=== PATIENT | female | born 1945 | race Caucasian/White ===

== ENCOUNTER 2020-02-22 07:32 | Outpatient (REF) | payer MEDICARE, BC, SELFPAY ==
[2020-02-22 11:07] LABS: MANUAL DIFF FLAG NO
[2020-02-22 11:24] LABS: Basophils Absolute Auto 0.1 X10*3/uL (0.0-0.2); Basophils Percent Auto 1.1 % (0-2); Eosinophils Absolute Auto 0.6 X10*3/uL (0.0-0.4); Eosinophils Percent Auto 7.6 % (0-4); Hematocrit 39.9 % (37-47); Hemoglobin 13.5 g/dl (12.0-16.0); Imm Gran Abs Auto 0.03 X10*3/uL (0.00-0.03); Imm Gran Pct Auto 0.4 % (0.0-0.4); Lymphocytes Absolute Auto 2.4 X10*3/uL (1.2-4.9); Lymphocytes Percent Auto 28.8 % (20-40); Mean Corpuscular HGB Conc 33.8 g/dl (31.0-35.0); Mean Corpuscular Hemoglobin 29.6 pg (27.0-33.0); Mean Corpuscular Volume 87.5 fL (80-98); Monocytes Absolute Auto 0.6 X10*3/uL (0.1-1.2); Monocytes Percent Auto 7.2 % (2-11); Neutrophils Absolute Auto 4.6 X10*3/uL (2.0-8.3); Neutrophils Percent Auto 54.9 % (45-73); Platelet Count 217 X10*3/uL (160-400); Red Blood Count 4.56 X10*6/uL (4.20-5.50); Red Cell Distribution Width 13.2 % (11.0-16.0); White Blood Count 8.4 X10*3/uL (4.8-10.8)
[2020-02-22 11:39] LABS: Alanine Aminotransferase 24 U/L (0-31); Albumin Level 4.4 g/dL (3.5-5.0); Alkaline Phosphatase 68 U/L (39-117); Anion Gap 13 (12-20); Aspartate Amino Transferase 21 U/L (5-31); Bilirubin Total 0.3 mg/dL (0.0-1.0); Blood Urea Nitrogen 21 mg/dL (9-16); Calcium 10.3 mg/dL (8.4-10.2); Carbon Dioxide 31 mmol/L (22-29); Chloride 101 mmol/L (96-108); Cholesterol 177 mg/dL; Estimated Glomerular Filt Rate 48; Glucose Fasting 217 mg/dL (60-99); HDL Cholesterol 65 mg/dL; LDL Cholesterol Calculated 87 mg/dl; Potassium 4.1 mmol/l (3.3-5.1); Sodium 141 mmol/L (135-145); Total Protein 7.3 g/dL (6.5-8.0); Triglycerides 129 mg/dL
[2020-02-22 11:50] LABS: Glucose Urine UA NEG (NEG); Leukocyte Esterase Urine 1+ (NEG); Nitrite Urine NEG (NEG); PH 5.5 (5.0-8.0); Urine Blood NEG (NEG); Urine Ketones NEG (NEG); Urine Protein NEG (NEG-TRACE)
[2020-02-22 11:52] LABS: TSH reflex Free T4 2.02 mIU/mL (0.32-4.0)
[2020-02-22 11:53] LABS: Appearance Urine CLEAR; Color Urine YELLOW
[2020-02-22 12:08] LABS: Creatinine Urine 72.59 mg/dL; Microalbum/Creatinine Ratio Ur 13.7 ug/mg cr
[2020-02-22 12:17] LABS: Bacteria Urine TRACE /LPF; RBC Urine 0 /HPF (0); Squamous Epithelial Cell Urine 1+ /LPF
== END 2020-02-22 07:33 | disposition home or self-care (01) ==
LOC: HO.HMGCLDS 07:32
PROVIDERS: PCP Internal Medicine; Visit Provider Internal Medicine
DX: E11.22 Type 2 diabetes mellitus with diabetic chronic kidney disease (principal); I12.9 Hypertensive chronic kidney disease with stage 1 through stage 4 chronic kidney disease, or unspecified chronic kidney disease; N18.30 Chronic kidney disease, stage 3 unspecified; E78.00 Pure hypercholesterolemia, unspecified; R79.89 Other specified abnormal findings of blood chemistry
CPT/HCPCS: 36415; 80053; 80061; 81001; 82043; 82306; 84443; 85025; 87086

== ENCOUNTER → 2020-03-07 11:47 | Outpatient (BNVA) | payer MEDICARE, BC, SELFPAY | PROVIDERS: PCP Internal Medicine; Visit Provider Nurse Practitioner Gerontology | DX: E11.22 Type 2 diabetes mellitus with diabetic chronic kidney disease (principal); I12.9 Hypertensive chronic kidney disease with stage 1 through stage 4 chronic kidney disease, or unspecified chronic kidney disease; N18.30 Chronic kidney disease, stage 3 unspecified; Z79.4 Long term (current) use of insulin; E78.5 Hyperlipidemia, unspecified | CPT/HCPCS: 99212 ==

== ENCOUNTER 2020-05-23 07:18 | Outpatient (REF) | payer MEDICARE, BC, SELFPAY ==
[2020-05-23 11:16] LABS: MANUAL DIFF FLAG NO
[2020-05-23 11:21] LABS: Basophils Absolute Auto 0.1 X10*3/uL (0.0-0.2); Basophils Percent Auto 0.9 % (0-2); Eosinophils Absolute Auto 0.5 X10*3/uL (0.0-0.4); Eosinophils Percent Auto 6.1 % (0-4); Hematocrit 38.9 % (37-47); Hemoglobin 13.3 g/dl (12.0-16.0); Imm Gran Abs Auto 0.02 X10*3/uL (0.00-0.03); Imm Gran Pct Auto 0.3 % (0.0-0.4); Lymphocytes Absolute Auto 2.4 X10*3/uL (1.2-4.9); Lymphocytes Percent Auto 30.9 % (20-40); Mean Corpuscular HGB Conc 34.2 g/dl (31.0-35.0); Mean Corpuscular Hemoglobin 29.8 pg (27.0-33.0); Mean Platelet Volume 11.3 fL (9.4-12.3); Monocytes Absolute Auto 0.5 X10*3/uL (0.1-1.2); Monocytes Percent Auto 6.7 % (2-11); Neutrophils Absolute Auto 4.3 X10*3/uL (2.0-8.3); Neutrophils Percent Auto 55.1 % (45-73); Platelet Count 215 X10*3/uL (160-400); Red Blood Count 4.47 X10*6/uL (4.20-5.50); Red Cell Distribution Width 13.1 % (11.0-16.0); White Blood Count 7.7 X10*3/uL (4.8-10.8)
[2020-05-23 11:27] LABS: Glucose Urine UA NEG (NEG); Leukocyte Esterase Urine 2+ (NEG); Nitrite Urine NEG (NEG); Urine Blood NEG (NEG); Urine Ketones NEG (NEG); Urine Protein NEG (NEG-TRACE)
[2020-05-23 11:28] LABS: Appearance Urine HAZY; Color Urine YELLOW
[2020-05-23 11:41] LABS: Bacteria Urine 1+ /LPF; RBC Urine 0-2 /HPF (0); Squamous Epithelial Cell Urine 2+ /LPF
[2020-05-23 11:51] LABS: Alanine Aminotransferase 28 U/L (0-31); Albumin Level 4.4 g/dL (3.5-5.0); Alkaline Phosphatase 72 U/L (39-117); Anion Gap 14 (12-20); Aspartate Amino Transferase 22 U/L (5-31); Bilirubin Total 0.3 mg/dL (0.0-1.0); Blood Urea Nitrogen 15 mg/dL (9-16); Calcium 9.7 mg/dL (8.4-10.2); Carbon Dioxide 29 mmol/L (22-29); Chloride 103 mmol/L (96-108); Cholesterol 171 mg/dL; Estimated Glomerular Filt Rate 47; Glucose Fasting 181 mg/dL (60-99); HDL Cholesterol 59 mg/dL; LDL Cholesterol Calculated 83 mg/dl; Potassium 3.7 mmol/l (3.3-5.1); Sodium 142 mmol/L (135-145); Total Protein 7.1 g/dL (6.5-8.0); Triglycerides 148 mg/dL
[2020-05-23 11:54] LABS: TSH reflex Free T4 3.07 mIU/mL (0.32-4.0)
[2020-05-23 12:06] LABS: Microalbum/Creatinine Ratio Ur 20.7 ug/mg cr
== END 2020-05-23 07:19 | disposition home or self-care (01) ==
LOC: HO.HMGCLDS 07:18
PROVIDERS: PCP Internal Medicine; Visit Provider Internal Medicine
DX: E11.22 Type 2 diabetes mellitus with diabetic chronic kidney disease (principal); I12.9 Hypertensive chronic kidney disease with stage 1 through stage 4 chronic kidney disease, or unspecified chronic kidney disease; N18.30 Chronic kidney disease, stage 3 unspecified; E78.00 Pure hypercholesterolemia, unspecified; E55.9 Vitamin D deficiency, unspecified
CPT/HCPCS: 36415; 80053; 80061; 81001; 82043; 82306; 84443; 85025; 87086

== ENCOUNTER → 2020-06-06 09:53 | Outpatient (BNVA) | payer MEDICARE, BC, SELFPAY | PROVIDERS: PCP Internal Medicine; Visit Provider Nurse Practitioner Gerontology | DX: Z13.89 Encounter for screening for other disorder (principal) | CPT/HCPCS: Q3014 ==

== ENCOUNTER 2020-08-18 07:10 | Outpatient (REF) | payer MEDICARE, BC, SELFPAY ==
[2020-08-18 11:40] LABS: MANUAL DIFF FLAG NO
[2020-08-18 11:47] LABS: Basophils Absolute Auto 0.1 X10*3/uL (0.0-0.2); Basophils Percent Auto 0.9 % (0-2); Eosinophils Absolute Auto 0.6 X10*3/uL (0.0-0.4); Eosinophils Percent Auto 6.5 % (0-4); Hematocrit 37.9 % (37-47); Hemoglobin 12.8 g/dl (12.0-16.0); Imm Gran Abs Auto 0.03 X10*3/uL (0.00-0.03); Imm Gran Pct Auto 0.4 % (0.0-0.4); Lymphocytes Absolute Auto 2.8 X10*3/uL (1.2-4.9); Lymphocytes Percent Auto 32.4 % (20-40); Mean Corpuscular HGB Conc 33.8 g/dl (31.0-35.0); Mean Corpuscular Hemoglobin 29.6 pg (27.0-33.0); Mean Corpuscular Volume 87.5 fL (80-98); Monocytes Absolute Auto 0.7 X10*3/uL (0.1-1.2); Monocytes Percent Auto 7.9 % (2-11); Neutrophils Absolute Auto 4.4 X10*3/uL (2.0-8.3); Neutrophils Percent Auto 51.9 % (45-73); Platelet Count 218 X10*3/uL (160-400); Red Blood Count 4.33 X10*6/uL (4.20-5.50); Red Cell Distribution Width 13.5 % (11.0-16.0); White Blood Count 8.5 X10*3/uL (4.8-10.8)
[2020-08-18 11:49] LABS: Glucose Urine UA NEG (NEG); Leukocyte Esterase Urine 2+ (NEG); Nitrite Urine NEG (NEG); UACC Culture Trigger YES; Urine Blood NEG (NEG); Urine Ketones NEG (NEG); Urine Protein NEG (NEG-TRACE)
[2020-08-18 11:55] LABS: Appearance Urine CLEAR; Color Urine YELLOW
[2020-08-18 12:10] LABS: Bacteria Urine TRACE /LPF; RBC Urine 0-2 /HPF (0); Squamous Epithelial Cell Urine 1+ /LPF
[2020-08-18 12:13] LABS: Alanine Aminotransferase 27 U/L (0-31); Albumin Level 4.3 g/dL (3.5-5.0); Alkaline Phosphatase 75 U/L (39-117); Anion Gap 14 (12-20); Aspartate Amino Transferase 21 U/L (5-31); Bilirubin Total 0.5 mg/dL (0.0-1.0); Blood Urea Nitrogen 15 mg/dL (9-16); Calcium 9.9 mg/dL (8.4-10.2); Carbon Dioxide 29 mmol/L (22-29); Chloride 104 mmol/L (96-108); Cholesterol 187 mg/dL; Estimated Glomerular Filt Rate 49; Glucose Fasting 158 mg/dL (60-99); HDL Cholesterol 63 mg/dL; LDL Cholesterol Calculated 94 mg/dl; Potassium 4.1 mmol/L (3.3-5.1); Sodium 143 mmol/L (135-145); Total Protein 7.2 g/dL (6.5-8.0); Triglycerides 152 mg/dL
[2020-08-18 12:22] LABS: Creatinine Urine 69.57 mg/dL; Microalbum/Creatinine Ratio Ur 21.5 ug/mg cr; TSH reflex Free T4 2.55 uIU/mL (0.32-4.0); Vitamin D 25-OH Total 44.6 ng/mL (>30)
== END 2020-08-18 07:11 | disposition home or self-care (01) ==
LOC: HO.HMGCLDS 07:10
PROVIDERS: PCP Internal Medicine; Visit Provider Internal Medicine
DX: I12.9 Hypertensive chronic kidney disease with stage 1 through stage 4 chronic kidney disease, or unspecified chronic kidney disease (principal); E11.22 Type 2 diabetes mellitus with diabetic chronic kidney disease; N18.32 Chronic kidney disease, stage 3b; E78.00 Pure hypercholesterolemia, unspecified; Z79.4 Long term (current) use of insulin; E55.9 Vitamin D deficiency, unspecified
CPT/HCPCS: 36415; 80053; 80061; 81001; 81003; 82043; 82306; 84443; 85025; 87086

== ENCOUNTER → 2020-09-12 11:24 | Outpatient (BNVA) | payer MEDICARE, BC, SELFPAY | PROVIDERS: PCP Internal Medicine; Visit Provider Nurse Practitioner Gerontology | DX: E11.21 Type 2 diabetes mellitus with diabetic nephropathy (principal); E11.22 Type 2 diabetes mellitus with diabetic chronic kidney disease; I12.9 Hypertensive chronic kidney disease with stage 1 through stage 4 chronic kidney disease, or unspecified chronic kidney disease; N18.32 Chronic kidney disease, stage 3b; Z79.4 Long term (current) use of insulin; E78.5 Hyperlipidemia, unspecified | CPT/HCPCS: 82947; 99212 ==

== ENCOUNTER → 2020-09-27 08:27 | Outpatient (BNVA) | payer MEDICARE, BC, SELFPAY | PROVIDERS: PCP Internal Medicine; Visit Provider Nurse Practitioner Gerontology | CPT/HCPCS: Q3014 ==

== ENCOUNTER 2020-11-14 07:30 | Outpatient (REF) | payer MEDICARE, BC, SELFPAY ==
[2020-11-14 11:09] LABS: MANUAL DIFF FLAG NO
[2020-11-14 11:15] LABS: Basophils Absolute Auto 0.1 X10*3/uL (0.0-0.2); Basophils Percent Auto 0.8 % (0-2); Eosinophils Absolute Auto 0.5 X10*3/uL (0.0-0.4); Eosinophils Percent Auto 6.3 % (0-4); Hematocrit 38.1 % (37-47); Hemoglobin 12.8 g/dl (12.0-16.0); Imm Gran Abs Auto 0.03 X10*3/uL (0.00-0.03); Imm Gran Pct Auto 0.4 % (0.0-0.4); Lymphocytes Absolute Auto 2.2 X10*3/uL (1.2-4.9); Lymphocytes Percent Auto 28.1 % (20-40); Mean Corpuscular HGB Conc 33.6 g/dl (31.0-35.0); Mean Corpuscular Hemoglobin 29.2 pg (27.0-33.0); Mean Corpuscular Volume 86.8 fL (80-98); Mean Platelet Volume 10.8 fL (9.4-12.3); Monocytes Absolute Auto 0.6 X10*3/uL (0.1-1.2); Monocytes Percent Auto 7.4 % (2-11); Neutrophils Absolute Auto 4.5 X10*3/uL (2.0-8.3); Platelet Count 225 X10*3/uL (160-400); Red Blood Count 4.39 X10*6/uL (4.20-5.50); Red Cell Distribution Width 13.5 % (11.0-16.0)
[2020-11-14 11:18] LABS: Glucose Urine UA NEG (NEG); Leukocyte Esterase Urine 1+ (NEG); Nitrite Urine NEG (NEG); Specific Gravity - Urine 1.015 (1.005-1.025); UACC Culture Trigger YES; Urine Blood NEG (NEG); Urine Ketones NEG (NEG); Urine Protein NEG (NEG-TRACE)
[2020-11-14 11:23] LABS: Appearance Urine HAZY; Color Urine YELLOW
[2020-11-14 11:28] LABS: Estimated Average Glucose 186 mg/dL; Hemoglobin A1c % 8.1 %
[2020-11-14 11:42] LABS: Creatinine Urine 71.08 mg/dL; Microalbum/Creatinine Ratio Ur 15.4 ug/mg cr
[2020-11-14 11:45] LABS: Alanine Aminotransferase 26 U/L (0-31); Albumin Level 4.4 g/dL (3.5-5.0); Alkaline Phosphatase 76 U/L (39-117); Anion Gap 15 (12-20); Aspartate Amino Transferase 23 U/L (5-31); Bilirubin Total 0.5 mg/dL (0.0-1.0); Blood Urea Nitrogen 14 mg/dL (9-16); Calcium 10.1 mg/dL (8.4-10.2); Carbon Dioxide 27 mmol/L (22-29); Chloride 104 mmol/L (96-108); Cholesterol 183 mg/dL; Estimated Glomerular Filt Rate 46; Glucose Fasting 175 mg/dL (60-99); HDL Cholesterol 66 mg/dL; LDL Cholesterol Calculated 90 mg/dl; Potassium 3.9 mmol/L (3.3-5.1); Sodium 142 mmol/L (135-145); Total Protein 7.4 g/dL (6.5-8.0); Triglycerides 135 mg/dL
[2020-11-14 11:46] LABS: Bacteria Urine TRACE /LPF; RBC Urine 0 /HPF (0); Squamous Epithelial Cell Urine 2+ /LPF
[2020-11-14 11:53] LABS: TSH reflex Free T4 1.71 uIU/mL (0.32-4.0); Vitamin D 25-OH Total 49.8 ng/mL (>30)
== END 2020-11-14 07:31 | disposition home or self-care (01) ==
LOC: HO.HMGCLDS 07:30
PROVIDERS: PCP Internal Medicine; Visit Provider Internal Medicine
DX: I12.9 Hypertensive chronic kidney disease with stage 1 through stage 4 chronic kidney disease, or unspecified chronic kidney disease (principal); N18.32 Chronic kidney disease, stage 3b; E11.22 Type 2 diabetes mellitus with diabetic chronic kidney disease; E11.21 Type 2 diabetes mellitus with diabetic nephropathy; E78.00 Pure hypercholesterolemia, unspecified; R79.89 Other specified abnormal findings of blood chemistry; E55.9 Vitamin D deficiency, unspecified; Z79.4 Long term (current) use of insulin
CPT/HCPCS: 36415; 80053; 80061; 81001; 81003; 82043; 82306; 83036; 84443; 85025; 87086

== ENCOUNTER → 2020-12-06 08:45 | Outpatient (BNVA) | payer MEDICARE, BC, SELFPAY | PROVIDERS: PCP Internal Medicine; Visit Provider Nurse Practitioner Gerontology | DX: E11.21 Type 2 diabetes mellitus with diabetic nephropathy (principal); E11.65 Type 2 diabetes mellitus with hyperglycemia; E11.22 Type 2 diabetes mellitus with diabetic chronic kidney disease; I12.9 Hypertensive chronic kidney disease with stage 1 through stage 4 chronic kidney disease, or unspecified chronic kidney disease; N18.32 Chronic kidney disease, stage 3b; E78.5 Hyperlipidemia, unspecified; Z79.4 Long term (current) use of insulin | CPT/HCPCS: 82947; 99212 ==

== ENCOUNTER → 2021-04-21 09:21 | Outpatient (BNVA) | payer MEDICARE, BC, SELFPAY | PROVIDERS: PCP Internal Medicine; Visit Provider Nurse Practitioner Gerontology | DX: E11.21 Type 2 diabetes mellitus with diabetic nephropathy (principal); E11.65 Type 2 diabetes mellitus with hyperglycemia; E11.22 Type 2 diabetes mellitus with diabetic chronic kidney disease; I12.9 Hypertensive chronic kidney disease with stage 1 through stage 4 chronic kidney disease, or unspecified chronic kidney disease; N18.32 Chronic kidney disease, stage 3b; E78.5 Hyperlipidemia, unspecified; Z79.4 Long term (current) use of insulin | CPT/HCPCS: 82947; 99212 ==

== ENCOUNTER 2021-05-26 07:34 | Outpatient (REF) | payer MEDICARE, BC, SELFPAY ==
[2021-05-26 11:18] LABS: MANUAL DIFF FLAG NO
[2021-05-26 11:36] LABS: Basophils Absolute Auto 0.1 X10*3/uL (0.0-0.2); Basophils Percent Auto 0.7 % (0-2); Eosinophils Absolute Auto 0.4 X10*3/uL (0.0-0.4); Eosinophils Percent Auto 4.5 % (0-4); Estimated Average Glucose 154 mg/dL; Hematocrit 39.7 % (37.0-47.0); Hemoglobin 13.2 g/dl (12.0-16.0); Imm Gran Abs Auto 0.03 X10*3/uL (0.00-0.03); Imm Gran Pct Auto 0.3 % (0.0-0.4); Lymphocytes Percent Auto 22.4 % (20-40); Mean Corpuscular HGB Conc 33.2 g/dl (31.0-35.0); Mean Corpuscular Hemoglobin 28.9 pg (27.0-33.0); Mean Corpuscular Volume 86.9 fL (80.0-98.0); Mean Platelet Volume 10.8 fL (9.4-12.3); Monocytes Absolute Auto 0.6 X10*3/uL (0.1-1.2); Monocytes Percent Auto 6.3 % (2-11); Neutrophils Absolute Auto 5.8 x10*3/uL (2.0-8.3); Neutrophils Percent Auto 65.8 % (45-73); Platelet Count 259 X10*3/uL (160-400); Red Blood Count 4.57 X10*6/uL (4.20-5.50); Red Cell Distribution Width 13.2 % (11.0-16.0); White Blood Count 8.8 X10*3/uL (4.8-10.8)
[2021-05-26 11:57] LABS: Creatinine Urine 91.31 mg/dL; Microalbum/Creatinine Ratio Ur 16.4 ug/mg cr
[2021-05-26 12:10] LABS: Alanine Aminotransferase 21 U/L (0-31); Albumin Level 4.4 g/dL (3.5-5.0); Alkaline Phosphatase 80 U/L (39-117); Anion Gap 15 (12-20); Aspartate Amino Transferase 19 U/L (5-31); Bilirubin Total 0.3 mg/dL (0.0-1.0); Blood Urea Nitrogen 26 mg/dL (9-16); Calcium 10.4 mg/dL (8.4-10.2); Carbon Dioxide 26 mmol/L (22-29); Chloride 102 mmol/L (96-108); Cholesterol 176 mg/dL; Estimated Glomerular Filt Rate 33; Glucose Fasting 202 mg/dL (60-99); HDL Cholesterol 60 mg/dL; LDL Cholesterol Calculated 91 mg/dl; Potassium 4.3 mmol/L (3.3-5.1); Sodium 139 mmol/L (135-145); Total Protein 7.6 g/dL (6.5-8.0); Triglycerides 127 mg/dL
[2021-05-26 12:34] LABS: TSH reflex Free T4 2.46 uIU/mL (0.32-4.0); Vitamin D 25-OH Total 53.4 ng/mL (>30)
[2021-05-26 14:58] LABS: Appearance Urine CLEAR; Color Urine YELLOW; Glucose Urine UA NEG (NEG); Leukocyte Esterase Urine TRACE (NEG); Nitrite Urine NEG (NEG); Specific Gravity - Urine 1.015 (1.005-1.025); UACC Culture Trigger YES; Urine Blood NEG (NEG); Urine Ketones NEG (NEG); Urine Protein NEG (NEG-TRACE)
[2021-05-26 15:09] LABS: Bacteria Urine TRACE /LPF; RBC Urine 0 /HPF (0); Squamous Epithelial Cell Urine 1+ /LPF; WBC Urine 0-2 /HPF (0-4)
[2021-05-27 13:37] LABS: LDL Cholesterol Direct 86 mg/dL (<100)
== END 2021-05-26 07:35 | disposition home or self-care (01) ==
LOC: HO.HMGCLDS 07:34
PROVIDERS: Nurse Practitioner Gerontology; Visit Provider Internal Medicine
DX: E55.9 Vitamin D deficiency, unspecified (principal); E11.9 Type 2 diabetes mellitus without complications; I10 Essential (primary) hypertension; E78.00 Pure hypercholesterolemia, unspecified; E11.65 Type 2 diabetes mellitus with hyperglycemia
CPT/HCPCS: 36415; 80053; 80061; 81001; 81003; 82043; 82306; 83036; 83721; 84443; 85025; 87086

== ENCOUNTER → 2021-06-01 08:13 | Outpatient (BNVA) | payer MEDICARE, BC, SELFPAY | PROVIDERS: PCP Internal Medicine; Visit Provider Internal Medicine | DX: Z13.89 Encounter for screening for other disorder (principal) | CPT/HCPCS: 99202 ==

== ENCOUNTER 2021-06-01 08:48 | Emergency (ER) | payer MEDICARE, BC, SELFPAY ==
[2021-06-01 08:53] VITALS: BP 201/98; PULSE 90; RESP 18; TEMP 36.5; O2SAT 100; BMI 24.1
--- NOTE | 2021-06-01 09:18 | ECG_ITS ---
Test Reason : HYPERTENSION Blood Pressure : / mmHG Vent. Rate : 075 BPM Atrial Rate : 075 BPM P-R Int : 158 ms QRS Dur : 080 ms QT Int : 392 ms P-R-T Axes : 062 -15 041 degrees QTc Int : 437 ms Baseline wander Normal sinus rhythm Minimal voltage criteria for LVH, may be normal variant ( R in aVL ) Nonspecific ST and T wave abnormality Abnormal ECG No previous ECGs available Referred By: Eugenie Garzon Electronically Signed By:BLAS NAVA MD
[2021-06-01 09:34] VITALS: BP 149/60; PULSE 74
--- NOTE | 2021-06-01 09:37 | PC.NURSE ---
medication held at this time
--- NOTE | 2021-06-01 09:39 | ED_ITS ---
HPI - General Adult General Chief complaint: Recheck/Abnormal Lab/Rx Stated complaint: high bp Time Seen by Provider: 06/01/21 09:06 Source: patient Mode of arrival: ambulatory Limitations: no limitations History of Present Illness HPI narrative: Patient is a 76-year-old female with a past medical history significant for vitamin-D deficiency, type 2 diabetes, hypertension, chronic kidney disease stage 3, hyperlipidemia, anxiety. She presented to the emergency department, was referred from endocrinology office for evaluation of asymptomatic hypertension. Reportedly, patient has been referred to endocrinology for further evaluation for causes of uncontrolled hypertension. Patient reports that typically her blood pressure systolicly ranges from 140 to 180s. She does also endorse significant anxiety around doctor appointments and typically stresses about this for days prior. Currently her hypertension, diabetes, and chronic kidney disease are being managed by her primary care provider. She took her antihypertensive this morning including amlodipine, HCTZ/losartan, nebivolol. She denies current or recent persistent headaches, dizziness/lightheadedness, vision changes, neck pain, chest pain, palpitations, shortness of breath, dyspnea on exertion, pedal edema. She does have an appointment scheduled tomorrow with her primary care provider. Related Data Home Medications Medication Instructions Recorded Confirmed lancets 28 gauge #100 ea 03/07/20 06/01/21 blood-glucose meter (FreeStyle 02/09/21 06/01/21 Lite Meter) Previous Rx's Medication Instructions Recorded atorvastatin 40 mg tablet 40 mg PO BEDTIME 90 Days #90 tab 08/29/20 cholecalciferol (vitamin D3) 50 50 mcg PO DAILY 90 Days #90 cap 08/29/20 mcg (2,000 unit) capsule losartan 100 1 tab PO DAILY 90 Days #90 tab 08/29/20 mg-hydrochlorothiazide 25 mg tablet nebivolol 5 mg tablet (Bystolic) 5 mg PO DAILY 90 Days #90 cap 08/29/20 pen needle, diabetic 32 gauge x #150 ea 09/20/20 insulin aspart U-100 100 unit/mL 10 - 12 unit (0.1 - 0.12 mL) 12/06/20 (3 mL) subcutaneous pen (Novolog SUBCUT TID 30 Days #15 ml Flexpen U-100 Insulin aspart) insulin glargine 100 unit/mL (3 36 unit (0.36 mL) SUBCUT QPM 30 12/06/20 mL) subcutaneous pen (Lantus Days #15 ml Solostar U-100 Insulin) lancets 28 gauge (FreeStyle #1.5 box 02/07/21 Lancets) blood sugar diagnostic (FreeStyle #150 ea 02/09/21 Lite Strips) amlodipine 5 mg tablet 5 mg PO DAILY #90 tab 03/13/21 metformin 500 mg tablet 500 mg PO BID #180 tab 04/11/21 sitagliptin 100 mg tablet (Januvia) 100 mg PO DAILY #30 tab 04/21/21 Allergies Allergy/AdvReac Type Severity Reaction Status Date / Time nitrofurantoin [Macrobid] Allergy Unknown hives Verified 06/01/21 08:53 Review of Systems Verdana 4l Review of Systems: Verdana 4d [place] 4Bd Constitutional: [place] 4d No weight loss, fever, chills, weakness or fatigue. [place] 4Bd HEENT: [place] 4d No visual loss, blurred vision, double vision or yellow sclera. No hearing loss, sneezing, congestion, runny nose or sore throat. ArialArial 4Bd Skin: No rash or itching. Cardiovascular: No chest pain, chest pressure or chest discomfort. No palpitations or pedal edema. Respiratory: No shortness of breath, cough or sputum production. Gastrointestinal: No anorexia, nausea, vomiting or diarrhea. No abdominal pain or blood in stool. Genitourinary: No burning micturition. No urinary frequency or incontinence. Neurologic: No headache, dizziness, syncope, unilateral weakness, ataxia, numbness or tingling in the extremities. Musculoskeletal: No muscle pain, back pain, joint pain or stiffness. Hematologic: No bleeding or bruising. Lymphatics: No enlarged lymph nodes. Psychiatric: + anxiety. No depression. Endocrine: No reports of sweating. No cold or heat intolerance. No polyuria or polydipsia. [facility] Past Medical History Attestation statement: The following information was validated with the patient. Source: old records reviewed Medical History Anxiety Benign essential hypertension Chronic kidney disease (CKD), stage III (moderate) Diabetes type 2, uncontrolled Elevated LFTs HTN (hypertension) Hyperlipidemia LDL goal <100 Hypertensive urgency Left low back pain Pure hypercholesterolemia Type 2 diabetes mellitus with chronic kidney disease Vitamin D deficiency Vitamin D deficiency Surgical History History of bladder surgery History of right oophorectomy History of total abdominal hysterectomy and bilateral salpingo-oophorectomy History of tubal ligation Family History Family History Father Past heart attack Mother Breast cancer Hypertension Cardiovascular disease Social History Social History Household Members: Spouse Housing: House Alcohol intake: never Patient Tobacco Use Status: Former Tobacco user Second Hand Smoke Exposure: Yes service: No Current occupational status: retired Physical Exam Verdana 4l Vital Signs: Verdana 4d Verdana 4d Vital Signs: Verdana 4d Verd[place] 4Bd Last Vital Signs Verdana 4d Degreasing Solution Mixer New 4d Degreasing Solution Mixer New 4d Temp 97.7 F 06/01/21 08:53 Degreasing Solution Mixer New 4d Pulse 74 06/01/21 09:34 Degreasing Solution Mixer New 4d Resp 18 06/01/21 08:53 BP 149/60 H 06/01/21 09:34 Pulse Ox 100 06/01/21 08:53 BMI result Body Mass Index 24.1 Vital signs have been reviewed as normal and appeared to be correct. Blood pressure initially elevated upon arrival to the emergency department, 201/98, which decreased to 149/60 without intervention. Heart rate normal.? Respiration rate normal. Temperature normal.? Oxygen saturation normal. Appearance: Alert.?Oriented to person, place and time. No acute distress.?Normal affect. Eyes: Pupils equal, round and reactive to light.? ENT: Pharynx normal.?? Neck: Normal inspection.? Neck supple.?? CVS: + hypertension. Heart sounds normal. Normal heart rate and rhythm.? Pulses normal.?? Respiratory: No respiratory distress.? Lung sounds clear to auscultation bilaterally?? Abdomen: Soft and non-tender. Normoactive bowel sounds. No pulsatile mass.?? Skin: Skin warm and dry.? Normal skin color.? Normal skin turgor.?? Extremities: No lower extremity edema.? Neuro: Moves all extremities spontaneously. Sensation intact bilaterally. No focal neuro deficits. Course Course Course Narrative: Patient is a 76-year-old female being evaluated in the emergency department for hypertension. Chronic hypertension, had recent outpatient labs 05/26/2021 revealing BUN 26 and creatinine 1.52 which are increased from baseline, no proteinuria. Given that she is currently asymptomatic, do not suspect ACS. Her current blood pressure not consistent with hypertensive urgency, hypertension improved without intervention at this time therefore we will withhold any additional treatments. Suspect that her anxiety may contribute to the elevated readings being obtained in the doctor's office. Will obtain CBC, BMP to re- evaluate kidney function, troponin, EKG. Disposition pending results. Reevaluation(s) Reevaluation #1: CBC is unremarkable, renal function has improved BUN 20, creatinine 1.2, no electrolyte abnormalities, troponin is negative, EKG unremarkable for any acute infarct or ischemia. Blood pressure remains well controlled 146/67 continues to be asymptomatic, and there are no signs of target organ damage. Will discharge patient home for follow-up with PCP as scheduled tomorrow, discussed return precautions, questions answered, patient agrees with plan of care Time: 10:31 Medical Decision Making Medical Records Medical records reviewed: Yes I reviewed the patient's medical records. Lab Data Lab results reviewed: Yes I reviewed the patient's lab results. Result diagrams: 06/01/21 10:02 06/01/21 10:02 Labs: Lab Results 06/01/21 06/01/21 06/01/21 Range/Units 10:02 10:02 10:02 WBC 8.9 (4.8-10.8) X10*3/uL RBC 4.53 (4.20-5.50) X10*6/uL Hgb 13.4 (12.0-16.0) g/dl Hct 38.7 (37.0-47.0) % MCV 85.4 (80.0-98.0) fL MCH 29.6 (27.0-33.0) pg MCHC 34.6 (31.0-35.0) g/dl RDW 13.3 (11.0-16.0) % Plt Count 253 (160-400) X10*3/uL MPV 9.8 (9.4-12.3) fL Immature Gran % (Auto) 0.6 H (0.0-0.4) % Neut % (Auto) 70.1 (45-73) % Lymph % (Auto) 17.7 L (20-40) % [place] % (Auto) 6.9 (2-11) % Eos % (Auto) 3.9 (0-4) % Baso % (Auto) 0.8 (0-2) % Lymph # (Auto) 1.6 (1.2-4.9) X10*3/uL [place] # (Auto) 0.6 (0.1-1.2) X10*3/uL Eos # (Auto) 0.4 (0.0-0.4) X10*3/uL Baso # (Auto) 0.1 (0.0-0.2) X10*3/uL Abs Immat Gran (auto) 0.05 H (0.00-0.03) X10*3/uL Absolute Neuts (auto) 6.3 (2.0-8.3) x10*3/uL Absolute Nucleated RBC 0.000 (0.0-0.012) X10*3/uL Nucleated RBC % (auto) 0.0 (0.0-0.2) /100WBC Sodium 139 (135-145) mmol/L Potassium 3.5 (3.3-5.1) mmol/L Chloride 102 (96-108) mmol/L Carbon Dioxide 29 (22-29) mmol/L Anion Gap 12 (12-20) BUN 20 H (9-16) mg/dL Creatinine 1.20 (0.5-1.4) mg/dL Estim Creat Clear Calc 35.9 Estimated GFR 44 Random Glucose 124 H (60-115) mg/dL Troponin I High Sens 3.5 (<3.5-17.0) ng/L ECG Data Attestation: I personally reviewed and interpreted this ECG as follows: Prior ECG tracings: not available for review Interpretation: Rate: 75 Rhythm:? Normal sinus rhythm [place]:? Normal Normal P waves.? Normal TRANG.?? Normal QRS complex.?? qTC: 437 prior studies:?none The study has been interpreted contemporaneously by me. Discharge Plan Discharge Clinical Impression: HTN (hypertension) Patient Disposition: Home, Self-Care Instructions: Hypertension (ED) Additional Instructions: You were evaluated in the emergency department today for concerns about your hypertension. Blood pressure has remained controlled around 140/60s. Please follow-up with your primary care provider as scheduled. You may return to the emergency department with any worsening symptoms or concerns Prescriptions: No Action (DME) pen needle, diabetic 32 gauge x 5/32 needle See Rx Instructions ea subcut .MEDSUPPLY Qty: 150 10RF Rx Instructions: 4 times a day (DME) lancets [FreeStyle Lancets] 28 gauge misc See Rx Instructions .Route Qty: 1.5 11RF Rx Instructions: As directed four times a day (DME) blood-glucose meter [FreeStyle Lite Meter] Kit See Rx Instructions .Route 0RF Rx Instructions: As directed to test blood sugar four times a day (DME) FreeStyle Lite Strips Strip See Rx Instructions .Route Qty: 150 11RF Rx Instructions: As directed to test blood sugar four times a day amlodipine 5 mg tablet 5 mg PO DAILY Qty: 90 1RF metformin 500 mg tablet 500 mg PO BID Qty: 180 3RF atorvastatin 40 mg tablet 40 mg PO BEDTIME 90 Days Qty: 90 3RF losartan-hydrochlorothiazide 100-25 mg tablet 1 tab PO DAILY 90 Days Qty: 90 3RF Bystolic 5 mg tablet 5 mg PO DAILY 90 Days Qty: 90 3RF cholecalciferol (vitamin D3) 50 mcg (2,000 unit) capsule 50 mcg PO DAILY 90 Days Qty: 90 3RF (DME) lancets 28 gauge misc See Rx Instructions ea topical QID Qty: 100 0RF Rx Instructions: As directed Januvia 100 mg tablet 100 mg PO DAILY Qty: 30 4RF Lantus Solostar U-100 Insulin 100 unit/mL (3 mL) insulin pen 36 unit subcut QPM 30 Days Qty: 15 4RF insulin aspart U-100 [Novolog Flexpen U-100 Insulin] 100 unit/mL (3 mL) insulin pen 10 - 12 unit subcut TID 30 Days Qty: 15 4RF Discharge Date/Time: 06/01/21 10:43
[2021-06-01 10:06] LABS: MANUAL DIFF FLAG NO
[2021-06-01 10:07] LABS: Basophils Absolute Auto 0.1 X10*3/uL (0.0-0.2); Basophils Percent Auto 0.8 % (0-2); Eosinophils Absolute Auto 0.4 X10*3/uL (0.0-0.4); Eosinophils Percent Auto 3.9 % (0-4); Hematocrit 38.7 % (37.0-47.0); Hemoglobin 13.4 g/dl (12.0-16.0); Imm Gran Abs Auto 0.05 X10*3/uL (0.00-0.03); Imm Gran Pct Auto 0.6 % (0.0-0.4); Lymphocytes Absolute Auto 1.6 X10*3/uL (1.2-4.9); Lymphocytes Percent Auto 17.7 % (20-40); Mean Corpuscular HGB Conc 34.6 g/dl (31.0-35.0); Mean Corpuscular Hemoglobin 29.6 pg (27.0-33.0); Mean Corpuscular Volume 85.4 fL (80.0-98.0); Mean Platelet Volume 9.8 fL (9.4-12.3); Monocytes Absolute Auto 0.6 X10*3/uL (0.1-1.2); Monocytes Percent Auto 6.9 % (2-11); Neutrophils Absolute Auto 6.3 x10*3/uL (2.0-8.3); Neutrophils Percent Auto 70.1 % (45-73); Platelet Count 253 X10*3/uL (160-400); Red Blood Count 4.53 X10*6/uL (4.20-5.50); Red Cell Distribution Width 13.3 % (11.0-16.0); White Blood Count 8.9 X10*3/uL (4.8-10.8)
[2021-06-01 10:23] LABS: Anion Gap 12 (12-20); Blood Urea Nitrogen 20 mg/dL (9-16); Carbon Dioxide 29 mmol/L (22-29); Chloride 102 mmol/L (96-108); Creatinine Clr Calc Pharmacy 35.9; Estimated Glomerular Filt Rate 44; Glucose Random 124 mg/dL (60-115); Potassium 3.5 mmol/L (3.3-5.1); Sodium 139 mmol/L (135-145)
[2021-06-01 10:26] LABS: Troponin-I High Sensitivity 3.5 ng/L (<3.5-17.0)
[2021-06-01 10:34] LABS: Calcium 10.8 mg/dL (8.4-10.2)
[2021-06-01 10:38] VITALS: BP 145/67; PULSE 67
== END 2021-06-01 10:43 | disposition home or self-care (01) ==
PROVIDERS: Nurse Practitioner Family; Emergency Provider Emergency Medicine; PCP Internal Medicine
DX: I12.9 Hypertensive chronic kidney disease with stage 1 through stage 4 chronic kidney disease, or unspecified chronic kidney disease (principal); E11.22 Type 2 diabetes mellitus with diabetic chronic kidney disease; N18.30 Chronic kidney disease, stage 3 unspecified; E78.5 Hyperlipidemia, unspecified; Z79.4 Long term (current) use of insulin; Z79.02 Long term (current) use of antithrombotics/antiplatelets
CPT/HCPCS: 36415; 80048; 84484; 85025; 93005; 99202; 99283

== ENCOUNTER 2021-06-10 07:20 | Outpatient (REF) | payer MEDICARE, BC, SELFPAY ==
[2021-06-10 09:04] LABS: Anion Gap 14 (12-20); Blood Urea Nitrogen 19 mg/dL (9-16); Calcium 10.6 mg/dL (8.4-10.2); Carbon Dioxide 30 mmol/L (22-29); Chloride 102 mmol/L (96-108); Estimated Glomerular Filt Rate 40; Glucose Random 180 mg/dL (60-115); Potassium 4.2 mmol/L (3.3-5.1); Sodium 142 mmol/L (135-145)
[2021-06-10 09:18] LABS: Vitamin D 25-OH Total 58.9 ng/mL (>30)
[2021-06-10 09:20] LABS: Cortisol Random 14.4 ug/dL
[2021-06-10 09:26] LABS: Appearance Urine CLEAR; Color Urine YELLOW; Glucose Urine UA NEG (NEG); Leukocyte Esterase Urine 2+ (NEG); Nitrite Urine NEG (NEG); UACC Culture Trigger YES; Urine Blood NEG (NEG); Urine Ketones NEG (NEG); Urine Protein NEG (NEG-TRACE)
[2021-06-10 09:45] LABS: Bacteria Urine TRACE /LPF; RBC Urine 0-2 /HPF (0); Squamous Epithelial Cell Urine 1+ /LPF
[2021-06-16 11:07] LABS: Adrenocorticotropic Hormone 15 pg/mL (6-50)
[2021-06-17 11:26] LABS: Renin 1.83 ng/mL/h (0.25-5.82)
== END 2021-06-10 07:21 | disposition home or self-care (01) ==
LOC: HO.LAB 07:20
PROVIDERS: PCP Internal Medicine; Visit Provider Internal Medicine
DX: I10 Essential (primary) hypertension (principal); E55.9 Vitamin D deficiency, unspecified
CPT/HCPCS: 36415; 80048; 81001; 82024; 82088; 82306; 82533; 84244; 87086

== ENCOUNTER → 2021-08-01 08:51 | Outpatient (BNVA) | payer MEDICARE, BC, SELFPAY | PROVIDERS: PCP Internal Medicine; Visit Provider Nurse Practitioner Gerontology | DX: E11.21 Type 2 diabetes mellitus with diabetic nephropathy (principal); E11.42 Type 2 diabetes mellitus with diabetic polyneuropathy; E11.22 Type 2 diabetes mellitus with diabetic chronic kidney disease; I12.9 Hypertensive chronic kidney disease with stage 1 through stage 4 chronic kidney disease, or unspecified chronic kidney disease; N18.32 Chronic kidney disease, stage 3b; E78.5 Hyperlipidemia, unspecified; Z79.4 Long term (current) use of insulin; Z79.84 Long term (current) use of oral hypoglycemic drugs | CPT/HCPCS: 82947; 99212 ==

== ENCOUNTER 2021-08-18 07:26 | Outpatient (REF) | payer MEDICARE, BC, SELFPAY ==
[2021-08-18 11:08] LABS: MANUAL DIFF FLAG NO
[2021-08-18 11:21] LABS: Basophils Absolute Auto 0.1 X10*3/uL (0.0-0.2); Basophils Percent Auto 0.9 % (0-2); Eosinophils Absolute Auto 0.5 X10*3/uL (0.0-0.4); Eosinophils Percent Auto 4.7 % (0-4); Hematocrit 38.7 % (37.0-47.0); Hemoglobin 13.1 g/dl (12.0-16.0); Imm Gran Abs Auto 0.03 X10*3/uL (0.00-0.03); Imm Gran Pct Auto 0.3 % (0.0-0.4); Lymphocytes Absolute Auto 2.4 X10*3/uL (1.2-4.9); Lymphocytes Percent Auto 24.3 % (20-40); Mean Corpuscular HGB Conc 33.9 g/dl (31.0-35.0); Mean Corpuscular Hemoglobin 29.2 pg (27.0-33.0); Mean Corpuscular Volume 86.2 fL (80.0-98.0); Mean Platelet Volume 10.9 fL (9.4-12.3); Monocytes Absolute Auto 0.7 X10*3/uL (0.1-1.2); Monocytes Percent Auto 6.9 % (2-11); Neutrophils Absolute Auto 6.1 x10*3/uL (2.0-8.3); Neutrophils Percent Auto 62.9 % (45-73); Platelet Count 229 X10*3/uL (160-400); Red Blood Count 4.49 X10*6/uL (4.20-5.50); Red Cell Distribution Width 13.8 % (11.0-16.0); White Blood Count 9.7 X10*3/uL (4.8-10.8)
[2021-08-18 11:30] LABS: Estimated Average Glucose 134 mg/dL; Hemoglobin A1c % 6.3 %
[2021-08-18 11:36] LABS: Alanine Aminotransferase 26 U/L (0-31); Albumin Level 4.2 g/dL (3.5-5.0); Alkaline Phosphatase 73 U/L (39-117); Anion Gap 14 (12-20); Aspartate Amino Transferase 20 U/L (5-31); Bilirubin Total 0.6 mg/dL (0.0-1.0); Blood Urea Nitrogen 20 mg/dL (9-16); Calcium 9.8 mg/dL (8.4-10.2); Carbon Dioxide 27 mmol/L (22-29); Chloride 104 mmol/L (96-108); Cholesterol 164 mg/dL; Estimated Glomerular Filt Rate 44; Glucose Fasting 137 mg/dL (60-99); HDL Cholesterol 55 mg/dL; LDL Cholesterol Calculated 86 mg/dl; Potassium 3.5 mmol/L (3.3-5.1); Sodium 141 mmol/L (135-145); Total Protein 7.1 g/dL (6.5-8.0); Triglycerides 115 mg/dL
[2021-08-18 11:42] LABS: Appearance Urine HAZY; Color Urine STRAW; Glucose Urine UA NEG (NEG); Leukocyte Esterase Urine 3+ (NEG); Nitrite Urine NEG (NEG); PH 5.5 (5.0-8.0); UACC Culture Trigger YES; Urine Blood TRACE (NEG); Urine Ketones NEG (NEG); Urine Protein NEG (NEG-TRACE)
[2021-08-18 12:00] LABS: TSH reflex Free T4 2.81 uIU/mL (0.32-4.0); Vitamin D 25-OH Total 51.9 ng/mL (>30)
[2021-08-18 12:08] LABS: Bacteria Urine 2+ /LPF; RBC Urine 0-2 /HPF (0); Squamous Epithelial Cell Urine TRACE /LPF
[2021-08-18 12:17] LABS: Microalbum/Creatinine Ratio Ur 13.3 ug/mg cr
== END 2021-08-18 07:27 | disposition home or self-care (01) ==
LOC: HO.HMGCLDS 07:26
PROVIDERS: Visit Provider Internal Medicine
DX: I10 Essential (primary) hypertension (principal); E78.00 Pure hypercholesterolemia, unspecified; E11.9 Type 2 diabetes mellitus without complications; E55.9 Vitamin D deficiency, unspecified
CPT/HCPCS: 36415; 80053; 80061; 81001; 82043; 82306; 83036; 84443; 85025; 87086

== ENCOUNTER 2021-10-30 10:26 | Outpatient (REF) | payer MEDICARE, BC, SELFPAY ==
--- NOTE | ~2021-10-30 | US_ITS ---
EXAMINATION: US RENAL DOPPLER CLINICAL INFORMATION: Renal stenosis. COMPARISON: None TECHNIQUE: Doppler color and grayscale evaluation of the renal arteries and renal veins including waveform spectral analysis FINDINGS: RENAL DOPPLER: There is increased peak systolic velocity in the midabdominal aorta measuring 249 cm/s. Renal artery to aorta ratio cannot be determined. Right renal artery is patent. Right renal artery peak systolic velocities are normal measuring 113 cm/s, 122 cm/s 120 cm/s proximally in the midportion and distally. There is slightly elevated resistive indices in the segmental renal arteries measuring 0.8. The right renal vein is patent. Left renal artery is patent. Left renal artery peak systolic velocities are normal measuring 124 cm/s, 113 cm/s 132 cm/s proximally, in the midportion and distally. Left segmental resistive indices are elevated measuring 0.8. The left renal vein is patent. US/US renal doppler IMPRESSION: Slightly elevated resistive indices bilaterally. Renal artery peak systolic velocities are normal.
--- NOTE | ~2021-10-30 | US_ITS ---
EXAMINATION: US RETROPERITONEAL LIMITED (RENAL ONLY) CLINICAL INFORMATION: Rule out renal artery stenosis. Hypertension.. COMPARISON: Renal artery Doppler exam done the same day TECHNIQUE: Grayscale and color imaging of the kidneys FINDINGS: RIGHT KIDNEY: 10.4 x 5.2 x 4.3 cm (SAG x AP x TRV). The kidney is normal in size, contour, and echogenicity. Renal cortical thickness is normal. No calculi or focal parenchymal lesions. No hydronephrosis. LEFT KIDNEY: 11.1 x 4.5 x 4 cm (SAG x AP x TRV). The kidney is normal in size, contour, and echogenicity. Renal cortical thickness is normal. There is a 1 x 0.9 x 1.2 cm echogenic lesion in the lower pole the left kidney questionable for an angiomyolipoma. There is a small 4 mm cyst in the lower pole. No calculi. No hydronephrosis. US/US renal BI IMPRESSION: Normal right kidney. 1 cm echogenic lesion in the lower pole of the left kidney questionable for a benign angiomyolipoma. Comparison with old outside exams if available recommended. Otherwise confirmation with CT or MRI could be considered. Small left renal cyst.
== END 2021-10-30 10:27 | disposition home or self-care (01) ==
LOC: HO.US 10:26
PROVIDERS: Visit Provider Internal Medicine Nephrology
DX: I12.9 Hypertensive chronic kidney disease with stage 1 through stage 4 chronic kidney disease, or unspecified chronic kidney disease (principal); N18.31 Chronic kidney disease, stage 3a
CPT/HCPCS: 76775; 93975

== ENCOUNTER 2021-12-28 07:09 | Outpatient (REF) | payer MEDICARE, BC, SELFPAY ==
[2021-12-28 11:21] LABS: MANUAL DIFF FLAG NO
[2021-12-28 11:29] LABS: Basophils Absolute Auto 0.1 X10*3/uL (0.0-0.2); Eosinophils Absolute Auto 0.5 X10*3/uL (0.0-0.4); Eosinophils Percent Auto 6.7 % (0-4); Hematocrit 37.8 % (37.0-47.0); Hemoglobin 12.6 g/dl (12.0-16.0); Imm Gran Abs Auto 0.03 X10*3/uL (0.00-0.03); Imm Gran Pct Auto 0.4 % (0.0-0.4); Lymphocytes Absolute Auto 1.9 X10*3/uL (1.2-4.9); Lymphocytes Percent Auto 26.7 % (20-40); Mean Corpuscular HGB Conc 33.3 g/dl (31.0-35.0); Mean Corpuscular Hemoglobin 29.1 pg (27.0-33.0); Mean Corpuscular Volume 87.3 fL (80.0-98.0); Monocytes Absolute Auto 0.5 X10*3/uL (0.1-1.2); Monocytes Percent Auto 6.5 % (2-11); Neutrophils Absolute Auto 4.2 x10*3/uL (2.0-8.3); Neutrophils Percent Auto 58.7 % (45-73); Platelet Count 220 X10*3/uL (160-400); Red Blood Count 4.33 X10*6/uL (4.20-5.50); Red Cell Distribution Width 13.8 % (11.0-16.0); White Blood Count 7.2 X10*3/uL (4.8-10.8)
[2021-12-28 11:40] LABS: Estimated Average Glucose 128 mg/dL; Hemoglobin A1c % 6.1 %
[2021-12-28 11:59] LABS: Alanine Aminotransferase 21 U/L (0-31); Albumin Level 4.3 g/dL (3.5-5.0); Alkaline Phosphatase 74 U/L (39-117); Anion Gap 14 (12-20); Aspartate Amino Transferase 22 U/L (5-31); Bilirubin Total 0.4 mg/dL (0.0-1.0); Blood Urea Nitrogen 17 mg/dL (9-16); Calcium 9.9 mg/dL (8.4-10.2); Carbon Dioxide 29 mmol/L (22-29); Chloride 105 mmol/L (96-108); Cholesterol 188 mg/dL; Estimated Glomerular Filt Rate 38; Glucose Fasting 111 mg/dL (60-99); HDL Cholesterol 62 mg/dL; LDL Cholesterol Calculated 105 mg/dl; Sodium 144 mmol/L (135-145); Total Protein 7.3 g/dL (6.5-8.0); Triglycerides 106 mg/dL
[2021-12-28 12:11] LABS: Vitamin D 25-OH Total 49.5 ng/mL (>30)
[2021-12-28 12:28] LABS: Microalbum/Creatinine Ratio Ur 18.2 ug/mg cr
[2021-12-28 16:22] LABS: Appearance Urine Clear; Color Urine Yellow; Glucose Urine UA Negative (Negative); Leukocyte Esterase Urine Trace (Negative); Nitrite Urine Negative (Negative); Specific Gravity - Urine 1.015 (1.005-1.025); Urine Blood Negative (Negative); Urine Ketones Negative (Negative); Urine Protein Negative (Neg-Trace)
[2021-12-28 16:26] LABS: Bacteria Urine 1+ (None Seen); Hyaline Casts Urine 0-2 /LPF (0-2); WBC Urine 0-5 /HPF (0-5)
== END 2021-12-28 07:10 | disposition home or self-care (01) ==
LOC: HO.HMGCLDS 07:09
PROVIDERS: PCP Internal Medicine; Visit Provider Internal Medicine
DX: I10 Essential (primary) hypertension (principal); E55.9 Vitamin D deficiency, unspecified; E11.9 Type 2 diabetes mellitus without complications; E78.00 Pure hypercholesterolemia, unspecified
CPT/HCPCS: 36415; 80053; 80061; 81001; 81003; 82043; 82306; 83036; 84443; 85025

== ENCOUNTER → 2022-03-12 09:05 | Outpatient (BNVA) | payer MEDICARE, BC, SELFPAY | PROVIDERS: PCP Internal Medicine; Visit Provider Internal Medicine | DX: I10 Essential (primary) hypertension (principal); E11.42 Type 2 diabetes mellitus with diabetic polyneuropathy; Z79.4 Long term (current) use of insulin | CPT/HCPCS: 99212 ==

== ENCOUNTER 2022-03-17 07:12 | Outpatient (REF) | payer MEDICARE, BC, SELFPAY ==
[2022-03-17 08:42] LABS: Cortisol Random 10.9 ug/dL
[2022-03-17 17:12] LABS: Anion Gap 17 (12-20); Blood Urea Nitrogen 20 mg/dL (9-16); Calcium 9.7 mg/dL (8.4-10.2); Carbon Dioxide 23 mmol/L (22-29); Chloride 107 mmol/L (96-108); Estimated Glomerular Filt Rate 47; Glucose Random 113 mg/dL (60-115); Potassium 3.8 mmol/L (3.3-5.1); Sodium 143 mmol/L (135-145)
[2022-03-20 17:02] LABS: Adrenocorticotropic Hormone 13 pg/mL (6-50)
[2022-03-25 13:41] LABS: Metanephrine, Free <25 pg/mL (<=57); Normetanephrines, Free 138 pg/mL (<=148); Total Metanephrine, Free 138 pg/mL (<=205)
[2022-03-26 05:20] LABS: Renin 1.24 ng/mL/h (0.25-5.82)
[2022-03-27 11:26] LABS: Catecholamine Frac, Total 696 pg/mL
== END 2022-03-17 07:13 | disposition home or self-care (01) ==
LOC: HO.HMGCLDS 07:12
PROVIDERS: PCP Internal Medicine; Visit Provider Internal Medicine
DX: I10 Essential (primary) hypertension (principal)
CPT/HCPCS: 36415; 80048; 82024; 82088; 82384; 82533; 83835; 84244

== ENCOUNTER 2022-03-19 09:03 | Outpatient (REF) | payer MEDICARE, BC, SELFPAY ==
[2022-03-19 15:18] LABS: Creatinine, 24Hr Urine 0.6 G/Day (1.0-2.0); Total Volume 24 Hour Urine 1250 mL
[2022-03-24 23:47] LABS: Aldosterone, 24Hr Urine 2.5 mcg/24 h; Creatinine 24Hr Urine 0.58 g/24 h (0.50-2.15); Total Volume 1250 mL
[2022-03-25 13:46] LABS: Metanephrine, Free 24U 30 mcg/24 h (90-315); Normetanephrine, Free 24U 257 mcg/24 h (122-676); Total Metanephrine, Free 24U 287 mcg/24 h (224-832); Total Volume 24U 1250 mL
[2022-03-25 13:52] LABS: CATF, 24 Ur Volume 1250 mL; CATF-24Ur Creatinine 0.58 g/24 h (0.50-2.15); Catecholamines,Tot. (E+NE) 24U 26 mcg/24 h (26-121); Dopamine, 24 Ur 103 mcg/24 h (52-480); Norepinephrine, 24 Ur 26 mcg/24 h (15-100)
[2022-03-25 21:31] LABS: Cortisol Free, 24 Hr Urine 8.2 mcg/24 h (4.0-50.0); Creatinine, 24 Hr Urine 0.58 g/24 h (0.50-2.15); Total Volume, 24 Hr Urine 1250 mL
== END 2022-03-19 09:04 | disposition home or self-care (01) ==
LOC: HO.HMGCLDS 09:03
PROVIDERS: PCP Internal Medicine; Visit Provider Internal Medicine
DX: I10 Essential (primary) hypertension (principal)
CPT/HCPCS: 36415; 82088; 82384; 82530; 82570; 83835

== ENCOUNTER → 2022-03-23 09:07 | Outpatient (REF) | payer MEDICARE, BC, SELFPAY ==
--- NOTE | 2022-03-23 09:09 | CA_ITS ---
Transthoracic Echocardiogram Patient (Last, First, Middle): Di Freeman N Gender: Female Date of : 1945 Age: 76 Procedure Date: 03/23/2022 Procedure Type: Transthoracic Echocardiogram Location: OP Height: 165.1 cm Weight: 68.04 kg BSA: 1.75 m2 Heart Rate: 69 bpm BP: 160 / 72 mmHg Log Roper: DEV Referring MD: Johnny Valadez MD Screw Machine Operator: Jose Cuevas MD Symptoms: R01.1 - Cardiac murmur, unspecified Study Quality: Adequate ECG Rhythm: Sinus Conclusions: - 1. Normal LV systolic function with grade 1 diastolic dysfunction 2. Normal cardiac valvular Doppler 3. No gross pericardial effusion Findings Left Ventricle Normal left ventricular size, thickness, and systolic function. The visually estimated ejection fraction is between 65-70%. Spectral Doppler is indicative of an impaired relaxation filling pattern. E/E prime ratio is <8, consistent with normal filling pressures. Evidence suggests grade I (mild) diastolic dysfunction. Peak GLS is -20.2%, within normal limits. Right Ventricle Normal right ventricular cavity size and systolic function. Atria Both atria are normal in size. Interatrial shunt cannot be excluded. Aortic Valve Normal aortic valve structure and function. There is no aortic valve stenosis. There is no aortic valve regurgitation. Mitral Valve Normal mitral valve structure and function. There is trace mitral valve regurgitation. There is no mitral valve stenosis. Pulmonic Valve The pulmonic valve is likely normal. Tricuspid Valve Normal tricuspid valve structure. Tricuspid regurgitation envelope is inadequate for calculation of right ventricular systolic pressure. Normal right atrial pressure. Great Vessels All visible segments of the aorta are normal in size. The pulmonary artery was not well visualized. Venous The inferior vena cava is normal in size and collapses greater than 50% with inspiration. Pericardium/Pleural There is no evidence of pericardial effusion. Measurements 2D Linear Measurements IVSd: 1.03 0.6-0.9/0.6-1.0 cm LVIDd: 4.10 3.9-5.3/4.2-5.9 cm LVIDd Index: 2.34 2.4-3.2/2.2-3.1 cm/m2 LVIDs: 2.75 2.0-3.6 cm LVPWd: 0.84 0.7-1.1 cm LA Diam: 3.50 2.7-3.8/3.0-4.0 cm LAIDs Index: 2.00 1.5-2.3 cm/m2 LV Mass: 149.50 67-162/88-224 g LV Mass Index: 85.43 43-95/49-115 g/m2 LVOT Diam: 2.10 3.0+(-)1.3 cm 2D Systolic Function EF 4C: 62.00 >55% EF 2C: 71.10 >55% EF BiP: 68.00 >55% Mitral Valve MV Pk E: 0.85 MV PK A: 0.93 MV Decel Time: 182.00 E/A: 0.90 E'Lateral: 6.74 E'Medial: 6.09 E/E' Med: 13.90 E/E' Lat: 12.60 PHT: 53.00 MVA PHT: 4.15 Decel [place]: 4.65 Aortic Valve AoV Pk Renan: 1.48 AoV Mn Renan: 1.05 AoV VTI: 0.34 AoV Pk Grad: 9.00 Aov Mn Grad: 5.00 KAREN Cont.VTI: 2.48 LVOT LVOT Pk Renan: 1.01 LVOT Mn Renan: 0.67 LVOT VTI: 0.24 LVOT Pk Grad: 4.00 LVOT Mn Grad: 2.00 LVOT Diam: 2.10 LVOT Area: 3.46 Diastolic Function MV Pk E: 0.85 MV Pk A: 0.93 E/A: 0.90 E'Medial: 6.09 E/E' Med: 13.90 E' Laterial: 6.74 E/E' Lat: 12.60 Right Ventricle TAPSE (mm): 19.10 TVS' Renan: 12.30 Tricuspid Valve RA Press: 3.00 Great Vessels Aorta Sinus of Valsalva: 2.90 2.0-3.5 cm Ao Asc: 3.30 2.1-3.4 cm Pulmonary Veins Pulm Vein S/D 1.50 Pulmonary Valve PV Pk Renan: 1.02 Peak PV Grad: 4.00 Updated in Other Vendor System with Status of Final Jose Cuevas MD electronically signed on 03/24/2022 1:40:30 PM with status of Final
== END ==
LOC: HO.CARD 09:07
PROVIDERS: PCP Internal Medicine; Visit Provider Internal Medicine
DX: R01.1 Cardiac murmur, unspecified (principal)
CPT/HCPCS: 93306; 93356

== ENCOUNTER → 2022-04-23 10:14 | Outpatient (BNVA) | payer MEDICARE, BC, SELFPAY | PROVIDERS: PCP Internal Medicine; Visit Provider Internal Medicine | DX: I10 Essential (primary) hypertension (principal); E11.42 Type 2 diabetes mellitus with diabetic polyneuropathy; Z79.4 Long term (current) use of insulin | CPT/HCPCS: 99212 ==

== ENCOUNTER 2022-05-17 08:09 | Outpatient (REF) | payer MEDICARE, BC, SELFPAY ==
[2022-05-17 11:12] LABS: MANUAL DIFF FLAG NO
[2022-05-17 11:17] LABS: Basophils Absolute Auto 0.1 X10*3/uL (0.0-0.2); Basophils Percent Auto 1.1 % (0-2); Eosinophils Absolute Auto 0.4 X10*3/uL (0.0-0.4); Eosinophils Percent Auto 4.5 % (0-4); Hematocrit 40.2 % (37.0-47.0); Hemoglobin 13.2 g/dl (12.0-16.0); Imm Gran Abs Auto 0.05 X10*3/uL (0.00-0.03); Imm Gran Pct Auto 0.5 % (0.0-0.4); Lymphocytes Absolute Auto 2.4 X10*3/uL (1.2-4.9); Lymphocytes Percent Auto 25.7 % (20-40); Mean Corpuscular HGB Conc 32.8 g/dl (31.0-35.0); Mean Corpuscular Volume 88.4 fL (80.0-98.0); Mean Platelet Volume 10.5 fL (9.4-12.3); Monocytes Absolute Auto 0.5 X10*3/uL (0.1-1.2); Monocytes Percent Auto 5.7 % (2-11); Neutrophils Absolute Auto 5.8 x10*3/uL (2.0-8.3); Neutrophils Percent Auto 62.5 % (45-73); Platelet Count 245 X10*3/uL (160-400); Red Blood Count 4.55 X10*6/uL (4.20-5.50); White Blood Count 9.3 X10*3/uL (4.8-10.8)
[2022-05-17 11:41] LABS: Appearance Urine Clear; Color Urine Yellow; Glucose Urine UA Negative (Negative); Leukocyte Esterase Urine Moderate (2+) (Negative); Nitrite Urine Negative (Negative); Specific Gravity - Urine 1.015 (1.005-1.025); UMIC TRIGGER UACC YES; Urine Blood Negative (Negative); Urine Ketones Negative (Negative); Urine Protein Negative (Neg-Trace)
[2022-05-17 11:43] LABS: Estimated Average Glucose 126 mg/dL
[2022-05-17 11:48] LABS: Bacteria Urine None Seen (None Seen); Hyaline Casts Urine 0-2 /LPF (0-2); RBC Urine 0-2 /HPF (0-2); UACC Culture Trigger YES
[2022-05-17 13:18] LABS: Creatinine Urine 124.64 mg/dL; Microalbum/Creatinine Ratio Ur 25.6 ug/mg cr
[2022-05-17 13:19] LABS: Alanine Aminotransferase 36 U/L (0-31); Albumin Level 4.6 g/dL (3.5-5.0); Alkaline Phosphatase 82 U/L (39-117); Anion Gap 10 (12-20); Aspartate Amino Transferase 24 U/L (5-31); Bilirubin Total 0.5 mg/dL (0.0-1.0); Blood Urea Nitrogen 18 mg/dL (9-16); Calcium 10.3 mg/dL (8.4-10.2); Carbon Dioxide 31 mmol/L (22-29); Chloride 105 mmol/L (96-108); Cholesterol 202 mg/dL; Estimated Glomerular Filt Rate 38; Glucose Fasting 104 mg/dL (60-99); HDL Cholesterol 65 mg/dL; LDL Cholesterol Calculated 109 mg/dl; Potassium 3.6 mmol/L (3.3-5.1); Sodium 142 mmol/L (135-145); Total Protein 7.7 g/dL (6.5-8.0); Triglycerides 142 mg/dL
[2022-05-17 13:37] LABS: TSH reflex Free T4 2.34 uIU/mL (0.32-4.0); Vitamin D 25-OH Total 49.8 ng/mL (>30)
== END 2022-05-17 08:10 | disposition home or self-care (01) ==
LOC: HO.HMGCLDS 08:09
PROVIDERS: PCP Internal Medicine; Visit Provider Internal Medicine
DX: E78.00 Pure hypercholesterolemia, unspecified (principal); E11.9 Type 2 diabetes mellitus without complications; E55.9 Vitamin D deficiency, unspecified; I10 Essential (primary) hypertension
CPT/HCPCS: 36415; 80053; 80061; 81001; 82043; 82306; 83036; 84443; 85025; 87086

== ENCOUNTER 2022-06-01 07:30 | Outpatient (REF) | payer MEDICARE, BC, SELFPAY ==
[2022-06-01 11:39] LABS: Anion Gap 13 (12-20); Blood Urea Nitrogen 20 mg/dL (9-16); Calcium 9.9 mg/dL (8.4-10.2); Carbon Dioxide 28 mmol/L (22-29); Chloride 105 mmol/L (96-108); Estimated Glomerular Filt Rate 39; Potassium 3.9 mmol/L (3.3-5.1); Sodium 142 mmol/L (135-145)
== END 2022-06-01 07:31 | disposition home or self-care (01) ==
LOC: HO.HMGCLDS 07:30
PROVIDERS: Visit Provider Internal Medicine Nephrology
DX: I12.9 Hypertensive chronic kidney disease with stage 1 through stage 4 chronic kidney disease, or unspecified chronic kidney disease (principal); N18.32 Chronic kidney disease, stage 3b
CPT/HCPCS: 36415; 80051; 82310; 82565; 84520

== ENCOUNTER → 2022-06-06 08:58 | Outpatient (BNVA) | payer MEDICARE, BC, SELFPAY | PROVIDERS: PCP Internal Medicine; Visit Provider Internal Medicine | DX: E11.42 Type 2 diabetes mellitus with diabetic polyneuropathy (principal); I10 Essential (primary) hypertension; Z79.4 Long term (current) use of insulin; Z79.84 Long term (current) use of oral hypoglycemic drugs | CPT/HCPCS: 99212 ==

== ENCOUNTER 2022-06-07 07:13 | Outpatient (REF) | payer MEDICARE, BC, SELFPAY ==
[2022-06-14 10:09] LABS: Dexamethasone 585 ng/dL
[2022-06-14 14:13] LABS: Adrenocorticotropic Hormone <5 pg/mL (6-50)
== END 2022-06-07 07:14 | disposition home or self-care (01) ==
LOC: HO.LAB 07:13
PROVIDERS: PCP Internal Medicine; Visit Provider Internal Medicine
DX: I10 Essential (primary) hypertension (principal)
CPT/HCPCS: 36415; 80299; 82024; 82533

== ENCOUNTER → 2022-06-29 08:46 | Outpatient (BNVA) | payer MEDICARE, BC, SELFPAY | PROVIDERS: PCP Internal Medicine; Visit Provider Dietitian, Registered | DX: E11.65 Type 2 diabetes mellitus with hyperglycemia (principal); Z71.3 Dietary counseling and surveillance | CPT/HCPCS: 97802 ==

== ENCOUNTER 2022-09-21 07:04 | Outpatient (REF) | payer MEDICARE, BC, SELFPAY ==
[2022-09-21 11:23] LABS: MANUAL DIFF FLAG NO
[2022-09-21 11:38] LABS: Appearance Urine Clear; Color Urine Yellow; Glucose Urine UA Negative (Negative); Leukocyte Esterase Urine Moderate (2+) (Negative); Nitrite Urine Negative (Negative); PH 5.5 (5.0-9.0); Specific Gravity - Urine 1.015 (1.005-1.025); UMIC TRIGGER UACC YES; Urine Blood Negative (Negative); Urine Ketones Negative (Negative); Urine Protein Negative (Neg-Trace)
[2022-09-21 11:43] LABS: Bacteria Urine None Seen (None Seen); Hyaline Casts Urine 0-2 /LPF (0-2); RBC Urine 0-2 /HPF (0-2); UACC Culture Trigger YES; WBC Urine 21-50 /HPF (0-5)
[2022-09-21 11:55] LABS: Basophils Absolute Auto 0.1 X10*3/uL (0.0-0.2); Basophils Percent Auto 1.3 % (0-2); Eosinophils Absolute Auto 0.4 X10*3/uL (0.0-0.4); Eosinophils Percent Auto 5.6 % (0-4); Hematocrit 39.9 % (37.0-47.0); Hemoglobin 13.2 g/dl (12.0-16.0); Imm Gran Abs Auto 0.02 X10*3/uL (0.00-0.03); Imm Gran Pct Auto 0.3 % (0.0-0.4); Lymphocytes Absolute Auto 1.9 X10*3/uL (1.2-4.9); Lymphocytes Percent Auto 24.1 % (20-40); Mean Corpuscular HGB Conc 33.1 g/dl (31.0-35.0); Mean Corpuscular Hemoglobin 28.9 pg (27.0-33.0); Mean Corpuscular Volume 87.3 fL (80.0-98.0); Mean Platelet Volume 10.9 fL (9.4-12.3); Monocytes Absolute Auto 0.4 X10*3/uL (0.1-1.2); Monocytes Percent Auto 5.6 % (2-11); Neutrophils Absolute Auto 4.9 x10*3/uL (2.0-8.3); Neutrophils Percent Auto 63.1 % (45-73); Platelet Count 234 X10*3/uL (160-400); Red Blood Count 4.57 X10*6/uL (4.20-5.50); Red Cell Distribution Width 14.1 % (11.0-16.0); White Blood Count 7.8 X10*3/uL (4.8-10.8)
[2022-09-21 12:18] LABS: Alanine Aminotransferase 23 U/L (0-31); Albumin Level 4.3 g/dL (3.5-5.0); Alkaline Phosphatase 72 U/L (39-117); Anion Gap 12 (12-20); Aspartate Amino Transferase 18 U/L (5-31); Bilirubin Total 0.6 mg/dL (0.0-1.0); Blood Urea Nitrogen 21 mg/dL (9-16); Calcium 10.1 mg/dL (8.4-10.2); Carbon Dioxide 29 mmol/L (22-29); Chloride 106 mmol/L (96-108); Cholesterol 181 mg/dL; Estimated Glomerular Filt Rate 39; Glucose Fasting 180 mg/dL (60-99); HDL Cholesterol 55 mg/dL; LDL Cholesterol Calculated 100 mg/dl; Potassium 3.6 mmol/L (3.3-5.1); Sodium 143 mmol/L (135-145); Total Protein 7.2 g/dL (6.5-8.0); Triglycerides 131 mg/dL
[2022-09-21 12:30] LABS: Estimated Average Glucose 154 mg/dL
[2022-09-21 12:36] LABS: Creatinine Urine 109.26 mg/dL; Microalbum/Creatinine Ratio Ur 24.7 ug/mg cr
[2022-09-21 12:42] LABS: Vitamin D 25-OH Total 53.8 ng/mL (>30)
== END 2022-09-21 07:05 | disposition home or self-care (01) ==
LOC: HO.HMGCLDS 07:04
PROVIDERS: PCP Internal Medicine; Visit Provider Internal Medicine
DX: E11.9 Type 2 diabetes mellitus without complications (principal); E55.9 Vitamin D deficiency, unspecified; I10 Essential (primary) hypertension; E78.00 Pure hypercholesterolemia, unspecified; R82.90 Unspecified abnormal findings in urine
CPT/HCPCS: 36415; 80053; 80061; 81001; 82043; 82306; 83036; 84443; 85025; 87086

== ENCOUNTER 2022-11-08 08:20 | Outpatient (REF) | payer MEDICARE, BC, SELFPAY ==
--- NOTE | ~2022-11-08 | MM_ITS ---
EXAMINATION: MM SCREENING DIGITAL BREAST TOMOSYNTHESIS, BILATERAL CLINICAL INFORMATION: Screening. Asymptomatic. The lifetime risk of breast cancer based on the Tyrer-Cuzick Model is 4%. COMPARISON: Mammography: This study is compared with prior exams dating back to 2016. TECHNIQUE: Digital breast tomosynthesis is performed in both the craniocaudal and mediolateral oblique views along with computer-aided detection (CAD). Synthesized 2D images are generated from the tomosynthesis. FINDINGS: There are scattered areas of fibroglandular density (ACR BI-RADS breast composition Category b). There are no significant masses, abnormal calcifications, or other abnormalities. Few, bilateral, benign secretory calcifications are present in each breast. MM/MM tomosynthesis screening BI IMPRESSION: No mammographic evidence of malignancy. ASSESSMENT: BI-RADS BI-RADS 2 - Benign Findings RECOMMENDATION: Routine annual mammography screening. 1 year F/U This examination should not preclude the clinical evaluation of a suspicious palpable abnormality. This patient's information was entered into a reminder system with a target due date for their next mammogram.
== END 2022-11-08 08:21 | disposition home or self-care (01) ==
LOC: HO.MAMMO 08:20
PROVIDERS: PCP Internal Medicine; Visit Provider Internal Medicine
DX: Z12.31 Encounter for screening mammogram for malignant neoplasm of breast (principal)
CPT/HCPCS: 77063; 77067

== ENCOUNTER → 2022-11-08 08:45 | Outpatient (BNV) | payer MEDICARE, BC, SELFPAY | PROVIDERS: PCP Internal Medicine; Visit Provider Radiology Diagnostic Radiology | DX: Z12.31 Encounter for screening mammogram for malignant neoplasm of breast (principal) | CPT/HCPCS: 77063; 77067 ==

== ENCOUNTER 2022-12-26 08:24 | Outpatient (AMB) | payer MEDICARE, BC, SELFPAY ==
--- NOTE | 2022-12-26 08:29 | A.OFFVIS_ITS ---
Intake VS Expanded 12/26/22 08:47 Height 5 ft 5 in Weight 142 lb 14.811 oz BMI 23.8 Intake Visit Reasons: T2DM Allergies nitrofurantoin [Macrobid] Allergy (Unknown, Verified 09/27/22 09:51) jessica CLARK Nutrition Presentation Details Pt presents for MNT follow up for T2DM with HTN Pt reports doing well , working on choosing low sodium foods. Pt reports having 3 meals/day Reports meals are typically the same Breakfast: ? cheerios with blueberries, 1% milk or special k with strawberries and 1 %Milk ? snacks on unsalted crackers or wheat cracker low sodium and peanut butter or rice cakes with peanut butter or low sodium cheese L: ? sandwich on wheat bread ( turkey or roast beef, chicken , lettuce, spinach ,? seltzer water ?Dinner:? salad, spaghetti with sauce diluted with water or slice of bread with garlic eating out 1-2 x/wk , tries to reduce portions in half or share a meal denies having low blood glucose Beverages: water or diet ice tea fruits/d: 0-2/d non starchy vegetables: 2 serving/daily dairy: 2-3 serving/d starches > 18 serving/d protein foods: fish 2 x/wk, poultry , beef, eggs physical activity: active with daily life activities, parking further to i ncrease steps, helps caring for grandchildren Most Recent Diabetes Results: Microalb/Creat Ratio 24.7 ug/mg cr 09/21/22 Cholesterol 181 mg/dL 09/21/22 HDL Cholesterol 55 mg/dL 09/21/22 Triglycerides 131 mg/dL 09/21/22 Creatinine 1.31 mg/dL (0.5-1.4) 09/21/22 Blood Urea Nitrogen 21 mg/dL (9-16) H 09/21/22 Sodium 143 mmol/L (135-145) 09/21/22 Potassium 3.6 mmol/L (3.3-5.1) 09/21/22 Chloride 106 mmol/L (96-108) 09/21/22 Carbon Dioxide 29 mmol/L (22-29) 09/21/22 Calcium 10.1 mg/dL (8.4-10.2) 09/21/22 AST 18 U/L (5-31) 09/21/22 ALT 23 U/L (0-31) 09/21/22 Total Protein 7.2 g/dL (6.5-8.0) 09/21/22 Albumin 4.3 g/dL (3.5-5.0) 09/21/22 PFSH Medical History Allergic rhinitis Anxiety Benign essential hypertension Chronic kidney disease (CKD), stage III (moderate) Diabetes type 2, uncontrolled Elevated LFTs HTN (hypertension) Hyperlipidemia LDL goal <100 Hypertensive urgency Left low back pain Pure hypercholesterolemia 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 Vitamin D deficiency Vitamin D deficiency Surgical History History of bladder surgery History of right oophorectomy History of total abdominal hysterectomy and bilateral salpingo-oophorectomy History of tubal ligation Family History Father Past heart attack Mother Breast cancer Hypertension Cardiovascular disease Social History Household Members: Spouse Housing: House Alcohol intake: never Patient Tobacco Use Status: Former Tobacco user e-Cigarette/Vaping Use: Never Used Second Hand Smoke Exposure: Yes service: No Current occupational status: retired Cognitive needs: No Hearing needs: No Vision needs: Yes Assessment & Plan Assessment & Plan (1) Diabetes type 2, uncontrolled: Code(s): E11.65 - Type 2 diabetes mellitus with hyperglycemia Qualifiers: Glycemic state: with hyperglycemia Qualified Code(s): E11.65 - Type 2 diabetes mellitus with hyperglycemia Plan Educate Pt on low sodium food concepts , healthy plate method ? Used wt : 65 kg Est kcal as per MSJ: 1573 (40% carb, 30% fat/prot) Est fluid needs: 1625 ml/d (25 ml/kg bw) Rec fiber: increase to 8-10 g per day and gradually increase to 25 g/d or as tolerated Rec Na: < 2000 mg /d Educate patient on: (R= Reviewed, V = verbalizes understanding N/R= Needs review N/A= not applicable) * Food sources of carbohydrates and serving adequate serving sizes : R * Difference between complex carbohydrates and simple carbohydrates, role of fiber: R * Differences between fats (MUFA/PUFA/saturated fats, trans fats) and food sources of various fats: N/R * Food sources of sodium and salt and healthy modifications for heart health and kidney health: R V * Vitamins and minerals: N/R * How to interpret food labels: R (serving size, Na) * Healthy Plate method concept: R V * Physical activity: benefits and precaution: R V Patient Instructions: Include fiber rich foods in your diet- visit farmers markets - aim at adding 2-4 g gradually throughout the day Continue choosing low sodium foods , not adding salt to foods, particularly when eating out Keep physically active as tolerated and keep hydrated by having water with meals or snacks and in between whenever feeling thirsty continue monitoring blood glucose, goal for fasting blood glucose 80-130 and 2 hours after a meal 80-180 unless otherwise specified by your doctor call for questions prior to next follow up Coding Level of Care Code Nutr Indiv Subseq ([id number]) Diagnoses Diabetes type 2, uncontrolled E11.65 Glycemic state: with hyperglycemia Time Spent (min) 30
[2022-12-26 08:47] VITALS: BMI 23.8
== END 2022-12-26 08:48 | disposition home or self-care (01) ==
PROVIDERS: PCP Internal Medicine; Referring Provider Internal Medicine; Visit Provider Dietitian, Registered
DX: E11.65 Type 2 diabetes mellitus with hyperglycemia (principal)

== ENCOUNTER → 2022-12-26 08:24 | Outpatient (BNVA) | payer MEDICARE, BC, SELFPAY | PROVIDERS: Visit Provider Dietitian, Registered | DX: E11.65 Type 2 diabetes mellitus with hyperglycemia (principal) | CPT/HCPCS: 97803 ==

== ENCOUNTER 2023-01-03 07:03 | Outpatient (REF) | payer MEDICARE, BC, SELFPAY ==
[2023-01-03 12:28] LABS: Anion Gap 14 (12-20); Blood Urea Nitrogen 17 mg/dL (9-16); Calcium 10.3 mg/dL (8.4-10.2); Carbon Dioxide 26 mmol/L (22-29); Chloride 106 mmol/L (96-108); Estimated Glomerular Filt Rate 44; Potassium 4.2 mmol/L (3.3-5.1); Sodium 142 mmol/L (135-145)
[2023-01-03 12:54] LABS: Creatinine Urine 87.26 mg/dL; Protein/Creatinine Ratio, Ur 0.18 (<0.2); Total Protein Urine Random 16 mg/dL (<12)
== END 2023-01-03 07:04 | disposition home or self-care (01) ==
LOC: HO.HMGCLDS 07:03
PROVIDERS: PCP Internal Medicine; Visit Provider Internal Medicine Nephrology
DX: I12.9 Hypertensive chronic kidney disease with stage 1 through stage 4 chronic kidney disease, or unspecified chronic kidney disease (principal); N18.31 Chronic kidney disease, stage 3a
CPT/HCPCS: 36415; 80051; 82310; 82565; 84156; 84520

== ENCOUNTER 2023-01-07 09:30 | Emergency (ER) | payer MEDICARE, BC, SELFPAY ==
[2023-01-07 09:38] VITALS: BP 211/95; PULSE 95; RESP 18; TEMP 37.1; O2SAT 98; BMI 24.2
[2023-01-07 09:48] VITALS: BP 194/64; PULSE 88; RESP 18; O2SAT 97
--- NOTE | 2023-01-07 09:48 | PC.NURSE ---
Patient reports she has a uti and was unable to be seen at any urgent care because it is a holiday. Patient reports she has a long history of uti`s. Denies blood in urine but states lower abdomen hurts, and pain with urination.
[2023-01-07 10:04] LABS: Appearance Urine Turbid; Color Urine Yellow; Glucose Urine UA >=1000 mg/dL (Negative); Leukocyte Esterase Urine Moderate (2+) (Negative); Nitrite Urine Negative (Negative); PH 5.5 (5.0-9.0); UMIC TRIGGER UACC YES; Urine Blood Large (3+) (Negative); Urine Ketones Negative (Negative); Urine Protein 100 (2+) mg/dL (Neg-Trace)
[2023-01-07 10:06] LABS: Bacteria Urine 4+ (None Seen); Hyaline Casts Urine 0-2 /LPF (0-2); RBC Urine >20 /HPF (0-2); UACC Culture Trigger YES; WBC Urine >50 /HPF (0-5)
--- NOTE | 2023-01-07 10:11 | ED.FEMALEGU ---
HPI - Female Genitourinary General Chief complaint: Urogenital-Female Stated complaint: uti Time Seen by Provider: 01/07/23 09:39 Source: patient Mode of arrival: ambulatory Limitations: no limitations History of Present Illness HPI Narrative: 77 year female with history significant for T2DM, HTN, stage III CKD, anxiety, vitamin-D deficiency, hyperlipidemia presents to the emergency department with dysuria and lower abdominal pain/ pressure upon waking up this morning. Reports urinary frequency and urgency throughout the night and dysuria upon waking up this morning. Reports a history of recurrent UTIs and states this feels similar. Denies nausea, vomiting, chest pain, shortness of breath, diarrhea, constipation, hematuria, flank pain, back pain, vaginal discharge. Related Data Home Medications Medication Instructions Recorded Confirmed blood-glucose meter (FreeStyle 02/09/21 09/27/22 Lite Meter kit) Previous Rx's Medication Instructions Recorded amlodipine 10 mg tablet 10 mg PO DAILY 90 days #90 tabs 01/11/22 diazepam 2 mg tablet 2 mg PO DAILY PRN anxiety #30 tabs 01/11/22 hydrochlorothiazide 25 mg tablet 25 mg PO DAILY 90 days #90 tabs 01/11/22 losartan 100 mg tablet 100 mg PO DAILY 90 days #90 tabs 01/11/22 sertraline 25 mg tablet 25 mg PO QAM 30 days #30 tabs 01/11/22 lancets 28 gauge (FreeStyle #120 ea 03/12/22 Lancets) atorvastatin 40 mg tablet 40 mg PO BEDTIME 90 days #90 tabs 08/29/22 metformin 500 mg tablet 500 mg PO BID 90 days #180 tabs 08/29/22 nebivolol 5 mg tablet (Bystolic) 5 mg PO DAILY 90 days #90 caps 08/29/22 insulin aspart U-100 100 unit/mL 10 - 12 unit (0.1 - 0.12 mL) 09/27/22 (3 mL) subcutaneous pen (Novolog subcut TID 30 days #15 mL FlexPen U-100 Insulin aspart) insulin glargine 100 unit/mL (3 36 unit (0.36 mL) subcut QPM 30 09/27/22 mL) subcutaneous pen (Basaglar days #15 mL KwikPen U-100 Insulin) sitagliptin phosphate 100 mg 100 mg PO DAILY 90 days #90 tabs 09/29/22 tablet (Januvia) blood sugar diagnostic (FreeStyle #150 ea 10/05/22 Lite Strips) pen needle, diabetic 32 gauge x #150 ea 11/12/22 (BD Vi 2nd Gen Pen Needle) cholecalciferol (vitamin D3) 50 50 mcg PO DAILY 90 days #90 caps 11/30/22 mcg (2,000 unit) capsule cefuroxime axetil 250 mg tablet 250 mg PO BID 7 days #14 tabs 01/07/23 phenazopyridine 100 mg tablet 200 mg PO TID 2 days #6 tabs 01/07/23 (Pyridium) Allergies Allergy/AdvReac Type Severity Reaction Status Date / Time nitrofurantoin [Macrobid] Allergy Unknown hives Verified 09/27/22 09:51 Review of Systems Review of Systems: Constitutional : No Weight loss, No Fever, No Chills, No Fatigue, No Malaise ENT/Mouth : No sore throat, No Rhinorrhea Eyes: No Eye Pain, No Swelling, No Redness Cardiovascular : No Chest Pain, No SOB, No Dyspnea on Exertion, No Orthopnea, No Edema, No Palpitations Respiratory : No Cough, No Sputum, No Wheezing Gastrointestinal : No Nausea, No Vomiting, No Diarrhea, No Constipation, + abdominal Pain, No Hematochezia, No Melena Genitourinary : + Dysuria, No Urinary Frequency, No Hematuria, Musculoskeletal : No joint pain, No Myalgias, No Joint Swelling Skin : No Skin Lesions, No rash Neuro : No Weakness, No Numbness, No Dizziness, No Headache All other systems reviewed and are negative Yes all other systems are reviewed and are negative [facility] Past Medical History Attestation statement: The following information was validated with the patient. 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 Vitamin D deficiency Vitamin D deficiency Surgical History History of bladder surgery History of right oophorectomy History of total abdominal hysterectomy and bilateral salpingo-oophorectomy History of tubal ligation Family History Family History Father Past heart attack Mother Breast cancer Hypertension Cardiovascular disease Social History Social History Household Members: Spouse Housing: House Alcohol intake: never Patient Tobacco Use Status: Former Tobacco user Smoked in Last 30 Days: No e-Cigarette/Vaping Use: Never Used Second Hand Smoke Exposure: Yes Use of substances other than those prescribed or required for medical reasons: No Advance Directives: No Advance Directives Information Provided: Yes service: No Current occupational status: retired Cognitive needs: No Hearing needs: No Vision needs: Yes Physical Exam Vital Signs: Vital Signs: Last Vital Signs Temp 98.7 F 01/07/23 09:38 Pulse 89 01/07/23 12:35 Resp 18 01/07/23 12:35 BP 179/85 H 01/07/23 12:35 Pulse Ox 97 01/07/23 12:35 O2 Del Method Room Air 01/07/23 12:35 BMI result Body Mass Index 24.2 Appearance: Alert.? Oriented X3.? No acute distress.? Head: Normocephalic, atraumatic, no step-offs or deformities Eyes: Pupils equal, round and reactive to light.? ENT: Pharynx normal.? Neck: Normal inspection.? Neck supple.? CVS: Normal heart rate and rhythm.? Pulses normal.? Respiratory: No respiratory distress.? Breath sounds normal.? Abdomen: Soft, nondistended, with tenderness to palpation of the suprapubic region without rebound or guarding, +BS throughout Skin: Skin warm and dry.? Normal skin color.? Normal skin turgor.? Extremities: No lower extremity edema.? No calf ttp. 5/5 strength to bilateral upper and lower extremities Back: No midline tenderness, no C-spine tenderness, full range of motion, no CVA tenderness bilaterally Neuro: Oriented X 3.? No motor deficit.? No sensory deficit. CN 2-12 intact Course Reevaluation(s) Reevaluation #1: CBC negative for infection or anemia. CMP notable for elevated Elevated BUN/creatinine > will give IVF however this is likely chornic and not acute.. Elevated glucose to 378 > will give insulin likely poorly controlled DM2 ( no aniongap or hyper K or other sx of DKA or HHS) No acute electrolyte abnormalities requiring intervention. Time: 11:19 Reevaluation #2: UA positive for infection. Will give ceftin. Will send patient home on antibiotics and pyridium for symptom management. Discussed worrisome signs and symptoms with the patient along with when to return to the emergency department. Patient agreeable with discharge plan, stable for discharge. Time: 12:09 Medications Administered Discontinued Medications Generic Name Dose Route Start Last Admin Trade Name Freq PRN Reason Stop Dose Admin Cefuroxime Axetil 250 mg 01/07/23 12:19 01/07/23 12:33 Cefuroxime Axetil 250 Mg Tablet PO 01/07/23 12:20 250 mg ONCE ONE Administration Sodium Chloride 1,000 mls @ 999 mls/hr 01/07/23 11:30 01/07/23 11:54 Ns IV 01/07/23 12:30 999 mls/hr .Q1H1M MIA Administration Insulin Human Lispro 5 unit 01/07/23 11:27 01/07/23 11:54 Insulin Lispro 100 Unit/Ml 3 Ml Vial SUBCUT 01/07/23 11:28 5 unit ONCE ONE Administration Medical Decision Making Medical Decision Making [facility] Narrative: 1034 77-year-old female presents with dysuria and lower abdominal pain x 1 day Physical exam notable for suprapubic tenderness to palpation without rebound tenderness or guarding. +BS throughout. No CVAT. Clinical concern for urinary tract infection vs nephrolithiasis vs acute on chronic kidney disease vs yeast infection vs cystitis. .Unlikley pylonephritis vs DKA vs hyperosmolar hyperglycemia vs obstructive uropathy. No signs of acute abdomen. I do not suspect diverticulitis, appendicitis, pancreatitis, cholecystitis or cholangitis. Differential Diagnosis Differential Diagnoses: The differential diagnosis associated with the presentation includes Clinical concern for urinary tract infection vs nephrolithiasis vs acute on chronic kidney disease vs yeast infection vs cystitis. .Unlikley pylonephritis vs DKA vs hyperosmolar hyperglycemia vs obstructive uropathy.. No signs of acute abdomen. I do not suspect diverticulitis, appendicitis, pancreatitis, cholecystitis or cholangitis. Admission/Observation Consideration of admission/observation: Escalation of care including admission/observation considered Not indicated Lab Data [facility] Lab Attestation statement: I reviewed the patient's lab results. As above 01/07/23 10:08 01/07/23 10:08 Labs: Lab Results 01/07/23 01/07/23 01/07/23 Range/Units 09:51 10:08 10:08 WBC 8.9 (4.8-10.8) X10*3/uL RBC 4.78 (4.20-5.50) X10*6/uL Hgb 14.0 (12.0-16.0) g/dl Hct 40.3 (37.0-47.0) % MCV 84.3 (80.0-98.0) fL MCH 29.3 (27.0-33.0) pg MCHC 34.7 (31.0-35.0) g/dl RDW 13.5 (11.0-16.0) % Plt Count 226 (160-400) X10*3/uL MPV 10.6 (9.4-12.3) fL Immature Gran % (Auto) 0.7 H (0.0-0.4) % Neut % (Auto) 74.7 H (45-73) % Lymph % (Auto) 17.3 L (20-40) % [place] % (Auto) 4.4 (2-11) % Eos % (Auto) 2.2 (0-4) % Baso % (Auto) 0.7 (0-2) % Lymph # (Auto) 1.6 (1.2-4.9) X10*3/uL [place] # (Auto) 0.4 (0.1-1.2) X10*3/uL Eos # (Auto) 0.2 (0.0-0.4) X10*3/uL Baso # (Auto) 0.1 (0.0-0.2) X10*3/uL Abs Immat Gran (auto) 0.06 H (0.00-0.03) X10*3/uL Absolute Neuts (auto) 6.7 (2.0-8.3) x10*3/uL Absolute Nucleated RBC 0.000 (0.0-0.012) X10*3/uL Nucleated RBC % (auto) 0.0 (0.0-0.2) /100WBC Sodium 136 (135-145) mmol/L Potassium 3.7 (3.3-5.1) mmol/L Chloride 102 (96-108) mmol/L Carbon Dioxide 23 (22-29) mmol/L Anion Gap 15 (12-20) BUN 20 H (9-16) mg/dL Creatinine 1.55 H (0.5-1.4) mg/dL Estim Creat Clear Calc 28.4 Estimated GFR 32 POC Glucose (60-115) mg/dL Random Glucose 378 H* (60-115) mg/dL Calcium 10.4 H (8.4-10.2) mg/dL Total Bilirubin 0.4 (0.0-1.0) mg/dL AST 22 (5-31) U/L ALT 30 (0-31) U/L Alkaline Phosphatase 79 (39-117) U/L Total Protein 8.1 H (6.5-8.0) g/dL Albumin 4.7 (3.5-5.0) g/dL Urine Color Yellow Urine Appearance Turbid Urine pH 5.5 (5.0-9.0) Ur Specific [place] 1.020 (1.005-1.025) Urine Protein 100 (2+) H (Neg-Trace) mg/dL Urine Glucose (UA) >=1000 H (Negative) mg/dL Urine Ketones Negative (Negative) mg/dL Urine Blood Large (3+) H (Negative) Urine Nitrite Negative (Negative) Ur Leukocyte Esterase Moderate (2+) H (Negative) Urine RBC >20 H (0-2) /HPF Urine WBC >50 H (0-5) /HPF Ur Squamous Epith Cells 3-5 (0-2) /HPF Urine Bacteria 4+ (None Seen) Hyaline Casts 0-2 (0-2) /LPF 01/07/23 Range/Units 12:39 WBC (4.8-10.8) X10*3/uL RBC (4.20-5.50) X10*6/uL Hgb (12.0-16.0) g/dl Hct (37.0-47.0) % MCV (80.0-98.0) fL MCH (27.0-33.0) pg MCHC (31.0-35.0) g/dl RDW (11.0-16.0) % Plt Count (160-400) X10*3/uL MPV (9.4-12.3) fL Immature Gran % (Auto) (0.0-0.4) % Neut % (Auto) (45-73) % Lymph % (Auto) (20-40) % [place] % (Auto) (2-11) % Eos % (Auto) (0-4) % Baso % (Auto) (0-2) % Lymph # (Auto) (1.2-4.9) X10*3/uL [place] # (Auto) (0.1-1.2) X10*3/uL Eos # (Auto) (0.0-0.4) X10*3/uL Baso # (Auto) (0.0-0.2) X10*3/uL Abs Immat Gran (auto) (0.00-0.03) X10*3/uL Absolute Neuts (auto) (2.0-8.3) x10*3/uL Absolute Nucleated RBC (0.0-0.012) X10*3/uL Nucleated RBC % (auto) (0.0-0.2) /100WBC Sodium (135-145) mmol/L Potassium (3.3-5.1) mmol/L Chloride (96-108) mmol/L Carbon Dioxide (22-29) mmol/L Anion Gap (12-20) BUN (9-16) mg/dL Creatinine (0.5-1.4) mg/dL Estim Creat Clear Calc Estimated GFR POC Glucose 186 H (60-115) mg/dL Random Glucose (60-115) mg/dL Calcium (8.4-10.2) mg/dL Total Bilirubin (0.0-1.0) mg/dL AST (5-31) U/L ALT (0-31) U/L Alkaline Phosphatase (39-117) U/L Total Protein (6.5-8.0) g/dL Albumin (3.5-5.0) g/dL Urine Color Urine Appearance Urine pH (5.0-9.0) Ur Specific [place] (1.005-1.025) Urine Protein (Neg-Trace) mg/dL Urine Glucose (UA) (Negative) mg/dL Urine Ketones (Negative) mg/dL Urine Blood (Negative) Urine Nitrite (Negative) Ur Leukocyte Esterase (Negative) Urine RBC (0-2) /HPF Urine WBC (0-5) /HPF Ur Squamous Epith Cells (0-2) /HPF Urine Bacteria (None Seen) Hyaline Casts (0-2) /LPF External Record Review External record reviewed: Inpatient record Prescription Management I considered prescription management with: Antibiotic Chronic Conditions Patient?s care impacted by: Diabetes, Hypertension and Other (CKD) Core Measures AMI core measures followed: Yes Measure exclusions: not indicated Critical Care Time Critical Care Time Critical Care Time: No Discharge Plan Discharge Clinical Impression: Acute UTI, Diabetes type 2, uncontrolled, CKD (chronic kidney disease) Patient Disposition: Home, Self-Care Instructions: Urinary Tract Infection in Women (ED), Diabetic Kidney Disease (ED) Additional Instructions: Take your medications as prescribed. If you were prescribed antibiotics today, it is important that you take your medication to their entirety, do not skip any doses, do not finish them early. Follow-up with your primary care provider this week. Return to the emergency department with new or worsening symptoms. In case of emergency call 911 Your urine was positive for infection. Antibiotics have been sent to your pharmacy. Please take these as prescribed for your urinary tract infection. Pyridium has also been sent here pharmacy. Take this as needed for urinary discomfort. Please follow-up with your primary care provider. Prescriptions: New phenazopyridine [Pyridium] 100 mg tablet 200 mg PO TID 2 Days Qty: 6 0RF cefuroxime axetil 250 mg tablet 250 mg PO BID 7 Days Qty: 14 0RF No Action (DME) blood-glucose meter [FreeStyle Lite Meter] Kit See Rx Instructions .Route Rx Instructions: As directed to test blood sugar four times a day (DME) lancets [FreeStyle Lancets] 28 gauge misc See Rx Instructions .Route Qty: 120 12RF Rx Instructions: As directed four times a day atorvastatin 40 mg tablet 40 mg PO BEDTIME 90 Days Qty: 90 3RF Bystolic 5 mg tablet 5 mg PO DAILY 90 Days Qty: 90 3RF metformin 500 mg tablet 500 mg PO BID 90 Days Qty: 180 3RF Januvia 100 mg tablet 100 mg PO DAILY 90 Days Qty: 90 3RF (DME) FreeStyle Lite Strips Strip See Rx Instructions .Route Qty: 150 2RF Rx Instructions: As directed to test blood sugar four times a day (DME) pen needle, diabetic [BD Vi 2nd Gen Pen Needle] 32 gauge x 5/32 needle See Rx Instructions .ROUTE .COMPLEX Qty: 150 11RF Dose Instruction: USE TO INEJCT FOUR TIMES A DAY Rx Instructions: USE TO INEJCT FOUR TIMES A DAY cholecalciferol (vitamin D3) 50 mcg (2,000 unit) capsule 50 mcg PO DAILY 90 Days Qty: 90 3RF insulin glargine [Basaglar KwikPen U-100 Insulin] 100 unit/mL (3 mL) insulin pen 36 unit subcut QPM 30 Days Qty: 15 11RF insulin aspart U-100 [Novolog FlexPen U-100 Insulin] 100 unit/mL (3 mL) insulin pen 10 - 12 unit subcut TID 30 Days Qty: 15 6RF sertraline 25 mg tablet 25 mg PO QAM 30 Days Qty: 30 3RF losartan 100 mg tablet 100 mg PO DAILY 90 Days Qty: 90 3RF hydrochlorothiazide 25 mg tablet 25 mg PO DAILY 90 Days Qty: 90 3RF diazepam 2 mg tablet 2 mg PO DAILY PRN (Reason: anxiety) Qty: 30 0RF amlodipine 10 mg tablet 10 mg PO DAILY 90 Days Qty: 90 1RF Referrals: Johnny Valadez MD [Primary Care Provider] -
[2023-01-07 10:13] LABS: MANUAL DIFF FLAG NO
[2023-01-07 10:14] LABS: Basophils Absolute Auto 0.1 X10*3/uL (0.0-0.2); Basophils Percent Auto 0.7 % (0-2); Eosinophils Absolute Auto 0.2 X10*3/uL (0.0-0.4); Eosinophils Percent Auto 2.2 % (0-4); Hematocrit 40.3 % (37.0-47.0); Imm Gran Abs Auto 0.06 X10*3/uL (0.00-0.03); Imm Gran Pct Auto 0.7 % (0.0-0.4); Lymphocytes Absolute Auto 1.6 X10*3/uL (1.2-4.9); Lymphocytes Percent Auto 17.3 % (20-40); Mean Corpuscular HGB Conc 34.7 g/dl (31.0-35.0); Mean Corpuscular Hemoglobin 29.3 pg (27.0-33.0); Mean Corpuscular Volume 84.3 fL (80.0-98.0); Mean Platelet Volume 10.6 fL (9.4-12.3); Monocytes Absolute Auto 0.4 X10*3/uL (0.1-1.2); Monocytes Percent Auto 4.4 % (2-11); Neutrophils Absolute Auto 6.7 x10*3/uL (2.0-8.3); Neutrophils Percent Auto 74.7 % (45-73); Platelet Count 226 X10*3/uL (160-400); Red Blood Count 4.78 X10*6/uL (4.20-5.50); Red Cell Distribution Width 13.5 % (11.0-16.0); White Blood Count 8.9 X10*3/uL (4.8-10.8)
[2023-01-07 10:50] LABS: Alanine Aminotransferase 30 U/L (0-31); Albumin Level 4.7 g/dL (3.5-5.0); Alkaline Phosphatase 79 U/L (39-117); Anion Gap 15 (12-20); Aspartate Amino Transferase 22 U/L (5-31); Bilirubin Total 0.4 mg/dL (0.0-1.0); Blood Urea Nitrogen 20 mg/dL (9-16); Calcium 10.4 mg/dL (8.4-10.2); Carbon Dioxide 23 mmol/L (22-29); Chloride 102 mmol/L (96-108); Creatinine Clr Calc Pharmacy 28.4; Estimated Glomerular Filt Rate 32; Glucose Random 378 mg/dL (60-115); Potassium 3.7 mmol/L (3.3-5.1); Sodium 136 mmol/L (135-145); Total Protein 8.1 g/dL (6.5-8.0)
[2023-01-07] MEDS: 0.9 % Sodium Chloride 1,000 ML 999 ML IV (11:54)
[2023-01-07] MEDS: Insulin Lispro 100 UNIT/ML 3 ML VIAL SUBCUT (11:54)
[2023-01-07 12:35] VITALS: BP 179/85; PULSE 89; RESP 18; O2SAT 97
[2023-01-07 12:43] LABS: Glucose, Whole Blood 186 mg/dL (60-115)
== END 2023-01-07 13:49 | disposition home or self-care (01) ==
PROVIDERS: Physician Assistant; Emergency Provider Emergency Medicine; PCP Internal Medicine
DX: N39.0 Urinary tract infection, site not specified (principal); E11.22 Type 2 diabetes mellitus with diabetic chronic kidney disease; I12.9 Hypertensive chronic kidney disease with stage 1 through stage 4 chronic kidney disease, or unspecified chronic kidney disease; R11.2 Nausea with vomiting, unspecified; N18.30 Chronic kidney disease, stage 3 unspecified; Z79.4 Long term (current) use of insulin; Z79.899 Other long term (current) drug therapy; Z87.891 Personal history of nicotine dependence
CPT/HCPCS: 36415; 80053; 81001; 82947; 85025; 87086; 87088; 87186; 96360; 96361; 99284

== ENCOUNTER 2023-01-18 07:30 | Outpatient (REF) | payer MEDICARE, BC, SELFPAY ==
[2023-01-18 11:18] LABS: MANUAL DIFF FLAG NO
[2023-01-18 11:29] LABS: Appearance Urine Clear; Color Urine Yellow; Glucose Urine UA Negative (Negative); Leukocyte Esterase Urine Moderate (2+) (Negative); Nitrite Urine Negative (Negative); UMIC TRIGGER UACC YES; Urine Blood Negative (Negative); Urine Ketones Negative (Negative); Urine Protein Negative (Neg-Trace)
[2023-01-18 11:40] LABS: Basophils Absolute Auto 0.1 X10*3/uL (0.0-0.2); Eosinophils Absolute Auto 0.5 X10*3/uL (0.0-0.4); Eosinophils Percent Auto 6.5 % (0-4); Hematocrit 39.6 % (37.0-47.0); Hemoglobin 13.6 g/dl (12.0-16.0); Imm Gran Abs Auto 0.04 X10*3/uL (0.00-0.03); Imm Gran Pct Auto 0.5 % (0.0-0.4); Lymphocytes Absolute Auto 2.1 X10*3/uL (1.2-4.9); Lymphocytes Percent Auto 26.1 % (20-40); Mean Corpuscular HGB Conc 34.3 g/dl (31.0-35.0); Mean Corpuscular Hemoglobin 29.7 pg (27.0-33.0); Mean Corpuscular Volume 86.5 fL (80.0-98.0); Mean Platelet Volume 10.7 fL (9.4-12.3); Monocytes Absolute Auto 0.6 X10*3/uL (0.1-1.2); Monocytes Percent Auto 7.7 % (2-11); Neutrophils Absolute Auto 4.7 x10*3/uL (2.0-8.3); Neutrophils Percent Auto 58.2 % (45-73); Platelet Count 225 X10*3/uL (160-400); Red Blood Count 4.58 X10*6/uL (4.20-5.50)
[2023-01-18 11:43] LABS: Bacteria Urine None Seen (None Seen); Hyaline Casts Urine 0-2 /LPF (0-2); RBC Urine 0-2 /HPF (0-2); WBC Urine 0-5 /HPF (0-5)
[2023-01-18 12:27] LABS: Estimated Average Glucose 148 mg/dL; Hemoglobin A1c % 6.8 % (<6.0)
[2023-01-18 12:52] LABS: Folate 9.7 ng/mL (> or = 4.0); Vitamin B12 534 pg/mL (200-900)
[2023-01-18 13:00] LABS: Creatinine Urine 71.37 mg/dL; Microalbum/Creatinine Ratio Ur 29.4 ug/mg cr (<30)
[2023-01-18 14:16] LABS: Alanine Aminotransferase 32 U/L (0-31); Albumin Level 4.4 g/dL (3.5-5.0); Alkaline Phosphatase 68 U/L (39-117); Anion Gap 13 (12-20); Aspartate Amino Transferase 22 U/L (5-31); Bilirubin Total 0.4 mg/dL (0.0-1.0); Blood Urea Nitrogen 19 mg/dL (9-16); Calcium 10.6 mg/dL (8.4-10.2); Carbon Dioxide 27 mmol/L (22-29); Chloride 106 mmol/L (96-108); Cholesterol 186 mg/dL (<200); Estimated Glomerular Filt Rate 41; Glucose Fasting 148 mg/dL (60-99); HDL Cholesterol 56 mg/dL (>40); LDL Cholesterol Calculated 97 mg/dL (<100); Sodium 142 mmol/L (135-145); Total Protein 7.5 g/dL (6.5-8.0); Triglycerides 167 mg/dL (<150)
[2023-01-18 14:20] LABS: TSH reflex Free T4 2.11 uIU/mL (0.32-4.0); Vitamin D 25-OH Total 53.8 ng/mL (>30)
== END 2023-01-18 07:31 | disposition home or self-care (01) ==
LOC: HO.HMGCLDS 07:30
PROVIDERS: PCP Internal Medicine; Visit Provider Internal Medicine
DX: E11.9 Type 2 diabetes mellitus without complications (principal); E78.00 Pure hypercholesterolemia, unspecified; I10 Essential (primary) hypertension; E55.9 Vitamin D deficiency, unspecified; E53.8 Deficiency of other specified B group vitamins
CPT/HCPCS: 36415; 80053; 80061; 81001; 82043; 82306; 82570; 82607; 82746; 83036; 84443; 85025

== ENCOUNTER 2023-01-30 09:42 | Outpatient (AMB) | payer MEDICARE, BC, SELFPAY ==
--- NOTE | 2023-01-30 09:43 | A.OFFPC_ITS ---
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 Accompanied by: Self / Same As Patient Allergies nitrofurantoin [Macrobid] Allergy (Unknown, Verified 01/30/23 10:42) hives Medication List - Last Reconciled 01/30/23 by Johnny Valadez MD amlodipine 10 mg PO DAILY 90 days atorvastatin 40 mg PO BEDTIME 90 days blood sugar diagnostic (FreeStyle Lite Strips) As directed to test blood sugar four times a day blood-glucose meter (FreeStyle Lite Meter kit) As directed to test blood sugar four times a day cholecalciferol (vitamin D3) 50 mcg PO DAILY 90 days diazepam 2 mg PO DAILY PRN hydrochlorothiazide 25 mg PO DAILY 90 days insulin aspart U-100 (Novolog FlexPen U-100 Insulin aspart) 10 - 12 units (0.1 - 0.12 mL) subcut TID 30 days insulin glargine (Basaglar KwikPen U-100 Insulin) 36 units (0.36 mL) subcut QPM 30 days lancets (FreeStyle Lancets) As directed four times a day losartan 100 mg PO DAILY 90 days metformin 500 mg PO BID 90 days nebivolol (Bystolic) 5 mg PO DAILY 90 days pen needle, diabetic (BD Vi 2nd Gen Pen Needle) USE TO INEJCT FOUR TIMES A DAY phenazopyridine (Pyridium) 200 mg (2 x 100 mg) PO TID 2 days sitagliptin phosphate (Januvia) 100 mg PO DAILY 90 days Tobacco use date assessed: 01/30/23 Fall risk assessment: No Falls in past year Last assessed Fall Risk: 01/30/23 Dental Screening Dental Screen Date: 01/30/23 Did you have a dental visit in the last 12 months?: Yes Did you have a dental problem in the last 6 months where you did not have access to dental care?: No Was dental information given to patient?: Patient has dentist HPI DM, CKD, hyperlipidemia, HTN HPI Details Patient comes in today for her follow up visit States that she feels okay Is now seeing Dr. Glass for nephrology follow up Patient went to the ER a couple of weeks ago for increasing dysuria and lower abdominal pain/pressure Was diagnosed with a urinary tract infection and started on Ceftin - states that her symptoms improved with Tx She presently denies any headaches or dizziness; denies any fever Denies any chest pains, no SOB No nausea/vomiting, no abdominal pain No change in bowel habits noted Denies any acute urinary symptoms presently Needs a few of her Rx refilled Had her follow up labs done a couple of weeks ago - to discuss her results [facility] Medical History Allergic rhinitis Type 2 diabetes mellitus with polyneuropathy Hypertensive urgency Vitamin D deficiency HTN (hypertension) Diabetes type 2, uncontrolled Left low back pain Hyperlipidemia LDL goal <100 Anxiety Vitamin D deficiency Elevated LFTs Benign essential hypertension Pure hypercholesterolemia Chronic kidney disease (CKD), stage III (moderate) Type 2 diabetes mellitus with chronic kidney disease Surgical History History of bladder surgery History of total abdominal hysterectomy and bilateral salpingo-oophorectomy History of right oophorectomy History of tubal ligation Family History Father Past heart attack Mother Breast cancer Hypertension Cardiovascular disease Social History Household Members: Spouse Housing: House Alcohol intake: never Patient Tobacco Use Status: Former Tobacco user e-Cigarette/Vaping Use: Never Used Second Hand Smoke Exposure: Yes service: No Current occupational status: retired Cognitive needs: No Hearing needs: No Vision needs: Yes Questionnaire PHQ-9 Over the last 2 weeks, how often have you been bothered by any of the following problems? 1. Little interest or pleasure in doing things: not at all 2. Feeling down, depressed, or hopeless: not at all 3. Trouble falling or staying asleep, or sleeping too much: not at all 4. Feeling tired or having little energy: not at all 5. Poor appetite or overeating: not at all 6. Feeling bad about yourself - or that you are a failure or have let yourself or your family down: not at all 7. Trouble concentrating on things, such as reading the newspaper or watching television: not at all 8. Moving or speaking so slowly that other people could have noticed. Or the opposite - being so fidgety or restless that you have been moving around a lot more than usual: not at all 9. Thoughts that you would be better off or of hurting yourself in some way: not at all Total score: 0 Depression Screening Interpretation: Negative 79251 - PHQ-9 Billing: Yes Source: Developed by Drs. Eric Duffy, Roxy Irwin, Cruz Pimentel and colleagues, with an educational trish from [employer]. Thrive Questionnaire Date Thrive assessed: 01/30/23 I am a: Patient What is your living situation today?: I have a steady place to live Within the past 12 months, did the food you bought not last and you didn't have the money to get more?: Never true Within the past 12 months, did you worry whether your food would run out before you got money to buy more?: Never true Do you have trouble paying for medicines?: No Do you have trouble getting transportation to medical appointments?: No Do you have trouble paying your heating and electricity bill?: No Do you have trouble taking care of your child, family member or friend?: No Do you have trouble with day-to-day activities such as bathing, preparing meals, shopping, managing finances, etc.?: No Are you currently unemployed and looking for a job?: No Are you interested in more education?: No Please select the resources that you would like help with: None Currently or been in a relationship where the following occur: no concerns reported AUDIT C Alcohol Use Questionnaire (AUDIT-C) 1. How often do you have a drink containing alcohol?: Never Total Score: 0 Score Reviewed/Action Taken: Yes CHAO-7 AMB Questionnaire CHAO-7 Date CHAO - 7 assessed: 01/30/23 Feeling nervous, anxious, or on edge: 0 = Not at all Not being able to stop or control worryin = Not at all Worrying too much about different things: 0 = Not at all Trouble relaxin = Not at all Being so restless that it is hard to sit still: 0 = Not at all Becoming easily annoyed or irritable: 0 = Not at all Feeling afraid as if something awful might happen: 0 = Not at all Total CHAO-7 score (0-4 normal; 5-9 mild; 10-14 moderate; 15-21 severe): 0 Source: Developed by Drs. Eric Duffy, Roxy Irwin, Cruz Pimentel and colleagues, with an educational trish from [employer]. Review of Systems Const Denies chills, Denies fatigue, Denies fever(s) and Denies headache(s) ENT Denies dysphagia, Denies dizziness, Denies otalgia, Denies headache(s), Denies neck pain, Denies odynophagia and Denies sore throat Card Denies chest pain, Denies palpitations and Denies dyspnea Resp Denies cough and Denies dyspnea GI Denies abdominal pain, Denies constipation, Denies dysphagia, Denies heartburn, Denies diarrhea, Denies nausea, Denies odynophagia and Denies vomiting Denies difficulty voiding, Denies nocturia, Denies dysuria and Denies urinary urgency Musc Details: occasional pain on her left lower back going down her left leg Denies back pain, Denies neck pain and Reports stiffness (in both hands, on and off) Skin/Breast Denies rash Neuro Denies dizziness and Denies headache(s) Endo Denies fatigue and Denies palpitations Aller/Immun Details: recurrent sneezing Reports seasonal rhinorrhea (at times) Physical exam (Primary Care) Vital Signs: Last Vital Signs Pulse 67 01/30/23 09:44 BP 126/78 01/30/23 09:44 Pulse Ox 99 01/30/23 09:44 Oxygen Delivery Method Room Air 01/30/23 09:44 BMI result Body Mass Index 23.3 Tobacco/Smoking Status: Tobacco use Status Tobacco use date assessed 01/30/23 01/30/23 09:46 Patient Tobacco Use Status Former Tobacco user 01/30/23 09:46 e-Cigarette/Vaping Use Never Used 01/30/23 09:46 PHQ-9: PHQ-9 Score PHQ-9: Total score 0 01/30/23 09:57 Depression Screening Interpretation: Negative Thrive Assessment: Date of Thrive Assessment Date Thrive assessed 01/30/23 01/30/23 09:46 Currently or been in a relationship where the following occur: no concerns reported Const General: no acute distress and alert HENMT Ears: TM's normal bilaterally and EAC's normal Throat: Yes posterior oropharynx normal and Yes tonsils normal (no TP congestion) Neck Neck: Yes no lymphadenopathy and Yes supple Resp Auscultation: clear to auscultation bilaterally, no rales and no wheezes Cardio Rate: regular rate Rhythm: regular rhythm Heart sounds: no murmurs GI Palpation (GI): Soft to palpation and nontender Auscultation: normal bowel sounds Extrem General: Yes no clubbing, cyanosis or edema Results Reviewed Results Reviewed: Laboratory Tests 01/18/23 07:34 WBC 8.0 Hgb 13.6 Hct 39.6 Plt Count 225 Sodium 142 Potassium 4.0 Creatinine 1.27 Estimated GFR 41 Fasting Glucose 148 H Hemoglobin A1c % 6.8 H Calcium 10.6 H AST 22 ALT 32 H Triglycerides 167 H Cholesterol 186 LDL Cholesterol, Calc 97 HDL Cholesterol 56 Vitamin B12 534 25-OH Vitamin D Total 53.8 TSH 2.11 Urine pH 6.0 Ur Specific [place] 1.010 Urine Protein Negative Urine Glucose (UA) Negative Urine Blood Negative Microalb/Creat Ratio 29.4 H Assessment and Plan Assessment & Plan (1) Type 2 diabetes mellitus with chronic kidney disease: Code(s): E11.22 - Type 2 diabetes mellitus with diabetic chronic kidney disease Qualifiers: Diabetes mellitus [facility] insulin use: with emt intermediate use Chronic kidney disease stage: stage 3 (moderate) Chronic kidney disease stage 3 subtype: stage 3b (GFR 30-44) Qualified Code(s): E11.21 - Type 2 diabetes mellitus with diabetic nephropathy; N18.32 - Chronic kidney disease, stage 3b; Z79.4 - shelter (current) use of insulin Plan: HgbA1c was at 6.8% on her labs done a couple of weeks ago (was previously at 7.0% a few months ago) - goal is <7.0% Reinforced diabetic diet Continue Metformin 500 mg BID, Basaglar 36 units Q PM, Novolog 10 to 12 units TID with meals per sliding scale and Januvia 100 mg QD Was seeing endocrinology previously; she has been advised that she can see them as needed now and to just follow up with her PCP as her diabetes is currently under good control (2) Pure hypercholesterolemia: Code(s): E78.00 - Pure hypercholesterolemia, unspecified Plan: Results of her labs done a couple of weeks ago reviewed and discussed with patient Reinforced low cholesterol diet Continue Atorvastatin 40 mg QD Will recheck her labs and fasting lipids in 4 months for follow up (3) Chronic kidney disease (CKD), stage III (moderate): Code(s): N18.30 - Chronic kidney disease, stage 3 unspecified Qualifiers: Chronic kidney disease stage 3 subtype: stage 3b (GFR 30-44) Qualified Code(s): N18.32 - Chronic kidney disease, stage 3b Plan: Stable; will continue to monitor her renal function closely Follow up with nephrology (Dr. Glass) as scheduled (4) Benign essential hypertension: Code(s): I10 - Essential (primary) hypertension Plan: Reinforced low sodium diet - goal is systolic BP of at least 130 mm or less Continue Amlodipine 10 mg QD, Losartan-HCT 100-25 mg QD and Bystolic 5 mg QD - Rx refille (5) Elevated LFTs: Code(s): R79.89 - Other specified abnormal findings of blood chemistry Plan: Improved on her recent labs - is most likely related to her weight Will continue to monitor her LFTs regularly (6) Vitamin D deficiency: Code(s): E55.9 - Vitamin D deficiency, unspecified Plan: Continue Vitamin D3 2000 units QD (7) Allergic rhinitis: Code(s): J30.9 - Allergic rhinitis, unspecified Qualifiers: Allergic rhinitis trigger: pollen Allergic rhinitis seasonality: seasonal Qualified Code(s): J30.1 - Allergic rhinitis due to pollen Plan: Continue OTC Loratadine 10 mg QD PRN (8) Anxiety: Code(s): F41.9 - Anxiety disorder, unspecified Plan: Continue Diazepam 2 mg QD PRN Was started on Sertraline 25 mg QD last year to help manage her anxiety better but patient admits that she never started it - feels that she is doing well righ t now and does not need any additional intervention at this time Plan Follow up in 4 months Orders: Orders Comprehensive [place]. Panel Fast 4 Months E78.00 - Pure hypercholesterolemia, unspecified Microalbumin, Random (w Creat) 4 Months E11.9 - Type 2 diabetes mellitus without complications Complete Blood Count Auto Diff 4 Months I10 - Essential (primary) hypertension UA CC w/rflx Micro + Cult 4 Months R30.0 - Dysuria TSH reflex Free T4 4 Months E78.00 - Pure hypercholesterolemia, unspecified Vitamin D 25-OH Total 4 Months E55.9 - Vitamin D deficiency, unspecified Hemoglobin A1c 4 Months E11.9 - Type 2 diabetes mellitus without complications Lipid Panel 4 Months E78.00 - Pure hypercholesterolemia, unspecified Medications: Refilled hydrochlorothiazide 25 mg PO DAILY 90 days 90 tabs 3RF amlodipine 10 mg PO DAILY 90 days 90 tabs 1RF losartan 100 mg PO DAILY 90 days 90 tabs 3RF pen needle, diabetic (BD Vi 2nd Gen Pen Needle) USE TO INEJCT FOUR TIMES A DAY 150 ea 11RF E11.21 - Type 2 diabetes mellitus with diabetic nephropathy, N18.32 - Chronic kidney disease, stage 3b, Z79.4 - shelter (current) use of insulin Coding Level of Care Code Est Pt Level 4 (02209) Diagnoses Type 2 diabetes mellitus with stage 3b chronic kidney disease, with long-term current use of insulin E11.21; N18.32; Z79.4 Diabetes mellitus [facility] insulin use: with [facility] use Chronic kidney disease stage: stage 3 (moderate) Chronic kidney disease stage 3 subtype: stage 3b (GFR 30-44) Pure hypercholesterolemia E78.00 Stage 3b chronic kidney disease N18.32 Chronic kidney disease stage 3 subtype: stage 3b (GFR 30-44) Benign essential hypertension I10 Elevated LFTs R79.89 Vitamin D deficiency E55.9 Seasonal allergic rhinitis due to pollen J30.1 Allergic rhinitis trigger: pollen Allergic rhinitis seasonality: seasonal Anxiety F41.9
[2023-01-30 09:44] VITALS: BP 126/78; PULSE 67; O2SAT 99; BMI 23.3
== END 2023-01-30 10:50 | disposition home or self-care (01) ==
PROVIDERS: Visit Provider Internal Medicine
DX: E11.21 Type 2 diabetes mellitus with diabetic nephropathy (principal); I12.9 Hypertensive chronic kidney disease with stage 1 through stage 4 chronic kidney disease, or unspecified chronic kidney disease; N18.32 Chronic kidney disease, stage 3b; Z79.4 Long term (current) use of insulin; E55.9 Vitamin D deficiency, unspecified; F41.9 Anxiety disorder, unspecified; E78.00 Pure hypercholesterolemia, unspecified; R79.89 Other specified abnormal findings of blood chemistry; J30.1 Allergic rhinitis due to pollen
CPT/HCPCS: 99214

== ENCOUNTER 2023-04-23 15:17 | Outpatient (AMB) | payer MEDICARE, BC, SELFPAY ==
[2023-04-23 15:17] VITALS: BP 142/70; PULSE 72; O2SAT 98; BMI 23.0
--- NOTE | 2023-04-23 15:17 | A.OFFPC_ITS ---
Vital Signs 04/23/23 15:17 04/23/23 15:42 Height 5 ft 6 in Weight 142 lb 6 oz BMI 23.0 BP 142/70 H 170/90 H Blood Pressure Location Lt brachial Lt brachial Position Sitting Sitting Pulse 72 Pulse Source Pulse Oximeter Pulse Oximetry (%) 98 Oxygen Delivery Method Room Air Intake Visit Reasons: bleeding in back of eye Manager Six Sigma Required: No Accompanied by: Self / Same As Patient Allergies nitrofurantoin [Macrobid] Allergy (Unknown, Verified 04/23/23 15:32) hives Medication List - Last Reconciled 04/23/23 by Johnny Valadez MD amlodipine 10 mg PO DAILY 90 days atorvastatin 40 mg PO BEDTIME 90 days blood sugar diagnostic (FreeStyle Lite Strips) As directed to test blood sugar four times a day blood-glucose meter (FreeStyle Lite Meter kit) As directed to test blood sugar four times a day cholecalciferol (vitamin D3) 50 mcg PO DAILY 90 days diazepam 2 mg PO DAILY PRN hydrochlorothiazide 25 mg PO DAILY 90 days insulin aspart U-100 (Novolog FlexPen U-100 Insulin aspart) 10 - 12 units (0.1 - 0.12 mL) subcut TID 30 days insulin glargine (Basaglar KwikPen U-100 Insulin) 36 units (0.36 mL) subcut QPM 30 days lancets (FreeStyle Lancets) As directed four times a day losartan 100 mg PO DAILY 90 days metformin 500 mg PO BID 90 days nebivolol (Bystolic) 5 mg PO DAILY 90 days pen needle, diabetic (BD Vi 2nd Gen Pen Needle) USE TO INEJCT FOUR TIMES A DAY phenazopyridine (Pyridium) 200 mg (2 x 100 mg) PO TID 2 days sitagliptin phosphate (Januvia) 100 mg PO DAILY 90 days Tobacco use date assessed: 04/23/23 Fall risk assessment: No Falls in past year Last assessed Fall Risk: 04/23/23 Dental Screening Dental Screen Date: 04/23/23 Did you have a dental visit in the last 12 months?: Yes Did you have a dental problem in the last 6 months where you did not have access to dental care?: No Was dental information given to patient?: Patient has dentist HPI bleeding in back of eye HPI Details Patient comes in today for an urgent follow up of some eye issues States that she first started getting double vision about 2 to 3 days ago when she was going to be picking up her grandchildren from school Recalls that she also had some itching of her eyes but denies any eye pain or significant blurring of her vision She went to see her eye doctor earlier today and was reportedly told that she had some bleeding into her eye as well as paralysis of one of the eye muscles in her right eye and advised to see her PCP STEPHAN, prompting her to call here for an urgent appt Patient states that other than her double vision, she feels okay She denies any headaches or dizziness Denies any chest pains, no SOB No nausea/vomiting, no abdominal pain No change in bowel habits noted [facility] Medical History Sixth nerve palsy of right eye Allergic rhinitis Type 2 diabetes mellitus with polyneuropathy Hypertensive urgency Vitamin D deficiency HTN (hypertension) Diabetes type 2, uncontrolled Left low back pain Hyperlipidemia LDL goal <100 Anxiety Vitamin D deficiency Elevated LFTs Benign essential hypertension Pure hypercholesterolemia Chronic kidney disease (CKD), stage III (moderate) Type 2 diabetes mellitus with chronic kidney disease Surgical History History of bladder surgery History of total abdominal hysterectomy and bilateral salpingo-oophorectomy History of right oophorectomy History of tubal ligation Family History Father Past heart attack Mother Breast cancer Hypertension Cardiovascular disease Social History Household Members: Spouse Housing: House Alcohol intake: never Patient Tobacco Use Status: Former Tobacco user e-Cigarette/Vaping Use: Never Used Second Hand Smoke Exposure: Yes service: No Current occupational status: retired Cognitive needs: No Hearing needs: No Vision needs: Yes Questionnaire PHQ-9 Over the last 2 weeks, how often have you been bothered by any of the following problems? 1. Little interest or pleasure in doing things: not at all 2. Feeling down, depressed, or hopeless: not at all 3. Trouble falling or staying asleep, or sleeping too much: not at all 4. Feeling tired or having little energy: not at all 5. Poor appetite or overeating: not at all 6. Feeling bad about yourself - or that you are a failure or have let yourself or your family down: not at all 7. Trouble concentrating on things, such as reading the newspaper or watching television: not at all 8. Moving or speaking so slowly that other people could have noticed. Or the opposite - being so fidgety or restless that you have been moving around a lot more than usual: not at all 9. Thoughts that you would be better off or of hurting yourself in some way: not at all Total score: 0 Depression Screening Interpretation: Negative Depression Screening Done: Yes 94631 - PHQ-9 Billing: Yes Source: Developed by Drs. Eric Duffy, Roxy Irwin, Cruz Pimentel and colleagues, with an educational trish from [employer]. Thrive Questionnaire Date Thrive assessed: 04/23/23 I am a: Patient What is your living situation today?: I have a steady place to live Within the past 12 months, did the food you bought not last and you didn't have the money to get more?: Never true Within the past 12 months, did you worry whether your food would run out before you got money to buy more?: Never true Do you have trouble paying for medicines?: No Do you have trouble getting transportation to medical appointments?: No Do you have trouble paying your heating and electricity bill?: No Do you have trouble taking care of your child, family member or friend?: No Do you have trouble with day-to-day activities such as bathing, preparing meals, shopping, managing finances, etc.?: No Are you currently unemployed and looking for a job?: No Are you interested in more education?: No Please select the resources that you would like help with: None Currently or been in a relationship where the following occur: no concerns reported AUDIT C Alcohol Use Questionnaire (AUDIT-C) 1. How often do you have a drink containing alcohol?: Never Total Score: 0 Score Reviewed/Action Taken: Yes CHAO-7 AMB Questionnaire CHAO-7 Date CHAO - 7 assessed: 04/23/23 Feeling nervous, anxious, or on edge: 0 = Not at all Not being able to stop or control worryin = Not at all Worrying too much about different things: 0 = Not at all Trouble relaxin = Not at all Being so restless that it is hard to sit still: 0 = Not at all Becoming easily annoyed or irritable: 0 = Not at all Feeling afraid as if something awful might happen: 0 = Not at all Total CHAO-7 score (0-4 normal; 5-9 mild; 10-14 moderate; 15-21 severe): 0 Source: Developed by Drs. Eric Duffy, Roxy Irwin, Cruz Pimentel and colleagues, with an educational trish from [employer]. Review of Systems Const Denies fatigue, Denies fever(s) and Denies headache(s) Eyes Reports blurry vision (mild), Reports diplopia, Denies dry eyes and Denies eye pain ENT Denies dysphagia, Denies dizziness, Denies otalgia, Denies headache(s), Denies neck pain, Denies odynophagia and Denies sore throat Card Denies chest pain, Denies palpitations and Denies dyspnea Resp Denies cough and Denies dyspnea GI Denies abdominal pain, Denies constipation, Denies dysphagia, Denies heartburn, Denies diarrhea, Denies nausea, Denies odynophagia and Denies vomiting Denies difficulty voiding, Denies nocturia, Denies dysuria and Denies urinary urgency Musc Details: occasional pain on her left lower back going down her left leg Denies back pain, Denies neck pain and Reports stiffness (in both hands, on and off) Skin/Breast Denies rash Neuro Denies dizziness and Denies headache(s) Endo Denies fatigue and Denies palpitations Aller/Immun Details: recurrent sneezing Reports seasonal rhinorrhea (at times) Physical exam (Primary Care) Vital Signs: Last Vital Signs Pulse 72 04/23/23 15:17 BP 142/70 H 04/23/23 15:17 Pulse Ox 98 04/23/23 15:17 Oxygen Delivery Method Room Air 04/23/23 15:17 BMI result Body Mass Index 23.0 Tobacco/Smoking Status: Tobacco use Status Tobacco use date assessed 04/23/23 04/23/23 15:25 Patient Tobacco Use Status Former Tobacco user 04/23/23 15:25 e-Cigarette/Vaping Use Never Used 04/23/23 15:25 PHQ-9: PHQ-9 Score PHQ-9: Total score 0 04/23/23 15:31 Depression Screening Interpretation: Negative Thrive Assessment: Date of Thrive Assessment Date Thrive assessed 04/23/23 04/23/23 15:25 Currently or been in a relationship where the following occur: no concerns reported Const General: no acute distress and alert Orientation/consciousness: patient oriented x3 HENMT Throat: Yes posterior oropharynx normal and Yes tonsils normal (no TP congestion) Neck Neck: Yes no lymphadenopathy, Yes no meningeal signs and Yes supple Resp Auscultation: clear to auscultation bilaterally, no rales and no wheezes Cardio Rate: regular rate Rhythm: regular rhythm Heart sounds: no murmurs GI Palpation (GI): Soft to palpation and nontender Auscultation: normal bowel sounds Neuro General: patient oriented x3, gait normal, moves all extremities, no meningeal signs and no focal motor deficits Extrem General: Yes no clubbing, cyanosis or edema Results AMB Hemoglobin A1c AMB Hemoglobin A1c 7.7 % Last Edit by Lul Zimmer on 04/23/23 15:32 Assessment and Plan Assessment & Plan (1) Sixth nerve palsy of right eye: Code(s): H49.21 - Sixth [abducent] nerve palsy, right eye Plan: Patient reports experiencing diplopia for the past 2 to 3 days Eye exam done at [facility] [place] today revealed (+) retinopathy and cataract (last eye exam in September 2022 showed NO retinopathy); exam also revealed (+) 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 consistent with right 6th (abducens) nerve palsy Her BP is presently elevated when rechecked (170/90) - patient does have a history of white-coat syndrome Her HgbA1c has also gone up from previous (in-office HgbA1c today is at 7.7%; was at 6.8% back in January 2023) Have instructed patient to start taking low dose Aspirin 81 mg QD Will also refer her to neurology for further evaluation and management Follow up also with ophthalmology as scheduled (2) Benign essential hypertension: Code(s): I10 - Essential (primary) hypertension Plan: Reinforced low sodium diet - goal is systolic BP of at least 130 mm or less Continue Amlodipine 10 mg QD, Losartan-HCT 100-25 mg QD and Bystolic 5 mg QD Will start her additionally on Hydralazine 10 mg BID Patient is advised to monitor her blood pressure regularly/daily at home for the time being - discussed that her home BP will be most reflective of her true blood pressure with her Hx of white-coat syndrome, and she is advised to relay to us in the next 1 to 2 weeks her BP readings at home (3) Type 2 diabetes mellitus with chronic kidney disease: Code(s): E11.22 - Type 2 diabetes mellitus with diabetic chronic kidney disease Qualifiers: Diabetes mellitus ocean transportation intermediary insulin use: with ocean transportation intermediary use Chronic kidney disease stage: stage 3 (moderate) Chronic kidney disease stage 3 subtype: stage 3b (GFR 30-44) Qualified Code(s): E11.21 - Type 2 diabetes mellitus with diabetic nephropathy; N18.32 - Chronic kidney disease, stage 3b; Z79.4 - [facility] (current) use of insulin Plan: Her in-office HgbA1c today is at 7.7%, which is a lot higher than her HgbA1c of 6.8% back in January 2023 - goal is <7.0% Reinforced diabetic diet Continue Metformin 500 mg BID, Basaglar 36 units Q PM, Novolog 10 to 12 units TID with meals per sliding scale and Januvia 100 mg QD for now Was seeing endocrinology previously; she has been advised that she can see them as needed now and to just follow up with her PCP as her diabetes is currently under good control Is advised to try to get back to her strict diabetic diet regimen and if she cannot get her overall diabetes control back, we may need to start her additionally on some more Rx for her diabetes (4) Pure hypercholesterolemia: Code(s): E78.00 - Pure hypercholesterolemia, unspecified Plan: Reinforced low cholesterol diet Continue Atorvastatin 40 mg QD Will have her recheck her labs and fasting lipids as scheduled next month for follow up (5) Chronic kidney disease (CKD), stage III (moderate): Code(s): N18.30 - Chronic kidney disease, stage 3 unspecified Qualifiers: Chronic kidney disease stage 3 subtype: stage 3b (GFR 30-44) Qualified Code(s): N18.32 - Chronic kidney disease, stage 3b Plan: Stable; will continue to monitor her renal function closely Follow up with nephrology (Dr. Glass) as scheduled (6) Elevated LFTs: Code(s): R79.89 - Other specified abnormal findings of blood chemistry Plan: Improved on her most recent labs - is most likely related to her weight Will continue to monitor her LFTs regularly (7) Vitamin D deficiency: Code(s): E55.9 - Vitamin D deficiency, unspecified Plan: Continue Vitamin D3 2000 units QD (8) Allergic rhinitis: Code(s): J30.9 - Allergic rhinitis, unspecified Qualifiers: Allergic rhinitis trigger: pollen Allergic rhinitis seasonality: seasonal Qualified Code(s): J30.1 - Allergic rhinitis due to pollen Plan: Continue OTC Loratadine 10 mg QD PRN (9) Anxiety: Code(s): F41.9 - Anxiety disorder, unspecified Plan: Continue Diazepam 2 mg QD PRN Was started on Sertraline 25 mg QD last year to help manage her anxiety better b ut patient admits that she never started it - feels that she is doing well right now and does not need any additional intervention at this time Plan Follow up as scheduled next month Orders: Orders AMB Hemoglobin A1c Today Z13.9 - Encounter for screening, unspecified Referrals Neurology Referral H53.2 - Diplopia Medications: New hydralazine 10 mg PO BID 60 tabs 1RF Coding Level of Care Code Est Pt Level 4 (69175) Diagnoses Sixth nerve palsy of right eye H49.21 Benign essential hypertension I10 Type 2 diabetes mellitus with stage 3b chronic kidney disease, with long-term current use of insulin E11.21; N18.32; Z79.4 Diabetes mellitus nursing home insulin use: with nursing home use Chronic kidney disease stage: stage 3 (moderate) Chronic kidney disease stage 3 subtype: stage 3b (GFR 30-44) Pure hypercholesterolemia E78.00 Stage 3b chronic kidney disease N18.32 Chronic kidney disease stage 3 subtype: stage 3b (GFR 30-44) Elevated LFTs R79.89 Vitamin D deficiency E55.9 Seasonal allergic rhinitis due to pollen J30.1 Allergic rhinitis trigger: pollen Allergic rhinitis seasonality: seasonal Anxiety F41.9
[2023-04-23 15:42] VITALS: BP 170/90
== END 2023-04-23 15:54 | disposition home or self-care (01) ==
PROVIDERS: PCP Internal Medicine; Visit Provider Internal Medicine
DX: H49.21 Sixth [abducent] nerve palsy, right eye (principal); E11.21 Type 2 diabetes mellitus with diabetic nephropathy; N18.32 Chronic kidney disease, stage 3b; Z79.4 Long term (current) use of insulin; I10 Essential (primary) hypertension; E78.00 Pure hypercholesterolemia, unspecified; R79.89 Other specified abnormal findings of blood chemistry; E55.9 Vitamin D deficiency, unspecified; J30.1 Allergic rhinitis due to pollen; F41.9 Anxiety disorder, unspecified
CPT/HCPCS: 83036; 99214

== ENCOUNTER 2023-05-09 08:06 | Outpatient (REF) | payer MEDICARE, BC, OTHER, SELFPAY ==
[2023-05-09 11:30] LABS: Appearance Urine Clear; Color Urine Yellow; Glucose Urine UA Negative (Negative); Leukocyte Esterase Urine Moderate (2+) (Negative); Nitrite Urine Negative (Negative); PH 5.5 (5.0-9.0); Specific Gravity - Urine 1.015 (1.005-1.025); UMIC TRIGGER UACC YES; Urine Blood Negative (Negative); Urine Ketones Negative (Negative); Urine Protein Negative (Neg-Trace)
[2023-05-09 11:43] LABS: Bacteria Urine None Seen (None Seen); Hyaline Casts Urine 0-2 /LPF (0-2); RBC Urine 0-2 /HPF (0-2); WBC Urine 0-5 /HPF (0-5)
[2023-05-09 11:43] LABS: Alanine Aminotransferase 24 U/L (0-31); Albumin Level 4.4 g/dL (3.5-5.0); Alkaline Phosphatase 58 U/L (39-117); Anion Gap 15 (12-20); Aspartate Amino Transferase 22 U/L (5-31); Bilirubin Total 0.5 mg/dL (0.0-1.0); Blood Urea Nitrogen 23 mg/dL (9-16); Calcium 10.3 mg/dL (8.4-10.2); Carbon Dioxide 26 mmol/L (22-29); Chloride 106 mmol/L (96-108); Cholesterol 160 mg/dL (<200); Estimated Glomerular Filt Rate 39; Glucose Fasting 140 mg/dL (60-99); HDL Cholesterol 64 mg/dL (>40); LDL Cholesterol Calculated 73 mg/dL (<100); Potassium 3.8 mmol/L (3.3-5.1); Sodium 143 mmol/L (135-145); Total Protein 7.7 g/dL (6.5-8.0); Triglycerides 116 mg/dL (<150)
[2023-05-09 12:03] LABS: TSH reflex Free T4 2.89 uIU/mL (0.32-4.0); Vitamin D 25-OH Total 58.9 ng/mL (>30)
== END 2023-05-09 08:07 | disposition home or self-care (01) ==
LOC: HO.HMGCLDS 08:06
PROVIDERS: PCP Internal Medicine; Visit Provider Internal Medicine
DX: I10 Essential (primary) hypertension (principal); E11.9 Type 2 diabetes mellitus without complications; E78.00 Pure hypercholesterolemia, unspecified; E55.9 Vitamin D deficiency, unspecified; R30.0 Dysuria
CPT/HCPCS: 36415; 80053; 80061; 81001; 82043; 82306; 82570; 83036; 84443; 85025

== ENCOUNTER 2023-05-15 11:09 | Outpatient (AMB) | payer MEDICARE, BC, SELFPAY ==
[2023-05-15 11:19] VITALS: BP 158/70; PULSE 86; O2SAT 96; BMI 23.1
--- NOTE | 2023-05-15 11:19 | HO.NEPHOV ---
HPI HPI Comments History of Present Illness Details Di is a 77-year-old female whom had the privilege of seeing in follow-up for her chronic kidney disease and hypertension. She has longstanding diabetes mellitus but her blood sugar control had not been optimal for a long time. She recently had developed visual disturbance and has seen a neurologist as well as ticker installer. According to her, they felt all her symptoms are due to diabetic retinopathy. She is going to undergo MRI of the brain this week. Her blood pressure control is better. She denies congestive heart failure, CVA, peripheral arterial disease. Her mother had severe PAD. She is not a smoker. She is anxious about her lack of proper eyesight. Her renal functions had been stable. [facility] Medical History Sixth nerve palsy of right eye Allergic rhinitis Type 2 diabetes mellitus with polyneuropathy Hypertensive urgency Vitamin D deficiency HTN (hypertension) Diabetes type 2, uncontrolled Left low back pain Hyperlipidemia LDL goal <100 Anxiety Vitamin D deficiency Elevated LFTs Benign essential hypertension Pure hypercholesterolemia Chronic kidney disease (CKD), stage III (moderate) Type 2 diabetes mellitus with chronic kidney disease Surgical History History of bladder surgery History of total abdominal hysterectomy and bilateral salpingo-oophorectomy History of right oophorectomy History of tubal ligation Family History Father Past heart attack Mother Breast cancer Hypertension Cardiovascular disease Social History Household Members: Spouse Housing: House Alcohol intake: never Patient Tobacco Use Status: Former Tobacco user e-Cigarette/Vaping Use: Never Used Second Hand Smoke Exposure: Yes service: No Current occupational status: retired Cognitive needs: No Hearing needs: No Vision needs: Yes Vital Signs 05/15/23 11:19 Height 5 ft 6 in Weight 143 lb 6 oz BMI 23.1 BP 158/70 H Blood Pressure Location Lt brachial Position Sitting Pulse 86 Pulse Source Pulse Oximeter Pulse Oximetry (%) 96 Oxygen Delivery Method Room Air Physical Exam Vital Signs: Last Vital Signs Pulse 86 05/15/23 11:19 BP 158/70 H 05/15/23 11:19 Pulse Ox 96 05/15/23 11:19 Oxygen Delivery Method Room Air 05/15/23 11:19 BMI result Body Mass Index 23.1 Const General: comfortable and no acute distress Orientation/consciousness: patient oriented x3 HEENT Head: Yes normocephalic Mouth: Normal oral and palatal mucosa present Eyes EOM: EOMs intact bilaterally Neck Neck: Yes supple Resp Auscultation: clear to auscultation bilaterally Cardio Jugular venous distension: no JVD Rate: regular rate GI Palpation (GI): Soft to palpation Auscultation: normal bowel sounds General: Yes no CVA tenderness Back/Spine/Pelvis Back: no CVA tenderness Skin General skin exam: no rashes or lesions noted Neuro General: patient oriented x3 and moves all extremities Extrem General: Yes no pedal edema Assessment & Plan Assessment & Plan (1) HTN (hypertension): Code(s): I10 - Essential (primary) hypertension Qualifiers: Hypertension type: primary hypertension Qualified Code(s): I10 - Essential (primary) hypertension (2) Chronic kidney disease (CKD), stage III (moderate): Code(s): N18.30 - Chronic kidney disease, stage 3 unspecified Qualifiers: Chronic kidney disease stage 3 subtype: stage 3b (GFR 30-44) Qualified Code(s): N18.32 - Chronic kidney disease, stage 3b (3) Type 2 diabetes mellitus with chronic kidney disease: Code(s): E11.22 - Type 2 diabetes mellitus with diabetic chronic kidney disease Qualifiers: Chronic kidney disease stage: stage 3 (moderate) Chronic kidney disease stage 3 subtype: stage 3b (GFR 30-44) Diabetes mellitus care home insulin use: with care home use Qualified Code(s): E11.21 - Type 2 diabetes mellitus with diabetic nephropathy; N18.32 - Chronic kidney disease, stage 3b; Z79.4 - terminal gauger supervisor (current) use of insulin Plan Di has 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 Her blood pressure is currently well controlled on current medication regimen. She is tolerating angiotensin receptor francis. She avoids nonsteroidal anti-inflammatories and maintain good hydration. She is a perfect candidate to initiate SGLT2 i, which I plan to initiate at the next visit. Follow-up blood work ordered. Answered all questions. Follow-up given. Orders: Orders Blood Urea Nitrogen Today E11.22 - Type 2 diabetes mellitus with diabetic chronic kidney disease, I10 - Essential (primary) hypertension, N18.30 - Chronic kidney disease, stage 3 unspecified Creatinine Today E11.22 - Type 2 diabetes mellitus with diabetic chronic kidney disease, I10 - Essential (primary) hypertension, N18.30 - Chronic kidney disease, stage 3 unspecified Electrolytes Today E11.22 - Type 2 diabetes mellitus with diabetic chronic kidney disease, I10 - Essential (primary) hypertension, N18.30 - Chronic kidney disease, stage 3 unspecified Coding Level of Care Code Est Pt Level 4 (51276) Diagnoses Primary hypertension I10 Hypertension type: primary hypertension Stage 3b chronic kidney disease N18.32 Chronic kidney disease stage 3 subtype: stage 3b (GFR 30-44) Type 2 diabetes mellitus with stage 3b chronic kidney disease, with long-term current use of insulin E11.21; N18.32; Z79.4 Chronic kidney disease stage: stage 3 (moderate) Chronic kidney disease stage 3 subtype: stage 3b (GFR 30-44) Diabetes mellitus technician terminal and repeater insulin use: with technician terminal and repeater use Results Reviewed Nephrology Results: Hgb 13.6 g/dl (12.0-16.0) 05/09/23 WBC 8.6 X10*3/uL (4.8-10.8) 05/09/23 Plt Count 222 X10*3/uL (160-400) 05/09/23 Sodium 143 mmol/L (135-145) 05/09/23 Potassium 3.8 mmol/L (3.3-5.1) 05/09/23 Chloride 106 mmol/L (96-108) 05/09/23 Carbon Dioxide 26 mmol/L (22-29) 05/09/23 BUN 23 mg/dL (9-16) H 05/09/23 Creatinine 1.32 mg/dL (0.5-1.4) 05/09/23 Calcium 10.3 mg/dL (8.4-10.2) H 05/09/23 Urine Protein Negative mg/dL (Neg-Trace) 05/09/23 Urine Creatinine 104.30 mg/dL 05/09/23 Protein/Creatinin Ratio 0.18 (<0.2) 01/03/23
== END 2023-05-15 11:44 | disposition home or self-care (01) ==
PROVIDERS: PCP Internal Medicine; Visit Provider Internal Medicine Nephrology
DX: I10 Essential (primary) hypertension (principal); N18.32 Chronic kidney disease, stage 3b; E11.21 Type 2 diabetes mellitus with diabetic nephropathy; Z79.4 Long term (current) use of insulin
CPT/HCPCS: 99214

== ENCOUNTER → 2023-05-15 11:09 | Outpatient (BNVA) | payer MEDICARE, BC, SELFPAY | PROVIDERS: PCP Internal Medicine; Visit Provider Internal Medicine Nephrology | DX: E11.22 Type 2 diabetes mellitus with diabetic chronic kidney disease (principal); I12.9 Hypertensive chronic kidney disease with stage 1 through stage 4 chronic kidney disease, or unspecified chronic kidney disease; N18.32 Chronic kidney disease, stage 3b; E11.21 Type 2 diabetes mellitus with diabetic nephropathy; Z79.4 Long term (current) use of insulin | CPT/HCPCS: 99212 ==

== ENCOUNTER 2023-05-17 14:59 | Outpatient (REF) | payer MEDICARE, BC, SELFPAY ==
--- NOTE | ~2023-05-17 | MR_ITS ---
EXAMINATION: MR BRAIN WITHOUT AND WITH CONTRAST CLINICAL INFORMATION: Diplopia. COMPARISON: None available. TECHNIQUE: Multiplanar, multisequence imaging of the brain was performed before and after the intravenous administration of 6.5 mL of Gadavist. Slightly limited study with motion artifacts. FINDINGS: No diffusion abnormalities are identified to suggest an acute infarct. No mass effect or midline shift is seen. Moderate diffuse brain parenchymal volume loss noted with concordant ex vacuo prominence of the ventricles. Very mild chronic small vessel ischemic changes visible in the cerebral white matter as well. No extra-axial fluid collections are seen. The brainstem and cerebellum are normal. There is no abnormal parenchymal or leptomeningeal enhancement. The gradient refocused acquisition demonstrates no pathologic magnetic susceptibility artifact to indicate underlying acute or chronic blood products. The craniovertebral junction, marrow signal, and midline structures are normal. The major intracranial flow voids at the level of the [place] of [place] are preserved. The dural venous sinus flow voids are maintained. The mastoid air cells and paranasal sinuses are well aerated. MR/MR head/brain wo/w con IMPRESSION: No acute intracranial process. Very mild chronic white matter microangiopathy and moderate generalized brain parenchymal volume loss. No abnormal enhancement.
[2023-05-17] MEDS: gadobutroL 7.5 ML VIAL IVPUSH (15:36)
== END 2023-05-17 15:00 | disposition home or self-care (01) ==
LOC: HO.MRI 14:59
PROVIDERS: PCP Internal Medicine; Visit Provider Internal Medicine
DX: H53.2 Diplopia (principal)
CPT/HCPCS: 70553; A9585

== ENCOUNTER 2023-06-04 09:18 | Outpatient (AMB) | payer MEDICARE, BC, SELFPAY ==
[2023-06-04 09:19] VITALS: BP 132/74; PULSE 78; O2SAT 95; BMI 22.9
--- NOTE | 2023-06-04 09:19 | A.OFFPC_ITS ---
Vital Signs 06/04/23 09:19 Height 5 ft 6 in Weight 142 lb BMI 22.9 BP 132/74 Blood Pressure Location Lt brachial Position Sitting Pulse 78 Pulse Source Pulse Oximeter Pulse Oximetry (%) 95 Oxygen Delivery Method Room Air Intake Visit Reasons: 4mt f/u Industrial Waste Treatment Technician Required: No Accompanied by: Self / Same As Patient Allergies nitrofurantoin [Macrobid] Allergy (Unknown, Verified 06/04/23 09:43) hives Medication List - Last Reconciled 06/04/23 by Johnny Valadez MD amlodipine 10 mg PO DAILY 90 days atorvastatin 40 mg PO BEDTIME 90 days blood sugar diagnostic (FreeStyle Lite Strips) As directed to test blood sugar four times a day blood-glucose meter (FreeStyle Lite Meter kit) As directed to test blood sugar four times a day cholecalciferol (vitamin D3) 50 mcg PO DAILY 90 days diazepam 2 mg PO DAILY PRN hydralazine 10 mg PO BID hydrochlorothiazide 25 mg PO DAILY 90 days insulin aspart U-100 (Novolog FlexPen U-100 Insulin aspart) 10 - 12 units (0.1 - 0.12 mL) subcut TID 30 days insulin glargine (Basaglar KwikPen U-100 Insulin) 36 units (0.36 mL) subcut QPM 30 days lancets (FreeStyle Lancets) As directed four times a day losartan 100 mg PO DAILY 90 days metformin 500 mg PO BID 90 days nebivolol (Bystolic) 5 mg PO DAILY 90 days pen needle, diabetic (BD Vi 2nd Gen Pen Needle) USE TO INEJCT FOUR TIMES A DAY phenazopyridine (Pyridium) 200 mg (2 x 100 mg) PO TID 2 days sitagliptin phosphate (Januvia) 100 mg PO DAILY 90 days Tobacco use date assessed: 06/04/23 Fall risk assessment: No Falls in past year Last assessed Fall Risk: 06/04/23 Dental Screening Dental Screen Date: 06/04/23 Did you have a dental visit in the last 12 months?: Yes Did you have a dental problem in the last 6 months where you did not have access to dental care?: No Was dental information given to patient?: Patient has dentist HPI 4mth f/u HPI Details Patient comes in today for her follow up visit States that she feels okay but is still having problems with her eyes (vision issues and photosensitivity) Had a brain MRI done a couple of weeks ago and she continues to follow up with ophthalmology for her eye symptoms She denies any headaches or dizziness Denies any chest pains, no SOB No nausea/vomiting, no abdominal pain No change in bowel habits noted Needs her both of her insulin pens Rx refilled Had her follow up labs done a few weeks ago - to discuss her results [facility] Medical History Sixth nerve palsy of right eye Allergic rhinitis Type 2 diabetes mellitus with polyneuropathy Hypertensive urgency Vitamin D deficiency HTN (hypertension) Diabetes type 2, uncontrolled Left low back pain Hyperlipidemia LDL goal <100 Anxiety Vitamin D deficiency Elevated LFTs Benign essential hypertension Pure hypercholesterolemia Chronic kidney disease (CKD), stage III (moderate) Type 2 diabetes mellitus with chronic kidney disease Surgical History History of bladder surgery History of total abdominal hysterectomy and bilateral salpingo-oophorectomy History of right oophorectomy History of tubal ligation Family History Father Past heart attack Mother Breast cancer Hypertension Cardiovascular disease Social History Household Members: Spouse Housing: House Alcohol intake: never Patient Tobacco Use Status: Former Tobacco user e-Cigarette/Vaping Use: Never Used Second Hand Smoke Exposure: Yes service: No Current occupational status: retired Cognitive needs: No Hearing needs: No Vision needs: Yes Questionnaire PHQ-9 Over the last 2 weeks, how often have you been bothered by any of the following problems? 1. Little interest or pleasure in doing things: not at all 2. Feeling down, depressed, or hopeless: not at all 3. Trouble falling or staying asleep, or sleeping too much: not at all 4. Feeling tired or having little energy: not at all 5. Poor appetite or overeating: not at all 6. Feeling bad about yourself - or that you are a failure or have let yourself or your family down: not at all 7. Trouble concentrating on things, such as reading the newspaper or watching television: not at all 8. Moving or speaking so slowly that other people could have noticed. Or the opposite - being so fidgety or restless that you have been moving around a lot more than usual: not at all 9. Thoughts that you would be better off or of hurting yourself in some way: not at all Total score: 0 Depression Screening Interpretation: Negative Depression Screening Done: Yes 20600 - PHQ-9 Billing: Yes Source: Developed by Drs. Eric Duffy, Roxy Irwin, Cruz Pimentel and colleagues, with an educational trish from [employer] Thrive Questionnaire Date Thrive assessed: 06/04/23 I am a: Patient What is your living situation today?: I have a steady place to live Within the past 12 months, did the food you bought not last and you didn't have the money to get more?: Never true Within the past 12 months, did you worry whether your food would run out before you got money to buy more?: Never true Do you have trouble paying for medicines?: No Do you have trouble getting transportation to medical appointments?: No Do you have trouble paying your heating and electricity bill?: No Do you have trouble taking care of your child, family member or friend?: No Do you have trouble with day-to-day activities such as bathing, preparing meals, shopping, managing finances, etc.?: No Are you currently unemployed and looking for a job?: No Are you interested in more education?: No Please select the resources that you would like help with: None Currently or been in a relationship where the following occur: no concerns reported THRIVE Score: 0 AUDIT C Alcohol Use Questionnaire (AUDIT-C) 1. How often do you have a drink containing alcohol?: Never Total Score: 0 Score Reviewed/Action Taken: Yes CHAO-7 AMB Questionnaire CHAO-7 Date CHAO - 7 assessed: 06/04/23 Feeling nervous, anxious, or on edge: 0 = Not at all Not being able to stop or control worryin = Not at all Worrying too much about different things: 0 = Not at all Trouble relaxin = Not at all Being so restless that it is hard to sit still: 0 = Not at all Becoming easily annoyed or irritable: 0 = Not at all Feeling afraid as if something awful might happen: 0 = Not at all Total CHAO-7 score (0-4 normal; 5-9 mild; 10-14 moderate; 15-21 severe): 0 Source: Developed by Drs. Eric Duffy, Roxy Irwin, Cruz Pimentel and colleagues, with an educational trish from [employer] Review of Systems Const Denies fatigue, Denies fever(s) and Denies headache(s) Eyes Reports blurry vision (mild), Reports diplopia, Reports dry eyes and Denies eye pain ENT Denies dysphagia, Denies dizziness, Denies otalgia, Denies headache(s), Denies neck pain, Denies odynophagia and Denies sore throat Card Denies chest pain, Denies palpitations and Denies dyspnea Resp Denies cough and Denies dyspnea GI Denies abdominal pain, Denies constipation, Denies dysphagia, Denies heartburn, Denies diarrhea, Denies nausea, Denies odynophagia and Denies vomiting Denies difficulty voiding, Denies nocturia, Denies dysuria and Denies urinary urgency Musc Details: occasional pain on her left lower back going down her left leg Denies back pain, Denies neck pain and Reports stiffness (in both hands, on and off) Skin/Breast Denies rash Neuro Denies dizziness and Denies headache(s) Endo Denies fatigue and Denies palpitations Aller/Immun Details: recurrent sneezing Reports seasonal rhinorrhea (at times) Physical exam (Primary Care) Vital Signs: Oxygen Delivery Method Room Air 06/04/23 09:19 BMI result Body Mass Index 22.9 Tobacco/Smoking Status: Tobacco use Status Tobacco use date assessed 06/04/23 06/04/23 09:21 Patient Tobacco Use Status Former Tobacco user 06/04/23 09:21 e-Cigarette/Vaping Use Never Used 06/04/23 09:21 PHQ-9: PHQ-9 Score PHQ-9: Total score 0 06/04/23 09:21 Depression Screening Interpretation: Negative Thrive Assessment: Date of Thrive Assessment Date Thrive assessed 06/04/23 06/04/23 09:21 Currently or been in a relationship where the following occur: no concerns reported Const General: no acute distress and alert HENMT Throat: Yes posterior oropharynx normal and Yes tonsils normal (no TP congestion) Neck Neck: Yes no lymphadenopathy and Yes supple Resp Auscultation: clear to auscultation bilaterally, no rales and no wheezes Cardio Rate: regular rate Rhythm: regular rhythm Heart sounds: no murmurs GI Palpation (GI): Soft to palpation and nontender Auscultation: normal bowel sounds General: Yes no CVA tenderness Back/Spine/Pelvis Back: no CVA tenderness Skin Rashes: no rashes Extrem General: Yes no clubbing, cyanosis or edema Results Reviewed Results Reviewed: Laboratory Tests 05/09/23 05/09/23 05/09/23 08:15 08:15 08:18 WBC 8.6 Hgb 13.6 Hct 39.4 Plt Count 222 Sodium 143 Potassium 3.8 Creatinine 1.32 Estimated GFR 39 Fasting Glucose 140 H Hemoglobin A1c % 6.8 H Calcium 10.3 H AST 22 ALT 24 Triglycerides 116 Cholesterol 160 LDL Cholesterol, Calc 73 HDL Cholesterol 64 25-OH Vitamin D Total 58.9 TSH 2.89 Ur Specific [place] Urine Protein Urine Glucose (UA) Urine Blood Urine Nitrite Ur Leukocyte Esterase Microalb/Creat Ratio 05/09/23 05/09/23 08:20 08:20 WBC Hgb Hct Plt Count Sodium Potassium Creatinine Estimated GFR Fasting Glucose Hemoglobin A1c % Calcium AST ALT Triglycerides Cholesterol LDL Cholesterol, Calc HDL Cholesterol 25-OH Vitamin D Total TSH Ur Specific [place] 1.015 Urine Protein Negative Urine Glucose (UA) Negative Urine Blood Negative Urine Nitrite Negative Ur Leukocyte Esterase Moderate (2+) H Microalb/Creat Ratio 39.3 H Assessment and Plan Assessment & Plan (1) Sixth nerve palsy of right eye: Code(s): H49.21 - Sixth [abducent] nerve palsy, right eye Plan: Patient reports that she is still experiencing diplopia and symptoms of dry eyes and some photosensitivity Eye exam done at [facility] previously revealed (+) retinopathy and cataract (last eye exam in September 2022 showed NO retinopathy); exam also revealed (+) 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 consistent with right 6th (abducens) nerve palsy Continue low dose Aspirin 81 mg QD Follow up with neurology and ophthalmology as scheduled (2) Benign essential hypertension: Code(s): I10 - Essential (primary) hypertension Plan: Reinforced low sodium diet - goal is systolic BP of at least 130 mm or less Continue Amlodipine 10 mg QD, Losartan-HCT 100-25 mg QD, Bystolic 5 mg QD and Hydralazine 10 mg BID Patient is reminded to continue monitoring her blood pressure regularly (3) Type 2 diabetes mellitus with chronic kidney disease: Code(s): E11.22 - Type 2 diabetes mellitus with diabetic chronic kidney disease Qualifiers: Diabetes mellitus superintendent 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 insulin use: with longterm use Chronic kidney disease stage: stage 3 (moderate) Chronic kidney disease stage 3 subtype: stage 3b (GFR 30-44) Qualified Code(s): E11.21 - 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; N18.32 - Chronic kidney disease, stage 3b; Z79.4 - remote computer terminal operator (current) use of insulin Plan: Her HgbA1c was back at 6.8% on her labs done a few weeks ago (in-office HgbA1c was at 7.7% last month) - goal is <7.0% Reinforced diabetic diet Continue Metformin 500 mg BID, Basaglar 36 units Q PM, Novolog 10 to 12 units TID with meals per sliding scale and Januvia 100 mg QD Was seeing endocrinology previously and has been advised that she can just see them as needed and to follow up with her PCP as her diabetes is currently under good control (4) Pure hypercholesterolemia: Code(s): E78.00 - Pure hypercholesterolemia, unspecified Plan: Results of her labs done a few weeks ago reviewed and discussed with patient Reinforced low cholesterol diet Continue Atorvastatin 40 mg QD Will have her recheck her labs and fasting lipids in 4 months for follow up (5) Chronic kidney disease (CKD), stage III (moderate): Code(s): N18.30 - Chronic kidney disease, stage 3 unspecified Qualifiers: Chronic kidney disease stage 3 subtype: stage 3b (GFR 30-44) Qualified Code(s): N18.32 - Chronic kidney disease, stage 3b Plan: Stable; will continue to monitor her renal function closely Follow up with nephrology (Dr. Glass) as scheduled (6) Elevated LFTs: Code(s): R79.89 - Other specified abnormal findings of blood chemistry Plan: Improved on her most recent labs - is most likely related to her weight Will continue to monitor her LFTs regularly (7) Vitamin D deficiency: Code(s): E55.9 - Vitamin D deficiency, unspecified Plan: Continue Vitamin D3 2000 units QD (8) Allergic rhinitis: Code(s): J30.9 - Allergic rhinitis, unspecified Qualifiers: Allergic rhinitis trigger: pollen Allergic rhinitis seasonality: seasonal Qualified Code(s): J30.1 - Allergic rhinitis due to pollen Plan: Continue OTC Loratadine 10 mg QD PRN (9) Anxiety: Code(s): F41.9 - Anxiety disorder, unspecified Plan: Continue Diazepam 2 mg QD PRN Was started on Sertraline 25 mg QD last year to help manage her anxiety better but patient admits that she never started it - feels that she is doing well right now and does not need any additional intervention at this time Plan Follow up in 4 months Orders: Orders Lipid Panel 4 Months E78.00 - Pure hypercholesterolemia, unspecified Hemoglobin A1c 4 Months E11.9 - Type 2 diabetes mellitus without complications UA CC w/rflx Micro + Cult 4 Months R30.0 - Dysuria Vitamin D 25-OH Total 4 Months E55.9 - Vitamin D deficiency, unspecified Vitamin B12 and Folate 4 Months E53.8 - Deficiency of other specified B group vitamins Complete Blood Count Auto Diff 4 Months D64.9 - Anemia, unspecified Comprehensive [place]. Panel Fast 4 Months E78.00 - Pure hypercholesterolemia, unspecified Microalbumin, Random (w Creat) 4 Months E11.9 - Type 2 diabetes mellitus without complications TSH reflex Free T4 4 Months E78.00 - Pure hypercholesterolemia, unspecified Medications: Refilled insulin glargine (Basaglar KwikPen U-100 Insulin) 36 units (0.36 mL) subcut QPM 30 days 15 mL 11RF E11.21 - Type 2 diabetes mellitus with diabetic nephropathy, N18.32 - Chronic kidney disease, stage 3b, Z79.4 - correction (current) use of insulin insulin aspart U-100 (Novolog FlexPen U-100 Insulin aspart) 10 - 12 units (0.1 - 0.12 mL) subcut TID 30 days 15 mL 6RF E11.21 - Type 2 diabetes mellitus with diabetic nephropathy, N18.32 - Chronic kidney disease, stage 3b, Z79.4 - correction (current) use of insulin Coding Level of Care Code Est Pt Level 4 (41246) Diagnoses Sixth nerve palsy of right eye H49.21 Benign essential hypertension I10 Type 2 diabetes mellitus with stage 3b chronic kidney disease, with long-term current use of insulin E11.21; N18.32; Z79.4 Diabetes mellitus longterm insulin use: with superintendent 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 use Chronic kidney disease stage: stage 3 (moderate) Chronic kidney disease stage 3 subtype: stage 3b (GFR 30-44) Pure hypercholesterolemia E78.00 Stage 3b chronic kidney disease N18.32 Chronic kidney disease stage 3 subtype: stage 3b (GFR 30-44) Elevated LFTs R79.89 Vitamin D deficiency E55.9 Seasonal allergic rhinitis due to pollen J30.1 Allergic rhinitis trigger: pollen Allergic rhinitis seasonality: seasonal Anxiety F41.9
== END 2023-06-04 10:32 | disposition home or self-care (01) ==
PROVIDERS: PCP Internal Medicine; Visit Provider Internal Medicine
DX: I12.9 Hypertensive chronic kidney disease with stage 1 through stage 4 chronic kidney disease, or unspecified chronic kidney disease (principal); E11.21 Type 2 diabetes mellitus with diabetic nephropathy; N18.32 Chronic kidney disease, stage 3b; Z79.4 Long term (current) use of insulin; H49.21 Sixth [abducent] nerve palsy, right eye; E78.00 Pure hypercholesterolemia, unspecified; R79.89 Other specified abnormal findings of blood chemistry; E55.9 Vitamin D deficiency, unspecified; J30.1 Allergic rhinitis due to pollen; F41.9 Anxiety disorder, unspecified
CPT/HCPCS: 99214

== ENCOUNTER 2023-06-26 08:16 | Outpatient (AMB) | payer MEDICARE, BC, SELFPAY ==
[2023-06-26 08:37] VITALS: BMI 23.2
--- NOTE | 2023-06-26 08:37 | A.OFFVIS_ITS ---
Intake VS Expanded 06/26/23 08:37 Height 5 ft 6 in Weight 143 lb 11.862 oz BMI 23.2 Intake Visit Reasons: T2DM/LVM Allergies nitrofurantoin [Macrobid] Allergy (Unknown, Verified 06/04/23 09:43) hives HPI Nutrition Presentation Details Pt presents for MNT 6 m f/u for T2DM Pt reports doing well, no questions ore concerns at this time food frequency fruits: 0-1/d vegetables: 2-4 serving/d fish: 1/d beverages: water, tea, coffee, milk, diet beverages reports consuming 32oz/d Pt 7 d BG average at 161 mg/d' 14 d BG average at 157 Denies hypoglycemia, reports always carrying gluc tabs or fruit or candies as treatment for hypoglcyemia Most Recent Diabetes Results: Microalb/Creat Ratio 39.3 ug/mg cr (<30) H 05/09/23 Cholesterol 160 mg/dL (<200) 05/09/23 HDL Cholesterol 64 mg/dL (>40) 05/09/23 Triglycerides 116 mg/dL (<150) 05/09/23 Creatinine 1.32 mg/dL (0.5-1.4) 05/09/23 Blood Urea Nitrogen 23 mg/dL (9-16) H 05/09/23 Sodium 143 mmol/L (135-145) 05/09/23 Potassium 3.8 mmol/L (3.3-5.1) 05/09/23 Chloride 106 mmol/L (96-108) 05/09/23 Carbon Dioxide 26 mmol/L (22-29) 05/09/23 Calcium 10.3 mg/dL (8.4-10.2) H 05/09/23 AST 22 U/L (5-31) 05/09/23 ALT 24 U/L (0-31) 05/09/23 Total Protein 7.7 g/dL (6.5-8.0) 05/09/23 Albumin 4.4 g/dL (3.5-5.0) 05/09/23 [facility] Medical History Sixth nerve palsy of right eye Allergic rhinitis Type 2 diabetes mellitus with polyneuropathy Hypertensive urgency Vitamin D deficiency HTN (hypertension) Diabetes type 2, uncontrolled Left low back pain Hyperlipidemia LDL goal <100 Anxiety Vitamin D deficiency Elevated LFTs Benign essential hypertension Pure hypercholesterolemia Chronic kidney disease (CKD), stage III (moderate) Type 2 diabetes mellitus with chronic kidney disease Surgical History History of bladder surgery History of total abdominal hysterectomy and bilateral salpingo-oophorectomy History of right oophorectomy History of tubal ligation Family History Father Past heart attack Mother Breast cancer Hypertension Cardiovascular disease Social History Household Members: Spouse Housing: House Alcohol intake: never Patient Tobacco Use Status: Former Tobacco user e-Cigarette/Vaping Use: Never Used Second Hand Smoke Exposure: Yes service: No Current occupational status: retired Cognitive needs: No Hearing needs: No Vision needs: Yes Assessment & Plan Assessment & Plan (1) Diabetes type 2, uncontrolled: Code(s): E11.65 - Type 2 diabetes mellitus with hyperglycemia Plan Educate Pt on low sodium food concepts , healthy plate method ? Used wt : 65 kg Est kcal as per MSJ: 1573 (40% carb, 30% fat/prot) Est fluid needs: 1625 ml/d (25 ml/kg bw) Rec fiber: increase to 8-10 g per day and gradually increase to 25 g/d or as tolerated Rec Na: < 2000 mg /d Educate patient on: (R= Reviewed, V = verbalizes understanding N/R= Needs review N/A= not applicable) * Food sources of carbohydrates and serving adequate serving sizes : R * Difference between complex carbohydrates and simple carbohydrates, role of fiber: R * Differences between fats (MUFA/PUFA/saturated fats, trans fats) and food sources of various fats: R * Food sources of sodium and salt and healthy modifications for heart health and kidney health: R V * How to interpret food labels: R (serving size, Na) * Healthy Plate method concept: R V * Physical activity: benefits and precaution: R V * hypoglycemia/hyperglycemia prevention and treatment: R, V Patient Instructions: Continue working on following healthy plate method Be aware of sodium content of foods, aim at 600 mg or less of sodium per meal Aim at having 2 fruits /day (replacing cookies/crackers, breads) Coding Level of Care Code Nutr Indiv Subseq (69036) Diagnoses Uncontrolled type 2 diabetes mellitus with hyperglycemia E11.65 Time Spent (min) 30
== END 2023-06-26 08:59 | disposition home or self-care (01) ==
PROVIDERS: PCP Internal Medicine; Visit Provider Dietitian, Registered
DX: E11.65 Type 2 diabetes mellitus with hyperglycemia (principal)

== ENCOUNTER → 2023-06-26 08:16 | Outpatient (BNVA) | payer MEDICARE, BC, SELFPAY | PROVIDERS: PCP Internal Medicine; Visit Provider Dietitian, Registered | DX: E11.65 Type 2 diabetes mellitus with hyperglycemia (principal) | CPT/HCPCS: 97803 ==

== ENCOUNTER 2023-08-14 09:12 | Outpatient (REF) | payer MEDICARE, BC, OTHER, SELFPAY ==
[2023-08-14 10:57] LABS: Anion Gap 14 (12-20); Blood Urea Nitrogen 19 mg/dL (9-16); Carbon Dioxide 27 mmol/L (22-29); Chloride 105 mmol/L (96-108); Estimated Glomerular Filt Rate 42; Sodium 142 mmol/L (135-145)
== END 2023-08-14 09:13 | disposition home or self-care (01) ==
LOC: HO.HMGCLDS 09:12
PROVIDERS: PCP Internal Medicine; Visit Provider Internal Medicine Nephrology
DX: I12.9 Hypertensive chronic kidney disease with stage 1 through stage 4 chronic kidney disease, or unspecified chronic kidney disease (principal); E11.22 Type 2 diabetes mellitus with diabetic chronic kidney disease; N18.30 Chronic kidney disease, stage 3 unspecified
CPT/HCPCS: 36415; 80051; 82565; 84520; 99212

== ENCOUNTER 2023-08-14 10:00 | Outpatient (AMB) | payer MEDICARE, BC, SELFPAY ==
[2023-08-14 10:23] VITALS: BP 138/50; PULSE 74; O2SAT 95; BMI 22.9
--- NOTE | 2023-08-14 10:23 | HO.NEPHOV ---
HPI HPI Comments History of Present Illness Details Di is a 77-year-old female whom had the privilege of seeing in follow-up for her chronic kidney disease and hypertension. She has longstanding diabetes mellitus but her blood sugar control had not been optimal for a long time. She recently had developed visual disturbance and has seen a neurologist as well as mobile sales consultant. According to her, they felt all her symptoms are due to diabetic retinopathy. Her blood pressure control is better. She denies congestive heart failure, CVA, peripheral arterial disease. Her mother had severe PAD. She is not a smoker. She is anxious about her lack of proper eyesight. Her renal functions had been stable. [facility] Medical History Sixth nerve palsy of right eye Allergic rhinitis Type 2 diabetes mellitus with polyneuropathy Hypertensive urgency Vitamin D deficiency HTN (hypertension) Diabetes type 2, uncontrolled Left low back pain Hyperlipidemia LDL goal <100 Anxiety Vitamin D deficiency Elevated LFTs Benign essential hypertension Pure hypercholesterolemia Chronic kidney disease (CKD), stage III (moderate) Type 2 diabetes mellitus with chronic kidney disease Surgical History History of bladder surgery History of total abdominal hysterectomy and bilateral salpingo-oophorectomy History of right oophorectomy History of tubal ligation Family History Father Past heart attack Mother Breast cancer Hypertension Cardiovascular disease Social History Household Members: Spouse Housing: House Alcohol intake: never Patient Tobacco Use Status: Former Tobacco user e-Cigarette/Vaping Use: Never Used Second Hand Smoke Exposure: Yes service: No Current occupational status: retired Cognitive needs: No Hearing needs: No Vision needs: Yes Vital Signs 08/14/23 10:23 Height 5 ft 6 in Weight 142 lb 2 oz BMI 22.9 BP 138/50 L Blood Pressure Location Rt brachial Position Sitting Pulse 74 Pulse Source Pulse Oximeter Pulse Oximetry (%) 95 Oxygen Delivery Method Room Air Physical Exam Vital Signs: Last Vital Signs Pulse 74 08/14/23 10:23 BP 138/50 L 08/14/23 10:23 Pulse Ox 95 08/14/23 10:23 Oxygen Delivery Method Room Air 08/14/23 10:23 BMI result Body Mass Index 22.9 Const General: comfortable and no acute distress Orientation/consciousness: patient oriented x3 HEENT Head: Yes normocephalic Mouth: Normal oral and palatal mucosa present Eyes EOM: EOMs intact bilaterally Neck Neck: Yes supple Resp Auscultation: clear to auscultation bilaterally Cardio Jugular venous distension: no JVD Rate: regular rate GI Palpation (GI): Soft to palpation Auscultation: normal bowel sounds General: Yes no CVA tenderness Back/Spine/Pelvis Back: no CVA tenderness Skin General skin exam: no rashes or lesions noted Neuro General: patient oriented x3 and moves all extremities Extrem General: Yes no pedal edema Assessment & Plan Assessment & Plan (1) HTN (hypertension): Code(s): I10 - Essential (primary) hypertension Qualifiers: Hypertension type: primary hypertension Qualified Code(s): I10 - Essential (primary) hypertension (2) Chronic kidney disease (CKD), stage III (moderate): Code(s): N18.30 - Chronic kidney disease, stage 3 unspecified Qualifiers: Chronic kidney disease stage 3 subtype: stage 3b (GFR 30-44) Qualified Code(s): N18.32 - Chronic kidney disease, stage 3b Plan Di has 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 Her blood pressure is currently well controlled on current medication regimen. She is tolerating angiotensin receptor francis. She avoids nonsteroidal anti-inflammatories and maintain good hydration. I initiated her on Jardiance 10 mg daily. If her BS drops, I shall back off on metformin. Follow-up blood work ordered. Answered all questions. Follow-up given. Orders: Orders Electrolytes 3 Months I10 - Essential (primary) hypertension, N18.32 - Chronic kidney disease, stage 3b Calcium Today I10 - Essential (primary) hypertension, N18.32 - Chronic kidney disease, stage 3b Creatinine 3 Months I10 - Essential (primary) hypertension, N18.32 - Chronic kidney disease, stage 3b Blood Urea Nitrogen 3 Months I10 - Essential (primary) hypertension, N18.32 - Chronic kidney disease, stage 3b Hemoglobin A1c Today I10 - Essential (primary) hypertension, N18.32 - Chronic kidney disease, stage 3b Medications: New empagliflozin (Jardiance) 10 mg PO DAILY 30 tabs 4RF Coding Level of Care Code Est Pt Level 4 (02816) Diagnoses Primary hypertension I10 Hypertension type: primary hypertension Stage 3b chronic kidney disease N18.32 Chronic kidney disease stage 3 subtype: stage 3b (GFR 30-44) Results Reviewed Nephrology Results: Hgb 13.6 g/dl (12.0-16.0) 05/09/23 WBC 8.6 X10*3/uL (4.8-10.8) 05/09/23 Plt Count 222 X10*3/uL (160-400) 05/09/23 Sodium 143 mmol/L (135-145) 05/09/23 Potassium 3.8 mmol/L (3.3-5.1) 05/09/23 Chloride 106 mmol/L (96-108) 05/09/23 Carbon Dioxide 26 mmol/L (22-29) 05/09/23 BUN 23 mg/dL (9-16) H 05/09/23 Creatinine 1.32 mg/dL (0.5-1.4) 05/09/23 Calcium 10.3 mg/dL (8.4-10.2) H 05/09/23 Urine Protein Negative mg/dL (Neg-Trace) 05/09/23 Urine Creatinine 104.30 mg/dL 05/09/23 Protein/Creatinin Ratio 0.18 (<0.2) 01/03/23
== END 2023-08-14 10:40 | disposition home or self-care (01) ==
PROVIDERS: PCP Internal Medicine; Visit Provider Internal Medicine Nephrology
DX: I10 Essential (primary) hypertension (principal); N18.32 Chronic kidney disease, stage 3b
CPT/HCPCS: 99214

== ENCOUNTER 2023-09-25 08:13 | Outpatient (REF) | payer MEDICARE, BC, OTHER, SELFPAY ==
[2023-09-25 10:15] LABS: MANUAL DIFF FLAG NO
[2023-09-25 10:21] LABS: Appearance Urine Clear; Basophils Absolute Auto 0.1 X10*3/uL (0.0-0.2); Basophils Percent Auto 1.5 % (0-2); Color Urine Yellow; Eosinophils Absolute Auto 0.5 X10*3/uL (0.0-0.4); Eosinophils Percent Auto 7.3 % (0-4); Glucose Urine UA Negative (Negative); Hematocrit 39.1 % (37.0-47.0); Hemoglobin 13.2 g/dl (12.0-16.0); Imm Gran Abs Auto 0.02 X10*3/uL (0.00-0.03); Imm Gran Pct Auto 0.3 % (0.0-0.4); Leukocyte Esterase Urine Large (3+) (Negative); Lymphocytes Absolute Auto 1.6 X10*3/uL (1.2-4.9); Lymphocytes Percent Auto 24.7 % (20-40); Mean Corpuscular HGB Conc 33.8 g/dl (31.0-35.0); Mean Corpuscular Hemoglobin 29.9 pg (27.0-33.0); Mean Corpuscular Volume 88.7 fL (80.0-98.0); Mean Platelet Volume 11.2 fL (9.4-12.3); Monocytes Absolute Auto 0.6 X10*3/uL (0.1-1.2); Monocytes Percent Auto 8.8 % (2-11); Neutrophils Absolute Auto 3.7 x10*3/uL (2.0-8.3); Neutrophils Percent Auto 57.4 % (45-73); Nitrite Urine Negative (Negative); Platelet Count 208 X10*3/uL (160-400); Red Blood Count 4.41 X10*6/uL (4.20-5.50); Red Cell Distribution Width 14.1 % (11.0-16.0); UMIC TRIGGER UACC YES; Urine Blood Negative (Negative); Urine Ketones Negative (Negative); Urine Protein Negative (Neg-Trace); White Blood Count 6.5 X10*3/uL (4.8-10.8)
[2023-09-25 10:53] LABS: Bacteria Urine None Seen (None Seen); Hyaline Casts Urine 0-2 /LPF (0-2); RBC Urine 0-2 /HPF (0-2); UACC Culture Trigger YES
[2023-09-25 10:55] LABS: WBC Urine 0-5 /HPF (0-5)
[2023-09-25 10:57] LABS: Estimated Average Glucose 151 mg/dL; Hemoglobin A1c % 6.9 % (<6.0)
[2023-09-25 11:04] LABS: Alanine Aminotransferase 27 U/L (0-31); Albumin Level 4.5 g/dL (3.5-5.0); Alkaline Phosphatase 62 U/L (39-117); Anion Gap 16 (12-20); Aspartate Amino Transferase 22 U/L (5-31); Bilirubin Total 0.4 mg/dL (0.0-1.0); Blood Urea Nitrogen 20 mg/dL (9-16); Calcium 10.7 mg/dL (8.4-10.2); Carbon Dioxide 27 mmol/L (22-29); Chloride 104 mmol/L (96-108); Cholesterol 160 mg/dL (<200); Estimated Glomerular Filt Rate 40; Glucose Fasting 151 mg/dL (60-99); HDL Cholesterol 62 mg/dL (>40); LDL Cholesterol Calculated 74 mg/dL (<100); Potassium 4.2 mmol/L (3.3-5.1); Sodium 143 mmol/L (135-145); Total Protein 7.7 g/dL (6.5-8.0); Triglycerides 121 mg/dL (<150)
[2023-09-25 11:07] LABS: TSH reflex Free T4 2.35 uIU/mL (0.32-4.0); Vitamin D 25-OH Total 54.2 ng/mL (>30)
[2023-09-25 11:10] LABS: Creatinine Urine 71.44 mg/dL; Microalbum/Creatinine Ratio Ur 34.9 ug/mg cr (<30)
[2023-09-25 11:25] LABS: Folate 9.1 ng/mL (> or = 4.0); Vitamin B12 522 pg/mL (200-900)
== END 2023-09-25 08:14 | disposition home or self-care (01) ==
LOC: HO.HMGCLDS 08:13
PROVIDERS: PCP Internal Medicine; Visit Provider Internal Medicine
DX: E78.00 Pure hypercholesterolemia, unspecified (principal); E11.9 Type 2 diabetes mellitus without complications; E55.9 Vitamin D deficiency, unspecified; E53.8 Deficiency of other specified B group vitamins; D64.9 Anemia, unspecified; R82.90 Unspecified abnormal findings in urine
CPT/HCPCS: 36415; 80053; 80061; 81001; 82043; 82306; 82570; 82607; 82746; 83036; 84443; 85025; 87086

== ENCOUNTER 2023-10-08 09:54 | Outpatient (AMB) | payer MEDICARE, BC, SELFPAY ==
[2023-10-08 10:03] VITALS: BP 150/70; PULSE 57; O2SAT 97; BMI 23.2
--- NOTE | 2023-10-08 10:03 | A.OFFPC_ITS ---
Vital Signs 10/08/23 10:03 10/08/23 10:53 Height 5 ft 6 in Weight 144 lb BMI 23.2 BP 150/70 H 146/80 H Blood Pressure Location Lt brachial Lt brachial Position Sitting Sitting Pulse 57 Pulse Source Pulse Oximeter Pulse Oximetry (%) 97 Oxygen Delivery Method Room Air Intake Visit Reasons: 4 month f/u Auto Salvage Worker Required: No Lubrication Technician: Not Required per policy Accompanied by: Self / Same As Patient Allergies nitrofurantoin [Macrobid] Allergy (Unknown, Verified 10/08/23 10:50) hives Medication List - Last Reconciled 10/08/23 by Johnny Valadez MD amlodipine 10 mg PO DAILY 90 days atorvastatin 40 mg PO BEDTIME 90 days blood sugar diagnostic (FreeStyle Lite Strips) As directed to test blood sugar four times a day blood-glucose meter (FreeStyle Lite Meter kit) As directed to test blood sugar four times a day cholecalciferol (vitamin D3) 50 mcg PO DAILY 90 days diazepam 2 mg PO DAILY PRN empagliflozin (Jardiance) 10 mg PO DAILY hydralazine 10 mg PO BID hydrochlorothiazide 25 mg PO DAILY 90 days insulin aspart U-100 (Novolog FlexPen U-100 Insulin aspart) 10 - 12 units (0.1 - 0.12 mL) subcut TID 30 days insulin glargine (Basaglar KwikPen U-100 Insulin) 36 units (0.36 mL) subcut QPM 30 days lancets (FreeStyle Lancets) As directed four times a day losartan 100 mg PO DAILY 90 days metformin 500 mg PO BID 90 days nebivolol (Bystolic) 5 mg PO DAILY 90 days pen needle, diabetic (BD Vi 2nd Gen Pen Needle) USE TO INEJCT FOUR TIMES A DAY phenazopyridine (Pyridium) 200 mg (2 x 100 mg) PO TID 2 days sitagliptin phosphate (Januvia) 100 mg PO DAILY 90 days Tobacco use date assessed: 06/04/23 Fall risk assessment: No Falls in past year Last assessed Fall Risk: 10/08/23 Dental Screening Dental Screen Date: 06/04/23 HPI 4 month f/u HPI Details Patient comes in today for her follow up visit States that she feels okay except for increased allergy symptoms lately - sneezing, itchy / watery eyes, runny nose She denies any headaches or dizziness; denies any fever or sore throat Denies any chest pains, no SOB No nausea/vomiting, no abdominal pain No change in bowel habits noted Had her follow up labs done a couple of weeks ago - to discuss her results [facility] Medical History Sixth nerve palsy of right eye Allergic rhinitis Type 2 diabetes mellitus with polyneuropathy Hypertensive urgency Vitamin D deficiency HTN (hypertension) Diabetes type 2, uncontrolled Left low back pain Hyperlipidemia LDL goal <100 Anxiety Vitamin D deficiency Elevated LFTs Benign essential hypertension Pure hypercholesterolemia Chronic kidney disease (CKD), stage III (moderate) Type 2 diabetes mellitus with chronic kidney disease Surgical History History of bladder surgery History of total abdominal hysterectomy and bilateral salpingo-oophorectomy History of right oophorectomy History of tubal ligation Family History Father Past heart attack Mother Breast cancer Hypertension Cardiovascular disease Social History Household Members: Spouse Housing: House Alcohol intake: never Patient Tobacco Use Status: Former Tobacco user e-Cigarette/Vaping Use: Never Used Second Hand Smoke Exposure: Yes service: No Current occupational status: retired Cognitive needs: No Hearing needs: No Vision needs: Yes (glasses) Questionnaire Thrive Questionnaire Date Thrive assessed: 06/04/23 CHAO-7 AMB Questionnaire CHAO-7 Date CHAO - 7 assessed: 06/04/23 Source: Developed by Drs. Eric Duffy, Roxy Irwin, Cruz Pimentel and colleagues, with an educational trish from [employer]. Review of Systems Const Denies chills, Denies fatigue, Denies fever(s) and Denies headache(s) Eyes Reports blurry vision (mild), Reports diplopia, Reports dry eyes, Reports itchy eyes and Denies eye pain ENT Denies dysphagia, Denies dizziness, Denies otalgia, Denies headache(s), Denies neck pain, Denies odynophagia and Denies sore throat Card Denies chest pain, Denies palpitations and Denies dyspnea Resp Denies cough and Denies dyspnea GI Denies abdominal pain, Denies constipation, Denies dysphagia, Denies heartburn, Denies diarrhea, Denies nausea, Denies odynophagia and Denies vomiting Denies difficulty voiding, Denies nocturia, Denies dysuria and Denies urinary urgency Musc Denies back pain, Denies neck pain and Reports stiffness (in both hands, on and off) Skin/Breast Denies rash Neuro Denies dizziness and Denies headache(s) Endo Denies fatigue and Denies palpitations Aller/Immun Details: recurrent sneezing Reports itchy eyes and Reports seasonal rhinorrhea (at times) Physical exam (Primary Care) Vital Signs: Last Vital Signs Pulse 57 10/08/23 10:03 BP 150/70 H 10/08/23 10:03 Pulse Ox 97 10/08/23 10:03 Oxygen Delivery Method Room Air 10/08/23 10:03 BMI result Body Mass Index 23.2 Tobacco/Smoking Status: Tobacco use Status Tobacco use date assessed 06/04/23 10/08/23 10:04 Patient Tobacco Use Status Former Tobacco user 10/08/23 10:04 e-Cigarette/Vaping Use Never Used 10/08/23 10:04 Thrive Assessment: Date of Thrive Assessment Date Thrive assessed 06/04/23 10/08/23 10:04 Const General: no acute distress and alert HENMT Ears: TM's normal bilaterally and EAC's normal Throat: Yes posterior oropharynx normal and Yes tonsils normal (no TP congestion) Neck Neck: Yes no lymphadenopathy and Yes supple Thyroid: Thyroid normal Resp Auscultation: clear to auscultation bilaterally, no rales and no wheezes Cardio Rate: regular rate Rhythm: regular rhythm Heart sounds: no murmurs GI Palpation (GI): Soft to palpation and nontender Auscultation: normal bowel sounds General: Yes no CVA tenderness Back/Spine/Pelvis Back: no CVA tenderness Thoracic/Lumbar Spine: No lumbar spinal tenderness Skin Rashes: no rashes Extrem General: Yes no clubbing, cyanosis or edema Results Reviewed Results Reviewed: Laboratory Tests 09/25/23 08:19 WBC 6.5 Hgb 13.2 Hct 39.1 Plt Count 208 Sodium 143 Potassium 4.2 Creatinine 1.28 Estimated GFR 40 Fasting Glucose 151 H Hemoglobin A1c % 6.9 H Calcium 10.7 H AST 22 ALT 27 Triglycerides 121 Cholesterol 160 LDL Cholesterol, Calc 74 HDL Cholesterol 62 Vitamin B12 522 25-OH Vitamin D Total 54.2 TSH 2.35 Ur Specific [place] 1.010 Urine Protein Negative Urine Glucose (UA) Negative Urine Blood Negative Urine Nitrite Negative Ur Leukocyte Esterase Large (3+) H Microalb/Creat Ratio 34.9 H Assessment and Plan Assessment & Plan (1) Benign essential hypertension: Code(s): I10 - Essential (primary) hypertension Plan: Reinforced low sodium diet - goal is systolic BP of at least 130 mm or less in light of her CKD Continue Amlodipine 10 mg QD, Losartan-HCT 100-25 mg QD, Bystolic 5 mg QD and Hydralazine 10 mg BID Patient is reminded to continue monitoring her blood pressure regularly (2) Type 2 diabetes mellitus with chronic kidney disease: Code(s): E11.22 - Type 2 diabetes mellitus with diabetic chronic kidney disease Qualifiers: Diabetes mellitus detention insulin use: with terminal superintendent use Chronic kidney disease stage: stage 3 (moderate) Chronic kidney disease stage 3 subtype: stage 3b (GFR 30-44) Qualified Code(s): E11.21 - Type 2 diabetes mellitus with diabetic nephropathy; N18.32 - Chronic kidney disease, stage 3b; Z79.4 - skilled nursing (current) use of insulin Plan: Her HgbA1c was at 6.9% on her labs done a couple of weeks ago (was previously at 6.8% a few months ago) - goal is <7.0% Reinforced diabetic diet Continue Metformin 500 mg BID, Basaglar 36 units Q PM, Novolog 10 to 12 units TID with meals per sliding scale and Januvia 100 mg QD She was previously seeing endocrinology but has been advised that she can just see them on an as-needed basis and to follow up with her PCP regularly for now as her diabetes is currently under good control (3) Pure hypercholesterolemia: Code(s): E78.00 - Pure hypercholesterolemia, unspecified Plan: Results of her labs done a couple of weeks ago reviewed and discussed with patient Reinforced low cholesterol diet Continue Atorvastatin 40 mg QD Will have her recheck her labs and fasting lipids in 4 months for follow up (4) Chronic kidney disease (CKD), stage III (moderate): Code(s): N18.30 - Chronic kidney disease, stage 3 unspecified Qualifiers: Chronic kidney disease stage 3 subtype: stage 3b (GFR 30-44) Qualified Code(s): N18.32 - Chronic kidney disease, stage 3b Plan: Stable; will continue to monitor her renal function closely Follow up with nephrology (Dr. 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 consistent with right 6th (abducens) nerve palsy Continue low dose Aspirin 81 mg QD Follow up with neurology and ophthalmology as scheduled (6) Elevated LFTs: Code(s): R79.89 - Other specified abnormal findings of blood chemistry Plan: Improved and her LFTs have remained normal on her most recent labs - was most likely related to her weight Will continue to monitor her LFTs regularly (7) Vitamin D deficiency: Code(s): E55.9 - Vitamin D deficiency, unspecified Plan: Continue Vitamin D3 2000 units QD (8) Allergic rhinitis: Code(s): J30.9 - Allergic rhinitis, unspecified Qualifiers: Allergic rhinitis trigger: pollen Allergic rhinitis seasonality: seasonal Qualified Code(s): J30.1 - Allergic rhinitis due to pollen Plan: Will start her back on OTC Loratadine 10 mg QD PRN (9) Anxiety: Code(s): F41.9 - Anxiety disorder, unspecified Plan: Continue Diazepam 2 mg QD PRN She was started on Sertraline 25 mg QD last year to help manage her anxiety better but patient admits that she never started it - feels that she is doing well right now and does not need any additional intervention on Rx at this time Plan Follow up in 4 months Orders: Orders Microalbumin, Random (w Creat) 4 Months E11.9 - Type 2 diabetes mellitus without complications TSH reflex Free T4 4 Months E78.00 - Pure hypercholesterolemia, unspecified UA CC w/rflx Micro + Cult 4 Months R30.0 - Dysuria Vitamin D 25-OH Total 4 Months E55.9 - Vitamin D deficiency, unspecified Hemoglobin A1c 4 Months E11.9 - Type 2 diabetes mellitus without complications Lipid Panel 4 Months E78.00 - Pure hypercholesterolemia, unspecified Complete Blood Count Auto Diff 4 Months D64.9 - Anemia, unspecified Comprehensive [place]. Panel Fast 4 Months E78.00 - Pure hypercholesterolemia, unspecified Vitamin B12 and Folate 4 Months E53.8 - Deficiency of other specified B group vitamins Medications: New loratadine 10 mg PO DAILY 90 days PRN 90 tabs 3RF allergy symptoms J30.9 - Allergic rhinitis, unspecified Coding Level of Care Code Est Pt Level 4 (17133) Complex EM visit Add On G2211 Diagnoses Benign essential hypertension I10 Type 2 diabetes mellitus with stage 3b chronic kidney disease, with long-term current use of insulin E11.21; N18.32; Z79.4 Diabetes mellitus terminal superintendent insulin use: with terminal superintendent use Chronic kidney disease stage: stage 3 (moderate) Chronic kidney disease stage 3 subtype: stage 3b (GFR 30-44) Pure hypercholesterolemia E78.00 Stage 3b chronic kidney disease N18.32 Chronic kidney disease stage 3 subtype: stage 3b (GFR 30-44) Sixth nerve palsy of right eye H49.21 Elevated LFTs R79.89 Vitamin D deficiency E55.9 Seasonal allergic rhinitis due to pollen J30.1 Allergic rhinitis trigger: pollen Allergic rhinitis seasonality: seasonal Anxiety F41.9
[2023-10-08 10:53] VITALS: BP 146/80
== END 2023-10-08 10:58 | disposition home or self-care (01) ==
PROVIDERS: PCP Internal Medicine; Visit Provider Internal Medicine
DX: I12.9 Hypertensive chronic kidney disease with stage 1 through stage 4 chronic kidney disease, or unspecified chronic kidney disease (principal); E11.21 Type 2 diabetes mellitus with diabetic nephropathy; N18.32 Chronic kidney disease, stage 3b; Z79.4 Long term (current) use of insulin; E78.00 Pure hypercholesterolemia, unspecified; H49.21 Sixth [abducent] nerve palsy, right eye; R79.89 Other specified abnormal findings of blood chemistry; E55.9 Vitamin D deficiency, unspecified; J30.1 Allergic rhinitis due to pollen; F41.9 Anxiety disorder, unspecified
CPT/HCPCS: 99214; G2211

== ENCOUNTER 2023-11-15 08:18 | Outpatient (REF) | payer MEDICARE, BC, OTHER, SELFPAY ==
[2023-11-15 10:39] LABS: Anion Gap 13 (12-20); Blood Urea Nitrogen 17 mg/dL (9-16); Carbon Dioxide 24 mmol/L (22-29); Chloride 109 mmol/L (96-108); Estimated Glomerular Filt Rate 39; Potassium 4.5 mmol/L (3.3-5.1); Sodium 141 mmol/L (135-145)
== END 2023-11-15 08:19 | disposition home or self-care (01) ==
LOC: HO.HMGCLDS 08:18
PROVIDERS: PCP Internal Medicine; Visit Provider Internal Medicine Nephrology
DX: I12.9 Hypertensive chronic kidney disease with stage 1 through stage 4 chronic kidney disease, or unspecified chronic kidney disease (principal); N18.32 Chronic kidney disease, stage 3b
CPT/HCPCS: 36415; 80051; 82565; 84520

== ENCOUNTER 2023-11-22 10:55 | Outpatient (REF) | payer MEDICARE, BC, OTHER, SELFPAY | END 2023-11-22 10:56 | disposition home or self-care (01) | LOC: HO.LAB 10:55 | PROVIDERS: PCP Internal Medicine; Visit Provider Internal Medicine Nephrology | DX: R30.0 Dysuria (principal); E11.22 Type 2 diabetes mellitus with diabetic chronic kidney disease; I12.9 Hypertensive chronic kidney disease with stage 1 through stage 4 chronic kidney disease, or unspecified chronic kidney disease; N18.32 Chronic kidney disease, stage 3b; N39.0 Urinary tract infection, site not specified | CPT/HCPCS: 87086; 87088; 87186; 99212 ==

== ENCOUNTER 2023-11-22 10:55 | Outpatient (AMB) | payer MEDICARE, BC, OTHER, SELFPAY ==
[2023-11-22 11:42] VITALS: BP 140/74; PULSE 78; O2SAT 98; BMI 23.4
--- NOTE | 2023-11-22 11:42 | HO.NEPHOV ---
Vital Signs 11/22/23 11:42 Height 5 ft 6 in Weight 145 lb BMI 23.4 BP 140/74 H Blood Pressure Location Rt brachial Position Sitting Pulse 78 Pulse Source Pulse Oximeter Pulse Oximetry (%) 98 Oxygen Delivery Method Room Air Intake Visit Reasons: CKD/ 3 MO FU/ LVM Fabrication Operator Required: No Accompanied by: Self / Same As Patient Allergies nitrofurantoin [Macrobid] Allergy (Unknown, Verified 11/22/23 11:45) hives HPI Comments Details: Di is a 77-year-old female whom had the privilege of seeing in follow-up for her chronic kidney disease and hypertension. She has been having dysuria, supra pubic pain with subjective fever. She gets recurrent UTI. She has longstanding diabetes mellitus but her blood sugar control had not been optimal for a long time. She recently had developed visual disturbance and has seen a neurologist as well as preassembler printed circuit board. According to her, they felt all her symptoms are due to diabetic retinopathy. Her blood pressure control is better. She denies congestive heart failure, CVA, peripheral arterial disease. Her mother had severe PAD. She is not a smoker. Her renal functions had been stable. [facility] Medical History Sixth nerve palsy of right eye Allergic rhinitis Type 2 diabetes mellitus with polyneuropathy Hypertensive urgency Vitamin D deficiency HTN (hypertension) Diabetes type 2, uncontrolled Left low back pain Hyperlipidemia LDL goal <100 Anxiety Vitamin D deficiency Elevated LFTs Benign essential hypertension Pure hypercholesterolemia Chronic kidney disease (CKD), stage III (moderate) Type 2 diabetes mellitus with chronic kidney disease Surgical History History of bladder surgery History of total abdominal hysterectomy and bilateral salpingo-oophorectomy History of right oophorectomy History of tubal ligation Family History Father Past heart attack Mother Breast cancer Hypertension Cardiovascular disease Social History Household Members: Spouse Housing: House Alcohol intake: never Patient Tobacco Use Status: Former Tobacco user e-Cigarette/Vaping Use: Never Used Second Hand Smoke Exposure: Yes service: No Current occupational status: retired Cognitive needs: No Hearing needs: No Vision needs: Yes (glasses) Physical Exam Vital Signs: Last Vital Signs Pulse 78 11/22/23 11:42 BP 180/74 H 11/22/23 11:42 Pulse Ox 98 11/22/23 11:42 Oxygen Delivery Method Room Air 11/22/23 11:42 BMI result Body Mass Index 23.4 Const General: comfortable and no acute distress Orientation/consciousness: patient oriented x3 HEENT Head: Yes normocephalic Mouth: Normal oral and palatal mucosa present Eyes EOM: EOMs intact bilaterally Neck Neck: Yes supple Resp Auscultation: clear to auscultation bilaterally Cardio Jugular venous distension: no JVD Rate: regular rate GI Palpation (GI): Soft to palpation Auscultation: normal bowel sounds General: Yes no CVA tenderness Back/Spine/Pelvis Back: no CVA tenderness Skin General skin exam: no rashes or lesions noted Neuro General: patient oriented x3 and moves all extremities Extrem General: Yes no pedal edema Results Reviewed Nephrology Results: Hgb 13.2 g/dl (12.0-16.0) 09/25/23 WBC 6.5 X10*3/uL (4.8-10.8) 09/25/23 Plt Count 208 X10*3/uL (160-400) 09/25/23 Sodium 141 mmol/L (135-145) 11/15/23 Potassium 4.5 mmol/L (3.3-5.1) 11/15/23 Chloride 109 mmol/L (96-108) H 11/15/23 Carbon Dioxide 24 mmol/L (22-29) 11/15/23 BUN 17 mg/dL (9-16) H 11/15/23 Creatinine 1.32 mg/dL (0.5-1.4) 11/15/23 Calcium 10.7 mg/dL (8.4-10.2) H 09/25/23 Urine Protein Negative mg/dL (Neg-Trace) 09/25/23 Urine Creatinine 71.44 mg/dL 09/25/23 Assessment & Plan Assessment & Plan (1) Dysuria: Code(s): R30.0 - Dysuria Category: Medical (2) Urinary tract infection: Code(s): N39.0 - Urinary tract infection, site not specified Category: Medical Qualifiers: Urinary tract infection type: site unspecified Hematuria presence: without hematuria Qualified Code(s): N39.0 - Urinary tract infection, site not specified (3) Chronic kidney disease (CKD), stage III (moderate): Code(s): N18.30 - Chronic kidney disease, stage 3 unspecified Category: Medical Qualifiers: Chronic kidney disease stage 3 subtype: stage 3b (GFR 30-44) Qualified Code(s): N18.32 - Chronic kidney disease, stage 3b (4) HTN (hypertension): Code(s): I10 - Essential (primary) hypertension Category: Medical Qualifiers: Hypertension type: primary hypertension Qualified Code(s): I10 - Essential (primary) hypertension Plan Di has 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 Her blood pressure is currently well controlled on current medication regimen. She is tolerating angiotensin receptor francis. She avoids nonsteroidal anti-inflammatories and maintain good hydration. She is on Jardiance 10 mg daily. I ordered urine for culture and started her on Levaquin. Follow-up blood work ordered. Answered all questions. Follow-up given. Orders: Orders Urine Culture Today R30.0 - Dysuria Electrolytes Today I10 - Essential (primary) hypertension, N18.32 - Chronic kidney disease, stage 3b, N39.0 - Urinary tract infection, site not specified, R30.0 - Dysuria Creatinine Today I10 - Essential (primary) hypertension, N18.32 - Chronic kidney disease, stage 3b, N39.0 - Urinary tract infection, site not specified, R30.0 - Dysuria Blood Urea Nitrogen Today I10 - Essential (primary) hypertension, N18.32 - Chronic kidney disease, stage 3b, N39.0 - Urinary tract infection, site not specified, R30.0 - Dysuria Calcium Today I10 - Essential (primary) hypertension, N18.32 - Chronic kidney disease, stage 3b, N39.0 - Urinary tract infection, site not specified, R30.0 - Dysuria Medications: New levofloxacin 500 mg PO DAILY 10 tabs 0RF Coding Level of Care Code Est Pt Level 4 (56059) Diagnoses Dysuria R30.0 Urinary tract infection without hematuria, site unspecified N39.0 Urinary tract infection type: site unspecified Hematuria presence: without hematuria Stage 3b chronic kidney disease N18.32 Chronic kidney disease stage 3 subtype: stage 3b (GFR 30-44) Primary hypertension I10 Hypertension type: primary hypertension
== END 2023-11-22 12:14 | disposition home or self-care (01) ==
PROVIDERS: PCP Internal Medicine; Visit Provider Internal Medicine Nephrology
DX: R30.0 Dysuria (principal); N39.0 Urinary tract infection, site not specified; N18.32 Chronic kidney disease, stage 3b; I10 Essential (primary) hypertension
CPT/HCPCS: 99214

== ENCOUNTER 2024-01-27 07:43 | Outpatient (REF) | payer MEDICARE, BC, OTHER, SELFPAY ==
[2024-01-27 10:12] LABS: Appearance Urine Turbid; Color Urine Yellow; Glucose Urine UA Negative (Negative); Leukocyte Esterase Urine Large (3+) (Negative); Nitrite Urine Negative (Negative); PH 5.5 (5.0-9.0); UMIC TRIGGER UACC YES; Urine Blood Small (1+) (Negative); Urine Ketones Negative (Negative); Urine Protein 30 (1+) mg/dL (Neg-Trace)
[2024-01-27 10:29] LABS: MANUAL DIFF FLAG NO
[2024-01-27 10:37] LABS: Basophils Absolute Auto 0.1 X10*3/uL (0.0-0.2); Eosinophils Absolute Auto 0.5 X10*3/uL (0.0-0.4); Eosinophils Percent Auto 6.2 % (0-4); Hematocrit 42.4 % (37.0-47.0); Hemoglobin 14.2 g/dl (12.0-16.0); Imm Gran Abs Auto 0.03 X10*3/uL (0.00-0.03); Imm Gran Pct Auto 0.4 % (0.0-0.4); Lymphocytes Absolute Auto 1.8 X10*3/uL (1.2-4.9); Lymphocytes Percent Auto 22.2 % (20-40); Mean Corpuscular HGB Conc 33.5 g/dl (31.0-35.0); Mean Corpuscular Hemoglobin 29.4 pg (27.0-33.0); Mean Corpuscular Volume 87.8 fL (80.0-98.0); Mean Platelet Volume 10.6 fL (9.4-12.3); Monocytes Absolute Auto 0.6 X10*3/uL (0.1-1.2); Monocytes Percent Auto 6.7 % (2-11); Neutrophils Absolute Auto 5.2 x10*3/uL (2.0-8.3); Neutrophils Percent Auto 63.5 % (45-73); Platelet Count 207 X10*3/uL (160-400); Red Blood Count 4.83 X10*6/uL (4.20-5.50); Red Cell Distribution Width 13.7 % (11.0-16.0); White Blood Count 8.2 X10*3/uL (4.8-10.8)
[2024-01-27 10:39] LABS: Bacteria Urine 2+ (None Seen); Hyaline Casts Urine 0-2 /LPF (0-2); UACC Culture Trigger YES; WBC Urine >50 /HPF (0-5)
[2024-01-27 10:49] LABS: Estimated Average Glucose 154 mg/dL
[2024-01-27 11:05] LABS: Creatinine Urine 101.35 mg/dL; Microalbum/Creatinine Ratio Ur 131.2 ug/mg cr (<30)
[2024-01-27 11:07] LABS: Alanine Aminotransferase 30 U/L (0-31); Albumin Level 4.5 g/dL (3.5-5.0); Alkaline Phosphatase 73 U/L (39-117); Anion Gap 13 (12-20); Aspartate Amino Transferase 21 U/L (5-31); Bilirubin Total 0.4 mg/dL (0.0-1.0); Blood Urea Nitrogen 12 mg/dL (9-16); Calcium 10.2 mg/dL (8.4-10.2); Carbon Dioxide 25 mmol/L (22-29); Chloride 109 mmol/L (96-108); Cholesterol 178 mg/dL (<200); Estimated Glomerular Filt Rate 44; Glucose Fasting 166 mg/dL (60-99); HDL Cholesterol 64 mg/dL (>40); LDL Cholesterol Calculated 85 mg/dL (<100); Potassium 3.9 mmol/L (3.3-5.1); Sodium 143 mmol/L (135-145); TSH reflex Free T4 2.39 uIU/mL (0.32-4.0); Total Protein 7.9 g/dL (6.5-8.0); Triglycerides 149 mg/dL (<150); Vitamin D 25-OH Total 57.6 ng/mL (>30)
[2024-01-27 11:41] LABS: Folate 10.4 ng/mL (> or = 4.0); Vitamin B12 465 pg/mL (200-900)
== END 2024-01-27 07:44 | disposition home or self-care (01) ==
LOC: HO.HMGCLDS 07:43
PROVIDERS: PCP Internal Medicine; Referring Provider Internal Medicine Nephrology; Visit Provider Internal Medicine
DX: D64.9 Anemia, unspecified (principal); E55.9 Vitamin D deficiency, unspecified; E53.8 Deficiency of other specified B group vitamins; E78.00 Pure hypercholesterolemia, unspecified; E11.9 Type 2 diabetes mellitus without complications; R30.0 Dysuria
CPT/HCPCS: 36415; 80053; 80061; 81001; 82043; 82306; 82570; 82607; 82746; 83036; 84443; 85025; 87086; 87088; 87186

== ENCOUNTER 2024-02-07 10:05 | Outpatient (AMB) | payer MEDICARE, BC, OTHER, SELFPAY ==
[2024-02-07 10:18] VITALS: BP 140/70; PULSE 78; O2SAT 98; BMI 23.9
--- NOTE | 2024-02-07 10:18 | HO.NEPHOV ---
Vital Signs 02/07/24 10:18 Height 5 ft 6 in Weight 148 lb 6 oz BMI 23.9 BP 140/70 H Blood Pressure Location Rt brachial Position Sitting Pulse 78 Pulse Source Pulse Oximeter Pulse Oximetry (%) 98 Oxygen Delivery Method Room Air Intake Visit Reasons: CKD/ Conf Baggage Clerk Required: No Accompanied by: Self / Same As Patient Allergies nitrofurantoin [Macrobid] Allergy (Unknown, Verified 02/07/24 10:21) hives HPI Comments Details: Di is a 77-year-old female whom had the privilege of seeing in follow-up for her chronic kidney disease and hypertension. She had dysuria, supra pubic pain with subjective fever and was seen in Urgent care. She gets recurrent UTI. She is on Jardiance. She has longstanding diabetes mellitus but her blood sugar control had not been optimal for a long time. She recently had developed visual disturbance and has seen a neurologist as well as operating room technologist. According to her, they felt all her symptoms are due to diabetic retinopathy. Her blood pressure control is better. She denies congestive heart failure, CVA, peripheral arterial disease. Her mother had severe PAD. She is not a smoker. Her renal functions had been stable [facility] Medical History Sixth nerve palsy of right eye Allergic rhinitis Type 2 diabetes mellitus with polyneuropathy Hypertensive urgency Vitamin D deficiency HTN (hypertension) Diabetes type 2, uncontrolled Left low back pain Hyperlipidemia LDL goal <100 Anxiety Vitamin D deficiency Elevated LFTs Benign essential hypertension Pure hypercholesterolemia Chronic kidney disease (CKD), stage III (moderate) Type 2 diabetes mellitus with chronic kidney disease Surgical History History of bladder surgery History of total abdominal hysterectomy and bilateral salpingo-oophorectomy History of right oophorectomy History of tubal ligation Family History Father Past heart attack Mother Breast cancer Hypertension Cardiovascular disease Social History Household Members: Spouse Housing: House Alcohol intake: never Patient Tobacco Use Status: Former Tobacco user e-Cigarette/Vaping Use: Never Used Second Hand Smoke Exposure: Yes service: No Current occupational status: retired Cognitive needs: No Hearing needs: No Vision needs: Yes (glasses) Physical Exam Vital Signs: Last Vital Signs Pulse 78 02/07/24 10:18 BP 158/70 H 02/07/24 10:18 Pulse Ox 98 02/07/24 10:18 Oxygen Delivery Method Room Air 02/07/24 10:18 BMI result Body Mass Index 23.9 Const General: comfortable and no acute distress Orientation/consciousness: patient oriented x3 HEENT Head: Yes normocephalic Mouth: Normal oral and palatal mucosa present Eyes EOM: EOMs intact bilaterally Neck Neck: Yes supple Resp Auscultation: clear to auscultation bilaterally Cardio Jugular venous distension: no JVD Rate: regular rate GI Palpation (GI): Soft to palpation Auscultation: normal bowel sounds General: Yes no CVA tenderness Back/Spine/Pelvis Back: no CVA tenderness Skin General skin exam: no rashes or lesions noted Neuro General: patient oriented x3 and moves all extremities Extrem General: Yes no pedal edema Results Reviewed Nephrology Results: Hgb 14.2 g/dl (12.0-16.0) 01/27/24 WBC 8.2 X10*3/uL (4.8-10.8) 01/27/24 Plt Count 207 X10*3/uL (160-400) 01/27/24 Sodium 143 mmol/L (135-145) 01/27/24 Potassium 3.9 mmol/L (3.3-5.1) 01/27/24 Chloride 109 mmol/L (96-108) H 01/27/24 Carbon Dioxide 25 mmol/L (22-29) 01/27/24 BUN 12 mg/dL (9-16) 01/27/24 Creatinine 1.18 mg/dL (0.5-1.4) 01/27/24 Calcium 10.2 mg/dL (8.4-10.2) 01/27/24 Urine Protein 30 (1+) mg/dL (Neg-Trace) H 01/27/24 Urine Creatinine 101.35 mg/dL 01/27/24 Assessment & Plan Assessment & Plan (1) Chronic kidney disease (CKD), stage III (moderate): Code(s): N18.30 - Chronic kidney disease, stage 3 unspecified Category: Medical Qualifiers: Chronic kidney disease stage 3 subtype: stage 3b (GFR 30-44) Qualified Code(s): N18.32 - Chronic kidney disease, stage 3b (2) Type 2 diabetes mellitus with chronic kidney disease: Code(s): E11.22 - Type 2 diabetes mellitus with diabetic chronic kidney disease Category: Medical Qualifiers: Diabetes mellitus camp maintenance supervisor insulin use: with camp maintenance supervisor use Chronic kidney disease stage: stage 3 (moderate) Chronic kidney disease stage 3 subtype: stage 3b (GFR 30-44) Qualified Code(s): E11.21 - Type 2 diabetes mellitus with diabetic nephropathy; N18.32 - Chronic kidney disease, stage 3b; Z79.4 - retirement (current) use of insulin (3) Benign essential hypertension: Code(s): I10 - Essential (primary) hypertension Category: Medical Plan Di has 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 Her blood pressure is close to goal on current medication regimen. She likely will need more BP medications to keep her BP at goal. She is tolerating angiotensin receptor francis. She avoids nonsteroidal anti-inflammatories and maintain good hydration. She is on Jardiance 10 mg daily. Answered all questions. Follow-up given. Medications: Discontinued hydrochlorothiazide Discontinued Reason: Doctor's Order 25 mg PO DAILY 90 days 90 tabs 3RF Coding Level of Care Code Est Pt Level 4 (16714) Diagnoses Stage 3b chronic kidney disease N18.32 Chronic kidney disease stage 3 subtype: stage 3b (GFR 30-44) Type 2 diabetes mellitus with stage 3b chronic kidney disease, with long-term current use of insulin E11.21; N18.32; Z79.4 Diabetes mellitus camp maintenance supervisor insulin use: with jail use Chronic kidney disease stage: stage 3 (moderate) Chronic kidney disease stage 3 subtype: stage 3b (GFR 30-44) Benign essential hypertension I10
== END 2024-02-07 10:53 | disposition home or self-care (01) ==
PROVIDERS: PCP Internal Medicine; Visit Provider Internal Medicine Nephrology
DX: I12.9 Hypertensive chronic kidney disease with stage 1 through stage 4 chronic kidney disease, or unspecified chronic kidney disease (principal); E11.22 Type 2 diabetes mellitus with diabetic chronic kidney disease; N18.32 Chronic kidney disease, stage 3b; Z79.4 Long term (current) use of insulin
CPT/HCPCS: 99214

== ENCOUNTER → 2024-02-07 10:05 | Outpatient (BNVA) | payer MEDICARE, BC, OTHER, SELFPAY | PROVIDERS: PCP Internal Medicine; Visit Provider Internal Medicine Nephrology | DX: E11.22 Type 2 diabetes mellitus with diabetic chronic kidney disease (principal); E11.21 Type 2 diabetes mellitus with diabetic nephropathy; I12.9 Hypertensive chronic kidney disease with stage 1 through stage 4 chronic kidney disease, or unspecified chronic kidney disease; N18.32 Chronic kidney disease, stage 3b; Z79.4 Long term (current) use of insulin | CPT/HCPCS: 99212 ==

== ENCOUNTER 2024-02-11 09:03 | Outpatient (AMB) | payer MEDICARE, BC, OTHER, SELFPAY ==
[2024-02-11 09:15] VITALS: BP 142/70; PULSE 70; O2SAT 96; BMI 23.8
--- NOTE | 2024-02-11 09:15 | A.OFFPC_ITS ---
Vital Signs 02/11/24 09:15 Height 5 ft 6 in Weight 147 lb 6 oz BMI 23.8 BP 142/70 H Blood Pressure Location Lt brachial Position Sitting Pulse 70 Pulse Source Pulse Oximeter Pulse Oximetry (%) 96 Oxygen Delivery Method Room Air Intake Visit Reasons: DM, hyperlipidemia, HTN Casework Supervisor Required: No Accompanied by: Self / Same As Patient Allergies nitrofurantoin [Macrobid] Allergy (Unknown, Verified 02/11/24 09:50) hives Medication List - Last Reconciled 02/11/24 by Johnny Valadez MD amlodipine 10 mg PO DAILY 90 days atorvastatin 40 mg PO BEDTIME 90 days blood sugar diagnostic (FreeStyle Lite Strips) As directed to test blood sugar four times a day blood-glucose meter (FreeStyle Lite Meter kit) As directed to test blood sugar four times a day cholecalciferol (vitamin D3) 50 mcg PO DAILY 90 days diazepam 2 mg PO DAILY PRN empagliflozin (Jardiance) 10 mg PO DAILY hydralazine 10 mg PO BID insulin aspart U-100 (Novolog FlexPen U-100 Insulin aspart) 10 - 12 units (0.1 - 0.12 mL) subcut TID 30 days insulin glargine (Basaglar KwikPen U-100 Insulin) 36 units (0.36 mL) subcut QPM 30 days lancets (FreeStyle Lancets) As directed four times a day loratadine 10 mg PO DAILY PRN 90 days losartan 100 mg PO DAILY 90 days metformin 500 mg PO BID 90 days nebivolol (Bystolic) 5 mg PO DAILY 90 days pen needle, diabetic (BD Vi 2nd Gen Pen Needle) USE TO INEJCT FOUR TIMES A DAY sitagliptin phosphate (Januvia) 100 mg PO DAILY 90 days Tobacco use date assessed: 02/11/24 Fall risk assessment: No Falls in past year Last assessed Fall Risk: 02/11/24 Dental Screening Dental Screen Date: 02/11/24 Did you have a dental visit in the last 12 months?: Yes Did you have a dental problem in the last 6 months where you did not have access to dental care?: No Was dental information given to patient?: Patient has dentist HPI DM, hyperlipidemia, HTN HPI Details Patient comes in today for her follow up visit States that she feels okay except for recurrent urinary tract symptoms due to UTI lately States that she has been experiencing frequent dysuria and urinary frequency/nocturia and ended up going to a local walk-in clinic in [place] as she could not get an urgent appointment to come into the office States that she was treated with some unrecalled Abx and she just finished her Rx recently and her symptoms appear to have finally calmed down now but she would like to know what she should do if they recur again She was also seen by Dr. Glass last week and was advised that if her symptoms keep recurring, Dr. Glass may reach out to me about changing one of her meds (possibly Jardiance) which may be contributing to her urinary symptoms She denies any headaches or dizziness; denies any fever Denies any chest pains, no SOB No nausea/vomiting, no abdominal pain No change in bowel habits noted Needs her Diazepam Rx refilled today She had her follow up labs done a couple of weeks ago - to discuss her results Adds that she already received her flu shot and COVID booster at her local pharmacy a couple of weeks ago [facility] Medical History Sixth nerve palsy of right eye Allergic rhinitis Type 2 diabetes mellitus with polyneuropathy Hypertensive urgency Vitamin D deficiency HTN (hypertension) Diabetes type 2, uncontrolled Left low back pain Hyperlipidemia LDL goal <100 Anxiety Vitamin D deficiency Elevated LFTs Benign essential hypertension Pure hypercholesterolemia Chronic kidney disease (CKD), stage III (moderate) Type 2 diabetes mellitus with chronic kidney disease Surgical History History of bladder surgery History of total abdominal hysterectomy and bilateral salpingo-oophorectomy History of right oophorectomy History of tubal ligation Family History Father Past heart attack Mother Breast cancer Hypertension Cardiovascular disease Social History Household Members: Spouse Housing: House Alcohol intake: never Patient Tobacco Use Status: Former Tobacco user e-Cigarette/Vaping Use: Never Used Second Hand Smoke Exposure: Yes service: No Current occupational status: retired Cognitive needs: No Hearing needs: No Vision needs: Yes (glasses) Questionnaire PHQ-9 Over the last 2 weeks, how often have you been bothered by any of the following problems? 1. Little interest or pleasure in doing things: not at all 2. Feeling down, depressed, or hopeless: not at all 3. Trouble falling or staying asleep, or sleeping too much: not at all 4. Feeling tired or having little energy: not at all 5. Poor appetite or overeating: not at all 6. Feeling bad about yourself - or that you are a failure or have let yourself or your family down: not at all 7. Trouble concentrating on things, such as reading the newspaper or watching television: not at all 8. Moving or speaking so slowly that other people could have noticed. Or the opposite - being so fidgety or restless that you have been moving around a lot more than usual: not at all 9. Thoughts that you would be better off or of hurting yourself in some way: not at all Total score: 0 Depression Screening Interpretation: Negative Depression Screening Done: Yes 49665 - PHQ-9 Billing: Yes Source: Developed by Drs. Eric Duffy, Roxy Irwin, Cruz Pimentel and colleagues, with an educational trish from [employer]. Thrive Questionnaire Date Thrive assessed: 02/11/24 I am a: Patient What is your living situation today?: I have a steady place to live Within the past 12 months, did the food you bought not last and you didn't have the money to get more?: Never true Within the past 12 months, did you worry whether your food would run out before you got money to buy more?: Never true Do you have trouble paying for medicines?: No Do you have trouble getting transportation to medical appointments?: No Do you have trouble paying your heating and electricity bill?: No Do you have trouble taking care of your child, family member or friend?: No Do you have trouble with day-to-day activities such as bathing, preparing meals, shopping, managing finances, etc.?: No Are you currently unemployed and looking for a job?: No Are you interested in more education?: No Please select the resources that you would like help with: None Currently or been in a relationship where the following occur: No concerns reported THRIVE Score: 0 AUDIT C Alcohol Use Questionnaire (AUDIT-C) 1. How often do you have a drink containing alcohol?: Never 3. How often do you have six or more drinks on one occasion?: Never Total Score: 0 Score Reviewed/Action Taken: Yes CHAO-7 AMB Questionnaire CHAO-7 Date CHAO - 7 assessed: 02/11/24 Feeling nervous, anxious, or on edge: 0 = Not at all Not being able to stop or control worryin = Not at all Worrying too much about different things: 0 = Not at all Trouble relaxin = Not at all Being so restless that it is hard to sit still: 0 = Not at all Becoming easily annoyed or irritable: 0 = Not at all Feeling afraid as if something awful might happen: 0 = Not at all Total CHAO-7 score (0-4 normal; 5-9 mild; 10-14 moderate; 15-21 severe): 0 Source: Developed by Drs. Eric Duffy, Roxy Irwin, Cruz Pimentel and colleagues, with an educational trish from [employer]. Review of Systems Const Denies chills, Denies fatigue, Denies fever(s) and Denies headache(s) ENT Denies dysphagia, Denies dizziness, Denies otalgia, Denies headache(s), Denies neck pain, Denies odynophagia and Denies sore throat Card Denies chest pain, Denies palpitations and Denies dyspnea Resp Denies chest congestion, Denies cough and Denies dyspnea GI Denies abdominal pain, Denies constipation, Denies dysphagia, Denies heartburn, Denies diarrhea, Denies nausea, Denies odynophagia and Denies vomiting Denies difficulty voiding, Reports nocturia (recurrent lately), Denies dysuria (but was experiencing increased dysuria a couple of weeks ago) and Denies urinary urgency Musc Denies back pain, Denies neck pain and Reports stiffness (in both hands, on and off) Skin/Breast Denies rash Neuro Denies dizziness and Denies headache(s) Endo Denies fatigue and Denies palpitations Aller/Immun Details: recurrent sneezing Reports seasonal rhinorrhea (at times) Physical exam (Primary Care) Vital Signs: Last Vital Signs Pulse 70 02/11/24 09:15 BP 142/70 H 02/11/24 09:15 Pulse Ox 96 02/11/24 09:15 Oxygen Delivery Method Room Air 02/11/24 09:15 BMI result Body Mass Index 23.8 Tobacco/Smoking Status: Tobacco use Status Tobacco use date assessed 02/11/24 02/11/24 09:17 Patient Tobacco Use Status Former Tobacco user 02/11/24 09:17 e-Cigarette/Vaping Use Never Used 02/11/24 09:17 PHQ-9: PHQ-9 Score PHQ-9: Total score 0 02/11/24 10:11 Depression Screening Interpretation: Negative Thrive Assessment: Date of Thrive Assessment Date Thrive assessed 02/11/24 02/11/24 09:17 Currently or been in a relationship where the following occur: No concerns reported Const General: no acute distress and alert HENMT Ears: TM's normal bilaterally and EAC's normal Throat: Yes posterior oropharynx normal and Yes tonsils normal (no TP congestion) Neck Neck: Yes no lymphadenopathy and Yes supple Thyroid: Thyroid normal Resp Auscultation: clear to auscultation bilaterally, no rales and no wheezes Cardio Rate: regular rate Rhythm: regular rhythm Heart sounds: no murmurs GI Palpation (GI): Soft to palpation and nontender Auscultation: normal bowel sounds General: Yes no CVA tenderness Back/Spine/Pelvis Back: no CVA tenderness Thoracic/Lumbar Spine: No lumbar spinal tenderness Skin Rashes: no rashes Extrem General: Yes no clubbing, cyanosis or edema Office Procedures Flu Questionnaire Does the patient have a severe egg allergy?: No Immunizations Fluarix Triv [id number] (PF) 45 mcg (15 mcg x 3)/0.5 mL IM syringe Performing Provider: Johnny Valadez MD [place] [facility] Documented (not given) by: DARREN Ratliff on 02/11/24 09:28 Reason Not Given: Received Previously Results Reviewed Results Reviewed: Laboratory Tests 01/27/24 08:12 WBC 8.2 Hgb 14.2 Hct 42.4 Plt Count 207 Sodium 143 Potassium 3.9 Creatinine 1.18 Estimated GFR 44 Fasting Glucose 166 H Hemoglobin A1c % 7.0 H Calcium 10.2 AST 21 ALT 30 Triglycerides 149 Cholesterol 178 LDL Cholesterol, Calc 85 HDL Cholesterol 64 Vitamin B12 465 25-OH Vitamin D Total 57.6 TSH 2.39 Ur Specific [place] 1.010 Urine Protein 30 (1+) H Urine Glucose (UA) Negative Urine Blood Small (1+) H Urine Nitrite Negative Ur Leukocyte Esterase Large (3+) H Microalb/Creat Ratio 131.2 H Coding Level of Care Code Est Pt Level 4 (62150) Diagnoses Type 2 diabetes mellitus with stage 3b chronic kidney disease, with long-term current use of insulin E11.21; N18.32; Z79.4 Chronic kidney disease stage: stage 3 (moderate) Chronic kidney disease stage 3 subtype: stage 3b (GFR 30-44) Diabetes mellitus nursing home insulin use: with nursing home use Stage 3b chronic kidney disease N18.32 Chronic kidney disease stage 3 subtype: stage 3b (GFR 30-44) Pure hypercholesterolemia E78.00 Benign essential hypertension I10 Sixth nerve palsy of right eye H49.21 Elevated LFTs R79.89 Vitamin D deficiency E55.9 Seasonal allergic rhinitis due to pollen J30.1 Allergic rhinitis seasonality: seasonal Allergic rhinitis trigger: pollen Urinary frequency R35.0 Anxiety F41.9 Assessment & Plan Assessment & Plan (1) Type 2 diabetes mellitus with chronic kidney disease: Code(s): E11.22 - Type 2 diabetes mellitus with diabetic chronic kidney disease Category: Medical Qualifiers: Chronic kidney disease stage: stage 3 (moderate) Chronic kidney disease stage 3 subtype: stage 3b (GFR 30-44) Diabetes mellitus nursing home insulin use: with nursing home use Qualified Code(s): E11.21 - Type 2 diabetes mellitus with diabetic nephropathy; N18.32 - Chronic kidney disease, stage 3b; Z79.4 - retirement (current) use of insulin Plan: Her HgbA1c was at 7.0% on her labs done a couple of weeks ago (was previously at 6.9% a few months ago) - goal is <7.0% Reinforced diabetic diet Continue Metformin 500 mg BID, Basaglar 36 units Q PM, Novolog 10 to 12 units TID with meals per sliding scale, Januvia 100 mg QD and Jardiance 10 mg QD, which was started by nephrology this past spring (2023) to help stabilize her renal function She was previously seeing endocrinology but has been advised that she can just see them on an as-needed basis and to follow up with her PCP regularly for now as her diabetes is currently under good control (2) Chronic kidney disease (CKD), stage III (moderate): Code(s): N18.30 - Chronic kidney disease, stage 3 unspecified Category: Medical Qualifiers: Chronic kidney disease stage 3 subtype: stage 3b (GFR 30-44) Qualified Code(s): N18.32 - Chronic kidney disease, stage 3b Plan: Stable; will continue to monitor her renal function closely She was started on Jardiance 10 mg by nephrology a few months ago to help stabilize her renal function and she has been tolerating Rx so far but her recent and frequent UTI symptoms may be related to this Rx Follow up with nephrology (Dr. Glass) as scheduled (3) Pure hypercholesterolemia: Code(s): E78.00 - Pure hypercholesterolemia, unspecified Category: Medical Plan: Results of her labs done a couple of weeks ago reviewed and discussed with patient Reinforced low cholesterol diet Continue Atorvastatin 40 mg QD Will have her recheck her labs and fasting lipids in 4 months for follow up (4) Benign essential hypertension: Code(s): I10 - Essential (primary) hypertension Category: Medical Plan: Reinforced low sodium diet - goal is systolic BP of at least 130 mm or less in light of her CKD Continue Amlodipine 10 mg QD, Losartan 100 mg QD, Bystolic 5 mg QD and Hyd ralazine 10 mg BID Patient is reminded to continue monitoring her blood pressure regularly (5) Sixth nerve palsy of right eye: Code(s): H49.21 - Sixth [abducent] nerve palsy, right eye Category: Medical Plan: Patient reports that she is still experiencing diplopia and symptoms of dry eyes and some photosensitivity at times Eye exam done at [facility] previously revealed (+) retinopathy and cataract (last eye exam in September 2022 showed NO retinopathy); exam also revealed (+) 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 consistent with right 6th (abducens) nerve palsy Continue low dose Aspirin 81 mg QD Follow up with neurology and ophthalmology as scheduled (6) Elevated LFTs: Code(s): R79.89 - Other specified abnormal findings of blood chemistry Category: Medical Plan: Improved; her LFTs have remained normal on her most recent labs - this was most likely related to her weight Will continue to monitor her LFTs regularly (7) Vitamin D deficiency: Code(s): E55.9 - Vitamin D deficiency, unspecified Category: Medical Plan: Continue Vitamin D3 2000 units QD (8) Allergic rhinitis: Code(s): J30.9 - Allergic rhinitis, unspecified Category: Medical Qualifiers: Allergic rhinitis seasonality: seasonal Allergic rhinitis trigger: pollen Qualified Code(s): J30.1 - Allergic rhinitis due to pollen Plan: Continue OTC Loratadine 10 mg QD PRN (9) Urinary frequency: Code(s): R35.0 - Frequency of micturition Category: Medical Plan: Discussed with patient that it is possible that her Jardiance is triggering or aggravating her recent urinary tract symptoms primarily because of the way the medication works Have encouraged her to continue to increase her oral fluid intake Will have her try taking some OTC Azo tablets daily to see if this will help prevent or address her urinary tract symptoms and if it does, then that will also help allow her to continue on Jardiance, which has been helping her (10) Anxiety: Code(s): F41.9 - Anxiety disorder, unspecified Category: Medical Plan: Continue Diazepam 2 mg QD PRN - Rx refilled She was started on Sertraline 25 mg QD last year to help manage her anxiety better but patient admits that she never started it - feels that she is doing well right now and does not need any additional intervention on Rx at this time Plan Plan Follow up in 4 months Orders: Orders Hemoglobin A1c 4 Months E11.9 - Type 2 diabetes mellitus without complications Comprehensive [place]. Panel Fast 4 Months E78.00 - Pure hypercholesterolemia, unspecified Lipid Panel 4 Months E78.00 - Pure hypercholesterolemia, unspecified UA CC w/rflx Micro + Cult 4 Months R30.0 - Dysuria Microalbumin, Random (w Creat) 4 Months E11.9 - Type 2 diabetes mellitus without complications Influenza [id number] Immunization Today Z23 - Encounter for immunization Complete Blood Count Auto Diff 4 Months D64.9 - Anemia, unspecified TSH reflex Free T4 4 Months E78.00 - Pure hypercholesterolemia, unspecified Vitamin D 25-OH Total 4 Months E55.9 - Vitamin D deficiency, unspecified Medications: New methenamine-sodium salicylate 162-162.5 mg (AZO Urinary Tract Defense) 1 tab PO DAILY 30 days 30 tabs 5RF UTI prevention/prophylaxis Refilled diazepam 2 mg PO DAILY PRN 30 tabs 0RF anxiety
== END 2024-02-11 10:02 | disposition home or self-care (01) ==
PROVIDERS: PCP Internal Medicine; Visit Provider Internal Medicine
DX: E11.21 Type 2 diabetes mellitus with diabetic nephropathy (principal); N18.32 Chronic kidney disease, stage 3b; Z79.4 Long term (current) use of insulin; E78.00 Pure hypercholesterolemia, unspecified; I10 Essential (primary) hypertension; H49.21 Sixth [abducent] nerve palsy, right eye; R79.89 Other specified abnormal findings of blood chemistry; E55.9 Vitamin D deficiency, unspecified; J30.1 Allergic rhinitis due to pollen; R35.0 Frequency of micturition; F41.9 Anxiety disorder, unspecified; Z23 Encounter for immunization

== ENCOUNTER → 2024-02-11 09:03 | Outpatient (BNVA) | payer MEDICARE, BC, OTHER, SELFPAY | PROVIDERS: PCP Internal Medicine; Visit Provider Internal Medicine | DX: I12.9 Hypertensive chronic kidney disease with stage 1 through stage 4 chronic kidney disease, or unspecified chronic kidney disease (principal); E11.22 Type 2 diabetes mellitus with diabetic chronic kidney disease; N18.32 Chronic kidney disease, stage 3b; E11.21 Type 2 diabetes mellitus with diabetic nephropathy; E78.00 Pure hypercholesterolemia, unspecified; H49.21 Sixth [abducent] nerve palsy, right eye; R79.89 Other specified abnormal findings of blood chemistry; E55.9 Vitamin D deficiency, unspecified; J30.1 Allergic rhinitis due to pollen; R35.0 Frequency of micturition; F41.9 Anxiety disorder, unspecified; Z79.4 Long term (current) use of insulin | CPT/HCPCS: 90471; 96127; 99212 ==

== ENCOUNTER 2024-04-18 11:10 | Outpatient (REF) | payer MEDICARE, BC, OTHER, SELFPAY ==
[2024-04-18 14:38] LABS: Appearance Urine Cloudy; Color Urine DK YELLOW; Leukocyte Esterase Urine Large (3+) (Negative); Nitrite Urine Positive (Negative); PH 5.5 (5.0-9.0); UMIC TRIGGER UACC YES; Urine Ketones Negative (Negative)
[2024-04-18 14:47] LABS: Bacteria Urine 4+ (None Seen); Hyaline Casts Urine 0-2 /LPF (0-2); RBC Urine 0-2 /HPF (0-2); Squamous Epithelial Cell Urine 0-2 /HPF (0-2); UACC Culture Trigger YES; WBC Urine >50 /HPF (0-5)
== END 2024-04-18 11:11 | disposition home or self-care (01) ==
LOC: HO.LNP 11:10
PROVIDERS: PCP Internal Medicine; Visit Provider Physician Assistant
DX: N39.0 Urinary tract infection, site not specified (principal)
CPT/HCPCS: 81001; 81003; 87086; 87088; 87186; 99212

== ENCOUNTER 2024-04-18 11:10 | Outpatient (AMB) | payer MEDICARE, BC, OTHER, SELFPAY ==
--- NOTE | 2024-04-18 11:10 | AM.OFFWIN_ITS ---
Intake Vital Signs 04/18/24 11:12 Height 5 ft 6 in Weight 147 lb BMI 23.7 BP 146/74 H Blood Pressure Location Lt brachial Position Sitting Pulse 76 Pulse Source Pulse Oximeter Temp 97.8 F Temp Source Oral Pulse Oximetry (%) 98 Intake Visit Reasons: EP UTI Patient Tobacco Use Status: Former Tobacco user Allergies nitrofurantoin [Macrobid] Allergy (Unknown, Verified 02/11/24 09:50) hives Do you need a note to return to daycare/school/sports/work: No HPI HPI Comments History of Present Illness Details Patient is a 78yo F who presents for UTI She has had increase in amount of infections that she has had recently Last one was 3 months ago Sudden onset this am of pelvic pressure, frequency and urgency No hematuria Slight ache in back but ni fever or chills recorded Took one OTC Azo which helped Has not seen urology about this Last UTI in system was January and + E. Coli (only resistant to tetracyclines) PFSH Medical History Sixth nerve palsy of right eye Allergic rhinitis Type 2 diabetes mellitus with polyneuropathy Hypertensive urgency Vitamin D deficiency HTN (hypertension) Diabetes type 2, uncontrolled Left low back pain Hyperlipidemia LDL goal <100 Anxiety Vitamin D deficiency Elevated LFTs Benign essential hypertension Pure hypercholesterolemia Chronic kidney disease (CKD), stage III (moderate) Type 2 diabetes mellitus with chronic kidney disease Surgical History History of bladder surgery History of total abdominal hysterectomy and bilateral salpingo-oophorectomy History of right oophorectomy History of tubal ligation Family History Father Past heart attack Mother Breast cancer Hypertension Cardiovascular disease Social History Household Members: Spouse Housing: House Alcohol intake: never Patient Tobacco Use Status: Former Tobacco user e-Cigarette/Vaping Use: Never Used Second Hand Smoke Exposure: Yes service: No Current occupational status: retired Cognitive needs: No Hearing needs: No Vision needs: Yes (glasses) Review of Systems Const Denies chills and Denies fever(s) Denies hematuria, Reports difficulty voiding, Reports pelvic pain, Reports urinary hesitancy and Reports urinary urgency Physical Exam Vital Signs: BMI result Body Mass Index 23.7 General: Non-toxic, NAD. Speaking full sentences. Skin: Warm dry throughout Eye: EOMI Abdomen: BS present. No rebound or guarding. Minimal tenderness to suprapubic region. No CVAT Neurology: Alert. No aphasia or facial droop. Gait without abnormality Psych: Good mood and affect Results AMB Urinalysis, Automated UA Leukoctes 125 Sapna/uL Last Edit by Moises Dejesus CMA on 04/18/24 11:1 9 UA Nitrite Positive Last Edit by Moises Dejesus CMA on 04/18/24 11:19 UA Urobilinogen 1 mg/dL Last Edit by Moises Dejesus CMA on 04/18/24 11:1 9 UA Protein 30 mg/dL Last Edit by Moises Dejesus CMA on 04/18/24 11:19 UA pH 6.0 Last Edit by Moises Dejesus CMA on 04/18/24 11:19 UA Blood 200 Imtiaz/uL Last Edit by Moises Dejesus CMA on 04/18/24 11:19 UA Specific [place] 1.015 Last Edit by Moises Dejesus CMA on 04/18/24 11:19 UA Ketone Negative Last Edit by Moises Deejsus CMA on 04/18/24 11:19 UA Bilirubin 1 mg/dL Last Edit by Moises Dejesus CMA on 04/18/24 11:19 UA Glucose 500 mg/dL Last Edit by Moises Dejesus CMA on 04/18/24 11:19 Assessment & Plan Assessment & Plan (1) Urinary tract infection: Code(s): N39.0 - Urinary tract infection, site not specified Qualifiers: Urinary tract infection type: site unspecified Hematuria presence: without hematuria Qualified Code(s): N39.0 - Urinary tract infection, site not specified Plan: Patient seen and evaluated. Results reviewed from January and from today Culture will be sent as + leuks, nitrates, blood on u/a today Urology referral given Keflex and pyridium to pharmacy as prescribed F.U with PCP and scpecialist for furuther work up Patient gave verbal understanding and had no additional questions or concerns at time of discharge All questions answered Orders: Orders AMB Urinalysis Automated Today Z13.9 - Encounter for screening, unspecified Referrals Urology Referral N39.0 - Urinary tract infection, site not specified Medications: New cephalexin 500 mg PO BID 14 caps 0RF phenazopyridine (Pyridium) 100 mg PO TID 2 days 6 tabs 0RF Coding Level of Care Code Est Pt Level 3 (79697) Diagnoses Urinary tract infection without hematuria, site unspecified N39.0 Urinary tract infection type: site unspecified Hematuria presence: without hematuria
[2024-04-18 11:12] VITALS: BP 146/74; PULSE 76; TEMP 36.6; O2SAT 98; BMI 23.7
== END 2024-04-18 12:09 | disposition home or self-care (01) ==
PROVIDERS: PCP Internal Medicine; Visit Provider Physician Assistant
DX: Z13.9 Encounter for screening, unspecified (principal); N39.0 Urinary tract infection, site not specified

== ENCOUNTER 2024-05-09 07:24 | Outpatient (REF) | payer MEDICARE, BC, OTHER, SELFPAY ==
[2024-05-09 11:22] LABS: MANUAL DIFF FLAG NO
[2024-05-09 11:45] LABS: Estimated Average Glucose 151 mg/dL; Hemoglobin A1C 185.9413 umol/L; Hemoglobin A1c % 6.9 % (<6.0); Total Hemoglobin (HGBA1C) 3617.0879 umol/L
[2024-05-09 11:49] LABS: Basophils Absolute Auto 0.1 X10*3/uL (0.0-0.2); Basophils Percent Auto 1.1 % (0-2); Eosinophils Absolute Auto 0.5 X10*3/uL (0.0-0.4); Eosinophils Percent Auto 6.8 % (0-4); Hematocrit 41.7 % (37.0-47.0); Hemoglobin 13.9 g/dl (12.0-16.0); Imm Gran Abs Auto 0.02 X10*3/uL (0.00-0.03); Imm Gran Pct Auto 0.3 % (0.0-0.4); Lymphocytes Absolute Auto 1.9 X10*3/uL (1.2-4.9); Lymphocytes Percent Auto 25.6 % (20-40); Mean Corpuscular HGB Conc 33.3 g/dl (31.0-35.0); Mean Corpuscular Hemoglobin 29.1 pg (27.0-33.0); Mean Corpuscular Volume 87.2 fL (80.0-98.0); Mean Platelet Volume 10.8 fL (9.4-12.3); Monocytes Absolute Auto 0.6 X10*3/uL (0.1-1.2); Monocytes Percent Auto 7.7 % (2-11); Neutrophils Absolute Auto 4.4 x10*3/uL (2.0-8.3); Neutrophils Percent Auto 58.5 % (45-73); Platelet Count 232 X10*3/uL (160-400); Red Blood Count 4.78 X10*6/uL (4.20-5.50); Red Cell Distribution Width 13.4 % (11.0-16.0); White Blood Count 7.5 X10*3/uL (4.8-10.8)
[2024-05-09 12:02] LABS: Alanine Aminotransferase 45 U/L (0-31); Albumin Level 4.3 g/dL (3.5-5.0); Alkaline Phosphatase 74 U/L (39-117); Anion Gap 14 (12-20); Aspartate Amino Transferase 37 U/L (5-31); Bilirubin Total 0.5 mg/dL (0.0-1.0); Blood Urea Nitrogen 14 mg/dL (9-16); Calcium 9.8 mg/dL (8.4-10.2); Carbon Dioxide 25 mmol/L (22-29); Chloride 109 mmol/L (96-108); Cholesterol 190 mg/dL (<200); Estimated Glomerular Filt Rate 50; Glucose Fasting 145 mg/dL (60-99); HDL Cholesterol 62 mg/dL (>40); LDL Cholesterol Calculated 100 mg/dL (<100); Microalbum/Creatinine Ratio Ur 130.2 ug/mg cr (<30); Potassium 4.1 mmol/L (3.3-5.1); Sodium 144 mmol/L (135-145); Total Protein 7.4 g/dL (6.5-8.0); Triglycerides 142 mg/dL (<150)
[2024-05-09 12:08] LABS: TSH reflex Free T4 1.59 uIU/mL (0.32-4.0); Vitamin D 25-OH Total 55.7 ng/mL (>30)
[2024-05-09 12:18] LABS: Appearance Urine Hazy; Color Urine Yellow; Glucose Urine UA Negative (Negative); Leukocyte Esterase Urine Small (1+) (Negative); Nitrite Urine Negative (Negative); Specific Gravity - Urine 1.015 (1.005-1.025); UMIC TRIGGER UACC YES; Urine Blood Trace (Negative); Urine Ketones Negative (Negative); Urine Protein Trace mg/dL (Neg-Trace)
[2024-05-09 12:30] LABS: Bacteria Urine 4+ (None Seen); Hyaline Casts Urine 0-2 /LPF (0-2); RBC Urine 0-2 /HPF (0-2); Squamous Epithelial Cell Urine 0-2 /HPF (0-2); UACC Culture Trigger YES
== END 2024-05-09 07:25 | disposition home or self-care (01) ==
LOC: HO.HMGCLDS 07:24
PROVIDERS: PCP Internal Medicine; Visit Provider Internal Medicine Nephrology
DX: D64.9 Anemia, unspecified (principal); E55.9 Vitamin D deficiency, unspecified; E78.00 Pure hypercholesterolemia, unspecified; E11.9 Type 2 diabetes mellitus without complications
CPT/HCPCS: 36415; 80053; 80061; 81001; 81003; 82043; 82306; 82570; 83036; 84443; 85025; 87086; 87088; 87186

== ENCOUNTER 2024-05-13 09:22 | Outpatient (AMB) | payer MEDICARE, BC, OTHER, SELFPAY ==
--- NOTE | 2024-05-13 09:40 | HO.NEPHOV ---
Vital Signs 05/13/24 09:43 Height 5 ft 6 in Weight 145 lb 2 oz BMI 23.4 BP 130/80 Blood Pressure Location Rt brachial Position Sitting Pulse 86 Pulse Source Pulse Oximeter Pulse Oximetry (%) 97 Oxygen Delivery Method Room Air Intake Visit Reasons: CKD/ HTN Teacher Counselor Required: No Accompanied by: Self / Same As Patient Allergies nitrofurantoin [Macrobid] Allergy (Unknown, Verified 05/13/24 09:43) hives HPI Comments Details: Di is a 77-year-old female whom had the privilege of seeing in follow-up for her chronic kidney disease and hypertension. She had dysuria, supra pubic pain with subjective fever and was seen in Urgent care. She gets recurrent UTI. She has longstanding diabetes mellitus but her blood sugar control had not been optimal for a long time. She recently had developed visual disturbance and has seen a neurologist as well as oil heater installer. According to her, they felt all her symptoms are due to diabetic retinopathy. Her blood pressure control is better. She denies congestive heart failure, CVA, peripheral arterial disease. Her mother had severe PAD. She is not a smoker. Her renal functions had been stable. She has been getting a lot of UTI's and has a Urology appointment [facility] Medical History Sixth nerve palsy of right eye Allergic rhinitis Type 2 diabetes mellitus with polyneuropathy Hypertensive urgency Vitamin D deficiency HTN (hypertension) Diabetes type 2, uncontrolled Left low back pain Hyperlipidemia LDL goal <100 Anxiety Vitamin D deficiency Elevated LFTs Benign essential hypertension Pure hypercholesterolemia Chronic kidney disease (CKD), stage III (moderate) Type 2 diabetes mellitus with chronic kidney disease Surgical History History of bladder surgery History of total abdominal hysterectomy and bilateral salpingo-oophorectomy History of right oophorectomy History of tubal ligation Family History Father Past heart attack Mother Breast cancer Hypertension Cardiovascular disease Social History Household Members: Spouse Housing: House Alcohol intake: never Patient Tobacco Use Status: Former Tobacco user e-Cigarette/Vaping Use: Never Used Second Hand Smoke Exposure: Yes service: No Current occupational status: retired Cognitive needs: No Hearing needs: No Vision needs: Yes (glasses) Review of Systems Const All systems reviewed & are unremarkable except as noted in HPI and below Physical Exam Vital Signs: Last Vital Signs Pulse 86 05/13/24 09:43 BP 150/70 H 05/13/24 09:43 Pulse Ox 97 05/13/24 09:43 Oxygen Delivery Method Room Air 05/13/24 09:43 BMI result Body Mass Index 23.4 Const General: comfortable and no acute distress Orientation/consciousness: patient oriented x3 HEENT Head: Yes normocephalic Mouth: Normal oral and palatal mucosa present Eyes EOM: EOMs intact bilaterally Neck Neck: Yes supple Resp Auscultation: clear to auscultation bilaterally Cardio Jugular venous distension: no JVD Rate: regular rate GI Palpation (GI): Soft to palpation Auscultation: normal bowel sounds General: Yes no CVA tenderness Back/Spine/Pelvis Back: no CVA tenderness Skin General skin exam: no rashes or lesions noted Neuro General: patient oriented x3 and moves all extremities Extrem General: Yes no pedal edema Results Reviewed Nephrology Results: Hgb 13.9 g/dl (12.0-16.0) 05/09/24 WBC 7.5 X10*3/uL (4.8-10.8) 05/09/24 Plt Count 232 X10*3/uL (160-400) 05/09/24 Sodium 144 mmol/L (135-145) 05/09/24 Potassium 4.1 mmol/L (3.3-5.1) 05/09/24 Chloride 109 mmol/L (96-108) H 05/09/24 Carbon Dioxide 25 mmol/L (22-29) 05/09/24 BUN 14 mg/dL (9-16) 05/09/24 Creatinine 1.06 mg/dL (0.5-1.4) 05/09/24 Calcium 9.8 mg/dL (8.4-10.2) 05/09/24 Urine Protein Trace mg/dL (Neg-Trace) 05/09/24 Urine Creatinine 85.20 mg/dL 05/09/24 Assessment & Plan Assessment & Plan (1) HTN (hypertension): Code(s): I10 - Essential (primary) hypertension Category: Medical Qualifiers: Hypertension type: primary hypertension Qualified Code(s): I10 - Essential (primary) hypertension (2) Type 2 diabetes mellitus with chronic kidney disease: Code(s): E11.22 - Type 2 diabetes mellitus with diabetic chronic kidney disease Category: Medical Qualifiers: Diabetes mellitus intermediate accountant insulin use: with detention use Chronic kidney disease stage: stage 3 (moderate) Chronic kidney disease stage 3 subtype: stage 3b (GFR 30-44) Qualified Code(s): E11.21 - Type 2 diabetes mellitus with diabetic nephropathy; N18.32 - Chronic kidney disease, stage 3b; Z79.4 - oil heaterman (current) use of insulin (3) Chronic kidney disease (CKD), stage III (moderate): Code(s): N18.30 - Chronic kidney disease, stage 3 unspecified Category: Medical Qualifiers: Chronic kidney disease stage 3 subtype: stage 3b (GFR 30-44) Qualified Code(s): N18.32 - Chronic kidney disease, stage 3b Markus Sevilla has 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 Her blood pressure is close to goal on current medication regimen. Her BP needs to be kept at goal. She is tolerating angiotensin receptor francis. She avoids nonsteroidal anti-inflammatories and maintain good hydration. Her Jardiance has been discontinued due to recurrent UTI's. Answered all questions. Follow-up given Orders: Orders Creatinine 6 Months E11.21 - Type 2 diabetes mellitus with diabetic nephropathy, I10 - Essential (primary) hypertension, N18.32 - Chronic kidney disease, stage 3b, Z79.4 - oil heaterman (current) use of insulin Blood Urea Nitrogen 6 Months E11.21 - Type 2 diabetes mellitus with diabetic nephropathy, I10 - Essential (primary) hypertension, N18.32 - Chronic kidney disease, stage 3b, Z79.4 - skilled nursing (current) use of insulin Electrolytes 6 Months E11.21 - Type 2 diabetes mellitus with diabetic nephropathy, I10 - Essential (primary) hypertension, N18.32 - Chronic kidney disease, stage 3b, Z79.4 - skilled nursing (current) use of insulin Coding Level of Care Code Est Pt Level 4 (75647) Diagnoses Primary hypertension I10 Hypertension type: primary hypertension Type 2 diabetes mellitus with stage 3b chronic kidney disease, with long-term current use of insulin E11.21; N18.32; Z79.4 Diabetes mellitus detention insulin use: with intermediate accountant use Chronic kidney disease stage: stage 3 (moderate) Chronic kidney disease stage 3 subtype: stage 3b (GFR 30-44) Stage 3b chronic kidney disease N18.32 Chronic kidney disease stage 3 subtype: stage 3b (GFR 30-44)
[2024-05-13 09:43] VITALS: BP 130/80; PULSE 86; O2SAT 97; BMI 23.4
== END 2024-05-13 10:02 | disposition home or self-care (01) ==
PROVIDERS: PCP Internal Medicine; Visit Provider Internal Medicine Nephrology
DX: I12.9 Hypertensive chronic kidney disease with stage 1 through stage 4 chronic kidney disease, or unspecified chronic kidney disease (principal); E11.21 Type 2 diabetes mellitus with diabetic nephropathy; N18.32 Chronic kidney disease, stage 3b; Z79.4 Long term (current) use of insulin
CPT/HCPCS: 99214

== ENCOUNTER → 2024-05-13 09:22 | Outpatient (BNVA) | payer MEDICARE, BC, OTHER, SELFPAY | PROVIDERS: PCP Internal Medicine; Visit Provider Internal Medicine Nephrology | DX: E11.22 Type 2 diabetes mellitus with diabetic chronic kidney disease (principal); I12.9 Hypertensive chronic kidney disease with stage 1 through stage 4 chronic kidney disease, or unspecified chronic kidney disease; N18.32 Chronic kidney disease, stage 3b; E11.21 Type 2 diabetes mellitus with diabetic nephropathy; Z79.4 Long term (current) use of insulin | CPT/HCPCS: 99212 ==

== ENCOUNTER 2024-06-13 09:46 | Outpatient (REF) | payer MEDICARE, BC, OTHER, SELFPAY ==
--- OUTSIDE RECORDS SUMMARY | 2024-06-13 12:02 | XMS_ITS | Clinical Summary ---
Author Organization [facility] Address [address] [place] [address] Phone Care Team Providers Care Coremaker Name Role Phone Johnny Valadez MD Primary Care Provider [phone] Allergies Active Allergy Reactions Criticality Noted Date Comments Nitrofurantoin 09/06/2021 Medications atorvastatin (LIPITOR) 40 MG tablet Take 40 mg by mouth 1 (one) time each day Active cholecalcifero l (VITAMIN D-3 SUPER STRENGTH) 50 MCG (2000 UT) tablet Take 2,000 Units by mouth 1 (one) time each day Active metFORMIN (GLUCOPHAGE) 500 MG tablet Take 500 mg by mouth in the morning and 500 mg in the evening. Take with meals. Active nebivolol (BYSTOLIC) 5 MG tablet Take 5 mg by mouth 1 (one) time each day Active diazePAM (VALIUM) 2 MG tablet Take 2 mg by mouth every 8 (eight) hours if needed for anxiety Active sertraline (ZOLOFT) 25 MG tablet Take 25 mg by mouth 1 (one) time each day Active SITagliptin (JANUVIA) 100 MG tablet Take 100 mg by mouth 1 (one) time each day Active amLODIPine (NORVASC) 10 MG tablet Take 1 tablet (10 mg total) by mouth 1 (one) time each day 90 tablet 5 2 Active hydroCHLOROthi azide 25 MG tablet Take 1 tablet (25 mg total) by mouth 1 (one) time each day 90 tablet 3 2 Active losartan (COZAAR) 100 MG tablet Take 1 tablet (100 mg total) by mouth 1 (one) time each day 90 tablet 5 2 Active cefuroxime (CEFTIN) 250 MG tablet Take 1 tablet by mouth in the morning and 1 tablet in the evening. 3 Active phenazopyridin e (PYRIDIUM) 100 MG tablet Take 1 tablet by mouth in the morning and 1 tablet in the evening and 1 tablet before bedtime. 3 Active Insulin Aspart FlexPen 100 UNIT/ML solution pen-injector INJECT 10-12 UNITS SUBCUTANEOUSLY THREE TIMES A DAY 3 Active Basaglar KwikPen 100 UNIT/ML injection INJECT 36 UNITS UNDER THE SKIN EVERY EVENING 3 Active Active Problems Problem Noted Date Diagnosed Date Stage 3a chronic kidney disease 06/06/2022 Hypertension 12/06/2021 Stage 3b chronic kidney disease 09/06/2021 Essential (primary) hypertension 09/06/2021 Family History Medical History Relation Comments Heart disease Father Hypertension Father Cancer Mother Breast Cancer Hypertension Mother Relation Status Comments Father Mother Social History Tobacco Use Types Packs/Day Years Used Date Smoking Tobacco: Former Smokeless Tobacco: Never Tobacco Cessation:Counseling Given: Not Answered Alcohol Use Standard Drinks/Week Comments Never 0 (1 standard drink = 0.6 oz pur e alcohol) Comments Unknown Sex and Gender Information Value Date Recorded Sex Assigned at Not on file Legal Sex Female 4:58 PM EST Gender Identity Not on file Sexual Orientation Not on file Last Filed Vital Signs Vital Sign Reading Time Taken Comments Blood Pressure 150/70 01/09/2023 1:15 PM EDT Pulse 77 01/09/2023 1:15 PM EDT Temperature - - Respiratory Rate - - Oxygen Saturation 99% 09/06/2021 4:00 PM EDT Inhaled Oxygen Concentration - - Weight 65.8 kg (145 lb) 01/09/2023 1:15 PM EDT Height - - Body Mass Index - - Plan of Treatment Health Maintenance Due Date Last Done Comments Pneumococcal Vaccine: 65+ Ye ars (1 of 2 - PCV) 1951 Influenza Vaccine (#1) 2024 Hepatitis B Vaccine Aged Out No longe r eligible based on patient's age to complete this topic Insurance MEDICARE [facility] MEDICARE [facility] Care Teams Coremaker Relationship Specialty Start Date End Date Johnny Valadez MD [address] [place] [address] PCP - General Internal Medicine 07/13/21
[2024-06-13 13:59] LABS: Appearance Urine Clear; Color Urine Dark Yellow; Glucose Urine UA 500 mg/dL (Negative); Leukocyte Esterase Urine Moderate (2+) (Negative); Nitrite Urine Positive (Negative); PH 5.5 (5.0-9.0); UMIC TRIGGER UACC YES; Urine Blood Negative (Negative); Urine Ketones Negative (Negative); Urine Protein 30 (1+) mg/dL (Neg-Trace)
[2024-06-13 14:19] LABS: Bacteria Urine Trace (None Seen); Hyaline Casts Urine 0-2 /LPF (0-2); RBC Urine 0-2 /HPF (0-2); UACC Culture Trigger YES
== END 2024-06-13 09:47 | disposition home or self-care (01) ==
LOC: HO.LAB 09:46
PROVIDERS: PCP Internal Medicine; Visit Provider Physician Assistant Medical
DX: N30.00 Acute cystitis without hematuria (principal)
CPT/HCPCS: 81001; 81003; 87086; 87088; 87186; 99212

== ENCOUNTER 2024-06-13 09:46 | Outpatient (AMB) | payer MEDICARE, BC, OTHER, SELFPAY ==
[2024-06-13 10:16] VITALS: BP 150/80; PULSE 77; RESP 16; TEMP 36.6; O2SAT 98; BMI 23.6
--- NOTE | 2024-06-13 10:16 | AM.OFFWIN_ITS ---
Intake Vital Signs 06/13/24 10:16 Height 5 ft 6 in Weight 146 lb BMI 23.6 BP 150/80 H Blood Pressure Location Lt brachial Position Sitting Respiration 16 Pulse 77 Pulse Source Pulse Oximeter Temp 97.9 F Temp Source Oral Pulse Oximetry (%) 98 Oxygen Delivery Method Room Air Intake Visit Reasons: EP-uti Intake Note: Pt is here today c/o urgent upon urination and burning Patient Tobacco Use Status: Former Tobacco user Allergies nitrofurantoin [Macrobid] Allergy (Unknown, Verified 06/13/24 11:04) hives HPI EP-uti HPI Details Patient is a 79-year-old female with a history of recurrent UTIs over the last few months, as well as insulin dependent diabetes, chronic kidney disease stage 3, and hypertension who comes to the walk-in clinic complaining of sudden onset of urinary frequency and painful urination that started last night. She had 1 tablet left of Pyridium, which helps with symptoms. Her last urinary tract infection with just a month ago, and I do not have the documentation as to which antibiotic she took, however she believes that it was ciprofloxacin. Her symptoms did apparently resolve, however started again acutely. She has a history of recurrent urinary tract infections over the last few months, and is seeing a urologist later this week. She also has an appointment with her primary care physician in a few days. She has diabetes, and reports that her sugars have been controlled. However she did start taking cranberry juice to help treat the urinary tract infections, although she states that it is the diet type. She has no upper back pain, weakness or dizziness, headache, malaise or myalgias, fever or chills, nausea vomiting or diarrhea, chest pain or shortness of breath, or other significant associated symptoms. [facility] Medical History Sixth nerve palsy of right eye Allergic rhinitis Type 2 diabetes mellitus with polyneuropathy Hypertensive urgency Vitamin D deficiency HTN (hypertension) Diabetes type 2, uncontrolled Left low back pain Hyperlipidemia LDL goal <100 Anxiety Vitamin D deficiency Elevated LFTs Benign essential hypertension Pure hypercholesterolemia Chronic kidney disease (CKD), stage III (moderate) Type 2 diabetes mellitus with chronic kidney disease Surgical History History of bladder surgery History of total abdominal hysterectomy and bilateral salpingo-oophorectomy History of right oophorectomy History of tubal ligation Family History Father Past heart attack Mother Breast cancer Hypertension Cardiovascular disease Social History Household Members: Spouse Housing: House Alcohol intake: never Patient Tobacco Use Status: Former Tobacco user e-Cigarette/Vaping Use: Never Used Second Hand Smoke Exposure: Yes service: No Current occupational status: retired Cognitive needs: No Hearing needs: No Vision needs: Yes (glasses) Physical Exam Vital Signs: Last Vital Signs Temp 97.9 F 06/13/24 10:16 Pulse 77 06/13/24 10:16 Resp 16 06/13/24 10:16 BP 150/80 H 06/13/24 10:16 Pulse Ox 98 06/13/24 10:16 Oxygen Delivery Method Room Air 06/13/24 10:16 BMI result Body Mass Index 23.6 Const General: cooperative, healthy appearing, comfortable, no acute distress, alert, awake, Physically active and well groomed; No anxious, diaphoretic, ill appearing, intoxicated appearing, poor hygiene or tired appearing Nutritional Appearance: average body habitus Orientation/consciousness: oriented to person Limitations: no limitations Resp Effort & Inspection: normal respiratory effort, able to speak in complete sentences, no audible wheezes, no cough, no grunting, not labored, no nasal flaring, no retractions and symmetric chest movement Auscultation: clear to auscultation bilaterally, no crackles, no rales, no rhonchi, no wheezes, lung sounds not diminished and No rub present Cardio Palpation: normal PMI Rate: regular rate Rhythm: regular rhythm Heart sounds: S1 normal heart sound present and S2 normal heart sound present GI Palpation (GI): Bladder palpation abnormal (Suprapubic tenderness per patient) General: Yes Bladder palpation abnormal (Suprapubic tenderness per patient) and Yes no CVA tenderness Back/Spine/Pelvis Back: no CVA tenderness Skin Other: Good color, warm and dry Neuro General: oriented to person Psych Appearance: grossly normal Mental Status: mental status grossly normal Speech and movement: Normal speech and movement present Affect: normal affect Attitude: cooperative Thought process: Normal thought process present Insight: Good insight present (Psych) Judgement: Good judgement present (Psych) Results AMB Urinalysis, Automated UA Leukoctes 125 Sapna/uL Last Edit by Tracey Gore CMA on 06/13/24 11:10 UA Nitrite Positive Last Edit by Tracey Gore CMA on 06/13/24 11:10 UA Urobilinogen 2 mg/dL Last Edit by Tracey Gore CMA on 06/13/24 11:10 UA Protein 15 mg/dL Last Edit by Tracey Gore CMA on 06/13/24 11:10 UA pH 6.0 Last Edit by Tracey Gore CMA on 06/13/24 11:10 UA Blood 0 Imtiaz/uL Last Edit by Tracey Gore CMA on 06/13/24 11:10 UA Specific [place] 1.015 Last Edit by Tracey Gore CMA on 06/13/24 11:10 UA Ketone Negative Last Edit by rTacey Gore CMA on 06/13/24 11:10 UA Bilirubin 1 mg/dL Last Edit by Tracey Gore CMA on 06/13/24 11:10 UA Glucose 250 mg/dL Last Edit by Tracey Gore CMA on 06/13/24 11:10 Results Reviewed Results Reviewed: Laboratory Last Values Urine pH (Auto) 6.0 06/13/24 10:16 Specific [place] (Auto) 1.015 06/13/24 10:16 Urine Protein (Auto) 15 mg/dL 06/13/24 10:16 Glucose (UA)(Auto) 250 mg/dL 06/13/24 10:16 Urine Ketones (Auto) Negative 06/13/24 10:16 Urine Blood (Auto) 0 Imtiaz/uL 06/13/24 10:16 Urine Nitrite (Auto) Positive 06/13/24 10:16 Urine Bilirubin (Auto) 1 mg/dL 06/13/24 10:16 Urine Urobilinogen (Auto) 2 mg/dL 06/13/24 10:16 Leukocyte Esterase (Auto) 125 Sapna/uL 06/13/24 10:16 Patient's UA shows positive protein, glucose, nitrites, bilirubin, and leukocytes with a high level. Assessment & Plan Assessment & Plan (1) Acute recurrent cystitis: Code(s): N30.00 - Acute cystitis without hematuria Plan Patient is a 79-year-old female with a history of recurrent UTIs over the last few months, as well as insulin dependent diabetes, chronic kidney disease stage 3, and hypertension who comes to the walk-in clinic complaining of sudden onset of urinary frequency and painful urination that started last night. She apparently has another acute cystitis at this time, with urine dip remarkable for positive protein, glucose, nitrites, bilirubin, and leukocytes with a high level, and negative for heme. She was written for Keflex with her UTI 2 months ago, but the last infection about a month ago was apparently treated by her PCP and I am not sure which medication she took, although when questioning her, she thinks that it was ciprofloxacin. Her microscopy had come back positive for Morganella, and was susceptible to Bactrim, but even more so to ciprofloxacin. As it was so recent however, I was going to write her for a course of Bactrim instead, which also was ineffective agent with her last microscopy, however it has a severe interaction with her ARB medication for her hypertension. So I will write her for another course of ciprofloxacin, as she did not have any side effects or issues with it last month. However she does have chronic kidney disease stage 3, and does need to be monitored closely. Fortunately she has an appointment in a few days with her primary care, and at the end of the week she will be seeing her urologist Dr. Ozuna. We will send her urine out again this time around 4 susceptibility testing with culture. We discussed getting adequate water intake, and stopping the cranberry juice as she is diabetic and I do not think it is worth having the sugar intake. I will write her for Pyridium along with the ciprofloxacin. In the meantime, she will monitor her symptoms and will follow up if they persist or worsen, or go to the emergency department with worrisome symptoms. Orders: Orders AMB Urinalysis Automated Today Z13.9 - Encounter for screening, unspecified UA CC w/rflx Micro + Cult Today R30.0 - Dysuria Medications: New phenazopyridine (Pyridium) 100 mg PO Q8H PRN 20 tabs 0RF pain ciprofloxacin HCl 250 mg PO BID 6 tabs 0RF Coding Level of Care Code Est Pt Level 4 (09848) Diagnoses Acute recurrent cystitis N30.00
== END 2024-06-13 12:48 | disposition home or self-care (01) ==
PROVIDERS: PCP Internal Medicine; Visit Provider Physician Assistant Medical
DX: N30.00 Acute cystitis without hematuria (principal); Z13.9 Encounter for screening, unspecified

== ENCOUNTER 2024-06-16 09:25 | Outpatient (AMB) | payer MEDICARE, BC, OTHER, SELFPAY ==
[2024-06-16 09:36] VITALS: BP 142/86; PULSE 83; O2SAT 98; BMI 23.8
--- NOTE | 2024-06-16 09:36 | MHC.PC.OV ---
Vital Signs 06/16/24 09:36 Height 5 ft 6 in Weight 147 lb 8 oz BMI 23.8 BP 142/86 H Blood Pressure Location Lt brachial Position Sitting Pulse 83 Pulse Source Pulse Oximeter Pulse Oximetry (%) 98 Oxygen Delivery Method Room Air Intake Visit Reasons: DM, CKD, hyperlipidemia, HTN [employer]ship Required: No Accompanied by: Self / Same As Patient Allergies nitrofurantoin [Macrobid] Allergy (Unknown, Verified 06/16/24 10:07) hives empagliflozin [From Jardiance] Adverse Reaction (Intermediate, Verified 06/16/24 12:29) recurrent UTI Medication List - Last Reconciled 06/16/24 by Johnny Valadez MD amlodipine 10 mg PO DAILY 90 days atorvastatin 40 mg PO BEDTIME 90 days blood sugar diagnostic (FreeStyle Lite Strips) As directed to test blood sugar four times a day blood-glucose meter (FreeStyle Lite Meter kit) As directed to test blood sugar four times a day cholecalciferol (vitamin D3) 50 mcg PO DAILY 90 days ciprofloxacin HCl 250 mg PO BID hydralazine 10 mg PO BID insulin aspart U-100 (Novolog FlexPen U-100 Insulin aspart) 10 - 12 units (0.1 - 0.12 mL) subcut TID 30 days insulin glargine (Basaglar KwikPen U-100 Insulin) 36 units (0.36 mL) subcut QPM 30 days lancets (FreeStyle Lancets) As directed four times a day loratadine 10 mg PO DAILY PRN 90 days losartan 100 mg PO DAILY 90 days metformin 500 mg PO BID 90 days nebivolol (Bystolic) 5 mg PO DAILY 90 days pen needle, diabetic (BD Vi 2nd Gen Pen Needle) USE TO INEJCT FOUR TIMES A DAY phenazopyridine (Pyridium) 100 mg PO Q8H PRN sitagliptin phosphate (Januvia) 100 mg PO DAILY 90 days Tobacco use date assessed: 06/16/24 Fall risk assessment: No Falls in past year Last assessed Fall Risk: 06/16/24 Dental Screening Dental Screen Date: 06/16/24 Did you have a dental visit in the last 12 months?: Yes Did you have a dental problem in the last 6 months where you did not have access to dental care?: No Was dental information given to patient?: Patient has dentist HPI DM, CKD, hyperlipidemia, HTN HPI Details Patient comes in today for her follow up visit States that she has been experiencing some recurrent pain and stiffness over her left thigh, which she feels start from her left buttocks area and will then radiate down the side of her left thigh States that her symptoms have been going on for a while now but they are starting to bother her more than usual lately Notes that the symptoms feel worse when she is sitting down (her thigh will start to feel stiff) and they ease up when she gets up and starts walking She denies any recent injury or trauma to her lower back and her left lower extremity - states that she is not even sure where the symptoms actually start from Relates that she feels okay otherwise She denies any headaches or dizziness Denies any chest pains, no increased SOB No nausea/vomiting, no abdominal pain No change in bowel habits noted She had her follow up labs done last month - to discuss her results [facility] Medical History (Updated 06/16/24 @ 12:43 by Johnny Valadez MD) Cardiac murmur Sixth nerve palsy of right eye Allergic rhinitis Type 2 diabetes mellitus with polyneuropathy Hypertensive urgency Vitamin D deficiency HTN (hypertension) Diabetes type 2, uncontrolled Left low back pain Hyperlipidemia LDL goal <100 Anxiety Vitamin D deficiency Elevated LFTs Benign essential hypertension Pure hypercholesterolemia Chronic kidney disease (CKD), stage III (moderate) Type 2 diabetes mellitus with chronic kidney disease Surgical History History of bladder surgery History of total abdominal hysterectomy and bilateral salpingo-oophorectomy History of right oophorectomy History of tubal ligation Family History Father Past heart attack Mother Breast cancer Hypertension Cardiovascular disease Social History Household Members: Spouse Housing: House Alcohol intake: never Patient Tobacco Use Status: Former Tobacco user e-Cigarette/Vaping Use: Never Used Second Hand Smoke Exposure: Yes service: No Current occupational status: retired Cognitive needs: No Hearing needs: No Vision needs: Yes (glasses) Questionnaire PHQ-9 Over the last 2 weeks, how often have you been bothered by any of the following problems? 1. Little interest or pleasure in doing things: not at all 2. Feeling down, depressed, or hopeless: not at all 3. Trouble falling or staying asleep, or sleeping too much: not at all 4. Feeling tired or having little energy: not at all 5. Poor appetite or overeating: not at all 6. Feeling bad about yourself - or that you are a failure or have let yourself or your family down: not at all 7. Trouble concentrating on things, such as reading the newspaper or watching television: not at all 8. Moving or speaking so slowly that other people could have noticed. Or the opposite - being so fidgety or restless that you have been moving around a lot more than usual: not at all 9. Thoughts that you would be better off or of hurting yourself in some way: not at all Total score: 0 Depression Screening Interpretation: Negative Depression Screening Done: Yes 77469 - PHQ-9 Billing: Yes Source: Developed by Drs. Eric Duffy, Roxy Irwin, Cruz Pimentel and colleagues, with an educational trish from [employer]. Thrive Questionnaire Date Thrive assessed: 06/16/24 I am a: Patient What is your living situation today?: I have a steady place to live Within the past 12 months, did the food you bought not last and you didn't have the money to get more?: Never true Within the past 12 months, did you worry whether your food would run out before you got money to buy more?: Never true Do you have trouble paying for medicines?: No Do you have trouble getting transportation to medical appointments?: No Do you have trouble paying your heating and electricity bill?: No Do you have trouble taking care of your child, family member or friend?: No Do you have trouble with day-to-day activities such as bathing, preparing meals, shopping, managing finances, etc.?: No Are you currently unemployed and looking for a job?: No Are you interested in more education?: No Please select the resources that you would like help with: None Currently or been in a relationship where the following occur: No concerns reported THRIVE Score: 0 AUDIT C Alcohol Use Questionnaire (AUDIT-C) 1. How often do you have a drink containing alcohol?: Never 3. How often do you have six or more drinks on one occasion?: Never Total Score: 0 Score Reviewed/Action Taken: Yes CHAO-7 AMB Questionnaire CHAO-7 Date CHAO - 7 assessed: 06/16/24 Feeling nervous, anxious, or on edge: 0 = Not at all Not being able to stop or control worryin = Not at all Worrying too much about different things: 0 = Not at all Trouble relaxin = Not at all Being so restless that it is hard to sit still: 0 = Not at all Becoming easily annoyed or irritable: 0 = Not at all Feeling afraid as if something awful might happen: 0 = Not at all Total CHAO-7 score (0-4 normal; 5-9 mild; 10-14 moderate; 15-21 severe): 0 Source: Developed by Drs. Eric Duffy, Roxy Irwin, Cruz Pimentel and colleagues, with an educational trish from [employer]. Review of Systems Const Denies chills, Denies fatigue, Denies fever(s) and Denies headache(s) ENT Denies dysphagia, Denies dizziness, Denies otalgia, Denies headache(s), Denies neck pain, Denies odynophagia and Denies sore throat Card Denies chest pain, Denies palpitations and Denies dyspnea Resp Denies chest congestion, Denies cough and Denies dyspnea GI Denies abdominal pain, Denies constipation, Denies dysphagia, Denies heartburn, Denies diarrhea, Denies nausea, Denies odynophagia and Denies vomiting Denies difficulty voiding, Denies nocturia, Denies dysuria and Denies urinary urgency Musc Details: (+) recurrent left thigh stiffness/discomfort - see HPI Reports as per HPI, Denies back pain, Denies neck pain and Reports stiffness (in both hands, on and off) Skin/Breast Denies rash Neuro Denies dizziness and Denies headache(s) Endo Denies fatigue and Denies palpitations Aller/Immun Details: recurrent sneezing Reports seasonal rhinorrhea (at times) Physical exam (Primary Care) Vital Signs: Last Vital Signs Pulse 83 06/16/24 09:36 BP 142/86 H 06/16/24 09:36 Pulse Ox 98 06/16/24 09:36 Oxygen Delivery Method Room Air 06/16/24 09:36 BMI result Body Mass Index 23.8 Tobacco/Smoking Status: Tobacco use Status Tobacco use date assessed 06/16/24 06/16/24 09:38 Patient Tobacco Use Status Former Tobacco user 06/16/24 09:38 e-Cigarette/Vaping Use Never Used 06/16/24 09:38 PHQ-9: PHQ-9 Score PHQ-9: Total score 0 06/16/24 12:23 Depression Screening Interpretation: Negative Thrive Assessment: Date of Thrive Assessment Date Thrive assessed 06/16/24 06/16/24 09:38 Currently or been in a relationship where the following occur: No concerns reported Const General: no acute distress and alert HENMT Ears: TM's normal bilaterally and EAC's normal Throat: Yes posterior oropharynx normal and Yes tonsils normal (no TP congestion) Neck Neck: Yes supple and No lymphadenopathy Thyroid: Thyroid normal Resp Auscultation: clear to auscultation bilaterally, no rales and no wheezes Cardio Rate: regular rate Rhythm: regular rhythm Heart sounds: Murmur heart sound present systolic III/, at the apex and at the left sternal border GI Palpation (GI): Soft to palpation and nontender Auscultation: normal bowel sounds General: Yes no CVA tenderness Back/Spine/Pelvis Back: no CVA tenderness Thoracic/Lumbar Spine: straight leg raise negative bilaterally and No lumbar spinal tenderness Skin Rashes: no rashes Extrem General: Yes no clubbing, cyanosis or edema Left lower extremity: hip/thigh Details: no tenderness and knee Details: no tenderness Results Reviewed Results Reviewed: Laboratory Tests 05/09/24 06/13/24 07:40 09:45 WBC 7.5 Hgb 13.9 Hct 41.7 Plt Count 232 Sodium 144 Potassium 4.1 Creatinine 1.06 Estimated GFR 50 Fasting Glucose 145 H Hemoglobin A1c % 6.9 H Calcium 9.8 AST 37 H ALT 45 H Triglycerides 142 Cholesterol 190 LDL Cholesterol, Calc 100 H HDL Cholesterol 62 25-OH Vitamin D Total 55.7 TSH 1.59 Ur Specific Mikana 1.010 Urine Protein 30 (1+) H Urine Glucose (UA) 500 H Urine Blood Negative Urine Nitrite Positive H Ur Leukocyte Esterase Moderate (2+) H Microalb/Creat Ratio 130.2 H Coding Level of Care Code Est Pt Level 4 (25940) Diagnoses Type 2 diabetes mellitus with stage 3b chronic kidney disease, with long-term current use of insulin E11.21; N18.32; Z79.4 Chronic kidney disease stage: stage 3 (moderate) Chronic kidney disease stage 3 subtype: stage 3b (GFR 30-44) Diabetes mellitus joint terminal attack controller insulin use: with senior care use Stage 3b chronic kidney disease N18.32 Chronic kidney disease stage 3 subtype: stage 3b (GFR 30-44) Pure hypercholesterolemia E78.00 Benign essential hypertension I10 Cardiac murmur R01.1 Sixth nerve palsy of right eye H49.21 Elevated LFTs R79.89 Stiffness of joint of left pelvic region and thigh M25.652 Vitamin D deficiency E55.9 Seasonal allergic rhinitis due to pollen J30.1 Allergic rhinitis seasonality: seasonal Allergic rhinitis trigger: pollen Anxiety F41.9 Additional Codes PHQ-9 - 12282 - PHQ-9 Billing: Yes ([id number]) Assessment & Plan Assessment & Plan (1) Type 2 diabetes mellitus with chronic kidney disease: Code(s): E11.22 - Type 2 diabetes mellitus with diabetic chronic kidney disease Category: Medical Qualifiers: Chronic kidney disease stage: stage 3 (moderate) Chronic kidney disease stage 3 subtype: stage 3b (GFR 30-44) Diabetes mellitus senior care insulin use: with joint terminal attack controller use Qualified Code(s): E11.21 - Type 2 diabetes mellitus with diabetic nephropathy; N18.32 - Chronic kidney disease, stage 3b; Z79.4 - joint terminal attack controller (current) use of insulin Plan: Her HgbA1c was at 6.9% on her labs done last month (was previously at 7.0% a few months ago) - goal is <7.0% Reinforced diabetic diet Continue Metformin 500 mg BID, Basaglar 36 units Q PM, Novolog 10 to 12 units TID with meals per sliding scale and Januvia 100 mg QD She was also previously on Jardiance 10 mg QD (started by nephrology to help stabilize her renal function) but this was discontinued last month due to recurrent UTIs while she was on the medication She was previously seeing endocrinology but has been advised that she can just see them on an as-needed basis and to follow up with her PCP regularly for now as her diabetes is currently under good control (2) Chronic kidney disease (CKD), stage III (moderate): Code(s): N18.30 - Chronic kidney disease, stage 3 unspecified Category: Medical Qualifiers: Chronic kidney disease stage 3 subtype: stage 3b (GFR 30-44) Qualified Code(s): N18.32 - Chronic kidney disease, stage 3b Plan: Stable; will continue to monitor her renal function closely She was started on Jardiance 10 mg by nephrology last year (2023) to help stabilize her renal function but due to frequent/recurrent UTIs while on the Rx, this was ultimately discontinued last month Follow up with nephrology (Dr. Glass) as scheduled (3) Pure hypercholesterolemia: Code(s): E78.00 - Pure hypercholesterolemia, unspecified Category: Medical Plan: Results of her labs done last month reviewed and discussed with patient Reinforced low cholesterol diet Continue Atorvastatin 40 mg QD Will have her recheck her labs and fasting lipids in 4 months for follow up (4) Benign essential hypertension: Code(s): I10 - Essential (primary) hypertension Category: Medical Plan: Reinforced low sodium diet - goal is systolic BP of at least 130 mm or less in light of her CKD Continue Amlodipine 10 mg QD, Losartan 100 mg QD, Bystolic 5 mg QD and Hydralazine 10 mg BID Patient is reminded to continue monitoring her blood pressure regularly (5) Cardiac murmur: Code(s): R01.1 - Cardiac murmur, unspecified Category: Medical Plan: Her echocardiogram done back on 03/23/2022 revealed (+) trace mitral valve regurgitation (no mitral stenosis), which is the most likely source of patient's current systolic murmur heard on exam The tricuspid valve appears normal but the tricuspid regurgitation envelope was supposedly inadequate for calculation of the right ventricular systolic pressure (6) Sixth nerve palsy of right eye: Code(s): H49.21 - Sixth [abducent] nerve palsy, right eye Category: Medical Plan: Patient reports that she is still experiencing diplopia and symptoms of dry eyes and some photosensitivity at times Eye exam done at [facility] previously revealed (+) retinopathy and cataract (last eye exam in September 2022 showed NO retinopathy); exam also revealed (+) 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 consistent with right 6th (abducens) nerve palsy Continue low dose Aspirin 81 mg QD Follow up with neurology and ophthalmology as scheduled (7) Elevated LFTs: Code(s): R79.89 - Other specified abnormal findings of blood chemistry Category: Medical Plan: Her LFTs have again increased slightly on her recent labs done last month - this is most likely related to her recent weight gain and also the slight increase in her cholesterol level Will continue to monitor her LFTs regularly (8) Stiffness of joint of left pelvic region and thigh: Code(s): M25.652 - Stiffness of left hip, not elsewhere classified Category: Medical Plan: Have discussed with patient that at this time, it is unclear as to what is causing his left thigh symptoms of stiffness/discomfort Will have her get some x-rays of the lumbar spine, the left hip, left femur/thigh and the left knee for further evaluation Have advised her that if her x-rays are unrevealing, then we may need to send her to physical therapy for further evaluation (9) Vitamin D deficiency: Code(s): E55.9 - Vitamin D deficiency, unspecified Category: Medical Plan: Continue Vitamin D3 2000 units QD (10) Allergic rhinitis: Code(s): J30.9 - Allergic rhinitis, unspecified Category: Medical Qualifiers: Allergic rhinitis seasonality: seasonal Allergic rhinitis trigger: pollen Qualified Code(s): J30.1 - Allergic rhinitis due to pollen Plan: Continue OTC Loratadine 10 mg QD PRN (11) Anxiety: Code(s): F41.9 - Anxiety disorder, unspecified Category: Medical Plan: Continue Diazepam 2 mg QD PRN She was started on Sertraline 25 mg QD a couple of years ago to help manage her anxiety better but patient admits that she never started taking it - feels that she is doing well right now and does not need or want any additional intervention on Rx at this time Plan Plan Follow up in 4 months Orders: Orders XR femur LT 2V Today M79.605 - Pain in left leg Lipid Panel 4 Months E78.00 - Pure hypercholesterolemia, unspecified Microalbumin, Random (w Creat) 4 Months E11.9 - Type 2 diabetes mellitus without complications Vitamin D 25-OH Total 4 Months E55.9 - Vitamin D deficiency, unspecified XR lumbar spine 2-3V Today M54.50 - Low back pain, unspecified, M79.605 - Pain in left leg XR hip LT min 2V Today M25.552 - Pain in left hip, M79.605 - Pain in left leg XR knee LT 4V Today M25.562 - Pain in left knee, M79.605 - Pain in left leg Complete Blood Count Auto Diff 4 Months D64.9 - Anemia, unspecified Comprehensive [place]. Panel Fast 4 Months E78.00 - Pure hypercholesterolemia, unspecified Hemoglobin A1c 4 Months E11.9 - Type 2 diabetes mellitus without complications TSH reflex Free T4 4 Months E78.00 - Pure hypercholesterolemia, unspecified UA CC w/rflx Micro + Cult 4 Months R30.0 - Dysuria
== END 2024-06-16 10:19 | disposition home or self-care (01) ==
PROVIDERS: PCP Internal Medicine; Visit Provider Internal Medicine
DX: E11.21 Type 2 diabetes mellitus with diabetic nephropathy (principal); N18.32 Chronic kidney disease, stage 3b; Z79.4 Long term (current) use of insulin; E78.00 Pure hypercholesterolemia, unspecified; I10 Essential (primary) hypertension; R01.1 Cardiac murmur, unspecified; H49.21 Sixth [abducent] nerve palsy, right eye; R79.89 Other specified abnormal findings of blood chemistry; M25.652 Stiffness of left hip, not elsewhere classified; E55.9 Vitamin D deficiency, unspecified; J30.1 Allergic rhinitis due to pollen; F41.9 Anxiety disorder, unspecified

== ENCOUNTER → 2024-06-16 09:25 | Outpatient (BNVA) | payer MEDICARE, BC, OTHER, SELFPAY | PROVIDERS: PCP Internal Medicine; Visit Provider Internal Medicine | DX: I12.9 Hypertensive chronic kidney disease with stage 1 through stage 4 chronic kidney disease, or unspecified chronic kidney disease (principal); E11.22 Type 2 diabetes mellitus with diabetic chronic kidney disease; N18.32 Chronic kidney disease, stage 3b; Z79.4 Long term (current) use of insulin; E78.00 Pure hypercholesterolemia, unspecified; R01.1 Cardiac murmur, unspecified; H49.21 Sixth [abducent] nerve palsy, right eye; R79.89 Other specified abnormal findings of blood chemistry; M25.652 Stiffness of left hip, not elsewhere classified; E55.9 Vitamin D deficiency, unspecified; J30.1 Allergic rhinitis due to pollen; F41.9 Anxiety disorder, unspecified | CPT/HCPCS: 96127; 99212 ==

== ENCOUNTER 2024-06-17 08:43 | Outpatient (REF) | payer MEDICARE, BC, OTHER, SELFPAY ==
--- NOTE | ~2024-06-17 | XR_ITS ---
EXAMINATION: XR LUMBOSACRAL SPINE CLINICAL INFORMATION: M54.50 - Low back pain, unspecified COMPARISON: None available. TECHNIQUE: Three views of the lumbosacral spine. FINDINGS: There is normal lumbar lordosis. There is a grade 1 anterolisthesis L4 over L5. Rest the vertebral alignment is normal. The vertebral heights an disc heights are normal. No lytic or sclerotic process seen. SI joints are symmetrical. The paravertebral soft tissues are normal. XR/XR lumbar spine 2-3V IMPRESSION: Grade 1 anterolisthesis L4 over L5. Otherwise unremarkable on lumbar spine exam. Electronically signed by: Andrew Malin MD 06/17/2024 09:55 AM EST
--- NOTE | ~2024-06-17 | XR_ITS ---
EXAMINATION: XR FEMUR, LEFT CLINICAL INFORMATION: M79.605 - Pain in left leg COMPARISON: None available. TECHNIQUE: AP and lateral views of the left femur were obtained. FINDINGS: There is no fracture or dislocation. The bony cortex is intact. The soft tissues are normal. There are several small lucencies seen in the mid to distal femur.. XR/XR femur LT 2V IMPRESSION: Several small lucencies mid to distal femur. Recommend follow-up left femur x-ray in one month. ? Any history of myeloma. Electronically signed by: Andrew Malin MD 06/17/2024 09:50 AM EST
--- NOTE | ~2024-06-17 | XR_ITS ---
EXAMINATION: XR KNEE, LEFT CLINICAL INFORMATION: M25.562 - Pain in left knee COMPARISON: None available. TECHNIQUE: Four views of the left knee. FINDINGS: There is mild reduction in the medial and patellofemoral compartment joint space. No bony erosive changes, loose bodies or joint effusion seen. XR/XR knee LT 4V IMPRESSION: Mild DJD medial compartment left knee Electronically signed by: Andrew Malin MD 06/17/2024 09:46 AM EST
--- OUTSIDE RECORDS SUMMARY | 2024-06-17 09:40 | XMS_ITS | Clinical Summary ---
Author Organization [facility] Address [address] [place] [address] Phone Care Team Providers Care Forensic Toxicologist Name Role Phone Johnny Valadez MD Primary Care Provider [phone] Allergies Active Allergy Reactions Criticality Noted Date [...] age to complete this topic Insurance MEDICARE [facility] MEDICARE [facility] Care Teams Forensic Toxicologist Relationship Specialty Start Date End Date Johnny Valadez MD [address] [place] [address] PCP - General Internal Medicine 07/13/21
== END 2024-06-17 08:44 | disposition home or self-care (01) ==
LOC: HO.XRAY 08:43
PROVIDERS: PCP Internal Medicine; Visit Provider Internal Medicine
DX: M25.562 Pain in left knee (principal); M54.50 Low back pain, unspecified; M79.605 Pain in left leg
CPT/HCPCS: 72100; 73552; 73564

== ENCOUNTER → 2024-06-17 08:47 | Outpatient (BNV) | payer MEDICARE, BC, OTHER, SELFPAY | PROVIDERS: PCP Internal Medicine; Visit Provider Radiology Diagnostic Radiology | DX: M17.12 Unilateral primary osteoarthritis, left knee (principal); M89.252 Other disorders of bone development and growth, left femur; M43.16 Spondylolisthesis, lumbar region | CPT/HCPCS: 72100; 73552; 73564 ==

== ENCOUNTER 2024-06-19 09:23 | Outpatient (AMB) | payer MEDICARE, BC, OTHER, SELFPAY ==
--- OUTSIDE RECORDS SUMMARY | 2024-06-19 09:47 | XMS_ITS | Clinical Summary ---
Author Organization [facility] Address [address] [place] [address] Phone Care Team Providers Care Trolley Coach Driver Name Role Phone Johnny Valadez MD Primary Care Provider [phone]- [phone] Allergies Active Allergy Reactions Criticality Noted Date [...] age to complete this topic Insurance MEDICARE [facility] MEDICARE [facility] Care Teams Trolley Coach Driver Relationship Specialty Start Date End Date Johnny Valadez MD [address] [place] [address] PCP - General Internal Medicine 07/13/21
--- NOTE | 2024-06-19 10:21 | MHC.OFFVIS ---
Intake Visit Reasons: Recurrent UTI/Frequency/Hx Bladder Surgery Intake Note: Patient is present for RECURRENT UTI/FREQUENCY/HX BLADDER SURGERY Urology Medication:NONE Antibiotic Allergy:NITROFURANTION,EMPAGLIFLOZIN Blood Thinner:NONE Combination Worker Required: No Allergies nitrofurantoin [Macrobid] Allergy (Unknown, Verified 06/19/24 10:24) hives empagliflozin [From Jardiance] Adverse Reaction (Intermediate, Verified 06/19/24 10:24) recurrent UTI HPI Comments Details: Di is a 77-year-old female whom had the privilege of seeing in follow-up for her chronic kidney disease and hypertension. She had dysuria, supra pubic pain with subjective fever and was seen in Urgent care. She gets recurrent UTI. She has longstanding diabetes mellitus but her blood sugar control had not been optimal for a long time. She recently had developed visual disturbance and has seen a neurologist as well as access clerk. According to her, they felt all her symptoms are due to diabetic retinopathy. Her blood pressure control is better. She denies congestive heart failure, CVA, peripheral arterial disease. Her mother had severe PAD. She is not a smoker. Her renal functions had been stable. She has been getting a lot of UTI's and has a Urology appointment Diabetic Recurrent UTI Topical Estrace Vitamin-C Methenamine Renal bladder ultrasound [facility] Medical History (Updated 06/16/24 @ 12:43 by Johnny Valadez MD) Cardiac murmur Sixth nerve palsy of right eye Allergic rhinitis Type 2 diabetes mellitus with polyneuropathy Hypertensive urgency Vitamin D deficiency HTN (hypertension) Diabetes type 2, uncontrolled Left low back pain Hyperlipidemia LDL goal <100 Anxiety Vitamin D deficiency Elevated LFTs Benign essential hypertension Pure hypercholesterolemia Chronic kidney disease (CKD), stage III (moderate) Type 2 diabetes mellitus with chronic kidney disease Surgical History History of bladder surgery History of total abdominal hysterectomy and bilateral salpingo-oophorectomy History of right oophorectomy History of tubal ligation Family History Father Past heart attack Mother Breast cancer Hypertension Cardiovascular disease Social History Household Members: Spouse Housing: House Alcohol intake: never Patient Tobacco Use Status: Former Tobacco user e-Cigarette/Vaping Use: Never Used Second Hand Smoke Exposure: Yes service: No Current occupational status: retired Cognitive needs: No Hearing needs: No Vision needs: Yes (glasses) Results AMB Urinalysis, Automated UA Leukoctes 0 Sapna/uL Last Edit by NINFA Read on 06/19/24 10:51 UA Nitrite Negative Last Edit by Guillermina Paul [facility] [place] on 06/19/24 10:51 UA Urobilinogen 0.2 mg/dL Last Edit by Guillermina Paul [facility] [place] on 06/19/24 10:51 UA Protein 30 mg/dL Last Edit by Guillermina Paul [facility] [place] on 06/19/24 10:51 UA pH 6.0 Last Edit by Guillermina Paul [facility] [place] on 06/19/24 10:51 UA Blood 0 Imtiaz/uL Last Edit by Guillermina Paul [facility] [place] on 06/19/24 10:51 UA Specific [place] 1.020 Last Edit by Guillermina Paul [facility] [place] on 06/19/24 10:51 UA Ketone Negative Last Edit by Guillermina Paul [facility] [place] on 06/19/24 10:51 UA Bilirubin 0 mg/dL Last Edit by Guillermina Paul [facility] [place] on 06/19/24 10:51 UA Glucose 0 mg/dL Last Edit by Guillermina Paul [facility] [place] on 06/19/24 10:51 Results Reviewed Results Reviewed: Laboratory Last Values Urine pH (Auto) 6.0 06/19/24 10:50 Specific [place] (Auto) 1.020 06/19/24 10:50 Urine Protein (Auto) 30 mg/dL 06/19/24 10:50 Glucose (UA)(Auto) 0 mg/dL 06/19/24 10:50 Urine Ketones (Auto) Negative 06/19/24 10:50 Urine Blood (Auto) 0 Imtiaz/uL 06/19/24 10:50 Urine Nitrite (Auto) Negative 06/19/24 10:50 Urine Bilirubin (Auto) 0 mg/dL 06/19/24 10:50 Urine Urobilinogen (Auto) 0.2 mg/dL 06/19/24 10:50 Leukocyte Esterase (Auto) 0 Sapna/uL 06/19/24 10:50 Assessment & Plan Assessment & Plan Orders: Orders AMB Urinalysis Automated Today Z13.9 - Encounter for screening, unspecified US retroperitoneal limited Today N39.0 - Urinary tract infection, site not specified, R31.29 - Other microscopic hematuria Medications: New methenamine hippurate 1 g PO daily 90 days 90 tabs 1RF N39.0 - Urinary tract infection, site not specified estradiol 0.01%(0.1mg/gram) pea sized amount to urethra 3 times a week 30 days 42.5 grams 1RF N39.0 - Urinary tract infection, site not specified ascorbic acid (vitamin C) 1,000 mg PO DAILY 90 days 90 tabs 1RF N39.0 - Urinary tract infection, site not specified Coding
== END 2024-06-19 11:36 | disposition home or self-care (01) ==
PROVIDERS: PCP Internal Medicine; Visit Provider Urology
DX: Z13.9 Encounter for screening, unspecified (principal)

== ENCOUNTER → 2024-06-19 09:23 | Outpatient (BNVA) | payer MEDICARE, BC, OTHER, SELFPAY | PROVIDERS: PCP Internal Medicine; Visit Provider Urology | DX: N39.0 Urinary tract infection, site not specified (principal); R31.29 Other microscopic hematuria | CPT/HCPCS: 81003; 99202 ==

== ENCOUNTER 2024-09-04 09:36 | Outpatient (REF) | payer MEDICARE, BC, OTHER, SELFPAY ==
--- NOTE | ~2024-09-04 | US_ITS ---
CLINICAL HISTORY: R31.29 - Other microscopic hematuria US renal with Color Doppler Comparison: None Findings: Right kidney normal size and echotexture, 9.5 cm length. No hydronephrosis calculus or mass. Normal color flow. Normal cortical thickness. Left kidney normal size and echotexture, 9.9 cm length. No nephrolithiasis. No hydronephrosis. Normal cortical thickness. Normal color flow. 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 Impression: 1. 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 The bladder portion of the study was scheduled on a 09/17/2024 This document has been electronically signed by: Tre Rea MD on 09/05/2024 13:16:30
--- OUTSIDE RECORDS SUMMARY | 2024-09-04 10:24 | XMS_ITS | Clinical Summary ---
Author Organization [facility] Address [address] [place] [address] Phone Care Team Providers Care Paperhanger Contractor Name Role Phone Johnny Valadez MD Primary Care Provider [phone]- [phone] Allergies Active Allergy Reactions Criticality Noted Date [...] Due Date Last Done Comments Pneumococcal Vaccine: 50+ Ye ars (1 of 2 - PCV) 1964 Influenza Vaccine (Season Ended) 2025 Hepatitis B Vaccine Aged Out No longe r eligible based on patient's age to complete this topic Insurance Medicare [facility] Medicare [facility] Care Teams Paperhanger Contractor Relationship Specialty Start Date End Date Johnny Valadez MD [address] [place], [place] [phone] PCP - General Internal Medicine 07/13/21
== END 2024-09-04 09:37 | disposition home or self-care (01) ==
LOC: HO.HMGCX 09:36
PROVIDERS: PCP Internal Medicine; Visit Provider Urology
DX: R31.29 Other microscopic hematuria (principal); N39.0 Urinary tract infection, site not specified
CPT/HCPCS: 76775

== ENCOUNTER → 2024-09-04 09:39 | Outpatient (BNV) | payer MEDICARE, BC, OTHER, SELFPAY | PROVIDERS: PCP Internal Medicine; Visit Provider Radiology Diagnostic Radiology | DX: R31.29 Other microscopic hematuria (principal) | CPT/HCPCS: 76775 ==

== ENCOUNTER 2024-09-17 12:54 | Outpatient (REF) | payer MEDICARE, BC, OTHER, SELFPAY ==
--- NOTE | ~2024-09-17 | US_ITS ---
CLINICAL HISTORY: HEMATURIA US Urinary Bladder Comparison: None Findings: The urinary bladder is unremarkable. Prevoid volume: 557 m LPostvoid volume: 98 mL Ureteral jets are visualized bilaterally. IMPRESSION: Increased postvoid urinary bladder residue This document has been electronically signed by: Taylor Lua MD on 09/18/2024 06:30:56
--- OUTSIDE RECORDS SUMMARY | 2024-09-17 13:33 | XMS_ITS | Clinical Summary ---
Author Organization [facility] Address [address] [place] [address] Phone Care Team Providers Care Rocket Scientist Name Role Phone Johnny Valadez MD Primary Care Provider [phone]- [phone] Allergies Active Allergy Reactions Criticality Noted Date [...] age to complete this topic Insurance Medicare [facility] Medicare [facility] Care Teams Rocket Scientist Relationship Specialty Start Date End Date Johnny Valadez MD [address] [place], [place] [phone] PCP - General Internal Medicine 07/13/21
== END 2024-09-17 12:55 | disposition home or self-care (01) ==
LOC: HO.HMGCX 12:54
PROVIDERS: PCP Internal Medicine; Visit Provider Urology
DX: R31.29 Other microscopic hematuria (principal); N39.0 Urinary tract infection, site not specified
CPT/HCPCS: 76857

== ENCOUNTER → 2024-09-17 13:20 | Outpatient (BNV) | payer MEDICARE, BC, OTHER, SELFPAY | PROVIDERS: PCP Internal Medicine; Visit Provider Radiology Diagnostic Radiology | DX: R31.9 Hematuria, unspecified (principal); R33.9 Retention of urine, unspecified | CPT/HCPCS: 76857 ==

== ENCOUNTER 2024-09-21 09:16 | Outpatient (AMB) | payer MEDICARE, BC, OTHER, SELFPAY ==
--- NOTE | 2024-09-21 09:21 | A.OFFVIS_ITS ---
Intake Visit Reasons: 3m/US/UA/PVR Intake Note: Pt presents to the office today for a 3 month/US/UA/PVR. Urology meds:[place],Estrace,Vit D PVR:0ml Allergies nitrofurantoin [Macrobid] Allergy (Unknown, Verified 09/21/24 10:06) hives empagliflozin [From Jardiance] Adverse Reaction (Intermediate, Verified 09/21/24 10:06) recurrent UTI Medication List - Last Reconciled 09/21/24 by HILDA Potter- amlodipine 10 mg PO DAILY 90 days ascorbic acid (vitamin C) 1,000 mg PO DAILY 90 days atorvastatin 40 mg PO BEDTIME 90 days blood sugar diagnostic (FreeStyle Lite Strips) As directed to test blood sugar four times a day blood-glucose meter (FreeStyle Lite Meter kit) As directed to test blood sugar four times a day cholecalciferol (vitamin D3) 50 mcg PO DAILY 90 days estradiol 0.01%(0.1mg/gram) pea sized amount to urethra 3 times a week 30 days hydralazine 10 mg PO BID insulin aspart U-100 (Novolog FlexPen U-100 Insulin aspart) 10 - 12 units (0.1 - 0.12 mL) subcut TID 30 days insulin glargine (Basaglar KwikPen U-100 Insulin) 36 units (0.36 mL) subcut QPM 30 days lancets (FreeStyle Lancets) As directed four times a day loratadine 10 mg PO DAILY PRN 90 days losartan 100 mg PO DAILY 90 days metformin 500 mg PO BID 90 days methenamine hippurate 1 g PO daily 90 days nebivolol (Bystolic) 5 mg PO DAILY 90 days pen needle, diabetic (BD Vi 2nd Gen Pen Needle) USE TO INEJCT FOUR TIMES A DAY sitagliptin phosphate (Januvia) 100 mg PO DAILY 90 days HPI Comments Details: Di is a pleasant 79-year-old female patient of Dr. Valadez. She has a past medical history of cardiac murmur, 6 nerve palsy of right eye, allergic rhinitis, type 2 diabetes with polyneuropathy, vitamin-D deficiency, hypertension, low-back pain, hyperlipidemia, anxiety, hypercholesteremia, and chronic kidney disease. She presents to the office today for follow-up of her recurrent urinary tract infections. In discussion with the patient today she denies having had any UTI since her last office visit here approximately 3 months ago. She reports compliance with methenamine, vitamin-C, and Estrace as prescribed by Dr. Coy during last office visit. Recent retroperitoneal ultrasound results were reviewed with the patient today. 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 Otherwise no nephrolithiasis or hydronephrosis noted bilaterally. The urinary bladder is unremarkable. We did discussed previous renal imaging from 2021 noted probable angiolipoma. We discussed further workup to include MRI and or surveillance monitoring. However patient reports she is claustrophobic and does not wish to undergo an MRI at this time. She otherwise denies any bothersome urinary issues. She denies urinary urgency, urinary frequency, incontinence, nocturia, hematuria, dysuria, foul smelling urine, changes to urinary stream, flank pain, fever, and or chills. She reports compliance with methenamine, vitamin-C, and Estrace cream as prescribed. She denies any issues with constipation. We discussed potential causes of recurrent urinary tract infections as well as further treatment options and risks and benefits of these treatment options. In office urinalysis results reviewed with the patient today. PVR 0 mL. She otherwise offers no other issues or concerns at this time. In review of patient's chart it appears urine cultures are as follows: 01/26 E coli, 11/26 E coli, 01/27 Enterococcus faecalis, 04/28 E coli, 05/30 Morganella Morgagni ssp melanie, 06/30 Morganella Morgagni ssp melanie ON LICENSE OF [facility] Medical History Cardiac murmur Sixth nerve palsy of right eye Allergic rhinitis Type 2 diabetes mellitus with polyneuropathy Hypertensive urgency Vitamin D deficiency HTN (hypertension) Diabetes type 2, uncontrolled Left low back pain Hyperlipidemia LDL goal <100 Anxiety Vitamin D deficiency Elevated LFTs Benign essential hypertension Pure hypercholesterolemia Chronic kidney disease (CKD), stage III (moderate) Type 2 diabetes mellitus with chronic kidney disease Surgical History History of bladder surgery History of total abdominal hysterectomy and bilateral salpingo-oophorectomy History of right oophorectomy History of tubal ligation Family History Father Past heart attack Mother Breast cancer Hypertension Cardiovascular disease Social History Household Members: Spouse Housing: House Alcohol intake: never Patient Tobacco Use Status: Former Tobacco user e-Cigarette/Vaping Use: Never Used Second Hand Smoke Exposure: Yes service: No Current occupational status: retired Cognitive needs: No Hearing needs: No Vision needs: Yes (glasses) Review of Systems Const All systems reviewed & are unremarkable except as noted in HPI and below Physical Exam Const General: cooperative, healthy appearing, comfortable, no acute distress, well developed, alert and awake Orientation/consciousness: patient oriented x3 Limitations: no limitations HEENT Head: Yes normal to inspection, Yes normocephalic and Yes atraumatic Ears: hearing grossly normal bilaterally Eyes General: appearance normal, both eyes and all related structures Neck Neck: Yes normal visual inspection and Yes trachea midline Chest Chest palpation & inspection: normal inspection of the chest Resp Effort & Inspection: normal respiratory effort and able to speak in complete sentences Cardio Rate: regular rate GI Inspection: Yes normal to inspection General: Yes no CVA tenderness Back/Spine/Pelvis Back: no CVA tenderness Skin General skin exam: no rashes or lesions noted Neuro General: patient oriented x3 Extrem General: Yes normal to inspection Psych Appearance: grossly normal and well kempt Mental Status: mental status grossly normal Speech and movement: Normal speech and movement present and Clear speech present Affect: normal affect Attitude: cooperative Thought process: Normal thought process present Thought content: Normal thought content present Insight: Fair insight present (Psych) Judgement: Fair judgement present (Psych) Office Procedures Post Void Residual Post Residual Void Post Void Residual (PVR): 0 30773-Upif Void Residual by ultrasound Results AMB Urinalysis, Automated UA Leukoctes 0 Sapna/uL Last Edit by Kimberly Fernández CMA on 09/21/24 09:31 UA Nitrite Negative Last Edit by Kimberly Fernández CMA on 09/21/24 09:31 UA Urobilinogen 0.2 mg/dL Last Edit by Kimberly Fernández CMA on 09/21/24 09:31 UA Protein 15 mg/dL Last Edit by Kimberly Fernández CMA on 09/21/24 09:31 UA pH 6.0 Last Edit by Kimberly Fernández CMA on 09/21/24 09:31 UA Blood 0 Imtiaz/uL Last Edit by Kimberly Fernández CMA on 09/21/24 09:31 UA Specific [place] 1.015 Last Edit by Kimberly Fernández CMA on 09/21/24 09:31 UA Ketone Negative Last Edit by Kimberly Fernández CMA on 09/21/24 09:31 UA Bilirubin 0 mg/dL Last Edit by Kimberly Fernández CMA on 09/21/24 09:31 UA Glucose 250 mg/dL Last Edit by Kimberly Fernández CMA on 09/21/24 09:31 Results Reviewed Results Reviewed: Laboratory Last Values Urine pH (Auto) 6.0 09/21/24 09:30 Specific [place] (Auto) 1.015 09/21/24 09:30 Urine Protein (Auto) 15 mg/dL 09/21/24 09:30 Glucose (UA)(Auto) 250 mg/dL 09/21/24 09:30 Urine Ketones (Auto) Negative 09/21/24 09:30 Urine Blood (Auto) 0 Imtiaz/uL 09/21/24 09:30 Urine Nitrite (Auto) Negative 09/21/24 09:30 Urine Bilirubin (Auto) 0 mg/dL 09/21/24 09:30 Urine Urobilinogen (Auto) 0.2 mg/dL 09/21/24 09:30 Leukocyte Esterase (Auto) 0 Sapna/uL 09/21/24 09:30 Date of Service: 09/17/24 Procedure(s): US bladder Findings: The urinary bladder is unremarkable. Prevoid volume: 557 m LPostvoid volume: 98 mL Ureteral jets are visualized bilaterally. IMPRESSION: Increased postvoid urinary bladder residue Date of Service: 09/04/24 Procedure(s): US renal BI Findings: Right kidney normal size and echotexture, 9.5 cm length. No hydronephrosis calculus or mass. Normal color flow. Normal cortical thickness. Left kidney normal size and echotexture, 9.9 cm length. No nephrolithiasis. No hydronephrosis. Normal cortical thickness. Normal color flow. 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 Impression: 1. 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 PVR 0 mL. Recent retroperitoneal ultrasound results reviewed with the patient today; as noted above. Continue methenamine, vitamin-C, and Estrace as prescribed. Patient currently denies any bothersome urinary issues. She reports be happy with current voiding parameters. We discussed further workup of angiolipoma to include imaging versus surveillance monitoring; risks and benefits of these interventions were discussed. Will obtain CT for further assessment evaluation as patient is claustrophobic in does not wish to undergo MRI. BUN and creatinine ordered for imaging. Discussed UTI prevention with D mannose supplement, vitamin-C, increasing fluid intake, behavioral therapy with timed voiding, perineal hygiene and postcoital voiding, and management of constipation with stool softeners and increased fiber intake. Follow-up in 1-3 months with imaging and labs to be completed prior; or sooner with any issues, concerns, and or questions. Orders: Orders CT abdomen wo/w IV con Today D17.9 - Benign lipomatous neoplasm, unspecified AMB Urinalysis Automated Today N39.0 - Urinary tract infection, site not spec ified AMB Post Void Residual by ultrasound Today R35.0 - Frequency of micturition Blood Urea Nitrogen Today D17.9 - Benign lipomatous neoplasm, unspecified Creatinine Today D17.9 - Benign lipomatous neoplasm, unspecified Patient Instructions: The patient had an opportunity to ask questions regarding the treatment plan. All questions were answered. Physical exam, labs, and imaging were discussed and reviewed in detail. As well as risks, benefits, and discussion of treatment choices. No major barriers to understanding were identified. The patient expressed understanding and agreement with the above treatment plan. The patient was made aware they should contact our office by phone for worsening of their current condition, the appearance of new symptoms, or with any questions or concerns. Compliance is encouraged with any medications and follow up testing that is ordered. It is a privilege to be allowed the opportunity to participate in? your urological care.? Again, if you have any questions or concerns If you have any questions or concerns please do not hesitate to contact me. The office is [phone]. This note is constructed using voice recognition software. While every effort has been made to ensure accuracy business education professor errors may have been included. Yours sincerely, HILDA Potter-STEWART Coding Level of Care Code Est Pt Level 3 (79537) Complex EM visit Add On G2211 Diagnoses Angiolipoma D17.9 Recurrent urinary tract infection N39.0 CPT Codes Post Residual Void - PVR CPT Code: 86684-Cvpo Void Residual by ultrasound ([id number])
--- OUTSIDE RECORDS SUMMARY | 2024-09-21 09:29 | XMS_ITS | Clinical Summary ---
Author Organization [facility] Address [address] [place] [address] Phone Care Team Providers Care Lining Sewer Name Role Phone Johnny Valadez MD Primary Care Provider +1- [phone] Allergies Active Allergy Reactions Criticality Noted Date [...] age to complete this topic Insurance Medicare [facility] Medicare [facility] Care Teams Lining Sewer Relationship Specialty Start Date End Date Johnny Valadez MD [address] [place], [place] [phone] PCP - General Internal Medicine 07/13/21
== END 2024-09-21 10:02 | disposition home or self-care (01) ==
LOC: HO.HUSH 09:17
PROVIDERS: PCP Internal Medicine; Visit Provider Nurse Practitioner Family
DX: D17.9 Benign lipomatous neoplasm, unspecified (principal); N39.0 Urinary tract infection, site not specified
CPT/HCPCS: 99213; G2211

== ENCOUNTER → 2024-09-21 09:16 | Outpatient (BNVA) | payer MEDICARE, BC, OTHER, SELFPAY | PROVIDERS: PCP Internal Medicine; Visit Provider Nurse Practitioner Family | DX: D17.9 Benign lipomatous neoplasm, unspecified (principal); N39.0 Urinary tract infection, site not specified | CPT/HCPCS: 51798; 81003; 99212 ==

== ENCOUNTER 2024-10-22 06:57 | Outpatient (REF) | payer MEDICARE, BC, OTHER, SELFPAY ==
[2024-10-22 11:08] LABS: Anion Gap 13 (12-20); Blood Urea Nitrogen 16 mg/dL (9-16); Carbon Dioxide 23 mmol/L (22-29); Chloride 111 mmol/L (96-108); Estimated Glomerular Filt Rate 46; Potassium 4.4 mmol/L (3.3-5.1); Sodium 143 mmol/L (135-145)
== END 2024-10-22 06:58 | disposition home or self-care (01) ==
LOC: HO.HMGCLDS 06:57
PROVIDERS: PCP Internal Medicine; Visit Provider Internal Medicine Nephrology
DX: Z79.4 Long term (current) use of insulin (principal); N18.32 Chronic kidney disease, stage 3b; E11.21 Type 2 diabetes mellitus with diabetic nephropathy; I10 Essential (primary) hypertension
CPT/HCPCS: 36415; 80051; 82565; 84520

== ENCOUNTER 2024-10-28 09:18 | Outpatient (AMB) | payer MEDICARE, BC, OTHER, SELFPAY ==
[2024-10-28 09:31] VITALS: BP 130/70; PULSE 80; O2SAT 97; BMI 23.7
--- NOTE | 2024-10-28 09:31 | HO.NEPHOV_ITS ---
Vital Signs 10/28/24 09:31 Height 5 ft 6 in Weight 147 lb BMI 23.7 BP 130/70 Blood Pressure Location Rt brachial Position Sitting Pulse 80 Pulse Source Pulse Oximeter Pulse Oximetry (%) 97 Oxygen Delivery Method Room Air Intake Visit Reasons: 6 MNTS-Conf Intake Note: Patient here for a follow-up, she is on Bactrim for a UTI not sure of the dose. Early Learning Teacher Required: No Accompanied by: Self / Same As Patient Allergies nitrofurantoin (Macrobid) Allergy (Unknown, Verified 10/28/24 09:35) hives empagliflozin (From Jardiance) Adverse Reaction (Intermediate, Verified 10/28/24 09:35) recurrent UTI Do you need a note to return to daycare/school/sports/work: No HPI Comments Details: Carrie was seen in follow-up for her chronic kidney disease and hypertension. She has longstanding diabetes mellitus but her blood sugar control had not been optimal for a long time. She recently had developed visual disturbance and has seen a neurologist as well as legal nurse consultant. She denies congestive heart failure, CVA, peripheral arterial disease. Her mother had severe PAD. She is not a smoker. Her renal functions had been stable. She has been getting a lot of UTI's and has seen Urology. [facility] Medical History Cardiac murmur Sixth nerve palsy of right eye Allergic rhinitis Type 2 diabetes mellitus with polyneuropathy Hypertensive urgency Vitamin D deficiency HTN (hypertension) Diabetes type 2, uncontrolled Left low back pain Hyperlipidemia LDL goal <100 Anxiety Vitamin D deficiency Elevated LFTs Benign essential hypertension Pure hypercholesterolemia Chronic kidney disease (CKD), stage III (moderate) Type 2 diabetes mellitus with chronic kidney disease Surgical History History of bladder surgery History of total abdominal hysterectomy and bilateral salpingo-oophorectomy History of right oophorectomy History of tubal ligation Family History Father Past heart attack Mother Breast cancer Hypertension Cardiovascular disease Social History Household Members: Spouse Housing: House Alcohol intake: never Patient Tobacco Use Status: Former Tobacco user e-Cigarette/Vaping Use: Never Used Second Hand Smoke Exposure: Yes service: No Current occupational status: retired Cognitive needs: No Hearing needs: No Vision needs: Yes (glasses) Review of Systems Const All systems reviewed & are unremarkable except as noted in HPI and below Physical Exam Vital Signs: Last Vital Signs Pulse 80 10/28/24 09:31 BP 164/64 H 10/28/24 09:31 Pulse Ox 97 10/28/24 09:31 Oxygen Delivery Method Room Air 10/28/24 09:31 BMI result Body Mass Index 23.7 Const General: comfortable and no acute distress Orientation/consciousness: patient oriented x3 HEENT Head: Yes normocephalic Mouth: Normal oral and palatal mucosa present Eyes EOM: EOMs intact bilaterally Neck Neck: Yes supple Resp Auscultation: clear to auscultation bilaterally Cardio Jugular venous distension: no JVD Rate: regular rate GI Palpation (GI): Soft to palpation Auscultation: normal bowel sounds General: Yes no CVA tenderness Back/Spine/Pelvis Back: no CVA tenderness Skin General skin exam: no rashes or lesions noted Neuro General: patient oriented x3 and moves all extremities Extrem General: Yes no pedal edema Results Reviewed Nephrology Results: Sodium, (135-145) 143 mmol/L 10/22/24 Potassium, (3.3-5.1) 4.4 mmol/L 10/22/24 Chloride, (96-108) 111 mmol/L H 10/22/24 Carbon Dioxide, (22-29) 23 mmol/L 10/22/24 BUN, (9-16) 16 mg/dL 10/22/24 Creatinine, (0.5-1.4) 1.13 mg/dL 10/22/24 Renal US 09/05/24 Assessment & Plan Assessment & Plan (1) HTN (hypertension): Code(s): I10 - Essential (primary) hypertension Category: Medical Qualifiers: Hypertension type: primary hypertension Qualified Code(s): I10 - Essential (primary) hypertension (2) Type 2 diabetes mellitus with chronic kidney disease: Code(s): E11.22 - Type 2 diabetes mellitus with diabetic chronic kidney disease Category: Medical Qualifiers: Diabetes mellitus long term acute care registered nurse insulin use: with long term acute care registered nurse use Chronic kidney disease stage: stage 3 (moderate) Chronic kidney disease stage 3 subtype: stage 3b (GFR 30-44) Qualified Code(s): E11.21 - Type 2 diabetes mellitus with diabetic nephropathy; N18.32 - Chronic kidney disease, stage 3b; Z79.4 - long term care pharmacist (current) use of insulin Plan Di has 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 Her blood pressure is close to goal on current medication regimen. She is tolerating angiotensin receptor francis. She avoids nonsteroidal anti-inflammatories and maintain good hydration. Her Jardiance has been discontinued due to recurrent UTI's. Answered all questions. Follow-up given Orders: Orders Blood Urea Nitrogen 6 Months E11.21 - Type 2 diabetes mellitus with diabetic nephropathy, I10 - Essential (primary) hypertension, N18.32 - Chronic kidney disease, stage 3b, Z79.4 - residential (current) use of insulin Electrolytes 6 Months E11.21 - Type 2 diabetes mellitus with diabetic nephropathy, I10 - Essential (primary) hypertension, N18.32 - Chronic kidney disease, stage 3b, Z79.4 - long term care pharmacist (current) use of insulin Protein Creatinine Ratio, Ur 6 Months E11.21 - Type 2 diabetes mellitus with diabetic nephropathy, I10 - Essential (primary) hypertension, N18.32 - Chronic kidney disease, stage 3b, Z79.4 - long term care pharmacist (current) use of insulin Creatinine 6 Months E11.21 - Type 2 diabetes mellitus with diabetic nephropathy, I10 - Essential (primary) hypertension, N18.32 - Chronic kidney disease, stage 3b, Z79.4 - residential (current) use of insulin Coding Level of Care Code Est Pt Level 4 (35476) Diagnoses Primary hypertension I10 Hypertension type: primary hypertension Type 2 diabetes mellitus with stage 3b chronic kidney disease, with long-term current use of insulin E11.21; N18.32; Z79.4 Diabetes mellitus custodial insulin use: with custodial use Chronic kidney disease stage: stage 3 (moderate) Chronic kidney disease stage 3 subtype: stage 3b (GFR 30-44)
--- OUTSIDE RECORDS SUMMARY | 2024-10-28 10:10 | XMS_ITS | Clinical Summary ---
Author Organization [facility] Address [address] [place] [address] Phone Care Team Providers Care Cafeteria Cashier Name Role Phone Johnny Valadez MD Primary Care Provider [phone] Allergies Active Allergy Reactions Criticality Noted Date [...] age to complete this topic Insurance Medicare [facility] Medicare [facility] Care Teams Cafeteria Cashier Relationship Specialty Start Date End Date Johnny Valadez MD [address] [place], [place] [phone] PCP - General Internal Medicine 07/13/21
== END 2024-10-28 10:07 | disposition home or self-care (01) ==
LOC: HO.HKA 09:19
PROVIDERS: PCP Internal Medicine; Visit Provider Internal Medicine Nephrology
DX: I10 Essential (primary) hypertension (principal); E11.21 Type 2 diabetes mellitus with diabetic nephropathy; N18.32 Chronic kidney disease, stage 3b; Z79.4 Long term (current) use of insulin
CPT/HCPCS: 99214

== ENCOUNTER → 2024-10-28 09:18 | Outpatient (BNVA) | payer MEDICARE, BC, OTHER, SELFPAY | PROVIDERS: PCP Internal Medicine; Visit Provider Internal Medicine Nephrology | DX: E11.22 Type 2 diabetes mellitus with diabetic chronic kidney disease (principal); I12.9 Hypertensive chronic kidney disease with stage 1 through stage 4 chronic kidney disease, or unspecified chronic kidney disease; N18.32 Chronic kidney disease, stage 3b; E11.21 Type 2 diabetes mellitus with diabetic nephropathy; Z79.4 Long term (current) use of insulin | CPT/HCPCS: 99212 ==

== ENCOUNTER 2024-10-30 07:19 | Outpatient (REF) | payer MEDICARE, BC, OTHER, SELFPAY ==
--- OUTSIDE RECORDS SUMMARY | 2024-10-30 07:22 | XMS_ITS | Clinical Summary ---
Author Organization [facility] Address [address] [place] [address] Phone Care Team Providers Care Building Mechanic Name Role Phone Johnny Valadez MD Primary Care Provider [phone]- [phone] Allergies Active Allergy Reactions Criticality Noted Date [...] age to complete this topic Insurance Medicare [facility] Medicare [facility] Care Teams Building Mechanic Relationship Specialty Start Date End Date Johnny Valadez MD [address] [place], [place] [phone] PCP - General Internal Medicine 07/13/21
[2024-10-30 10:24] LABS: MANUAL DIFF FLAG NO
[2024-10-30 10:40] LABS: Basophils Absolute Auto 0.1 X10*3/uL (0.0-0.2); Basophils Percent Auto 1.1 % (0-2); Eosinophils Absolute Auto 0.5 X10*3/uL (0.0-0.4); Eosinophils Percent Auto 6.6 % (0-4); Hematocrit 40.4 % (37.0-47.0); Hemoglobin 13.4 g/dl (12.0-16.0); Imm Gran Abs Auto 0.02 X10*3/uL (0.00-0.03); Imm Gran Pct Auto 0.3 % (0.0-0.4); Lymphocytes Absolute Auto 2.1 X10*3/uL (1.2-4.9); Lymphocytes Percent Auto 29.1 % (20-40); Mean Corpuscular HGB Conc 33.2 g/dl (31.0-35.0); Mean Corpuscular Hemoglobin 29.2 pg (27.0-33.0); Monocytes Absolute Auto 0.6 X10*3/uL (0.1-1.2); Monocytes Percent Auto 7.9 % (2-11); Neutrophils Absolute Auto 3.9 x10*3/uL (2.0-8.3); Platelet Count 215 X10*3/uL (160-400); Red Blood Count 4.59 X10*6/uL (4.20-5.50); Red Cell Distribution Width 13.9 % (11.0-16.0); White Blood Count 7.1 X10*3/uL (4.8-10.8)
[2024-10-30 10:43] LABS: Appearance Urine Clear; Color Urine Yellow; Glucose Urine UA Negative (Negative); Leukocyte Esterase Urine Small (1+) (Negative); Nitrite Urine Negative (Negative); UMIC TRIGGER UACC YES; Urine Blood Negative (Negative); Urine Ketones Negative (Negative); Urine Protein Negative (Neg-Trace)
[2024-10-30 10:46] LABS: Estimated Average Glucose 160 mg/dL; Hemoglobin A1c % 7.2 % (<6.0); Total Hemoglobin (HGBA1C) 3528.8103 umol/L
[2024-10-30 10:54] LABS: Alanine Aminotransferase 37 U/L (0-31); Albumin Level 4.5 g/dL (3.5-5.0); Alkaline Phosphatase 70 U/L (39-117); Anion Gap 12 (12-20); Aspartate Amino Transferase 27 U/L (5-31); Bilirubin Total 0.4 mg/dL (0.0-1.0); Blood Urea Nitrogen 18 mg/dL (9-16); Calcium 9.5 mg/dL (8.4-10.2); Carbon Dioxide 24 mmol/L (22-29); Chloride 108 mmol/L (96-108); Cholesterol 166 mg/dL (<200); Estimated Glomerular Filt Rate 36; Glucose Fasting 162 mg/dL (60-99); HDL Cholesterol 57 mg/dL (>40); LDL Cholesterol Calculated 77 mg/dL (<100); Potassium 4.9 mmol/L (3.3-5.1); Sodium 139 mmol/L (135-145); Total Protein 7.4 g/dL (6.5-8.0); Triglycerides 163 mg/dL (<150)
[2024-10-30 11:07] LABS: Creatinine Urine 59.53 mg/dL; Microalbum/Creatinine Ratio Ur 73.9 ug/mg cr (<30)
[2024-10-30 11:09] LABS: Bacteria Urine None Seen (None Seen); Hyaline Casts Urine 0-2 /LPF (0-2); RBC Urine 0-2 /HPF (0-2); UACC Culture Trigger YES; WBC Urine 0-5 /HPF (0-5)
[2024-10-30 11:23] LABS: TSH reflex Free T4 2.42 uIU/mL (0.32-4.0); Vitamin D 25-OH Total 53.1 ng/mL (>30)
== END 2024-10-30 07:20 | disposition home or self-care (01) ==
LOC: HO.HMGCLDS 07:19
PROVIDERS: PCP Internal Medicine; Visit Provider Internal Medicine
DX: E78.00 Pure hypercholesterolemia, unspecified (principal); E55.9 Vitamin D deficiency, unspecified; E11.9 Type 2 diabetes mellitus without complications; D64.9 Anemia, unspecified; R82.90 Unspecified abnormal findings in urine
CPT/HCPCS: 36415; 80053; 80061; 81001; 82043; 82306; 82570; 83036; 84443; 85025; 87086

== ENCOUNTER 2024-11-05 10:25 | Outpatient (AMB) | payer MEDICARE, BC, OTHER, SELFPAY ==
[2024-11-05 10:40] VITALS: BP 132/64; PULSE 72; O2SAT 96; BMI 23.8
--- NOTE | 2024-11-05 10:40 | MHC.PC.OV ---
Vital Signs 11/05/24 10:40 Height 5 ft 6 in Weight 147 lb 6 oz BMI 23.8 BP 132/64 Blood Pressure Location Lt brachial Position Sitting Pulse 72 Pulse Source Pulse Oximeter Pulse Oximetry (%) 96 Oxygen Delivery Method Room Air Intake Visit Reasons: HTN, DM, hyperlipidemia, CKD Ciso Required: No Accompanied by: Self / Same As Patient Allergies nitrofurantoin (Macrobid) Allergy (Unknown, Verified 11/05/24 11:16) hives empagliflozin (From Jardiance) Adverse Reaction (Intermediate, Verified 11/05/24 11:16) recurrent UTI Medication List - Last Reconciled 11/05/24 by Johnny Valadez MD amlodipine 10 mg PO DAILY 90 days ascorbic acid (vitamin C) 1,000 mg PO DAILY 90 days atorvastatin 40 mg PO BEDTIME 90 days blood sugar diagnostic (FreeStyle Lite Strips) As directed to test blood sugar four times a day blood-glucose meter (FreeStyle Lite Meter kit) As directed to test blood sugar four times a day cholecalciferol (vitamin D3) 50 mcg PO DAILY 90 days estradiol 0.01%(0.1mg/gram) pea sized amount to urethra 3 times a week 30 days hydralazine 10 mg PO BID insulin aspart U-100 (Novolog FlexPen U-100 Insulin aspart) 10 - 12 units (0.1 - 0.12 mL) subcut TID 30 days insulin glargine (Basaglar KwikPen U-100 Insulin) 36 units (0.36 mL) subcut QPM 30 days lancets (FreeStyle Lancets) As directed four times a day loratadine 10 mg PO DAILY PRN 90 days losartan 100 mg PO DAILY 90 days metformin 500 mg PO BID 90 days methenamine hippurate 1 g PO daily 90 days nebivolol (Bystolic) 5 mg PO DAILY 90 days pen needle, diabetic (BD Vi 2nd Gen Pen Needle) USE TO INEJCT FOUR TIMES A DAY sitagliptin phosphate (Januvia) 100 mg PO DAILY 90 days sulfamethoxazole-trimethoprim 800-160 mg (Bactrim DS) 1 tab PO BID 10 days Tobacco use date assessed: 11/05/24 Fall risk assessment: No Falls in past year Last assessed Fall Risk: 11/05/24 Dental Screening Dental Screen Date: 11/05/24 Did you have a dental visit in the last 12 months?: Yes Did you have a dental problem in the last 6 months where you did not have access to dental care?: No Was dental information given to patient?: Patient has dentist HPI HTN, DM, hyperlipidemia, CKD HPI Details Patient comes in today for her follow up visit States that she feels okay She denies any headaches or dizziness Denies any chest pains, no increased SOB No nausea/vomiting, no abdominal pain No change in bowel habits noted She had her follow up labs done last week - to discuss her results [facility] Medical History Cardiac murmur Sixth nerve palsy of right eye Allergic rhinitis Type 2 diabetes mellitus with polyneuropathy Hypertensive urgency Vitamin D deficiency HTN (hypertension) Diabetes type 2, uncontrolled Left low back pain Hyperlipidemia LDL goal <100 Anxiety Vitamin D deficiency Elevated LFTs Benign essential hypertension Pure hypercholesterolemia Chronic kidney disease (CKD), stage III (moderate) Type 2 diabetes mellitus with chronic kidney disease Surgical History History of bladder surgery History of total abdominal hysterectomy and bilateral salpingo-oophorectomy History of right oophorectomy History of tubal ligation Family History Father Past heart attack Mother Breast cancer Hypertension Cardiovascular disease Social History Household Members: Spouse Housing: House Alcohol intake: never Patient Tobacco Use Status: Former Tobacco user e-Cigarette/Vaping Use: Never Used Second Hand Smoke Exposure: Yes service: No Current occupational status: retired Cognitive needs: No Hearing needs: No Vision needs: Yes (glasses) Questionnaire PHQ-9 Over the last 2 weeks, how often have you been bothered by any of the following problems? 1. Little interest or pleasure in doing things: not at all 2. Feeling down, depressed, or hopeless: not at all 3. Trouble falling or staying asleep, or sleeping too much: not at all 4. Feeling tired or having little energy: not at all 5. Poor appetite or overeating: not at all 6. Feeling bad about yourself - or that you are a failure or have let yourself or your family down: not at all 7. Trouble concentrating on things, such as reading the newspaper or watching television: not at all 8. Moving or speaking so slowly that other people could have noticed. Or the opposite - being so fidgety or restless that you have been moving around a lot more than usual: not at all 9. Thoughts that you would be better off or of hurting yourself in some way: not at all Total score: 0 Depression Screening Interpretation: Negative Depression Screening Done: Yes 14059 - PHQ-9 Billing: Yes Source: Developed by Drs. Eric Duffy, Roxy Irwin, Cruz Pimentel and colleagues, with an educational trish from [employer]. Thrive Questionnaire Date Thrive assessed: 11/05/24 I am a: Patient What is your living situation today?: I have a steady place to live Within the past 12 months, did the food you bought not last and you didn't have the money to get more?: Never true Within the past 12 months, did you worry whether your food would run out before you got money to buy more?: Never true Do you have trouble paying for medicines?: No Do you have trouble getting transportation to medical appointments?: No Do you have trouble paying your heating and electricity bill?: No Do you have trouble taking care of your child, family member or friend?: No Do you have trouble with day-to-day activities such as bathing, preparing meals, shopping, managing finances, etc.?: No Are you currently unemployed and looking for a job?: No Are you interested in more education?: No Please select the resources that you would like help with: None Currently or been in a relationship where the following occur: No concerns reported THRIVE Score: 0 AUDIT C Alcohol Use Questionnaire (AUDIT-C) 1. How often do you have a drink containing alcohol?: Never 3. How often do you have six or more drinks on one occasion?: Never Total Score: 0 Score Reviewed/Action Taken: Yes CHAO-7 AMB Questionnaire CHAO-7 Date CHAO - 7 assessed: 06/16/24 Feeling nervous, anxious, or on edge: 0 = Not at all Not being able to stop or control worryin = Not at all Worrying too much about different things: 0 = Not at all Trouble relaxin = Not at all Being so restless that it is hard to sit still: 0 = Not at all Becoming easily annoyed or irritable: 0 = Not at all Feeling afraid as if something awful might happen: 0 = Not at all Total CHAO-7 score (0-4 normal; 5-9 mild; 10-14 moderate; 15-21 severe): 0 Source: Developed by Drs. Eric Duffy, Roxy Irwin, Cruz Pimentel and colleagues, with an educational trish from [employer]. Review of Systems Const Denies chills, Denies fatigue, Denies fever(s) and Denies headache(s) ENT Denies dysphagia, Denies dizziness, Denies otalgia, Denies headache(s), Denies neck pain, Denies odynophagia and Denies sore throat Card Denies chest pain, Denies palpitations and Denies dyspnea Resp Denies chest congestion, Denies cough and Denies dyspnea GI Denies abdominal pain, Denies constipation, Denies dysphagia, Denies heartburn, Denies diarrhea, Denies nausea, Denies odynophagia and Denies vomiting Denies difficulty voiding, Denies nocturia, Denies dysuria and Denies urinary urgency Musc Denies back pain, Denies neck pain and Reports stiffness (in both hands, on and off) Skin/Breast Denies rash Neuro Denies dizziness and Denies headache(s) Endo Denies fatigue and Denies palpitations Aller/Immun Reports seasonal rhinorrhea (at times) Physical exam (Primary Care) Vital Signs: Last Vital Signs Pulse 72 11/05/24 10:40 BP 132/64 11/05/24 10:40 Pulse Ox 96 11/05/24 10:40 Oxygen Delivery Method Room Air 11/05/24 10:40 BMI result Body Mass Index 23.8 Tobacco/Smoking Status: Tobacco use Status Tobacco use date assessed 11/05/24 11/05/24 10:43 Patient Tobacco Use Status Former Tobacco user 11/05/24 10:43 e-Cigarette/Vaping Use Never Used 11/05/24 10:43 PHQ-9: PHQ-9 Score PHQ-9: Total score 0 11/05/24 10:43 Depression Screening Interpretation: Negative Thrive Assessment: Date of Thrive Assessment Date Thrive assessed 11/05/24 11/05/24 10:50 Currently or been in a relationship where the following occur: No concerns reported Const General: no acute distress and alert HENMT Ears: TM's normal bilaterally and EAC's normal Throat: Yes posterior oropharynx normal and Yes tonsils normal (no TP congestion) Neck Neck: Yes supple and No lymphadenopathy Thyroid: Thyroid normal Resp Auscultation: clear to auscultation bilaterally, no rales and no wheezes Cardio Rate: regular rate Rhythm: regular rhythm Heart sounds: Murmur heart sound present systolic III/, at the apex and at the left sternal border GI Palpation (GI): Soft to palpation and nontender Auscultation: normal bowel sounds General: Yes no CVA tenderness Back/Spine/Pelvis Back: no CVA tenderness Thoracic/Lumbar Spine: straight leg raise negative bilaterally and No lumbar spinal tenderness Skin Rashes: no rashes Extrem General: Yes no clubbing, cyanosis or edema Results Reviewed Results Reviewed: Laboratory Tests 10/30/24 07:24 WBC 7.1 Hgb 13.4 Hct 40.4 Plt Count 215 Sodium 139 Potassium 4.9 Creatinine 1.40 Estimated GFR 36 Fasting Glucose 162 H Hemoglobin A1c % 7.2 H Calcium 9.5 AST 27 ALT 37 H Triglycerides 163 H Cholesterol 166 LDL Cholesterol, Calc 77 HDL Cholesterol 57 25-OH Vitamin D Total 53.1 TSH 2.42 Ur Specific [place] 1.010 Urine Protein Negative Urine Glucose (UA) Negative Urine Blood Negative Urine Nitrite Negative Ur Leukocyte Esterase Small (1+) H Microalb/Creat Ratio 73.9 H Coding Level of Care Code Est Pt Level 4 (86201) Complex EM visit Add On G2211 Diagnoses Type 2 diabetes mellitus with stage 3b chronic kidney disease, with long-term current use of insulin E11.21; N18.32; Z79.4 Diabetes mellitus manager intermediate insulin use: with manager intermediate use Chronic kidney disease stage: stage 3 (moderate) Chronic kidney disease stage 3 subtype: stage 3b (GFR 30-44) Stage 3b chronic kidney disease N18.32 Chronic kidney disease stage 3 subtype: stage 3b (GFR 30-44) Pure hypercholesterolemia E78.00 Benign essential hypertension I10 Cardiac murmur R01.1 Elevated LFTs R79.89 Sixth nerve palsy of right eye H49.21 Stiffness of joint of left pelvic region and thigh M25.652 Vitamin D deficiency E55.9 Seasonal allergic rhinitis due to pollen J30.1 Allergic rhinitis trigger: pollen Allergic rhinitis seasonality: seasonal Anxiety F41.9 Additional Codes PHQ-9 - 32495 - PHQ-9 Billing: Yes ([id number]) Assessment & Plan Assessment & Plan (1) Type 2 diabetes mellitus with chronic kidney disease: Code(s): E11.22 - Type 2 diabetes mellitus with diabetic chronic kidney disease Category: Medical Qualifiers: Diabetes mellitus manager intermediate insulin use: with residential use Chronic kidney disease stage: stage 3 (moderate) Chronic kidney disease stage 3 subtype: stage 3b (GFR 30-44) Qualified Code(s): E11.21 - Type 2 diabetes mellitus with diabetic nephropathy; N18.32 - Chronic kidney disease, stage 3b; Z79.4 - USP (current) use of insulin Plan: Her HgbA1c was at 7.2% on her labs done last week (was previously at 6.9% a few months ago) - goal is <7.0% Reinforced diabetic diet Continue Metformin 500 mg BID, Basaglar 36 units Q PM, Novolog 10 to 12 units TID with meals per sliding scale and Januvia 100 mg QD She was also previously on Jardiance 10 mg QD (started by nephrology to help stabilize her renal function) but this was discontinued a few months ago due to recurrent UTIs while she was on the medication She was previously seeing endocrinology but has been advised that she can just see them on an as-needed basis and to follow up with her PCP regularly for now as her diabetes is currently under good control (2) Chronic kidney disease (CKD), stage III (moderate): Code(s): N18.30 - Chronic kidney disease, stage 3 unspecified Category: Medical Qualifiers: Chronic kidney disease stage 3 subtype: stage 3b (GFR 30-44) Qualified Code(s): N18.32 - Chronic kidney disease, stage 3b Plan: Stable; will continue to monitor her renal function closely She was started on Jardiance 10 mg by nephrology last year (2023) to help stabilize her renal function but due to frequent/recurrent UTIs while on the Rx, this was ultimately discontinued last month Follow up with nephrology (Dr. Glass) as scheduled (3) Pure hypercholesterolemia: Code(s): E78.00 - Pure hypercholesterolemia, unspecified Category: Medical Plan: Results of her labs done last week reviewed and discussed with patient Reinforced low cholesterol diet Continue Atorvastatin 40 mg QD Will have her recheck her labs and fasting lipids in 4 months for follow up (4) Benign essential hypertension: Code(s): I10 - Essential (primary) hypertension Category: Medical Plan: Reinforced low sodium diet - goal is systolic BP of at least 130 mm or less in light of her CKD Continue Amlodipine 10 mg QD, Losartan 100 mg QD, Bystolic 5 mg QD and Hydralazine 10 mg BID Patient is reminded to continue monitoring her blood pressure regularly (5) Cardiac murmur: Code(s): R01.1 - Cardiac murmur, unspecified Category: Medical Plan: Her echocardiogram done back on 03/23/2022 revealed (+) trace mitral valve regurgitation (no mitral stenosis), which is the most likely source of patient's current systolic murmur heard on exam The tricuspid valve appears normal but the tricuspid regurgitation envelope was supposedly inadequate for calculation of the right ventricular systolic pressure Will consider having patient go for a follow up echocardiogram at her next appointment in the fall (6) Elevated LFTs: Code(s): R79.89 - Other specified abnormal findings of blood chemistry Category: Medical Plan: Her serum ALT is still slightly elevated but has decreased from previous; AST remains normal Will continue to monitor her LFTs regularly (7) Sixth nerve palsy of right eye: Code(s): H49.21 - Sixth [abducent] nerve palsy, right eye Category: Medical Plan: Patient reports that she is still experiencing diplopia and symptoms of dry eyes and some photosensitivity at times Eye exam done at [facility] previously revealed (+) retinopathy and cataract (last eye exam in September 2022 showed NO retinopathy); exam also revealed (+) 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 consistent with right 6th (abducens) nerve palsy Continue low dose Aspirin 81 mg QD Follow up with neurology and ophthalmology as scheduled (8) Stiffness of joint of left pelvic region and thigh: Code(s): M25.652 - Stiffness of left hip, not elsewhere classified Category: Medical Plan: Patient states that she stiil has some left thigh symptoms of stiffness/discomfort at times but overall, she feels like these have improved from before Lumbar spine x-rays done a few months ago revealed (+) grade 1 anterolisthesis L4 over L5; x-rays are otherwise unremarkable Her left knee x-rays revealed (+) mild DJD in the medial compartment; left femur/thigh x-rays showed (+) several small lucencies in the mid to distal femur and recommend follow-up left femur x-ray in a month or so Repeat left femur x-rays ordered (9) Vitamin D deficiency: Code(s): E55.9 - Vitamin D deficiency, unspecified Category: Medical Plan: Continue Vitamin D3 2000 units QD (10) Allergic rhinitis: Code(s): J30.9 - Allergic rhinitis, unspecified Category: Medical Qualifiers: Allergic rhinitis trigger: pollen Allergic rhinitis seasonality: seasonal Qualified Code(s): J30.1 - Allergic rhinitis due to pollen Plan: Continue OTC Loratadine 10 mg QD PRN (11) Anxiety: Code(s): F41.9 - Anxiety disorder, unspecified Category: Medical Plan: Continue Diazepam 2 mg QD PRN She was started on Sertraline 25 mg QD a couple of years ago to help manage her anxiety better but patient admits that she never started taking it - feels that she is doing well right now and does not need or want any additional intervention on Rx at this time Plan Plan Follow up in 4 months Orders: Orders Comprehensive [place]. Panel Fast 4 Months E78.00 - Pure hypercholesterolemia, unspecified Hemoglobin A1c 4 Months E11.9 - Type 2 diabetes mellitus without complications TSH reflex Free T4 4 Months E78.00 - Pure hypercholesterolemia, unspecified UA CC w/rflx Micro + Cult 4 Months R30.0 - Dysuria Vitamin D 25-OH Total 4 Months E55.9 - Vitamin D deficiency, unspecified Complete Blood Count Auto Diff 4 Months D64.9 - Anemia, unspecified Lipid Panel 4 Months E78.00 - Pure hypercholesterolemia, unspecified Microalbumin, Random (w Creat) 4 Months E11.9 - Type 2 diabetes mellitus without complications Vitamin B12 and Folate 4 Months E53.8 - Deficiency of other specified B group vitamins XR femur LT 2V Today M25.652 - Stiffness of left hip, not elsewhere classified
--- OUTSIDE RECORDS SUMMARY | 2024-11-05 11:09 | XMS_ITS | Clinical Summary ---
Author Organization [facility] Address [address] [place] [address] Phone Care Team Providers Care Satellite Installer Name Role Phone Johnny Valadez MD Primary Care Provider +1- [phone] Allergies Active Allergy Reactions Criticality Noted Date [...] age to complete this topic Insurance Medicare [facility] Medicare [facility] Care Teams Satellite Installer Relationship Specialty Start Date End Date Johnny Valadez MD [address] [place], [place] [phone] PCP - General Internal Medicine 07/13/21
== END 2024-11-05 11:31 | disposition home or self-care (01) ==
LOC: HO.HMCH 10:26
PROVIDERS: PCP Internal Medicine; Visit Provider Internal Medicine
DX: E11.21 Type 2 diabetes mellitus with diabetic nephropathy (principal); N18.32 Chronic kidney disease, stage 3b; Z79.4 Long term (current) use of insulin; E78.00 Pure hypercholesterolemia, unspecified; I10 Essential (primary) hypertension; R01.1 Cardiac murmur, unspecified; R79.89 Other specified abnormal findings of blood chemistry; H49.21 Sixth [abducent] nerve palsy, right eye; M25.652 Stiffness of left hip, not elsewhere classified; E55.9 Vitamin D deficiency, unspecified; J30.1 Allergic rhinitis due to pollen; F41.9 Anxiety disorder, unspecified

== ENCOUNTER → 2024-11-05 10:25 | Outpatient (BNVA) | payer MEDICARE, BC, OTHER, SELFPAY | PROVIDERS: PCP Internal Medicine; Visit Provider Internal Medicine | DX: I12.9 Hypertensive chronic kidney disease with stage 1 through stage 4 chronic kidney disease, or unspecified chronic kidney disease (principal); E11.22 Type 2 diabetes mellitus with diabetic chronic kidney disease; N18.32 Chronic kidney disease, stage 3b; Z79.4 Long term (current) use of insulin; E78.00 Pure hypercholesterolemia, unspecified; R01.1 Cardiac murmur, unspecified; E11.21 Type 2 diabetes mellitus with diabetic nephropathy; R79.89 Other specified abnormal findings of blood chemistry; H49.21 Sixth [abducent] nerve palsy, right eye; E55.9 Vitamin D deficiency, unspecified; M25.652 Stiffness of left hip, not elsewhere classified; J30.1 Allergic rhinitis due to pollen; F41.9 Anxiety disorder, unspecified | CPT/HCPCS: 96127; 99212 ==

== ENCOUNTER 2024-11-12 10:37 | Outpatient (REF) | payer MEDICARE, BC, OTHER, SELFPAY ==
--- NOTE | ~2024-11-12 | XR_ITS ---
EXAMINATION: XR FEMUR, LEFT CLINICAL INFORMATION: M25.652 - Stiffness of left hip, not elsewhere classified COMPARISON: June 17, 2024. TECHNIQUE: AP and lateral views of the left femur were obtained. FINDINGS: No acute cortical disruption. No periosteal bone reaction. No gross lytic or blastic lesions. Vascular calcifications. No subcutaneous emphysema. XR/XR femur LT 2V IMPRESSION: No acute fracture. No lytic or blastic lesions. Atherosclerosis disease, peripheral. Electronically signed by: Je Johnson MD 11/12/2024 11:11 AM EDT
--- OUTSIDE RECORDS SUMMARY | 2024-11-12 11:19 | XMS_ITS | Clinical Summary ---
Author Organization [facility] [place] Address [address] [place] [address] Phone Care Team Providers Care Natural Gas Plant Supervisor Name Role Phone Johnny Valadez MD Primary Care Provider +1- [phone] Allergies Active Allergy Reactions Criticality Noted Date [...] of 2 - PCV) 1964 Influenza Vaccine (#1) 2025 Hepatitis B Vaccine Aged Out No longe r eligible based on patient's age to complete this topic Insurance Medicare [facility] Medicare [facility] Care Teams Natural Gas Plant Supervisor Relationship Specialty Start Date End Date Johnny Valadez MD [address] [place], [place] [phone] PCP - General Internal Medicine 07/13/21
== END 2024-11-12 10:38 | disposition home or self-care (01) ==
LOC: HO.XRAY 10:37
PROVIDERS: PCP Internal Medicine; Visit Provider Internal Medicine
DX: M25.652 Stiffness of left hip, not elsewhere classified (principal)
CPT/HCPCS: 73552

== ENCOUNTER → 2024-11-12 10:43 | Outpatient (BNV) | payer MEDICARE, BC, OTHER, SELFPAY | PROVIDERS: PCP Internal Medicine; Visit Provider Radiology Diagnostic Radiology | DX: I70.212 Atherosclerosis of native arteries of extremities with intermittent claudication, left leg (principal) | CPT/HCPCS: 73552 ==

== ENCOUNTER 2024-11-13 08:55 | Outpatient (REF) | payer MEDICARE, BC, OTHER, SELFPAY | END 2024-11-13 08:56 | disposition home or self-care (01) | LOC: HO.LAB 08:55 | PROVIDERS: PCP Internal Medicine; Visit Provider Physician Assistant | DX: N39.0 Urinary tract infection, site not specified (principal) | CPT/HCPCS: 81003; 87086; 99212 ==

== ENCOUNTER 2024-11-13 08:55 | Outpatient (AMB) | payer MEDICARE, BC, OTHER, SELFPAY ==
[2024-11-13 09:01] VITALS: BP 160/58; PULSE 77; TEMP 36.9; O2SAT 97; BMI 24.0
--- NOTE | 2024-11-13 09:01 | AM.OFFWIN_ITS ---
Intake Vital Signs 11/13/24 09:01 Height 5 ft 6 in Weight 149 lb BMI 24.0 BP 160/58 H Blood Pressure Location Rt brachial Position Sitting Pulse 77 Pulse Source Pulse Oximeter Temp 98.4 F Temp Source Oral Pulse Oximetry (%) 97 Oxygen Delivery Method Room Air Intake Visit Reasons: EP UTI Patient Tobacco Use Status: Former Tobacco user Outreach Representative Required: No Is last menstrual period known: No Post menopausal: Yes Patient : No Allergies nitrofurantoin (Macrobid) Allergy (Unknown, Verified 11/13/24 09:07) hives empagliflozin (From Jardiance) Adverse Reaction (Intermediate, Verified 11/13/24 09:07) recurrent UTI Do you need a note to return to daycare/school/sports/work: No HPI HPI Comments History of Present Illness Details History - The patient is a 79-year-old female pr esenting with recurrent urinary tract infections. - Symptoms including dysuria and suprapu bic pressure which started today. Denies fevers or low back pain. - Her last UTI was 10/26 and she was perry robert with Bactrim for 10 days. - She reports frequent urinary tract inf ections over the past year. - She is under the care of a urologist a nd has undergone a CT scan and ultrasound for further evaluation. - Previous urine cultures have shown unu sual organisms, with some only susceptible to specific antibiotics like Ciprofloxacin and Bactrim. - The patient has a history of stage 3 c hronic kidney disease, GFR 35 on 10/30/24 Physical Exam General: Cooperative, healthy appearing, comfortable, no acute distress and well developed Orientation: Patient oriented x3 Limitations: No limitations Head: Normal to inspection Ears: Hearing grossly normal bilaterally Face and sinus: Normal facial exam Neck: Normal visual inspection and Yes full ROM Respiratory: Normal respiratory effort and able to speak in complete sentences. Skin: No rashes or lesions noted Neuro: Patient oriented x3 [facility] Medical History Cardiac murmur Sixth nerve palsy of right eye Allergic rhinitis Type 2 diabetes mellitus with polyneuropathy Hypertensive urgency Vitamin D deficiency HTN (hypertension) Diabetes type 2, uncontrolled Left low back pain Hyperlipidemia LDL goal <100 Anxiety Vitamin D deficiency Elevated LFTs Benign essential hypertension Pure hypercholesterolemia Chronic kidney disease (CKD), stage III (moderate) Type 2 diabetes mellitus with chronic kidney disease Surgical History History of bladder surgery History of total abdominal hysterectomy and bilateral salpingo-oophorectomy History of right oophorectomy History of tubal ligation Family History Father Past heart attack Mother Breast cancer Hypertension Cardiovascular disease Social History Household Members: Spouse Housing: House Alcohol intake: never Patient Tobacco Use Status: Former Tobacco user e-Cigarette/Vaping Use: Never Used Second Hand Smoke Exposure: Yes Patient : No service: No Current occupational status: retired Cognitive needs: No Hearing needs: No Vision needs: Yes (glasses) Review of Systems Const All systems reviewed & are unremarkable except as noted in HPI and below Physical Exam Vital Signs: Last Vital Signs Temp 98.4 F 11/13/24 09:01 Pulse 77 11/13/24 09:01 BP 160/58 H 11/13/24 09:01 Pulse Ox 97 11/13/24 09:01 Oxygen Delivery Method Room Air 11/13/24 09:01 BMI result Body Mass Index 24.0 Results AMB Urinalysis, Automated UA Leukoctes 500 Sapna/uL Last Edit by Maru Fish MA on 11/13/24 09:13 UA Nitrite Negative Last Edit by Maru Fish MA on 11/13/24 09:13 UA Urobilinogen 0.2 mg/dL Last Edit by Maru Fish MA on 11/13/24 09:13 UA Protein 30 mg/dL Last Edit by Maru Fish MA on 11/13/24 09:13 UA pH 6.0 Last Edit by Maru Fish MA on 11/13/24 09:13 UA Blood 200 Imtiaz/uL Last Edit by Maru Fish MA on 11/13/24 09:13 UA Specific [place] 1.015 Last Edit by Maru Fish MA on 11/13/24 09:13 UA Ketone Negative Last Edit by Maru Fish MA on 11/13/24 09:13 UA Bilirubin 0 mg/dL Last Edit by Maru Fish MA on 11/13/24 09:13 UA Glucose 0 mg/dL Last Edit by Maru Fish MA on 11/13/24 09:13 Results Reviewed Results Reviewed: Laboratory Last Values Urine pH (Auto) 6.0 11/13/24 09:02 Specific [place] (Auto) 1.015 11/13/24 09:02 Urine Protein (Auto) 30 mg/dL 11/13/24 09:02 Glucose (UA)(Auto) 0 mg/dL 11/13/24 09:02 Urine Ketones (Auto) Negative 11/13/24 09:02 Urine Blood (Auto) 200 Imtiaz/uL 11/13/24 09:02 Urine Nitrite (Auto) Negative 11/13/24 09:02 Urine Bilirubin (Auto) 0 mg/dL 11/13/24 09:02 Urine Urobilinogen (Auto) 0.2 mg/dL 11/13/24 09:02 Leukocyte Esterase (Auto) 500 Sapna/uL 11/13/24 09:02 Assessment & Plan Assessment & Plan (1) Complicated UTI (urinary tract infection): Code(s): N39.0 - Urinary tract infection, site not specified Plan: Patient was informed and verbally consented to the use of an ambient scribe for clinic note documentation during this visit. 1. Recurrent Urinary Tract Infections - UA with 3+ leuks, neg nitrites, 3+ blood - CrCl calculated to be 34 based on labs from 10/30/24 - Continue Ciprofloxacin 250mg every 12 hours for 7 days due to complicated UTI. - Await urine culture results to potentially switch to a different antibiotic if necessary. - Coordinated with urology to confirm the appropriateness of the antibiotic regimen. 2. Stage 3 Chronic Kidney Disease - Adjust antibiotic dosing based on renal function, specifically creatinine clearance. Orders: Orders AMB Urinalysis Automated Today Z13.9 - Encounter for screening, unspecified Urine Culture Today N39.0 - Urinary tract infection, site not specified Medications: New ciprofloxacin HCl 250 mg PO Q12H 14 tabs 0RF 7 days Discontinued methenamine hippurate Discontinued Reason: Doctor's Order 1 g PO daily 90 days 90 tabs 1RF N39.0 - Urinary tract infection, site not specified sulfamethoxazole-trimethoprim 800-160 mg (Bactrim DS) Hold methenamine and vitamin-C while on treatment dose Discontinued Reason: No Longer Medically Relevant 1 tab PO BID 10 days 20 tabs 0RF N39.0 - Urinary tract infection, site not specified Coding Level of Care Code Est Pt Level 3 (88611) Diagnoses Complicated UTI (urinary tract infection) N39.0
--- OUTSIDE RECORDS SUMMARY | 2024-11-13 09:07 | XMS_ITS | Clinical Summary ---
Author Organization [facility] [place] Address [address] [place] [address] Phone Care Team Providers Care Silicator Name Role Phone Johnny Valadez MD Primary Care Provider +1- [phone] Allergies Active Allergy Reactions Criticality Noted Date [...] age to complete this topic Insurance Medicare [facility] Medicare [facility] Care Teams Silicator Relationship Specialty Start Date End Date Johnny Valadez MD [address] [place], [place] [phone] PCP - General Internal Medicine 07/13/21
== END 2024-11-13 09:44 | disposition home or self-care (01) ==
PROVIDERS: PCP Internal Medicine; Visit Provider Physician Assistant
DX: Z13.9 Encounter for screening, unspecified (principal); N39.0 Urinary tract infection, site not specified

== ENCOUNTER 2024-12-04 07:59 | Outpatient (REF) | payer MEDICARE, BC, OTHER, SELFPAY ==
--- OUTSIDE RECORDS SUMMARY | 2024-12-04 08:01 | XMS_ITS | Clinical Summary ---
Author Organization [facility] [place] Address [address] [place] [address] Phone Care Team Providers Care Stretch Press Operator Name Role Phone Johnny Valadez MD Primary Care Provider +1- [phone] Allergies Active Allergy Reactions Criticality Noted Date [...] age to complete this topic Insurance Medicare [facility] Medicare [facility] Care Teams Stretch Press Operator Relationship Specialty Start Date End Date Johnny Valadez MD [address] [place] [address] PCP - General Internal Medicine 07/13/21
[2024-12-04 11:22] LABS: Blood Urea Nitrogen 18 mg/dL (9-16); Estimated Glomerular Filt Rate 48
== END 2024-12-04 08:00 | disposition home or self-care (01) ==
LOC: HO.HMGCLDS 07:59
PROVIDERS: PCP Internal Medicine; Visit Provider Nurse Practitioner Family
DX: D17.9 Benign lipomatous neoplasm, unspecified (principal)
CPT/HCPCS: 36415; 82565; 84520

== ENCOUNTER → 2024-12-25 10:44 | Outpatient (BNV) | payer MEDICARE, BC, OTHER, SELFPAY | PROVIDERS: PCP Internal Medicine; Visit Provider Radiology Diagnostic Radiology | DX: D17.71 Benign lipomatous neoplasm of kidney (principal); K76.0 Fatty (change of) liver, not elsewhere classified; R16.0 Hepatomegaly, not elsewhere classified | CPT/HCPCS: 74183 ==

== ENCOUNTER 2024-12-25 10:45 | Outpatient (REF) | payer MEDICARE, BC, OTHER, SELFPAY ==
--- NOTE | ~2024-12-25 | MR_ITS ---
CLINICAL HISTORY: D17.9 - Benign lipomatous neoplasm, unspecified --- Additional Notes or Special Instructions: Patient with a history of hives when getting contrast dye for CT MR abdomen with and without gadolinium Comparison: US - US RETROPERITONEAL COMP - 09/04/24 09:43 EDT Findings: Mild diffuse hepatic steatosis. The liver is enlarged with a craniocaudal height of 18.4 cm. Normal splenic size. No focal hepatic lesion. Biliary sludge without inflammation. No biliary ductal dilation or filling defect. Preserved pre contrast T1 signal of the pancreas. No ductal dilation or abnormal enhancement. No adrenal nodules. There is a predominantly fat containing mass arising from the medial upper pole of the left kidney measuring 16 mm most consistent with angiomyolipoma. Additional simple appearing left lower pole cyst measures 7 mm. No suspicious right renal lesions. The bowel appears nonobstructed. Please note this MRI was not optimized to evaluate the gastrointestinal tract. Patent nondilated vasculature. No pathologically enlarged lymph nodes or ascites. No aggressive or destructive osseous lesions. IMPRESSION: Hepatic steatosis and hepatomegaly. 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 This document has been electronically signed by: Kassi Zelaya MD on 12/27/2024 07:06:16
--- OUTSIDE RECORDS SUMMARY | 2024-12-25 10:55 | XMS_ITS | Clinical Summary ---
Author Organization [facility] [place] Address [address] [place] [address] Phone Care Team Providers Care Nursery Technician Name Role Phone Johnny Valadez MD Primary Care Provider +1- [phone] Allergies Active Allergy Reactions Criticality Noted Date [...] complete this topic Insurance Medicare [facility] * Guarantor: Di Freeman Account Type Relation to Patient Date of Phone Billing Address Personal/Family Self 1945 [address] [place] [address] Medicare [facility] Care Teams Nursery Technician Relationship Specialty Start Date End Date Johnny Valadez MD [address] [place] [address] PCP - General Internal Medicine 07/13/21
== END 2024-12-25 10:46 | disposition home or self-care (01) ==
LOC: HO.MRI 10:45
PROVIDERS: PCP Internal Medicine; Visit Provider Nurse Practitioner Family
DX: D17.9 Benign lipomatous neoplasm, unspecified (principal)
CPT/HCPCS: 74183; A9585

== ENCOUNTER 2024-12-28 10:06 | Outpatient (AMB) | payer MEDICARE, BC, OTHER, SELFPAY ==
[2024-12-28 10:24] VITALS: BP 172/70; PULSE 81; TEMP 36.8; O2SAT 97; BMI 23.9
--- NOTE | 2024-12-28 10:24 | AM.OFFWIN_ITS ---
Intake Vital Signs 12/28/24 10:24 Height 5 ft 6 in Weight 148 lb BMI 23.9 BP 172/70 H Blood Pressure Location Lt brachial Position Sitting Pulse 81 Pulse Source Pulse Oximeter Temp 98.3 F Temp Source Oral Pulse Oximetry (%) 97 Intake Visit Reasons: ep uti Intake Note: pt presents with concern for UTI, c/p burning and painful urinating, low abdominal pain Patient Tobacco Use Status: Former Tobacco user Allergies nitrofurantoin (Macrobid) Allergy (Unknown, Verified 12/28/24 10:27) hives empagliflozin (From Jardiance) Adverse Reaction (Intermediate, Verified 12/28/24 10:27) recurrent UTI Iodinated Contrast Media (Contrast Dye) Adverse Reaction (Unknown, Verified 12/28/24 10:27) hives Do you need a note to return to daycare/school/sports/work: No HPI HPI Comments History of Present Illness Details 79 y/o Female patient who presents to [facility] walk in clinic with c/o Recurrent UTIs. Her Last UTI was 11/2024 where she was treated with Ciprofloxacin. She sees Urology for her Bladder issues and she just had MRI recently. She has an appointment with Urology in 02/03/2025. Recurrent UTIs Culture positive Morganella - sensitive to ciprofloxacin and Bactrim. Since she just had Cipro - will order Bactrim. [facility] Medical History Cardiac murmur Sixth nerve palsy of right eye Allergic rhinitis Type 2 diabetes mellitus with polyneuropathy Hypertensive urgency Vitamin D deficiency HTN (hypertension) Diabetes type 2, uncontrolled Left low back pain Hyperlipidemia LDL goal <100 Anxiety Vitamin D deficiency Elevated LFTs Benign essential hypertension Pure hypercholesterolemia Chronic kidney disease (CKD), stage III (moderate) Type 2 diabetes mellitus with chronic kidney disease Surgical History History of bladder surgery History of total abdominal hysterectomy and bilateral salpingo-oophorectomy History of right oophorectomy History of tubal ligation Family History Father Past heart attack Mother Breast cancer Hypertension Cardiovascular disease Social History Household Members: Spouse Housing: House Alcohol intake: never Patient Tobacco Use Status: Former Tobacco user e-Cigarette/Vaping Use: Never Used Second Hand Smoke Exposure: Yes service: No Current occupational status: retired Cognitive needs: No Hearing needs: No Vision needs: Yes (glasses) Review of Systems Const All systems reviewed & are unremarkable except as noted in HPI and below Physical Exam Vital Signs: Last Vital Signs Temp 98.3 F 12/28/24 10:24 Pulse 81 12/28/24 10:24 BP 172/70 H 12/28/24 10:24 Pulse Ox 97 12/28/24 10:24 BMI result Body Mass Index 23.9 Const General: no acute distress and anxious Nutritional Appearance: well nourished Orientation/consciousness: patient oriented x3 Resp Effort & Inspection: normal respiratory effort Cardio Heart sounds: S1 normal heart sound present and S2 normal heart sound present General: Yes no CVA tenderness Back/Spine/Pelvis Back: no CVA tenderness Neuro General: patient oriented x3 Assessment & Plan Assessment & Plan (1) Complicated UTI (urinary tract infection): Code(s): N39.0 - Urinary tract infection, site not specified Plan: Urinalysis positive: 2+ CLARISA, Pos NIT, 3+ Blood. Will send Today's Urine for C&S. Due to her h/o recurrent UTIs and culture being sensitive to only Bactrim and Cipro. Ordered Bactrim double dose. Continue f/u with Urology as scheduled. Orders: Orders UA CC w/rflx Micro + Cult Today N39.0 - Urinary tract infection, site not specified Medications: New sulfamethoxazole-trimethoprim 800-160 mg (Bactrim DS) 1 tab PO BID 20 tabs 0RF 10 days N39.0 - Urinary tract infection, site not specified Coding Level of Care Code Est Pt Level 4 (57758) Diagnoses Complicated UTI (urinary tract infection) N39.0 Time Spent (min) 20
--- OUTSIDE RECORDS SUMMARY | 2024-12-28 11:09 | XMS_ITS | Clinical Summary ---
Author Organization [facility] [place] Address [address] [place] [address] Phone Care Team Providers Care Flute Teacher Name Role Phone Johnny Valadez MD Primary Care Provider +1- [phone] Allergies Active Allergy Reactions Criticality Noted Date [...] age to complete this topic Insurance Medicare [facility] Medicare [facility] Care Teams Flute Teacher Relationship Specialty Start Date End Date Johnny Valadez MD [address] [place] [address] PCP - General Internal Medicine 07/13/21
== END 2024-12-28 10:48 | disposition home or self-care (01) ==
PROVIDERS: PCP Internal Medicine; Visit Provider Nurse Practitioner Family
DX: Z13.9 Encounter for screening, unspecified (principal); N39.0 Urinary tract infection, site not specified

== ENCOUNTER 2024-12-28 10:06 | Outpatient (REF) | payer MEDICARE, BC, OTHER, SELFPAY ==
[2024-12-28 16:51] LABS: Appearance Urine Turbid; Glucose Urine UA 100 mg/dL (Negative); PH 5.5 (5.0-9.0); Specific Gravity - Urine 1.015 (1.005-1.025); UMIC TRIGGER UACC YES
[2024-12-28 16:53] LABS: UACC Culture Trigger YES
== END 2024-12-28 10:07 | disposition home or self-care (01) ==
LOC: HO.LAB 10:06
PROVIDERS: PCP Internal Medicine; Visit Provider Nurse Practitioner Family
DX: N39.0 Urinary tract infection, site not specified (principal); Z13.89 Encounter for screening for other disorder
CPT/HCPCS: 81001; 81003; 87086; 87088; 87186; 99212

== ENCOUNTER 2025-02-03 09:27 | Outpatient (AMB) | payer MEDICARE, BC, OTHER, SELFPAY ==
--- NOTE | 2025-02-03 09:30 | MHC.OFFVIS ---
Intake Visit Reasons: follow up with MRI and labs Intake Note: patient presents today for: follow up/MRI/labs urology medications: none blood thinners: none MRI done: 12/27/24 today's PVR: 6mls Box Tender Required: No Accompanied by: Self / Same As Patient Allergies nitrofurantoin (Macrobid) Allergy (Unknown, Verified 02/03/25 09:31) hives empagliflozin (From Jardiance) Adverse Reaction (Intermediate, Verified 02/03/25 09:31) recurrent UTI Iodinated Contrast Media (Contrast Dye) Adverse Reaction (Unknown, Verified 02/03/25 09:31) hives HPI Comments Details: Di is a pleasant 79-year-old female patient of Dr. Valadez. She has a past medical history of cardiac murmur, 6 nerve palsy of right eye, allergic rhinitis, type 2 diabetes with polyneuropathy, vitamin-D deficiency, hypertension, low-back pain, hyperlipidemia, anxiety, hypercholesteremia, and chronic kidney disease. She presents to the office today for follow-up of her recurrent urinary tract infections and angiolipoma. In discussion with the patient today she reports having sought out urgent care services through [facility] for UTI like symptoms she experienced in December. She reports having completed antibiotic therapy as prescribed through urgent care (Bactrim). We did discuss calling office with UTI like symptoms. When asked she also reports she is noncompliant with Estrace cream as prescribed. We did discuss importance in doing so as well as further treatment options of recurrent urinary tract infections. Patient was also previously on methenamine and vitamin-C for suppression however she does not recall taking these medications. Recent MRI renal mass protocol results reviewed with the patient today. 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 No suspicious renal lesions noted. She currently denies any bothersome urinary issues. She denies any UTI like symptoms. In office urinalysis results reviewed with the patient today. PVR 6 mL. She denies urinary urgency, urinary frequency, incontinence, nocturia, hematuria, dysuria, foul smelling urine, changes to urinary stream, flank pain, fever, and or chills. She denies any issues with constipation. We discussed potential causes of recurrent urinary tract infections as well as further treatment options and risks and benefits of these treatment options. She otherwise offers no other issues or concerns at this time. In review of patient's chart it appears urine cultures are as follows: 01/26 E coli, 11/26 E coli, 01/27 Enterococcus faecalis, 04/28 E coli, 05/30 Morganella Morgagni ssp melanie, 06/30 Morganella Morgagni ssp melanie, 12/28 [facility] Medical History Cardiac murmur Sixth nerve palsy of right eye Allergic rhinitis Type 2 diabetes mellitus with polyneuropathy Hypertensive urgency Vitamin D deficiency HTN (hypertension) Diabetes type 2, uncontrolled Left low back pain Hyperlipidemia LDL goal <100 Anxiety Vitamin D deficiency Elevated LFTs Benign essential hypertension Pure hypercholesterolemia Chronic kidney disease (CKD), stage III (moderate) Type 2 diabetes mellitus with chronic kidney disease Surgical History History of bladder surgery History of total abdominal hysterectomy and bilateral salpingo-oophorectomy History of right oophorectomy History of tubal ligation Family History Father Past heart attack Mother Breast cancer Hypertension Cardiovascular disease Social History Household Members: Spouse Housing: House Alcohol intake: never Patient Tobacco Use Status: Former Tobacco user e-Cigarette/Vaping Use: Never Used Second Hand Smoke Exposure: Yes service: No Current occupational status: retired Cognitive needs: No Hearing needs: No Vision needs: Yes (glasses) Review of Systems Const All systems reviewed & are unremarkable except as noted in HPI and below Physical Exam Const General: cooperative, healthy appearing, comfortable, no acute distress, well developed, alert and awake Orientation/consciousness: patient oriented x3 Limitations: no limitations HEENT Head: Yes normal to inspection, Yes normocephalic and Yes atraumatic Ears: hearing grossly normal bilaterally Eyes General: appearance normal, both eyes and all related structures Neck Neck: Yes normal visual inspection and Yes trachea midline Chest Chest palpation & inspection: normal inspection of the chest Resp Effort & Inspection: normal respiratory effort and able to speak in complete sentences Cardio Rate: regular rate GI Inspection: Yes normal to inspection General: Yes no CVA tenderness Back/Spine/Pelvis Back: no CVA tenderness Skin General skin exam: no rashes or lesions noted Neuro General: patient oriented x3 Extrem General: Yes normal to inspection Psych Appearance: grossly normal and well kempt Mental Status: mental status grossly normal Speech and movement: Normal speech and movement present and Clear speech present Affect: normal affect Attitude: cooperative Thought process: Normal thought process present Thought content: Normal thought content present Insight: Fair insight present (Psych) Judgement: Fair judgement present (Psych) Office Procedures Post Void Residual Post Residual Void Post Void Residual (PVR): 6 [id number] Void Residual by ultrasound Results AMB Urinalysis, Automated UA Leukoctes 70 Sapna/uL Last Edit by NINFA Doherty on 02/03/25 09:50 UA Nitrite Negative Last Edit by NINFA Doherty on 02/03/25 09:50 UA Urobilinogen 0.2 mg/dL Last Edit by NINFA Doherty on 02/03/25 09:50 UA Protein 30 mg/dL Last Edit by NINFA Doherty on 02/03/25 09:50 UA pH 6.0 Last Edit by NINFA Doherty on 02/03/25 09:50 UA Blood 0 Imtiaz/uL Last Edit by NINFA Doherty on 02/03/25 09:50 UA Specific [place] 1.020 Last Edit by NINFA Doherty on 02/03/25 09:50 UA Ketone Last Edit by NINFA Doherty on 02/03/25 09:50 UA Bilirubin 0 mg/dL Last Edit by NINFA Doherty on 02/03/25 09:50 UA Glucose 100 mg/dL Last Edit by NINFA Doherty on 02/03/25 09:50 Results Reviewed Results Reviewed: Date of Service: 12/25/24 Procedure(s): MR abdomen wo/w con Findings: Mild diffuse hepatic steatosis. The liver is enlarged with a craniocaudal height of 18.4 cm. Normal splenic size. No focal hepatic lesion. Biliary sludge without inflammation. No biliary ductal dilation or filling defect. Preserved pre contrast T1 signal of the pancreas. No ductal dilation or abnormal enhancement. No adrenal nodules. There is a predominantly fat containing mass arising from the medial upper pole of the left kidney measuring 16 mm most consistent with angiomyolipoma. Additional simple appearing left lower pole cyst measures 7 mm. No suspicious right renal lesions. The bowel appears nonobstructed. Please note this MRI was not optimized to evaluate the gastrointestinal tract. Patent nondilated vasculature. No pathologically enlarged lymph nodes or ascites. No aggressive or destructive osseous lesions. IMPRESSION: Hepatic steatosis and hepatomegaly. 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 Assessment & Plan Assessment & Plan (1) Angiolipoma: Code(s): D17.9 - Benign lipomatous neoplasm, unspecified Category: Medical (2) Recurrent urinary tract infection: Code(s): N39.0 - Urinary tract infection, site not specified Category: Medical Plan In office urinalysis results reviewed with the patient today; as noted above. PVR 6 mL. Recent MRI results reviewed with the patient today; as noted above. Restart Estrace however will try Vagifem. Patient currently denies any bothersome urinary issues. She denies any UTI like symptoms. She reports be happy with current voiding parameters. Discussed UTI prevention with D mannose supplement, vitamin-C, increasing fluid intake, behavioral therapy with timed voiding, perineal hygiene and postcoital voiding, and management of constipation with stool softeners and increased fiber intake. Follow-up in 3 months with imaging and labs to be completed prior; or sooner with any issues, concerns, and or questions. Orders: Orders AMB Urinalysis Automated Today Z13.9 - Encounter for screening, unspecified AMB Post Void Residual by ultrasound Today R35.0 - Frequency of micturition Medications: New estradiol (Vagifem) Insert tablet into vagina 2 times per week 10 mcg vaginal 2XW 9 tabs 6RF 30 days Discontinued sulfamethoxazole-trimethoprim 800-160 mg (Bactrim DS) Discontinued Reason: Patient Completed Course 1 tab PO BID 10 days 20 tabs 0RF N39.0 - Urinary tract infection, site not specified estradiol 0.01%(0.1mg/gram) Discontinued Reason: Patient Completed Course pea sized amount to urethra 3 times a week 30 days 42.5 grams 1RF N39.0 - Urinary tract infection, site not specified Patient Instructions: The patient had an opportunity to ask questions regarding the treatment plan. All questions were answered. Physical exam, labs, and imaging were discussed and reviewed in detail. As well as risks, benefits, and discussion of treatment choices. No major barriers to understanding were identified. The patient expressed understanding and agreement with the above treatment plan. The patient was made aware they should contact our office by phone for worsening of their current condition, the appearance of new symptoms, or with any questions or concerns. Compliance is encouraged with any medications and follow up testing that is ordered. It is a privilege to be allowed the opportunity to participate in? your urological care.? Again, if you have any questions or concerns If you have any questions or concerns please do not hesitate to contact me. The office is [phone]. This note is constructed using voice recognition software. While every effort has been made to ensure accuracy humanities division chair errors may have been included. Yours sincerely, HILDA Potter-STEWART Coding Level of Care Code Est Pt Level 3 (24045) Complex EM visit Add On G2211 Diagnoses Angiolipoma D17.9 Recurrent urinary tract infection N39.0 CPT Codes Post Residual Void - PVR CPT Code: 17333-Kyeu Void Residual by ultrasound ([id number])
--- OUTSIDE RECORDS SUMMARY | 2025-02-03 10:19 | XMS_ITS | Clinical Summary ---
Author Organization [facility] Address [address] [place] [address] Phone Care Team Providers Care Rod Greaser Name Role Phone Johnny Valadez MD Primary Care Provider [phone]- [phone] Allergies Active Allergy Reactions Criticality Noted Date [...] [facility] Medicare [facility] Care Teams Rod Greaser Relationship Specialty Start Date End Date Johnny Valadez MD [address] [place] [address] PCP - General Internal Medicine 07/13/21
== END 2025-02-03 10:10 | disposition home or self-care (01) ==
LOC: HO.HUSH 09:28
PROVIDERS: PCP Internal Medicine; Visit Provider Nurse Practitioner Family
DX: D17.9 Benign lipomatous neoplasm, unspecified (principal); N39.0 Urinary tract infection, site not specified; Z13.9 Encounter for screening, unspecified
CPT/HCPCS: 99213; G2211

== ENCOUNTER → 2025-02-03 09:27 | Outpatient (BNVA) | payer MEDICARE, BC, OTHER, SELFPAY | PROVIDERS: PCP Internal Medicine; Visit Provider Nurse Practitioner Family | DX: R35.0 Frequency of micturition (principal); N39.0 Urinary tract infection, site not specified; D17.71 Benign lipomatous neoplasm of kidney; Z13.9 Encounter for screening, unspecified | CPT/HCPCS: 51798; 81003; 99212 ==

== ENCOUNTER 2025-03-06 09:09 | Outpatient (REF) | payer MEDICARE, BC, OTHER, SELFPAY | END 2025-03-06 09:10 | disposition home or self-care (01) | LOC: HO.LNP 09:09 | PROVIDERS: PCP Internal Medicine; Visit Provider Physician Assistant Medical | DX: N30.01 Acute cystitis with hematuria (principal); R30.0 Dysuria; E11.42 Type 2 diabetes mellitus with diabetic polyneuropathy; E11.22 Type 2 diabetes mellitus with diabetic chronic kidney disease; I12.9 Hypertensive chronic kidney disease with stage 1 through stage 4 chronic kidney disease, or unspecified chronic kidney disease; N18.31 Chronic kidney disease, stage 3a; Z13.89 Encounter for screening for other disorder; Z87.891 Personal history of nicotine dependence | CPT/HCPCS: 81003; 87086; 87088; 87186; 99212 ==

== ENCOUNTER 2025-03-06 09:09 | Outpatient (AMB) | payer MEDICARE, BC, OTHER, SELFPAY ==
[2025-03-06 09:17] VITALS: BP 162/70; PULSE 75; RESP 16; TEMP 36.9; O2SAT 98; BMI 24.0
--- NOTE | 2025-03-06 09:17 | MHC.OFFWIV ---
Intake Vital Signs 03/06/25 09:17 Height 5 ft 6 in Weight 149 lb BMI 24.0 BP 162/70 H Blood Pressure Location Lt brachial Position Sitting Respiration 16 Pulse 75 Pulse Source Pulse Oximeter Temp 98.4 F Temp Source Oral Pulse Oximetry (%) 98 Oxygen Delivery Method Room Air Intake Visit Reasons: EP Possible UTI Patient Tobacco Use Status: Former Tobacco user Allergies nitrofurantoin (Macrobid) Allergy (Unknown, Verified 03/06/25 09:29) hives empagliflozin (From Jardiance) Adverse Reaction (Intermediate, Verified 03/06/25 09:29) recurrent UTI Iodinated Contrast Media (Contrast Dye) Adverse Reaction (Unknown, Verified 03/06/25:) hives HPI EP Possible UTI HPI Details Patient is a 79-year-old female with history of hypertension, diabetes, moderate stage III chronic kidney disease, and who reports recurrent cystitis. She does see a urologist and has had a full workup. She reports that she had asked the urologist to be considered for prophylactic antibiotics, but it was not started yet. She states her last UTI was 3 months ago, and symptoms have resolved. They reoccurred abruptly earlier this morning, and she comes to the walk-in with dysuria, burning sensation, and fullness over the bladder area. She denies kevin blood in the urine, weakness, chills, nausea vomiting or diarrhea, headache or dizziness, flank or back pain, or other significant associated symptoms. [facility] Medical History Cardiac murmur Sixth nerve palsy of right eye Allergic rhinitis Type 2 diabetes mellitus with polyneuropathy Hypertensive urgency Vitamin D deficiency HTN (hypertension) Diabetes type 2, uncontrolled Left low back pain Hyperlipidemia LDL goal <100 Anxiety Vitamin D deficiency Elevated LFTs Benign essential hypertension Pure hypercholesterolemia Chronic kidney disease (CKD), stage III (moderate) Type 2 diabetes mellitus with chronic kidney disease Surgical History History of bladder surgery History of total abdominal hysterectomy and bilateral salpingo-oophorectomy History of right oophorectomy History of tubal ligation Family History Father Past heart attack Mother Breast cancer Hypertension Cardiovascular disease Social History Household Members: Spouse Housing: House Alcohol intake: never Patient Tobacco Use Status: Former Tobacco user e-Cigarette/Vaping Use: Never Used Second Hand Smoke Exposure: Yes service: No Current occupational status: retired Cognitive needs: No Hearing needs: No Vision needs: Yes (glasses) Review of Systems Const All systems reviewed & are unremarkable except as noted in HPI and below Physical Exam Vital Signs: Last Vital Signs Temp 98.4 F 03/06/25 09:17 Pulse 75 03/06/25 09:17 Resp 16 03/06/25 09:17 BP 162/70 H 03/06/25 09:17 Pulse Ox 98 03/06/25 09:17 Oxygen Delivery Method Room Air 03/06/25 09:17 BMI result Body Mass Index 24.0 Const General: cooperative, healthy appearing, comfortable, no acute distress, alert, awake, Physically active and well groomed; No anxious, diaphoretic, ill appearing, intoxicated appearing, poor hygiene or tired appearing Nutritional Appearance: average body habitus Orientation/consciousness: oriented to person Limitations: no limitations Resp Effort & Inspection: normal respiratory effort, able to speak in complete sentences, no audible wheezes, no cough, no grunting, not labored, no nasal flaring, no retractions and symmetric chest movement Auscultation: clear to auscultation bilaterally, no crackles, no rales, no rhonchi, no wheezes, lung sounds not diminished and No rub present Cardio Palpation: normal PMI Rate: regular rate Rhythm: regular rhythm GI Inspection: Yes normal to inspection, No Abdominal panniculus present, No obesity and No visible pulsation Palpation (GI): Soft to palpation, not firm, Tenderness to palpation present (GI) suprapubicly, No hepatosplenomegaly present, no masses and No Rebound tenderness present General: No bladder normal to palpation and No CVA tenderness Bimanual exam- vagina & uterus: No bladder normal to palpation Back/Spine/Pelvis Back: No CVA tenderness Skin Other: Good color, warm and dry Neuro General: oriented to person Psych Appearance: grossly normal Mental Status: mental status grossly normal Speech and movement: Normal speech and movement present Affect: normal affect Attitude: cooperative Thought process: Normal thought process present Insight: Good insight present (Psych) Judgement: Good judgement present (Psych) Results AMB Urinalysis, Automated UA Leukoctes 500 Sapna/uL Last Edit by Tracey Gore CMA on 03/06/25 09:34 UA Nitrite Positive Last Edit by Tracey Gore, MARISSA on 03/06/25 09:34 UA Urobilinogen 0.2 mg/dL Last Edit by Tracey Gore, MARISSA on 03/06/25 09:34 UA Protein 100 mg/dL Last Edit by Tracey Gore, MARISSA on 03/06/25 09:34 UA pH 6.0 Last Edit by Tracey Gore, MARISSA on 03/06/25 09:34 UA Blood 200 Imtiaz/uL Last Edit by Tracey Gore, MARISSA on 03/06/25 09:34 UA Specific [place] 1.015 Last Edit by Tracey Gore, MARISSA on 03/06/25 09:34 UA Ketone Negative Last Edit by Tracey Gore, MARISSA on 03/06/25 09:34 UA Bilirubin 0 mg/dL Last Edit by Tracey Gore, MARISSA on 03/06/25 09:34 UA Glucose 0 mg/dL Last Edit by Tracey Gore, MARISSA on 03/06/25 09:34 Results Reviewed Results Reviewed: Laboratory Last Values Urine pH (Auto) 6.0 03/06/25 09:18 Specific [place] (Auto) 1.015 03/06/25 09:18 Urine Protein (Auto) 100 mg/dL 03/06/25 09:18 Glucose (UA)(Auto) 0 mg/dL 03/06/25 09:18 Urine Ketones (Auto) Negative 03/06/25 09:18 Urine Blood (Auto) 200 Imtiaz/uL 03/06/25 09:18 Urine Nitrite (Auto) Positive 03/06/25 09:18 Urine Bilirubin (Auto) 0 mg/dL 03/06/25 09:18 Urine Urobilinogen (Auto) 0.2 mg/dL 03/06/25 09:18 Leukocyte Esterase (Auto) 500 Sapna/uL 03/06/25 09:18 Positive nitrites, leuks, and heme Assessment & Plan Assessment & Plan (1) Acute cystitis: Code(s): N30.00 - Acute cystitis without hematuria Qualifiers: Hematuria presence: with hematuria Qualified Code(s): N30.01 - Acute cystitis with hematuria Plan: Patient is a 79-year-old female with history of hypertension, diabetes, moderate stage III chronic kidney disease, and who reports recurrent cystitis, which is consistent with her in-house urine dip, positive for nitrates heme and leukocytes. She is 3 months out from her last UTI, which apparently cleared completely as far as symptoms. She has no symptoms worrisome for an upper urinary tract infection, and no CVA tenderness which would be indicative of pyelonephritis Her last urinary tract infection that resolved was with Bactrim, so I will start this for her again. She reports history of failures with multiple other antibiotics. I also wrote her for short course Pyridium which she can take as it has resolved her symptoms in the past, and she should continue her water intake, and she knows to follow up with her urologist on Saturday. In the meantime, we will send her urine out for culture and sensitivity testing. If symptoms worsen, she knows to go to the emergency department. Orders: Orders AMB Urinalysis Automated Today Z13.9 - Encounter for screening, unspecified UA CC w/rflx Micro + Cult Today R30.0 - Dysuria Medications: New sulfamethoxazole-trimethoprim 800-160 mg (Bactrim DS) 1 tab PO BID 6 tabs 0RF 3 days phenazopyridine (Pyridium) Use for max 3 days 200 mg PO TID PRN 30 tabs 1RF dysuria Coding Level of Care Code Est Pt Level 4 (66343) Diagnoses Acute cystitis with hematuria N30.01 Hematuria presence: with hematuria
== END 2025-03-06 10:05 | disposition home or self-care (01) ==
PROVIDERS: PCP Internal Medicine; Visit Provider Physician Assistant Medical
DX: N30.01 Acute cystitis with hematuria (principal); Z13.9 Encounter for screening, unspecified

== ENCOUNTER 2025-03-13 07:12 | Outpatient (REF) | payer MEDICARE, BC, OTHER, SELFPAY ==
--- OUTSIDE RECORDS SUMMARY | 2025-03-13 07:15 | XMS_ITS | Clinical Summary ---
Author Organization [facility] Address [address] [place] [address] Phone Care Team Providers Care Frame Straightener Name Role Phone Johnny Valadez MD Primary Care Provider [phone]- [phone] Allergies Active Allergy Reactions Criticality Noted Date [...] age to complete this topic Insurance Medicare [facility] Medicare [facility] Care Teams Frame Straightener Relationship Specialty Start Date End Date Johnny Valadez MD [address] [place] [address] PCP - General Internal Medicine 07/13/21
[2025-03-13 11:25] LABS: MANUAL DIFF FLAG NO
[2025-03-13 11:48] LABS: Hematocrit 42.8 % (37.0-47.0); Hemoglobin 13.8 g/dl (12.0-16.0); Imm Gran Abs Auto 0.02 X10*3/uL (0.00-0.03); Imm Gran Pct Auto 0.3 % (0.0-0.4); Lymphocytes Absolute Auto 2.1 X10*3/uL (1.2-4.9); Mean Corpuscular HGB Conc 32.2 g/dl (31.0-35.0); Mean Corpuscular Hemoglobin 29.0 pg (27.0-33.0); Mean Corpuscular Volume 89.9 fL (80.0-98.0); NRBC Abs Auto 0.000 X10*3/uL (0.0-0.012); NRBC Pct Auto 0.0 /100WBC (0.0-0.2); Platelet Count 208 X10*3/uL (160-400); Red Blood Count 4.76 X10*6/uL (4.20-5.50); White Blood Count 7.1 X10*3/uL (4.8-10.8)
[2025-03-13 11:52] LABS: Appearance Urine Clear; Glucose Urine UA Negative (Negative); PH 6.0 (5.0-9.0); Specific Gravity - Urine 1.015 (1.005-1.025); UMIC TRIGGER UACC YES
[2025-03-13 11:56] LABS: Alanine Aminotransferase 29 U/L (0-31); Albumin Level 4.5 g/dL (3.5-5.0); Alkaline Phosphatase 72 U/L (39-117); Anion Gap 12 (12-20); Aspartate Amino Transferase 27 U/L (5-31); Blood Urea Nitrogen 17 mg/dL (9-16); Calcium 9.5 mg/dL (8.4-10.2); Carbon Dioxide 24 mmol/L (22-29); Chloride 109 mmol/L (96-108); Cholesterol 182 mg/dL (<200); Estimated Glomerular Filt Rate 43; HDL Cholesterol 59 mg/dL (>40); Potassium 4.0 mmol/L (3.3-5.1); Sodium 141 mmol/L (135-145); Total Protein 7.4 g/dL (6.5-8.0); Triglycerides 126 mg/dL (<150)
[2025-03-13 12:00] LABS: Microalbum/Creatinine Ratio Ur 64.3 ug/mg cr (<30)
[2025-03-13 12:13] LABS: UACC Culture Trigger YES
[2025-03-13 12:47] LABS: Folate 8.9 ng/mL (> or = 4.0); Vitamin B12 492 pg/mL (200-900)
== END 2025-03-13 07:13 | disposition home or self-care (01) ==
LOC: HO.HMGCLDS 07:12
PROVIDERS: PCP Internal Medicine; Visit Provider Internal Medicine
DX: E11.9 Type 2 diabetes mellitus without complications (principal); E53.8 Deficiency of other specified B group vitamins; E78.00 Pure hypercholesterolemia, unspecified; D64.9 Anemia, unspecified; E55.9 Vitamin D deficiency, unspecified
CPT/HCPCS: 36415; 80053; 80061; 81001; 82043; 82306; 82570; 82607; 82746; 83036; 84443; 85025; 87086

== ENCOUNTER 2025-03-17 09:51 | Outpatient (REF) | payer MEDICARE, BC, OTHER, SELFPAY ==
--- NOTE | ~2025-03-17 | XR_ITS ---
EXAMINATION: XR HIP, LEFT CLINICAL INFORMATION: M25.552 - Pain in left hip COMPARISON: None available. TECHNIQUE: AP and frog-leg lateral views of the left hip. FINDINGS: There is questionable axial joint space narrowing of the left hip. Minute marginal osteophytes are present involving femoral head and acetabular roof. Mild degenerative irregularity is present in the left SI joint. Faint linear calcific density in the pubic symphysis joint is consistent with chondrocalcinosis. XR/XR hip LT min 2V IMPRESSION: Mild degenerative change in the left hip and left SI joint. Electronically signed by: Lamin Puentes MD 03/17/2025 11:16 AM MARIA FERNANDA
--- NOTE | ~2025-03-17 | XR_ITS ---
Exam: X-ray, bilateral knees.XR KNEE 4 VIEWS BILATERAL TECHNIQUE: Three views lower extremity joint, bilateral knees INDICATION: M25.561 - Pain in right knee COMPARISON: Left knee June 17, 2024 FINDINGS: RIGHT KNEE: [id number] atherosclerotic ossifications are present. Chondrocalcinosis is visible in the medial lateral meniscus and patellofemoral joint. There is mild narrowing of the medial greater than lateral joint space. There are tricompartmental marginal osteophytes. There is no joint effusion. LEFT KNEE: Moderate atherosclerotic ossifications are present. Faint chondrocalcinosis is visible in the medial and lateral meniscus. There is subtle narrowing of the medial joint space volar to the prior. There are small marginal osteophytes present along the medial joint line and lateral patella. Minimal joint fluid is visible in the suprapatellar pouch. 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 Electronically signed by: Lamin Puentes MD 03/17/2025 11:20 AM MARIA FERNANDA
== END 2025-03-17 09:52 | disposition home or self-care (01) ==
LOC: HO.XRAY 09:51
PROVIDERS: PCP Internal Medicine; Visit Provider Internal Medicine
DX: M79.605 Pain in left leg (principal); M25.552 Pain in left hip; E11.21 Type 2 diabetes mellitus with diabetic nephropathy; N18.32 Chronic kidney disease, stage 3b; Z79.4 Long term (current) use of insulin; E78.00 Pure hypercholesterolemia, unspecified; I10 Essential (primary) hypertension; R01.1 Cardiac murmur, unspecified; R79.89 Other specified abnormal findings of blood chemistry; H49.21 Sixth [abducent] nerve palsy, right eye; M25.562 Pain in left knee; E55.9 Vitamin D deficiency, unspecified; J30.1 Allergic rhinitis due to pollen; F41.9 Anxiety disorder, unspecified; Z13.31 Encounter for screening for depression; Z13.39 Encounter for screening examination for other mental health and behavioral disorders
CPT/HCPCS: 73502; 73564; 96127; 99212

== ENCOUNTER 2025-03-17 09:51 | Outpatient (AMB) | payer MEDICARE, BC, OTHER, SELFPAY ==
--- NOTE | 2025-03-17 09:58 | A.OFFPC_ITS ---
Vital Signs 03/17/25 09:59 Height 5 ft 6 in Weight 146 lb 8 oz BMI 23.6 BP 142/64 H Blood Pressure Location Lt brachial Position Sitting Pulse 62 Pulse Source Pulse Oximeter Pulse Oximetry (%) 97 Oxygen Delivery Method Room Air Intake Visit Reasons: DM, CKD, hyperlipidemia, HTN Manager Lighting Required: No Accompanied by: Self / Same As Patient Allergies nitrofurantoin (Macrobid) Allergy (Unknown, Verified 03/17/25 10:31) hives empagliflozin (From Jardiance) Adverse Reaction (Intermediate, Verified 03/17/25 10:31) recurrent UTI Iodinated Contrast Media (Contrast Dye) Adverse Reaction (Unknown, Verified 03/17/25 10:31) hives Medication List - Last Reconciled 03/17/25 by Johnny Valadez MD amlodipine 10 mg PO DAILY 90 days ascorbic acid (vitamin C) 1,000 mg PO DAILY 90 days atorvastatin 40 mg PO BEDTIME 90 days blood sugar diagnostic (FreeStyle Lite Strips) As directed to test blood sugar four times a day blood-glucose meter (FreeStyle Lite Meter kit) As directed to test blood sugar four times a day cholecalciferol (vitamin D3) 50 mcg PO DAILY 90 days estradiol (Vagifem) 10 mcg vaginal 2XW 30 days hydralazine 10 mg PO BID insulin aspart U-100 (Novolog FlexPen U-100 Insulin aspart) 10 - 12 units (0.1 - 0.12 mL) subcut TID 30 days insulin glargine (Basaglar KwikPen U-100 Insulin) 36 units (0.36 mL) subcut QPM 30 days lancets (FreeStyle Lancets) As directed four times a day loratadine 10 mg PO DAILY PRN 90 days losartan 100 mg PO DAILY 90 days metformin 500 mg PO BID 90 days nebivolol (Bystolic) 5 mg PO DAILY 90 days pen needle, diabetic (BD Vi 2nd Gen Pen Needle) USE TO INEJCT FOUR TIMES A DAY sitagliptin phosphate (Januvia) 100 mg PO DAILY 90 days Tobacco use date assessed: 03/17/25 Fall risk assessment: No Falls in past year Last assessed Fall Risk: 03/17/25 Dental Screening Dental Screen Date: 03/17/25 Did you have a dental visit in the last 12 months?: Yes Did you have a dental problem in the last 6 months where you did not have access to dental care?: No Was dental information given to patient?: Patient has dentist HPI DM, CKD, hyperlipidemia, HTN HPI Details Patient comes in today for her follow up visit States that she has been experiencing increased pain and stiffness in several of her joints for the past couple of weeks, especially in her knees (R>L) and she has been having a hard time walking and moving around as a result Relates also increased stiffness in her hips and lower back lately and notes that her joint pains and stiffness feel worse when it is cold and rainy Adds that she has cataract surgery coming up in a few weeks at [facility] [place] She denies any headaches or dizziness Denies any chest pains, no increased SOB No nausea/vomiting, no abdominal pain No change in bowel habits noted She had her follow up labs done a few days ago - to discuss her results [facility] Medical History Cardiac murmur Sixth nerve palsy of right eye Allergic rhinitis Type 2 diabetes mellitus with polyneuropathy Hypertensive urgency Vitamin D deficiency HTN (hypertension) Diabetes type 2, uncontrolled Left low back pain Hyperlipidemia LDL goal <100 Anxiety Vitamin D deficiency Elevated LFTs Benign essential hypertension Pure hypercholesterolemia Chronic kidney disease (CKD), stage III (moderate) Type 2 diabetes mellitus with chronic kidney disease Surgical History History of bladder surgery History of total abdominal hysterectomy and bilateral salpingo-oophorectomy History of right oophorectomy History of tubal ligation Family History Father Past heart attack Mother Breast cancer Hypertension Cardiovascular disease Social History Household Members: Spouse Housing: House Alcohol intake: never Patient Tobacco Use Status: Former Tobacco user e-Cigarette/Vaping Use: Never Used Second Hand Smoke Exposure: Yes service: No Current occupational status: retired Cognitive needs: No Hearing needs: No Vision needs: Yes (glasses) Questionnaire PHQ-9 Over the last 2 weeks, how often have you been bothered by any of the following problems? 1. Little interest or pleasure in doing things: not at all 2. Feeling down, depressed, or hopeless: not at all 3. Trouble falling or staying asleep, or sleeping too much: not at all 4. Feeling tired or having little energy: not at all 5. Poor appetite or overeating: not at all 6. Feeling bad about yourself - or that you are a failure or have let yourself or your family down: not at all 7. Trouble concentrating on things, such as reading the newspaper or watching television: not at all 8. Moving or speaking so slowly that other people could have noticed. Or the opposite - being so fidgety or restless that you have been moving around a lot more than usual: not at all 9. Thoughts that you would be better off or of hurting yourself in some way: not at all Total score: 0 Depression Screening Interpretation: Negative Depression Screening Done: Yes 53539 - PHQ-9 Billing: Yes Source: Developed by Drs. Eric Duffy, Roxy Irwin, Cruz Pimentel and colleagues, with an educational trish from [employer]. Thrive Questionnaire Date Thrive assessed: 03/17/25 I am a: Patient What is your living situation today?: I have a steady place to live Within the past 12 months, did the food you bought not last and you didn't have the money to get more?: Never true Within the past 12 months, did you worry whether your food would run out before you got money to buy more?: Never true Do you have trouble paying for medicines?: No Do you have trouble getting transportation to medical appointments?: No Do you have trouble paying your heating and electricity bill?: No Do you have trouble taking care of your child, family member or friend?: No Do you have trouble with day-to-day activities such as bathing, preparing meals, shopping, managing finances, etc.?: No Are you currently unemployed and looking for a job?: No Are you interested in more education?: No Please select the resources that you would like help with: None Currently or been in a relationship where the following occur: No concerns reported THRIVE Score: 0 AUDIT C Alcohol Use Questionnaire (AUDIT-C) 1. How often do you have a drink containing alcohol?: Never 3. How often do you have six or more drinks on one occasion?: Never Total Score: 0 Score Reviewed/Action Taken: Yes CHAO-7 AMB Questionnaire CHAO-7 Date CHAO - 7 assessed: 03/17/25 Feeling nervous, anxious, or on edge: 0 = Not at all Not being able to stop or control worryin = Not at all Worrying too much about different things: 0 = Not at all Trouble relaxin = Not at all Being so restless that it is hard to sit still: 0 = Not at all Becoming easily annoyed or irritable: 0 = Not at all Feeling afraid as if something awful might happen: 0 = Not at all Total CHAO-7 score (0-4 normal; 5-9 mild; 10-14 moderate; 15-21 severe): 0 Source: Developed by Drs. Eric Duffy, Roxy Irwin, Cruz Pimentel and colleagues, with an educational trish from [employer]. Review of Systems Const Denies chills, Denies fatigue, Denies fever(s) and Denies headache(s) ENT Denies dysphagia, Denies dizziness, Denies otalgia, Denies headache(s), Denies neck pain, Denies odynophagia and Denies sore throat Card Denies chest pain, Denies palpitations and Denies dyspnea Resp Denies chest congestion, Denies cough and Denies dyspnea GI Denies abdominal pain, Denies constipation, Denies dysphagia, Denies heartburn, Denies diarrhea, Denies nausea, Denies odynophagia and Denies vomiting Denies difficulty voiding, Denies nocturia, Denies dysuria and Denies urinary urgency Musc Reports back pain (on and off lately), Reports arthralgias (increased over multiple joints, especially in her knees (R>L)), Denies joint swelling, Denies neck pain and Reports stiffness (increased stiffness overall in multiple joints, including her knees & hips) Skin/Breast Denies rash Neuro Denies dizziness and Denies headache(s) Endo Denies fatigue and Denies palpitations Physical exam (Primary Care) Vital Signs: Last Vital Signs Pulse 62 03/17/25 09:59 BP 142/64 H 03/17/25 09:59 Pulse Ox 97 03/17/25 09:59 Oxygen Delivery Method Room Air 03/17/25 09:59 BMI result Body Mass Index 23.6 Tobacco/Smoking Status: Tobacco use Status Tobacco use date assessed 03/17/25 03/17/25 10:00 Patient Tobacco Use Status Former Tobacco user 03/17/25 10:00 e-Cigarette/Vaping Use Never Used 03/17/25 10:00 PHQ-9: PHQ-9 Score PHQ-9: Total score 0 03/17/25 10:00 Depression Screening Interpretation: Negative Thrive Assessment: Date of Thrive Assessment Date Thrive assessed 03/17/25 03/17/25 10:00 Currently or been in a relationship where the following occur: No concerns reported Const General: no acute distress and alert HENMT Ears: TM's normal bilaterally and EAC's normal Throat: Yes posterior oropharynx normal and Yes tonsils normal (no TP congestion) Neck Neck: Yes supple and No lymphadenopathy Thyroid: Thyroid normal Resp Auscultation: clear to auscultation bilaterally, no rales and no wheezes Cardio Rate: regular rate Rhythm: regular rhythm Heart sounds: Murmur heart sound present systolic III/, at the apex and at the left sternal border GI Palpation (GI): Soft to palpation and nontender Auscultation: normal bowel sounds General: Yes no CVA tenderness Back/Spine/Pelvis Back: no CVA tenderness Thoracic/Lumbar Spine: lumbar spinal tenderness (mild) Skin Rashes: no rashes Extrem Other: (+) large varicosities noted over both lower legs General: Yes no clubbing, cyanosis or edema Right lower extremity: hip/thigh Details: tenderness Location: of the hip and knee Details: tenderness; no swelling Left lower extremity: knee Details: tenderness and crepitus; no swelling Results Reviewed Results Reviewed: Laboratory Tests 03/13/25 07:21 WBC 7.1 Hgb 13.8 Hct 42.8 Plt Count 208 Sodium 141 Potassium 4.0 Creatinine 1.22 Estimated GFR 43 Fasting Glucose 144 H Hemoglobin A1c % 6.9 H Calcium 9.5 AST 27 ALT 29 Triglycerides 126 Cholesterol 182 LDL Cholesterol, Calc 98 HDL Cholesterol 59 Vitamin B12 492 25-OH Vitamin D Total 50.4 TSH 2.24 Ur Specific [place] 1.015 Urine Protein Trace Urine Glucose (UA) Negative Urine Blood Negative Urine Nitrite Negative Ur Leukocyte Esterase Moderate (2+) H Microalb/Creat Ratio 64.3 H Coding Level of Care Code Est Pt Level 4 (42250) Complex EM visit Add On G2211 Diagnoses Type 2 diabetes mellitus with stage 3b chronic kidney disease, with long-term current use of insulin E11.21; N18.32; Z79.4 Diabetes mellitus nursing home insulin use: with nursing home use Chronic kidney disease stage: stage 3 (moderate) Chronic kidney disease stage 3 subtype: stage 3b (GFR 30-44) Stage 3b chronic kidney disease N18.32 Chronic kidney disease stage 3 subtype: stage 3b (GFR 30-44) Pure hypercholesterolemia E78.00 Benign essential hypertension I10 Cardiac murmur R01.1 Elevated LFTs R79.89 Sixth nerve palsy of right eye H49.21 Stiffness of joint of left pelvic region and thigh M25.652 Pain in both knees, unspecified chronicity M25.561; M25.562 Chronicity: unspecified Vitamin D deficiency E55.9 Seasonal allergic rhinitis due to pollen J30.1 Allergic rhinitis trigger: pollen Allergic rhinitis seasonality: seasonal Anxiety F41.9 Additional Codes PHQ-9 - 11148 - PHQ-9 Billing: Yes ([id number]) Assessment & Plan Assessment & Plan (1) Type 2 diabetes mellitus with chronic kidney disease: Code(s): E11.22 - Type 2 diabetes mellitus with diabetic chronic kidney disease Category: Medical Qualifiers: Diabetes mellitus nursing home insulin use: with keno terminal operator use Chronic kidney disease stage: stage 3 (moderate) Chronic kidney disease stage 3 subtype: stage 3b (GFR 30-44) Qualified Code(s): E11.21 - Type 2 diabetes mellitus with diabetic nephropathy; N18.32 - Chronic kidney disease, stage 3b; Z79.4 - computer terminal operator (current) use of insulin Plan: Her HgbA1c was at 6.9% on her labs done a few days ago (was previously at 7.2% a few months ago) - goal is <7.0% Reinforced diabetic diet Continue Metformin 500 mg BID, Basaglar 36 units Q PM, Novolog 10 to 12 units TID with meals per sliding scale and Januvia 100 mg QD She was also previously on Jardiance 10 mg QD (started by nephrology to help stabilize her renal function) but this was discontinued due to recurrent UTIs while she was on the medication She was previously seeing endocrinology but has been advised that she can just see them on an as-needed basis and to follow up with her PCP regularly for now as her diabetes is currently under good control (2) Chronic kidney disease (CKD), stage III (moderate): Code(s): N18.30 - Chronic kidney disease, stage 3 unspecified Category: Medical Qualifiers: Chronic kidney disease stage 3 subtype: stage 3b (GFR 30-44) Qualified Code(s): N18.32 - Chronic kidney disease, stage 3b Plan: Stable; will continue to monitor her renal function closely She was started on Jardiance 10 mg by nephrology last year (2023) to help stabilize her renal function but due to frequent/recurrent UTIs while on the Rx, this was ultimately discontinued last month Have emphasized again tight glucose and blood pressure control to help keep her renal function stable Follow up with nephrology (Dr. Glass) as scheduled (3) Pure hypercholesterolemia: Code(s): E78.00 - Pure hypercholesterolemia, unspecified Category: Medical Plan: Results of her labs done a few days ago reviewed and discussed with patient Reinforced low cholesterol diet Continue Atorvastatin 40 mg QD Will have her recheck her labs and fasting lipids in 4 months for follow up (4) Benign essential hypertension: Code(s): I10 - Essential (primary) hypertension Category: Medical Plan: Reinforced low sodium diet - goal is systolic BP of at least 130 mm or less in light of her CKD Continue Amlodipine 10 mg QD, Losartan 100 mg QD, Bystolic 5 mg QD and Hydralazine 10 mg BID Patient is reminded to continue monitoring her blood pressure regularly (5) Cardiac murmur: Code(s): R01.1 - Cardiac murmur, unspecified Category: Medical Plan: Her echocardiogram done back on 03/23/2022 revealed (+) trace mitral valve regurgitation (no mitral stenosis), which is the most likely source of patient's current systolic murmur heard on exam The tricuspid valve appears normal but the tricuspid regurgitation envelope was supposedly inadequate for calculation of the right ventricular systolic pressure Will consider having patient go for a follow up echocardiogram at her next appointment in early 2025 (6) Elevated LFTs: Code(s): R79.89 - Other specified abnormal findings of blood chemistry Category: Medical Plan: Her LFTs are all back to normal on her recent labs Will continue to monitor her LFTs regularly (7) Sixth nerve palsy of right eye: Code(s): H49.21 - Sixth [abducent] nerve palsy, right eye Category: Medical Plan: Patient reports that she is still experiencing some diplopia and symptoms of dry eyes and some photosensitivity at times Eye exam done at [facility] previously revealed (+) retinopathy and cataract (last eye exam in September 2022 showed NO retinopathy); exam also revealed (+) 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 consistent with right 6th (abducens) nerve palsy Continue low dose Aspirin 81 mg QD Follow up with neurology and ophthalmology as scheduled (8) Stiffness of joint of left pelvic region and thigh: Code(s): M25.652 - Stiffness of left hip, not elsewhere classified Category: Medical Plan: Patient states that she stiil has some left thigh symptoms of stiffness/discomfort at times, and these seem to be worse with the onset of the cold weather over the past month or so Lumbar spine x-rays done a few months ago revealed (+) grade 1 anterolisthesis L4 over L5; x-rays are otherwise unremarkable Her left knee x-rays revealed (+) mild DJD in the medial compartment; left femur/thigh x-rays showed (+) several small lucencies in the mid to distal femur and recommend follow-up left femur x-ray in a month or so Repeat left femur x-rays done a few months ago revealed no acute fracture, no lytic or blastic lesions and (+) atherosclerosis disease, peripheral. (9) Bilateral knee pain: Code(s): M25.561 - Pain in right knee; M25.562 - Pain in left knee Category: Medical Qualifiers: Chronicity: unspecified Qualified Code(s): M25.561 - Pain in right knee; M25.562 - Pain in left knee Plan: Patient is advised that her recent increased stiffness and pain in her knees are most likely due to osteoarthritis Will send her for bilateral knee x-rays STEPHAN for further evaluation Will also refer her to orthopedics for consultation and if appropriate, some cortisone injections to help with her knee symptoms She has been cautioned that in light of her CKD, she should not really be taking Ibuprofen and should take OTC Tylenol for pain instead (10) Vitamin D deficiency: Code(s): E55.9 - Vitamin D deficiency, unspecified Category: Medical Plan: Continue Vitamin D3 2000 units QD (11) Allergic rhinitis: Code(s): J30.9 - Allergic rhinitis, unspecified Category: Medical Qualifiers: Allergic rhinitis trigger: pollen Allergic rhinitis seasonality: seasonal Qualified Code(s): J30.1 - Allergic rhinitis due to pollen Plan: Continue OTC Loratadine 10 mg QD PRN (12) Anxiety: Code(s): F41.9 - Anxiety disorder, unspecified Category: Medical Plan: Continue Diazepam 2 mg QD PRN She was started on Sertraline 25 mg QD a couple of years ago to help manage her anxiety better but patient admits that she never started taking it - feels that she is doing well right now and does not need or want any additional intervention on Rx at this time Plan Plan Follow up in 4 months Orders: Orders XR knee LT 4V Today M25.562 - Pain in left knee Hemoglobin A1c 4 Months E11.9 - Type 2 diabetes mellitus without complications Comprehensive [place]. Panel Fast 4 Months E78.00 - Pure hypercholesterolemia, unspecified Lipid Panel 4 Months E78.00 - Pure hypercholesterolemia, unspecified UA CC w/rflx Micro + Cult 4 Months R30.0 - Dysuria Vitamin B12 and Folate 4 Months E53.8 - Deficiency of other specified B group vitamins Vitamin D 25-OH Total 4 Months E55.9 - Vitamin D deficiency, unspecified Complete Blood Count Auto Diff 4 Months D64.9 - Anemia, unspecified Microalbumin, Random (w Creat) 4 Months E11.9 - Type 2 diabetes mellitus without complications TSH reflex Free T4 4 Months E78.00 - Pure hypercholesterolemia, unspecified Referrals Orthopedics Referral M25.561 - Pain in right knee, M25.562 - Pain in left knee
[2025-03-17 09:59] VITALS: BP 142/64; PULSE 62; O2SAT 97; BMI 23.6
--- OUTSIDE RECORDS SUMMARY | 2025-03-17 11:19 | XMS_ITS | Clinical Summary ---
Author Organization [facility] Address [address] [place] [address] Phone Care Team Providers Care Last Inserter Name Role Phone Johnny Valadez MD Primary Care Provider [phone] Allergies Active Allergy Reactions Criticality Noted Date [...] age to complete this topic Insurance Medicare [facility] Medicare [facility] Care Teams Last Inserter Relationship Specialty Start Date End Date Johnny Valadez MD [address] [place] [address] PCP - General Internal Medicine 07/13/21
== END 2025-03-17 10:45 | disposition home or self-care (01) ==
LOC: HO.HMCH 09:52
PROVIDERS: PCP Internal Medicine; Visit Provider Internal Medicine
DX: E11.21 Type 2 diabetes mellitus with diabetic nephropathy (principal); N18.32 Chronic kidney disease, stage 3b; Z79.4 Long term (current) use of insulin; E78.00 Pure hypercholesterolemia, unspecified; I10 Essential (primary) hypertension; R01.1 Cardiac murmur, unspecified; R79.89 Other specified abnormal findings of blood chemistry; H49.21 Sixth [abducent] nerve palsy, right eye; M25.652 Stiffness of left hip, not elsewhere classified; M25.561 Pain in right knee; M25.562 Pain in left knee; E55.9 Vitamin D deficiency, unspecified; J30.1 Allergic rhinitis due to pollen; F41.9 Anxiety disorder, unspecified

== ENCOUNTER → 2025-03-17 10:54 | Outpatient (BNV) | payer MEDICARE, BC, OTHER, SELFPAY | PROVIDERS: PCP Internal Medicine; Visit Provider Radiology Diagnostic Radiology | DX: M17.0 Bilateral primary osteoarthritis of knee (principal); M16.12 Unilateral primary osteoarthritis, left hip | CPT/HCPCS: 73502; 73564 ==

== ENCOUNTER 2025-04-17 07:33 | Outpatient (REF) | payer MEDICARE, BC, OTHER, SELFPAY ==
[2025-04-17 12:11] LABS: Anion Gap 13 (12-20); Blood Urea Nitrogen 14 mg/dL (9-16); Carbon Dioxide 25 mmol/L (22-29); Chloride 110 mmol/L (96-108); Estimated Glomerular Filt Rate 54; Potassium 3.8 mmol/L (3.3-5.1); Sodium 144 mmol/L (135-145)
[2025-04-17 12:37] LABS: Protein/Creatinine Ratio, Ur 0.23 (<0.2); Total Protein Urine Random 20 mg/dL (<12)
== END 2025-04-17 07:34 | disposition home or self-care (01) ==
LOC: HO.HMGCLDS 07:33
PROVIDERS: PCP Internal Medicine; Visit Provider Internal Medicine Nephrology
DX: I12.9 Hypertensive chronic kidney disease with stage 1 through stage 4 chronic kidney disease, or unspecified chronic kidney disease (principal); E11.22 Type 2 diabetes mellitus with diabetic chronic kidney disease; N18.32 Chronic kidney disease, stage 3b; Z79.4 Long term (current) use of insulin
CPT/HCPCS: 36415; 80051; 82565; 82570; 84156; 84520

== ENCOUNTER 2025-04-21 10:53 | Outpatient (AMB) | payer MEDICARE, BC, OTHER, SELFPAY ==
--- NOTE | 2025-04-21 11:14 | HO.NEPHOV ---
Vital Signs 04/21/25 11:15 Height 5 ft 6 in Weight 145 lb 2 oz BMI 23.4 BP 140/70 H Blood Pressure Location Rt brachial Position Sitting Pulse 86 Pulse Source Pulse Oximeter Pulse Oximetry (%) 98 Oxygen Delivery Method Room Air Intake Visit Reasons: 6 MNTS-LVM Blurb Writer Required: No Accompanied by: Self / Same As Patient Allergies nitrofurantoin (Macrobid) Allergy (Unknown, Verified 04/21/25 11:15) hives empagliflozin (From Jardiance) Adverse Reaction (Intermediate, Verified 04/21/25 11:15) recurrent UTI Iodinated Contrast Media (Contrast Dye) Adverse Reaction (Unknown, Verified 04/21/25 11:15) hives HPI Comments Details: Carrie was seen in follow-up for her chronic kidney disease and hypertension. She has longstanding diabetes mellitus but her blood sugar control had not been optimal for a long time. She recently had developed visual disturbance and has seen a neurologist as well as architecture intern. She denies congestive heart failure, CVA, peripheral arterial disease. Her mother had severe PAD. She is not a smoker. Her renal functions had been stable. She had been getting a lot of UTI's and has seen Urology. [facility] Medical History Cardiac murmur Sixth nerve palsy of right eye Allergic rhinitis Type 2 diabetes mellitus with polyneuropathy Hypertensive urgency Vitamin D deficiency HTN (hypertension) Diabetes type 2, uncontrolled Left low back pain Hyperlipidemia LDL goal <100 Anxiety Vitamin D deficiency Elevated LFTs Benign essential hypertension Pure hypercholesterolemia Chronic kidney disease (CKD), stage III (moderate) Type 2 diabetes mellitus with chronic kidney disease Surgical History History of bladder surgery History of total abdominal hysterectomy and bilateral salpingo-oophorectomy History of right oophorectomy History of tubal ligation Family History Father Past heart attack Mother Breast cancer Hypertension Cardiovascular disease Social History Household Members: Spouse Housing: House Alcohol intake: never Patient Tobacco Use Status: Former Tobacco user e-Cigarette/Vaping Use: Never Used Second Hand Smoke Exposure: Yes service: No Current occupational status: retired Cognitive needs: No Hearing needs: No Vision needs: Yes (glasses) Review of Systems Const All systems reviewed & are unremarkable except as noted in HPI and below Physical Exam Vital Signs: Last Vital Signs Pulse 86 04/21/25 11:15 BP 140/70 H 04/21/25 11:15 Pulse Ox 98 04/21/25 11:15 Oxygen Delivery Method Room Air 04/21/25 11:15 BMI result Body Mass Index 23.4 Const General: comfortable and no acute distress Orientation/consciousness: patient oriented x3 HEENT Head: Yes normocephalic Mouth: Normal oral and palatal mucosa present Eyes EOM: EOMs intact bilaterally Neck Neck: Yes supple Resp Auscultation: clear to auscultation bilaterally Cardio Jugular venous distension: no JVD Rate: regular rate GI Palpation (GI): Soft to palpation Auscultation: normal bowel sounds General: Yes no CVA tenderness Back/Spine/Pelvis Back: no CVA tenderness Skin General skin exam: no rashes or lesions noted Neuro General: patient oriented x3 and moves all extremities Extrem General: Yes no pedal edema Results Reviewed Nephrology Results: Hgb, (12.0-16.0) 13.8 g/dl 03/13/25 WBC, (4.8-10.8) 7.1 X10*3/uL 03/13/25 Plt Count, (160-400) 208 X10*3/uL 03/13/25 Sodium, (135-145) 144 mmol/L 04/17/25 Potassium, (3.3-5.1) 3.8 mmol/L 04/17/25 Chloride, (96-108) 110 mmol/L H 04/17/25 Carbon Dioxide, (22-29) 25 mmol/L 04/17/25 BUN, (9-16) 14 mg/dL 04/17/25 Creatinine, (0.5-1.4) 0.99 mg/dL 04/17/25 Calcium, (8.4-10.2) 9.5 mg/dL 03/13/25 Urine Protein, (Neg-Trace) Trace mg/dL 03/13/25 Urine Creatinine 88.03 mg/dL 04/17/25 Protein/Creatinin Ratio, (<0.2) 0.23 H 04/17/25 Renal US 09/05/24 Assessment & Plan Assessment & Plan (1) HTN (hypertension): Code(s): I10 - Essential (primary) hypertension Category: Medical Qualifiers: Hypertension type: primary hypertension Qualified Code(s): I10 - Essential (primary) hypertension Plan Di has 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 Her blood pressure is close to goal on current medication regimen. She is tolerating angiotensin receptor francis. She avoids nonsteroidal anti-inflammatories and maintain good hydration. Her Jardiance has been discontinued due to recurrent UTI's. Answered all questions. Follow-up given Coding Level of Care Code Est Pt Level 4 (89558) Diagnoses Primary hypertension I10 Hypertension type: primary hypertension
[2025-04-21 11:15] VITALS: BP 140/70; PULSE 86; O2SAT 98; BMI 23.4
== END 2025-04-21 11:30 | disposition home or self-care (01) ==
LOC: HO.HKA 10:54
PROVIDERS: PCP Internal Medicine; Visit Provider Internal Medicine Nephrology
DX: I10 Essential (primary) hypertension (principal)
CPT/HCPCS: 99214

== ENCOUNTER → 2025-04-21 10:53 | Outpatient (BNVA) | payer MEDICARE, BC, OTHER, SELFPAY | PROVIDERS: PCP Internal Medicine; Visit Provider Internal Medicine Nephrology | DX: I12.9 Hypertensive chronic kidney disease with stage 1 through stage 4 chronic kidney disease, or unspecified chronic kidney disease (principal); E11.22 Type 2 diabetes mellitus with diabetic chronic kidney disease; N18.30 Chronic kidney disease, stage 3 unspecified; Z79.4 Long term (current) use of insulin; Z87.891 Personal history of nicotine dependence | CPT/HCPCS: 99212 ==

== ENCOUNTER 2025-04-26 13:51 | Outpatient (AMB) | payer MEDICARE, BC, OTHER, SELFPAY ==
[2025-04-26 14:08] VITALS: BP 168/70; PULSE 70; RESP 18; O2SAT 98; BMI 23.7
--- NOTE | 2025-04-26 14:08 | MHC.PC.OV ---
Vital Signs 04/26/25 14:08 Height 5 ft 6 in Weight 147 lb BMI 23.7 BP 168/70 H Blood Pressure Location Lt brachial Position Sitting Respiration 18 Pulse 70 Pulse Source Pulse Oximeter Temp Source Temporal Artery Scan Pulse Oximetry (%) 98 Oxygen Delivery Method Room Air Intake Visit Reasons: [facility] Cataract surgery 05/14 lt 06/11 Refrigerating Technician Required: No Accompanied by: Self / Same As Patient Allergies nitrofurantoin (Macrobid) Allergy (Unknown, Verified 04/26/25 14:24) hives empagliflozin (From Jardiance) Adverse Reaction (Intermediate, Verified 04/26/25 14:24) recurrent UTI Iodinated Contrast Media (Contrast Dye) Adverse Reaction (Unknown, Verified 04/26/25 14:24) hives Medication List - Last Reconciled 04/26/25 by JAZMINE Diaz amlodipine 10 mg PO DAILY 90 days ascorbic acid (vitamin C) 1,000 mg PO DAILY 90 days atorvastatin 40 mg PO BEDTIME 90 days blood sugar diagnostic (FreeStyle Lite Strips) As directed to test blood sugar four times a day blood-glucose meter (FreeStyle Lite Meter kit) As directed to test blood sugar four times a day cholecalciferol (vitamin D3) 50 mcg PO DAILY 90 days estradiol (Vagifem) 10 mcg vaginal 2XW 30 days hydralazine 10 mg PO BID insulin aspart U-100 (Novolog FlexPen U-100 Insulin aspart) 10 - 12 units (0.1 - 0.12 mL) subcut TID 30 days insulin glargine (Basaglar KwikPen U-100 Insulin) 36 units (0.36 mL) subcut QPM 30 days lancets (FreeStyle Lancets) As directed four times a day loratadine 10 mg PO DAILY PRN 90 days losartan 100 mg PO DAILY 90 days metformin 500 mg PO BID 90 days nebivolol (Bystolic) 5 mg PO DAILY 90 days pen needle, diabetic (Unifine Pentips Plus) USE 1 NEEDLE FOUR TIMES A DAY sitagliptin phosphate (Januvia) 100 mg PO DAILY 90 days Tobacco use date assessed: 04/26/25 Fall risk assessment: No Falls in past year Last assessed Fall Risk: 04/26/25 Dental Screening Dental Screen Date: 04/26/25 Did you have a dental visit in the last 12 months?: Yes Did you have a dental problem in the last 6 months where you did not have access to dental care?: No Was dental information given to patient?: Patient has dentist HPI HPI Comments History of Present Illness Details The patient is a 79 year old female presenting for preoperative clearance for bilateral cataract surgeries scheduled for May 14 and July 01. A previous attempt at the procedure was canceled because she did not have the required preoperative clearance. The patient has a history of hypertension, which she attributes to a white coat effect, as she becomes nervous in medical settings. She reports past readings were almost 200, and a recent reading at her dental laboratory technology teacher's office was 140/70 mmHg. She owns a blood pressure machine but does not check her readings at home, despite her daughter's encouragement. A past echocardiogram revealed trace mild regurgitation. Her medical history is also significant for diabetes mellitus, managed with metformin twice daily, Januvia, and long-acting insulin (36 units at night). She also reports a recurrence of itchy psoriasis on her neck, forehead, and eyelids. Surgery: Cataract surgery Date:left eye on May 14 and right eye on July 01 2025. Surgeon/location: Dr. William Jaquez at [facility], [place], [place] Patient denies any recent surgery. Reports years ago without any issues. Past surgical history includes a hysterectomy many years ago. She reports having a bad knee but is unaware of the results of a prior X-ray. The patient has not had an EKG in a while and does not have a perinatal director. Health Maintenance - Preoperative evaluation for bilateral cataract surgery. - Counseling on the importance of home blood pressure monitoring to manage hypertension. - Referral to dermatology for psoriasis management. - An EKG and repeat lab work will be obtained as part of the preoperative workup. - The patient is scheduled to follow up with her primary care provider, Dr. Valadez, in July. Social History - The patient's daughter is a nurse. - The patient is active in caring for her three grandchildren. - She reports experiencing stress and nervousness while caring for her autistic grandson, who has a history of seizures, and while teaching another grandson to drive. - She does not use a computer or the patient portal. - She relies on a girlfriend for transportation. Results - Past Echocardiogram: Revealed trace, mild regurgitation. [facility] Medical History Cardiac murmur Sixth nerve palsy of right eye Allergic rhinitis Type 2 diabetes mellitus with polyneuropathy Hypertensive urgency Vitamin D deficiency HTN (hypertension) Diabetes type 2, uncontrolled Left low back pain Hyperlipidemia LDL goal <100 Anxiety Vitamin D deficiency Elevated LFTs Benign essential hypertension Pure hypercholesterolemia Chronic kidney disease (CKD), stage III (moderate) Type 2 diabetes mellitus with chronic kidney disease Surgical History History of bladder surgery History of total abdominal hysterectomy and bilateral salpingo-oophorectomy History of right oophorectomy History of tubal ligation Family History Father Past heart attack Mother Breast cancer Hypertension Cardiovascular disease Social History Household Members: Spouse Housing: House Alcohol intake: never Patient Tobacco Use Status: Former Tobacco user e-Cigarette/Vaping Use: Never Used Second Hand Smoke Exposure: Yes service: No Current occupational status: retired Cognitive needs: No Hearing needs: No Vision needs: Yes (glasses) Questionnaire Thrive Questionnaire Date Thrive assessed: 04/26/25 I am a: Patient What is your living situation today?: I have a steady place to live Within the past 12 months, did the food you bought not last and you didn't have the money to get more?: Never true Within the past 12 months, did you worry whether your food would run out before you got money to buy more?: Never true Do you have trouble paying for medicines?: No Do you have trouble getting transportation to medical appointments?: No Do you have trouble paying your heating and electricity bill?: No Do you have trouble taking care of your child, family member or friend?: No Do you have trouble with day-to-day activities such as bathing, preparing meals, shopping, managing finances, etc.?: No Are you currently unemployed and looking for a job?: No Are you interested in more education?: No Please select the resources that you would like help with: None Currently or been in a relationship where the following occur: No concerns reported THRIVE Score: 0 AUDIT C Alcohol Use Questionnaire (AUDIT-C) 2. How many drinks containing alcohol do you have on a typical day when you are drinking?: 1 or 2 3. How often do you have six or more drinks on one occasion?: Never Total Score: 0 CHAO-7 AMB Questionnaire CHAO-7 Date CHAO - 7 assessed: 03/17/25 Source: Developed by Drs. Eric Duffy, Roxy Irwin, Cruz Pimentel and colleagues, with an educational trish from [employer]. Review of Systems Narrative Review of Systems - Cardiovascular: Denies chest pain or heart palpitations. - Respiratory: Denies shortness of breath. - Neurological: Denies headaches or dizziness. - Gastrointestinal: Denies stomach pain. - Integumentary: Reports an itchy rash on her neck, forehead, and eyelids. - Musculoskeletal: Reports a bad knee . - General: Denies fever. - Psychiatric: Reports nervousness related to medical appointments and family stressors. Const Denies headache(s) Eyes Denies loss of vision ENT Denies vertigo, Denies dizziness, Denies headache(s) and Denies sore throat Card Denies chest pain, Denies leg edema and Denies lightheadedness Resp Denies cough, Denies hemoptysis and Denies wheezing GI Denies abdominal pain, Denies melena, Denies constipation, Denies diarrhea and Denies vomiting Denies urinary frequency, Denies dysuria and Denies urinary urgency Musc Denies arthralgias, Denies joint swelling, Denies numbness and Denies tingling Skin/Breast Reports pruritus (back of neck) and Reports rash (back of neck) Neuro Denies Abnormal speech present, Denies behavioral changes, Denies vertigo, Denies dizziness, Denies headache(s), Denies loss of vision, Denies memory loss, Denies numbness and Denies tingling Psych Reports anxiety, Denies behavioral changes, Denies depression, Denies memory loss and Denies panic attacks Roshan/Lymph Denies easy bleeding and Denies easy bruising Aller/Immun Denies wheezing Physical exam (Primary Care) Vital Signs: Last Vital Signs Pulse 70 04/26/25 14:08 Resp 18 04/26/25 14:08 BP 168/70 H 04/26/25 14:08 Pulse Ox 98 04/26/25 14:08 Oxygen Delivery Method Room Air 04/26/25 14:08 BMI result Body Mass Index 23.7 Tobacco/Smoking Status: Tobacco use Status Tobacco use date assessed 04/26/25 04/26/25 14:13 Patient Tobacco Use Status Former Tobacco user 04/26/25 14:13 e-Cigarette/Vaping Use Never Used 04/26/25 14:13 Thrive Assessment: Date of Thrive Assessment Date Thrive assessed 04/26/25 04/26/25 14:13 Currently or been in a relationship where the following occur: No concerns reported Narrative Physical Exam - Vitals: Blood pressure was elevated on initial and repeat measurements in the office. - Lungs: Clear to auscultation bilaterally, no adventitious sounds. Const General: healthy appearing, no acute distress, alert and awake Nutritional Appearance: well nourished Orientation/consciousness: oriented to person, oriented to place and oriented to time HENMT Ears: TM's normal bilaterally General nose exam: Normal nasal mucous membranes and turbinates present Eyes Conjunctivae: conjunctivae normal Sclerae: sclerae normal Pupils: Equal, round and reactive pupils present Neck Neck: Yes no lymphadenopathy and Yes no JVD Thyroid: Thyroid normal Carotids: no bruits Resp Effort & Inspection: normal respiratory effort and not tachypneic Auscultation: no crackles, no rales, no rhonchi and no wheezes Cardio Rate: regular rate Rhythm: regular rhythm Heart sounds: Murmur heart sound present systolic III/ and normal S1 and S2 GI Palpation (GI): Soft to palpation, nontender, no hepatomegaly and no splenomegaly Auscultation: normal bowel sounds General: Yes no CVA tenderness Back/Spine/Pelvis Back: no CVA tenderness Skin General skin exam: dry skin Lesions: lesion noted (Erythematous plaques posterior neck consistent with psoriasis) Neuro General: oriented to person, oriented to place and oriented to time Cranial nerves: Yes Equal, round and reactive pupils present Speech: No Abnormal speech present Gait exam (Neuro): Normal gait present Motor exam (neuro): no tremor noted Extrem Right upper extremity: full ROM Left upper extremity: full ROM Right lower extremity: full ROM; no edema Left lower extremity: full ROM; no edema Psych Mental Status: mental status grossly normal Speech and movement: Normal speech and movement present Affect: normal affect Attitude: cooperative Thought process: Normal thought process present Coding Level of Care Code Est Pt Level 4 (83582) Diagnoses Preoperative clearance Z01.818 Primary hypertension I10 Hypertension type: primary hypertension Type 2 diabetes mellitus with stage 3b chronic kidney disease, with long-term current use of insulin E11.21; N18.32; Z79.4 Diabetes mellitus halfway insulin use: with 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 superintendent use Chronic kidney disease stage: stage 3 (moderate) Chronic kidney disease stage 3 subtype: stage 3b (GFR 30-44) Cardiac murmur R01.1 Psoriasis L40.9 Cataract of both eyes, unspecified cataract type H26.9 Cataract type: unspecified Laterality: bilateral Time Spent (min) 37 Assessment & Plan Assessment & Plan (1) Preoperative clearance: Code(s): Z01.818 - Encounter for other preprocedural examination Category: Medical (2) HTN (hypertension): Code(s): I10 - Essential (primary) hypertension Category: Medical Qualifiers: Hypertension type: primary hypertension Qualified Code(s): I10 - Essential (primary) hypertension (3) Type 2 diabetes mellitus with chronic kidney disease: Code(s): E11.22 - Type 2 diabetes mellitus with diabetic chronic kidney disease Category: Medical Qualifiers: Diabetes mellitus halfway insulin use: with halfway use Chronic kidney disease stage: stage 3 (moderate) Chronic kidney disease stage 3 subtype: stage 3b (GFR 30-44) Qualified Code(s): E11.21 - Type 2 diabetes mellitus with diabetic nephropathy; N18.32 - Chronic kidney disease, stage 3b; Z79.4 - [facility] (current) use of insulin (4) Cardiac murmur: Code(s): R01.1 - Cardiac murmur, unspecified Category: Medical (5) Psoriasis: Code(s): L40.9 - Psoriasis, unspecified Category: Medical (6) Cataract: Code(s): H26.9 - Unspecified cataract Category: Medical Qualifiers: Cataract type: unspecified Laterality: bilateral Qualified Code(s): H26.9 - Unspecified cataract Plan Plan Patient was informed and verbally consented to the use of an ambient scribe for clinic note documentation during this visit. 1. Preoperative Evaluation The primary concern for preoperative clearance is the patient's elevated blood pressure, which she attributes to a white coat effect. To better assess her baseline blood pressure and provide evidence of control blood pressure, the patient was instructed to begin home blood pressure monitoring. A follow-up nurse visit is scheduled for the upcoming Saturday to recheck her blood pressure and calibrate her home machine with the office's equipment. An EKG and a non-fasting lab panel will be ordered to ensure clearance for both her May and June surgeries. 2. Hypertension The patient was counseled on the importance of distinguishing between white coat hypertension and sustained hypertension through home monitoring. She will start recording her blood pressure daily and bring the log to her follow-up visit. She was explicitly instructed to take her blood pressure medication (amlodipine) on the morning of her surgery to prevent perioperative hypertension. 3. Diabetes Mellitus A detailed perioperative medication management plan was established. She will take half her usual dose of long-acting insulin (Lantus), reducing it from 36 to 18 units, the night before surgery. She will hold her metformin dose the night before and the morning of the surgery. She may continue taking Januvia. She was advised that she could drink juice for hypoglycemia up to two hours before the procedure. 4. Psoriasis The patient reports a recurrence of itchy psoriasis on her neck, forehead, and eyelids. A referral will be sent to dermatology for further evaluation and management, and the referral service will contact her to schedule an appointment. Triamcinolone 0.1% cream was ordered for affected area on posterior neck. Patient has a he systolic murmur that was evaluated by echocardiogram that shows trace mitral valve regurgitation. Normal left ventricle size, thickness, and systolic function with an EF between 65-70% in 2021. Discussion Notes I educated the patient on the need for preoperative clearance for her upcoming bilateral cataract surgeries. I explained that the primary concern is her elevated blood pressure in the office, and that uncontrolled hypertension could lead to surgical cancellation by anesthesia. We discussed the importance of home blood pressure monitoring to differentiate white coat hypertension from sustained hypertension and to provide evidence of control for the surgical team. I outlined the plan, which includes her recording home BP readings and returning for a nurse visit to recheck the pressure and calibrate her machine. I ordered an EKG and labs to complete the preoperative workup for both procedures. We reviewed her medications, providing specific instructions on adjusting her diabetes medications (Metformin, Lantus) and emphasizing that she should take her blood pressure medication on the morning of surgery. I confirmed that a referral to dermatology would be placed for her recurrent psoriasis. Patient Instructions - You are scheduled for cataract surgery on your first eye on May 14 and your second eye on July 01. - Please start checking your blood pressure at home in the morning and evening, and write the numbers down on paper. - Come back to the office on Saturday, the , for a blood pressure check with a nurse. - When you come on Saturday, please bring your home blood pressure machine with you so we can make sure it is accurate. - You need to have an EKG (a heart test) and some blood work done. You can go to the lab to get this done anytime, including on Saturday when you come for your nurse visit. - We are sending a referral to a skin doctor (supervisor core shop) for your rash. Their office will call you to schedule an appointment. - For your surgery: Take your blood pressure pill on the morning of surgery. - For your diabetes medications before surgery: Do NOT take your Metformin pill the night before or the morning of surgery. Take only half of your long-acting insulin (18 units) the night before surgery. You can take your Januvia pill. - If your blood sugar gets too low, it is okay to drink juice up to 2 hours before your surgery. - Keep your scheduled follow-up appointment with Dr. Banks in July. Orders: Orders Basic Metabolic Panel Today Z01.818 - Encounter for other preprocedural examination TSH reflex Free T4 Today Z01.818 - Encounter for other preprocedural examination Complete Blood Count Auto Diff Today Z01.818 - Encounter for other preprocedural examination UA CC w/rflx Micro + Cult Today Z01.818 - Encounter for other preprocedural examination ECG 12 lead EKG Today Z01.818 - Encounter for other preprocedural examination Referrals Dermatology Referral L40.9 - Psoriasis, unspecified Medications: New triamcinolone acetonide 0.1% 1 appl topical BID 30 grams 0RF L40.9 - Psoriasis, unspecified
--- OUTSIDE RECORDS SUMMARY | 2025-04-26 17:21 | XMS_ITS | Clinical Summary ---
Author Organization [facility] Address [address] [place] [address] Phone Care Team Providers Care Senior Chemical Process Engineer Name Role Phone Johnny Valadez MD Primary Care Provider [phone]- [phone] Allergies Active Allergy Reactions Criticality Noted Date [...] age to complete this topic Insurance Medicare [facility] Medicare [facility] Care Teams Senior Chemical Process Engineer Relationship Specialty Start Date End Date Johnny Valadez MD [address] [place] [address] PCP - General Internal Medicine 07/13/21
== END 2025-04-26 15:03 | disposition home or self-care (01) ==
LOC: HO.HMCH 13:52
PROVIDERS: PCP Internal Medicine
DX: I12.9 Hypertensive chronic kidney disease with stage 1 through stage 4 chronic kidney disease, or unspecified chronic kidney disease (principal); E11.21 Type 2 diabetes mellitus with diabetic nephropathy; N18.32 Chronic kidney disease, stage 3b; Z79.4 Long term (current) use of insulin; Z01.818 Encounter for other preprocedural examination; R01.1 Cardiac murmur, unspecified; L40.9 Psoriasis, unspecified; H26.9 Unspecified cataract

== ENCOUNTER → 2025-04-26 13:51 | Outpatient (BNVA) | payer MEDICARE, BC, OTHER, SELFPAY | PROVIDERS: PCP Internal Medicine | DX: Z01.818 Encounter for other preprocedural examination (principal); I10 Essential (primary) hypertension; E11.21 Type 2 diabetes mellitus with diabetic nephropathy; N18.32 Chronic kidney disease, stage 3b; Z79.4 Long term (current) use of insulin; R01.1 Cardiac murmur, unspecified; L40.9 Psoriasis, unspecified; H26.9 Unspecified cataract | CPT/HCPCS: 99212 ==

== ENCOUNTER 2025-05-03 08:20 | Outpatient (REF) | payer MEDICARE, BC, OTHER, SELFPAY ==
--- NOTE | ~2025-05-03 | XR_ITS ---
EXAMINATION: XR KNEE, RIGHT CLINICAL INFORMATION: M25.561 - Pain in right knee COMPARISON: None available. TECHNIQUE: Four views of the right knee. FINDINGS: No fracture, dislocation, or suspicious bone lesion. Normal alignment. Diffuse chondrocalcinosis in the medial and lateral compartments, as well as the patellofemoral compartment in keeping with CPPD. Mild tricompartmental joint space narrowing with small marginal osteophytic spurs. There is normal patellar alignment without abnormal tilt. There is a small suprapatellar joint effusion. Soft tissues demonstrate mild vascular calcifications and what appeared to be medial saphenous varicosities. XR/XR knee RT 4V IMPRESSION: 1. 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 2. Mild tricompartmental arthritis. 3. Small suprapatellar joint effusion. 4. Medial saphenous varicosities suspected. Electronically signed by: Elvis Vega MD 05/03/2025 10:15 AM MARIA FERNANDA
--- OUTSIDE RECORDS SUMMARY | 2025-05-03 08:23 | XMS_ITS | Clinical Summary ---
Author Organization [facility] Address [address] [place] [address] Phone Care Team Providers Care Online Program Coordinator Name Role Phone Johnny Valadez MD Primary Care Provider [phone]- [phone] Allergies Active Allergy Reactions Criticality Noted Date [...] Medicare [facility] Care Teams Online Program Coordinator Relationship Specialty Start Date End Date Johnny Valadez MD [address] [place] [address] PCP - General Internal Medicine 07/13/21
[2025-05-03 08:37] LABS: MANUAL DIFF FLAG NO
[2025-05-03 08:47] LABS: Hematocrit 41.6 % (37.0-47.0); Hemoglobin 13.7 g/dl (12.0-16.0); Imm Gran Abs Auto 0.03 X10*3/uL (0.00-0.03); Imm Gran Pct Auto 0.3 % (0.0-0.4); Lymphocytes Absolute Auto 1.7 X10*3/uL (1.2-4.9); Mean Corpuscular HGB Conc 32.9 g/dl (31.0-35.0); Mean Corpuscular Hemoglobin 28.7 pg (27.0-33.0); Mean Corpuscular Volume 87.0 fL (80.0-98.0); NRBC Abs Auto 0.000 X10*3/uL (0.0-0.012); NRBC Pct Auto 0.0 /100WBC (0.0-0.2); Platelet Count 226 X10*3/uL (160-400); Red Blood Count 4.78 X10*6/uL (4.20-5.50); White Blood Count 9.4 X10*3/uL (4.8-10.8)
[2025-05-03 09:17] LABS: Anion Gap 12 (12-20); Blood Urea Nitrogen 20 mg/dL (9-16); Calcium 9.6 mg/dL (8.4-10.2); Carbon Dioxide 26 mmol/L (22-29); Chloride 107 mmol/L (96-108); Estimated Glomerular Filt Rate 42; Potassium 4.3 mmol/L (3.3-5.1); Sodium 141 mmol/L (135-145)
--- NOTE | 2025-05-03 09:54 | ECG_ITS ---
Test Reason : preop Blood Pressure : */* mmHG Vent. Rate : 71 BPM Atrial Rate : 71 BPM P-R Int : 158 ms QRS Dur : 80 ms QT Int : 404 ms P-R-T Axes : 49 -20 48 degrees QTcB Int : 439 ms Normal sinus rhythm Minimal voltage criteria for LVH, may be normal variant ( R in aVL ) Borderline ECG When compared with ECG of 01-Jun-2021 09:28, No significant change was found Referred By: Leo Gardner Electronically Signed By: LOUIS MOORE
[2025-05-03 10:40] LABS: Appearance Urine Clear; Glucose Urine UA Negative (Negative); PH 6.5 (5.0-9.0); Specific Gravity - Urine 1.015 (1.005-1.025); UMIC TRIGGER UACC YES
[2025-05-03 10:52] LABS: UACC Culture Trigger YES
== END 2025-05-03 08:21 | disposition home or self-care (01) ==
LOC: HO.XRAY 08:20
PROVIDERS: PCP Internal Medicine
DX: Z01.818 Encounter for other preprocedural examination (principal); M25.561 Pain in right knee; Z13.29 Encounter for screening for other suspected endocrine disorder
CPT/HCPCS: 36415; 73564; 80048; 81001; 84443; 85025; 87086; 87088; 93005

== ENCOUNTER → 2025-05-03 09:25 | Outpatient (BNV) | payer MEDICARE, BC, OTHER, SELFPAY | PROVIDERS: PCP Internal Medicine; Visit Provider Radiology Diagnostic Radiology | DX: M11.261 Other chondrocalcinosis, right knee (principal); M17.11 Unilateral primary osteoarthritis, right knee; M25.461 Effusion, right knee | CPT/HCPCS: 73564 ==

== ENCOUNTER → 2025-05-03 09:54 | Outpatient (BNV) | payer MEDICARE, BC, OTHER, SELFPAY | PROVIDERS: PCP Internal Medicine; Visit Provider Internal Medicine | DX: Z01.818 Encounter for other preprocedural examination (principal) | CPT/HCPCS: 93010 ==